=== PATIENT | male | born 1945 | race Caucasian/White ===

== ENCOUNTER 2016-05-29 14:16 | Inpatient (IN) | payer MEDICARE, OTHER ==
[2016-05-29] MEDS ORDERED: NS 0.9% 1000 ML* 1,000 ML IV ONE (14:49)
[2016-05-29 15:14] LABS: Hematocrit 22 % (42-52); Hemoglobin 6.9 g/dl (14.0-18.0); Mean Corpuscular HGB Conc 31 g/dl (31-36); Mean Corpuscular Hemoglobin 24 pg (27-31); Mean Corpuscular Volume 77 fL (80-94); Mean Platelet Volume 6 um3 (7.4-10.4); Red Blood Count 2.88 10^6/ul (4.0-5.4); Red Cell Distribution Width 19 % (10.5-15); White Blood Count 23.7 10^3/ul (3.5-10.8)
[2016-05-29 15:17] LABS: Add Diff/Slide Review? Slide Review Added; Comments Flag Yes
[2016-05-29 15:43] LABS: Albumin 2.5 g/dL (3.2-5.2); BUN/Creatinine Ratio 15.7 (8-20); C Reactive Protein 124.15 mg/L (< 5.00); Calcium 8.7 mg/dL (8.6-10.3); EGFR African American 142.6 (>60); EGFR Non-African American 110.9 (>60); Globulin 3.8 g/dL (2-4); Potassium 4.9 mmol/L (3.5-5.0); Total Bilirubin 0.2 mg/dL (0.2-1.0); Total Protein 6.3 g/dL (6.4-8.9)
[2016-05-29 15:55] LABS: Hypochromasia 2+; Polychromasia 1+
[2016-05-29] MEDS ORDERED: Gentamicin ADULT per pharmacy 1 NOTE MISC FOLLOW UP PRN (16:03)
[2016-05-29 16:16] LABS: Urine Bacteria Absent (Absent); Urine Bilirubin Negative (Negative); Urine Glucose 2+(150 mg/dL) (Negative); Urine Nitrite Negative (Negative)
--- NOTE | 2016-05-29 16:56 | ED ---
Keyshawn Hensley Billy, scribed for Eric Edge MD on 05/29/16 at 1500 . GI/ HPI - HPI Summary HPI Summary: Patient is a 70 year-old male coming to [facility] presenting with intermittent dysuria and hematuria for three weeks, worse today. He denies any abdominal pain. He states that 1 week ago, he had his Lala cathether placed at [facility]. - History of Current Complaint Chief Complaint: EDGeneral Time Seen by Provider: 05/29/16 14:49 Stated Complaint: POSS catheter hemorrhage Hx Obtained From: Patient Onset/Duration: Started Weeks Ago, Worse Since - today Timing: Intermittent Severity: Moderate Current Severity: Moderate Pain Intensity: 10 Associated Signs and Symptoms: Positive: Hematuria, Dysuria Aggravating Factor(s): Nothing Alleviating Factor(s): Nothing - Additional Pertinent History Primary Care Physician: [id number] - Allergy/Home Medications Allergies/Adverse Reactions: Allergies Allergy/AdvReac Type Severity Reaction Status Date / Time Penicillins [PCN] Allergy Severe Hives Verified 05/29/16 14:50 Erythromycin AdvReac Mild GI Upset Verified 05/29/16 14:50 Home Medications: Home Medications Gabapentin CAP(*) [Neurontin 300 CAP(*)] 300 mg PO TID 05/29/16 [History Confirmed 05/29/16] Metformin HCl [Glucophage] 500 mg PO TID 05/29/16 [History Confirmed 05/29/16] Morphine Sulfate [Ms Contin] 15 mg PO BID 05/29/16 [History Confirmed 05/29/16] Senna/Docusate (NF) [Sennokot-S] 1 tab PO BEDTIME 05/29/16 [History Confirmed ] PMH/Surg Hx/FS Hx/Imm Hx Endocrine/Hematology History: Reports: Hx Anticoagulant Therapy, Hx Blood Transfusions, Hx Diabetes - Type II, Hx Unexplained Bleeding - Admitted with rectal bleeding Denies: Hx Blood Disorders, Hx Bone Marrow Disease, Hx Systemic Lupus Erythematosus, Hx Sickle Cell Disease, Hx Thyroid Disease, Hx Anemia Cardiovascular History: Reports: Hx Auto Implanted Cardiovert Defib, Hx Cardiac Arrest, Hx Congestive Heart Failure, Hx Coronary Artery Disease, Hx Hypertension , Hx Pacemaker/ICD - with difibrillator, Other Cardiovascular Problems/ Disorders - Open Heart Surgery Denies: Hx Aneurysm, Hx Angina, Hx Angioplasty, Hx Cardiomegaly, Hx Congenital Heart Disease, Hx Deep Vein Thrombosis, Hx Embolism, Hx Hypercholesterolemia, Hx Hypotension, Hx Myocardial Infarction, Hx Peripheral Vascular Disease, Hx Rheumatic Fever, Hx Syncope, Hx Valvular Heart Disease Respiratory History: Denies: Hx Asthma, Hx Chronic Obstructive Pulmonary Disease (COPD), Hx Pneumonia, Hx Seasonal Allergies GI History: Denies: Hx Cirrhosis, Hx Crohn's Disease, Hx Diverticulosis, Hx Gall Bladder Disease, Hx Gastroesophageal Reflux Disease, Hx Gastrointestinal Bleed, Hx Hiatal Hernia, Hx Irritable Bowel, Hx Jaundice, Hx Obstructive Bowel, Hx Ileostomy, Hx Pyloric Stenosis, Hx Ulcer History: Reports: Hx Kidney Stones - pt states that he had 5 stones in bladder, Other Problems/Disorders - enlarged prostate Denies: Hx Acute Renal Failure, Hx Benign Prostatic Hyperplasia, Hx Chronic Renal Failure, Hx Dialysis, Hx Kidney Infection Musculoskeletal History: Reports: Hx Arthritis - BACK, Hx Back Problems - L4-L5 Laminectomy, Other Musculoskeletal History - Extensive Back Sx/Pain issues Denies: Hx Bursitis, Hx Congenital Bone Abnormalities, Hx Fibromyalgia, Hx Gout, Hx Orthopedic Injury, Hx Osteoporosis, Hx Scoliosis, Hx Tendonitis Sensory History: Reports: Hx Cataracts, Hx Contacts or Glasses, Hx Vision Problem, Hx Hearing Problem - slightly [place] Denies: Hx Eye Injury, Hx Eye Prosthesis, Hx Glaucoma, Hx Legally Blind, Hx Macular Degeneration, Hx Deafness, Hx Hearing Aid, Other Sensory Impairments Opthamlomology History: Reports: Hx Cataracts, Hx Contacts or Glasses, Hx Vision Problem Denies: Hx Eye Injury, Hx Eye Prosthesis, Hx Glaucoma, Hx Legally Blind, Hx Macular Degeneration, Other Sensory Impairments Neurological History: Reports: Other Neuro Impairments/Disorders - numbness and tingling in R hand and leg in morning improves throughout day Denies: Hx Dementia, Hx Developmental Delay, Hx Headaches, Hx Migraine, Hx Nerve Disease, Hx Seizures, Hx Spinal Cord Injury, Hx Transient Ischemic Attacks (TIA) Psychiatric History: Reports: Hx Anxiety Denies: Hx Depression - Cancer History Hx Chemotherapy: No Hx Radiation Therapy: No Hx Palliative Cancer Treatment: No - Surgical History Surgery Procedure, Year, and Place: C4-C7 [id number]. 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, Hx Known/Suspected VRE Denies: Hx Hepatitis, Hx Human Immunodeficiency Virus (HIV), Hx Shingles - Vaccinated, Hx Tuberculosis, Hx Known/Suspected VRSA, Traveled Outside the [place] in Last 30 Days - Family History Known Family History: Positive: Cardiac Disease - father, Diabetes - mother - Social History Alcohol Use: None Substance Use Type: Reports: None Smoking Status (MU): Former Smoker Type: Cigarettes Length of Time of Smoking/Using Tobacco: 20 years Have You Smoked in the Last Year: No Review of Systems Negative: Fever Negative: Abdominal Pain Positive: dysuria, hematuria All Other Systems Reviewed And Are Negative: Yes Physical Exam - Summary Physical Exam Summary: VITAL SIGNS: Reviewed. GENERAL: Patient is an obese male who is lying comfortable in the stretcher. Patient is not in any acute respiratory distress. HEAD AND FACE: No signs of trauma. No ecchymosis, hematomas or skull depressions. No sinus tenderness. EYES: PERRLA, EOMI x 2. EARS: Hearing grossly intact. MOUTH: Oropharynx within normal limits. NECK: Supple, trachea is midline, no adenopathy, no JVD LUNGS: Clear to auscultation bilaterally. No wheezing or crackles. CVS: Regular rate and rhythm, S1 and S2 present, no murmurs or gallops appreciated. ABDOMEN: Soft, obese, non-tender. Bowel sounds are normal. : Uncircumcised penis with both testicles descended. Positive induelling catheter with blood cloths. EXTREMITIES: FROM in all major joints. NEURO: Alert and oriented x 3. No acute neurological deficits. Speech is normal and follows commands. SKIN: Dry and warm. Positive decubitus ulcer which are D/C/I. Positive ulver in his RLE. Triage Information Reviewed: Yes Vital Signs On Initial Exam: Initial Vitals Temp Pulse Resp BP Pulse Ox 97 F 99 17 72/58 96 05/29/16 14:28 05/29/16 14:28 05/29/16 14:28 05/29/16 14:28 05/29/16 14:28 Vital Signs Reviewed: Yes Diagnostics - Vital Signs Vital Signs Temp Pulse Resp BP Pulse Ox 05/29/16 14:28 97 F 99 17 72/58 96 - Laboratory Lab Results: Lab Results 01/05/29/16 05/29/16 Range/Units 14:42 14:42 14:42 WBC 23.7 H (3.5-10.8) 10^3/ul RBC 2.88 L (4.0-5.4) 10^6/ul Hgb 6.9 L (14.0-18.0) g/dl Hct 22 L (42-52) % MCV 77 L (80-94) fL MCH 24 L (27-31) pg MCHC 31 (31-36) g/dl RDW 19 H (10.5-15) % Plt Count 637 H D (150-450) 10^3/ul MPV 6 L (7.4-10.4) um3 Neut % (Auto) 92.2 H (38-83) % Lymph % (Auto) 3.5 L (25-47) % [place] % (Auto) 3.7 (1-9) % Eos % (Auto) 0.2 (0-6) % Baso % (Auto) 0.4 (0-2) % Absolute Neuts (auto) 21.8 H (1.5-7.7) 10^3/ul Absolute Lymphs (auto) 0.8 L (1.0-4.8) 10^3/ul Absolute Monos (auto) 0.9 H (0-0.8) 10^3/ul Absolute Eos (auto) 0.1 (0-0.6) 10^3/ul Absolute Basos (auto) 0.1 (0-0.2) 10^3/ul Absolute Nucleated RBC 0.01 10^3/ul Nucleated RBC % 0 Normal RBC Morphology Not Reportable Polychromasia 1+ Hypochromasia 2+ INR (Anticoag Therapy) (0.89-1.11) APTT (26.0-36.3) seconds Sodium 117 L* (133-145) mmol/L Potassium 4.9 (3.5-5.0) mmol/L Chloride 86 L (101-111) mmol/L Carbon Dioxide 22 (22-32) mmol/L Anion Gap 9 (2-11) mmol/L BUN 11 (6-24) mg/dL Creatinine 0.70 (0.67-1.17) mg/dL Est GFR ( Amer) 142.6 (>60) Est GFR (Non-Af Amer) 110.9 (>60) BUN/Creatinine Ratio 15.7 (8-20) Glucose 290 H (70-100) mg/dL Lactic Acid 3.4 H* (0.5-2.0) mmol/L Calcium 8.7 (8.6-10.3) mg/dL Total Bilirubin 0.20 (0.2-1.0) mg/dL AST 20 (13-39) U/L ALT 14 (7-52) U/L Alkaline Phosphatase 104 (34-104) U/L C-Reactive Protein 124.15 H (< 5.00) mg/L B-Natriuretic Peptide ( - 100) pg/mL Total Protein 6.3 L (6.4-8.9) g/dL Albumin 2.5 L (3.2-5.2) g/dL Globulin 3.8 (2-4) g/dL Albumin/Globulin Ratio 0.7 L (1-3) Amylase 21 L (29-103) U/L Lipase 26 (11.0-82.0) U/L Urine Color Urine Appearance Urine pH (5-9) Ur Specific [place] (1.010-1.030) Urine Protein (Negative) Urine Ketones (Negative) Urine Blood (Negative) Urine Nitrate (Negative) Urine Bilirubin (Negative) Urine Urobilinogen (Negative) Ur Leukocyte Esterase (Negative) Urine WBC (Auto) (Absent) Urine RBC (Auto) (Absent) Urine Bacteria (Absent) Urine Glucose (Negative) Blood Type Antibody Screen Crossmatch 05/29/16 05/29/16 05/29/16 Range/Units 14:42 14:42 14:50 WBC (3.5-10.8) 10^3/ul RBC (4.0-5.4) 10^6/ul Hgb (14.0-18.0) g/dl Hct (42-52) % MCV (80-94) fL MCH (27-31) pg MCHC (31-36) g/dl RDW (10.5-15) % Plt Count (150-450) 10^3/ul MPV (7.4-10.4) um3 Neut % (Auto) (38-83) % Lymph % (Auto) (25-47) % [place] % (Auto) (1-9) % Eos % (Auto) (0-6) % Baso % (Auto) (0-2) % Absolute Neuts (auto) (1.5-7.7) 10^3/ul Absolute Lymphs (auto) (1.0-4.8) 10^3/ul Absolute Monos (auto) (0-0.8) 10^3/ul Absolute Eos (auto) (0-0.6) 10^3/ul Absolute Basos (auto) (0-0.2) 10^3/ul Absolute Nucleated RBC 10^3/ul Nucleated RBC % Normal RBC Morphology Polychromasia Hypochromasia INR (Anticoag Therapy) 1.17 H (0.89-1.11) APTT 30.3 (26.0-36.3) seconds Sodium (133-145) mmol/L Potassium (3.5-5.0) mmol/L Chloride (101-111) mmol/L Carbon Dioxide (22-32) mmol/L Anion Gap (2-11) mmol/L BUN (6-24) mg/dL Creatinine (0.67-1.17) mg/dL Est GFR ( Amer) (>60) Est GFR (Non-Af Amer) (>60) BUN/Creatinine Ratio (8-20) Glucose (70-100) mg/dL Lactic Acid (0.5-2.0) mmol/L Calcium (8.6-10.3) mg/dL Total Bilirubin (0.2-1.0) mg/dL AST (13-39) U/L ALT (7-52) U/L Alkaline Phosphatase (34-104) U/L C-Reactive Protein (< 5.00) mg/L B-Natriuretic Peptide 406 H ( - 100) pg/mL Total Protein (6.4-8.9) g/dL Albumin (3.2-5.2) g/dL Globulin (2-4) g/dL Albumin/Globulin Ratio (1-3) Amylase (29-103) U/L Lipase (11.0-82.0) U/L Urine Color Urine Appearance Urine pH (5-9) Ur Specific [place] (1.010-1.030) Urine Protein (Negative) Urine Ketones (Negative) Urine Blood (Negative) Urine Nitrate (Negative) Urine Bilirubin (Negative) Urine Urobilinogen (Negative) Ur Leukocyte Esterase (Negative) Urine WBC (Auto) (Absent) Urine RBC (Auto) (Absent) Urine Bacteria (Absent) Urine Glucose (Negative) Blood Type O Positive Antibody Screen Negative Crossmatch See Detail 05/29/16 Range/Units 15:50 WBC (3.5-10.8) 10^3/ul RBC (4.0-5.4) 10^6/ul Hgb (14.0-18.0) g/dl Hct (42-52) % MCV (80-94) fL MCH (27-31) pg MCHC (31-36) g/dl RDW (10.5-15) % Plt Count (150-450) 10^3/ul MPV (7.4-10.4) um3 Neut % (Auto) (38-83) % Lymph % (Auto) (25-47) % [place] % (Auto) (1-9) % Eos % (Auto) (0-6) % Baso % (Auto) (0-2) % Absolute Neuts (auto) (1.5-7.7) 10^3/ul Absolute Lymphs (auto) (1.0-4.8) 10^3/ul Absolute Monos (auto) (0-0.8) 10^3/ul Absolute Eos (auto) (0-0.6) 10^3/ul Absolute Basos (auto) (0-0.2) 10^3/ul Absolute Nucleated RBC 10^3/ul Nucleated RBC % Normal RBC Morphology Polychromasia Hypochromasia INR (Anticoag Therapy) (0.89-1.11) APTT (26.0-36.3) seconds Sodium (133-145) mmol/L Potassium (3.5-5.0) mmol/L Chloride (101-111) mmol/L Carbon Dioxide (22-32) mmol/L Anion Gap (2-11) mmol/L BUN (6-24) mg/dL Creatinine (0.67-1.17) mg/dL Est GFR ( Amer) (>60) Est GFR (Non-Af Amer) (>60) BUN/Creatinine Ratio (8-20) Glucose (70-100) mg/dL Lactic Acid (0.5-2.0) mmol/L Calcium (8.6-10.3) mg/dL Total Bilirubin (0.2-1.0) mg/dL AST (13-39) U/L ALT (7-52) U/L Alkaline Phosphatase (34-104) U/L C-Reactive Protein (< 5.00) mg/L B-Natriuretic Peptide ( - 100) pg/mL Total Protein (6.4-8.9) g/dL Albumin (3.2-5.2) g/dL Globulin (2-4) g/dL Albumin/Globulin Ratio (1-3) Amylase (29-103) U/L Lipase (11.0-82.0) U/L Urine Color Red A Urine Appearance Cloudy Urine pH 7.0 (5-9) Ur Specific [place] 1.018 (1.010-1.030) Urine Protein 3+(>=500 mg/dl) H (Negative) Urine Ketones Negative (Negative) Urine Blood 2+ H (Negative) Urine Nitrate Negative (Negative) Urine Bilirubin Negative (Negative) Urine Urobilinogen Negative (Negative) Ur Leukocyte Esterase Negative (Negative) Urine WBC (Auto) 2+(11-20/hpf) H (Absent) Urine RBC (Auto) 3+(>10/hpf) H (Absent) Urine Bacteria Absent (Absent) Urine Glucose 2+(150 mg/dl) H (Negative) Blood Type Antibody Screen Crossmatch Result Diagrams: 05/29/16 14:42 05/29/16 14:42 Lab Statement: Any lab studies that have been ordered have been reviewed, and results considered in the medical decision making process. GIGU Course/Dx - Course Assessment/Plan: Bloodwork shows WBC of 23.7, Hgb of 6.9, hematocrit of 22, and platelets of 637. This is consistent with his hematuria and possibly a UTI vs sepsis. Sodium of 117, glucose of 290, CRP of 124, BNP of 406. For the hyponatremia, he was started on IV fluids as well as for his hypertension. UA shows a red color, 3+ protein, 2+ blood, and 2+ WBCs, consistent with UTI and hematuria. The patient was started on rocephin. We changed the Lala catheter, which expressed multiple blood clots, now he has Lala catheter 22 [place], and now the hematuria is flowing. The patient is DNR/DNI, he refuses blood, or any other intervention. However, after speaking with the patient, he agreed to have blood transfusions and IV fluids. The blood pressure improved to 102/57, and he does not have any pain. At this time, I discussed my physical exam findings with Dr. Menezes, who accepted the patient for admission. - Diagnoses Differential Diagnoses - Male: Prostatitis, Pyelonephritis, Renal Calculi, Urinary Tract Infection Provider Diagnoses: Painless hematuria, uti vs urosepsis, Symptomatic anemia, Hyponatremia, CHF ( congestive heart failure) - Physician Notifications Discussed Care Of Patient With: Dr. Menezes (hospitalist) @ [id number]: will see the patient in the ED. Dr. Menezes (hospitalist) @ [id number]: accepts patient for admission. - Critical Care Time Critical Care Time: 30-74 min Discharge - Discharge Plan Condition: Stable Disposition: ADMITTED TO [facility] Referrals: Jannette Steinberg MD [Primary Care Provider] - The documentation as recorded by the Keyshawn chavez Billy accurately reflects the service I personally performed and the decisions made by me, Eric Edge MD.
[2016-05-29] MEDS ORDERED: Vancomycin(*) 1,250 MG in NS 0.9% 250 ML* 250 ML IVPB ONE (17:00)
[2016-05-29] MEDS ORDERED: NS 0.9% 500 ML BAG* 500 ML IV ONE (17:00)
[2016-05-29] MEDS ORDERED: Vancomycin per Pharmacy* NOTE FOLLOW UP PRN (17:31)
[2016-05-29] MEDS: Gabapentin CAP(*) 300 MG PO SCH (21:14)
[2016-05-29] MEDS: Morphine TAB Extended Release (*) 15 MG TAB.ER PO SCH (21:14)
[2016-05-30] MEDS ORDERED: Haloperidol INJ IV/IM* 5 MG/ML AMP IV SLOW PU PRN (00:30)
[2016-05-30] MEDS ORDERED: Morphine INJ* 4 MG/ML 1 ML SYRINGE ONE (00:36)
[2016-05-30] MEDS ORDERED: Haloperidol INJ IV/IM* 5 MG/ML AMP ONE (00:36)
[2016-05-30] MEDS: Morphine INJ* 4 MG/ML 1 ML SYRINGE IV PRN ×4 (00:39→18:27)
[2016-05-30] MEDS ORDERED: HYDROmorphone* 1 MG/ML 1 ML SYR IV SLOW PU ONE (01:05)
[2016-05-30 05:28] LABS: Hematocrit 24 % (42-52); Hemoglobin 7.8 g/dl (14.0-18.0); Mean Corpuscular HGB Conc 33 g/dl (31-36); Mean Corpuscular Hemoglobin 25 pg (27-31); Mean Corpuscular Volume 78 fL (80-94); Mean Platelet Volume 6 um3 (7.4-10.4); Red Blood Count 3.07 10^6/ul (4.0-5.4); Red Cell Distribution Width 18 % (10.5-15); White Blood Count 22.1 10^3/ul (3.5-10.8)
[2016-05-30 05:41] LABS: BUN/Creatinine Ratio 16.2 (8-20); Calcium 8.2 mg/dL (8.6-10.3); EGFR African American 133.7 (>60)
[2016-05-30] MEDS: Amiodarone TAB* 200 MG PO SCH (08:07)
[2016-05-30] MEDS: Morphine TAB Extended Release (*) 15 MG TAB.ER PO SCH ×2 (08:07→22:07)
[2016-05-30] MEDS: Gabapentin CAP(*) 300 MG PO SCH ×3 (08:07→22:08)
[2016-05-30] MEDS: Vancomycin(*) 1,250 MG in NS 0.9% 250 ML* 250 ML IVPB SCH ×2 (09:12→22:09)
[2016-05-30] MEDS ORDERED: HYDROmorphone* 1 MG/ML 1 ML SYR ONE (09:58)
[2016-05-30] MEDS ORDERED: HYDROmorphone* 1 MG/ML 1 ML SYR IV ONE (10:00)
[2016-05-30] MEDS ORDERED: LORazepam INJ* 2 MG/ML 1 ML VIAL IV PUSH PRN (16:38)
[2016-05-30] MEDS: Insulin REGULAR(*) 1 UNITS UNIT SUBCUT SCH ×2 (16:41→22:14)
[2016-05-30] MEDS: Acetaminophen TAB* 325 MG PO PRN (19:39)
--- NOTE | 2016-05-30 21:19 | PN ---
Subjective Date of Service: 05/30/16 Interval History: . doing better more alert some anxiety - agreed to add low dose benzo for intermittent use other times c/o L ankle (wound) pain -- intermittent opiate use -- he is chronically using them less profound hematuria -- hgb up > 7 --> transfuse another 2 units and goal at least 9 mg/dL - recheck H/H in AM. plan for back to [facility]. ongoing abx - wbc better vitals stable. . Family History: Unchanged from Admission Social History: Unchanged from Admission Past Medical History: Unchanged from Admission Objective Active Medications: . Acetaminophen (Tylenol Tab*) 650 mg PO Q4H PRN PRN Reason: FEVER/PAIN Last Admin: 05/30/16 19:39 Dose: 650 mg Amiodarone HCl (Cordarone Tab*) 200 mg PO DAILY [facility] Last Admin: 05/30/16 08:07 Dose: 200 mg Gabapentin (Neurontin Cap(*)) 300 mg PO TID [facility] Last Admin: 05/30/16 13:50 Dose: 300 mg Haloperidol Lactate (Haldol Inj Iv/Im*) 2 mg IV SLOW PU Q6H PRN PRN Reason: AGITATION Last Admin: 05/30/16 00:38 Dose: 2 mg Gentamicin Sulfate 200 mg/ (Sodium Chloride) 105 mls @ 210 mls/hr IVPB Q24H [facility] Last Admin: 05/30/16 18:35 Dose: 210 mls/hr Vancomycin HCl 1,250 mg/ (Sodium Chloride) 250 mls @ 166.667 mls/hr IVPB Q12H [facility] Last Admin: 05/30/16 09:12 Dose: 166.667 mls/hr Insulin Human Regular (Insulin Regular(*)) 0 units SUBCUT ACHS [facility] PRN Reason: Protocol Last Admin: 05/30/16 16:41 Dose: Not Given Lorazepam (Ativan Inj*) 0.5 mg IV PUSH Q4H PRN PRN Reason: ANXIETY Last Admin: 05/30/16 19:39 Dose: 0.5 mg Morphine Sulfate (Ms Contin(*)) 15 mg PO BID [facility] Last Admin: 05/30/16 08:07 Dose: 15 mg Morphine Sulfate (Morphine Inj (Syringe)*) 4 mg IV Q4H PRN PRN Reason: PAIN Last Admin: 01/15/17 18:27 Dose: 4 mg Pharmacy Consult (Gentamicin Adult Per Pharmacy) 1 note FOLLOW UP .GENT PER PHARMACY PRN PRN Reason: PER PROTOCOL Stop: 06/12/16 16:04 Pharmacy Consult (Vancomycin Per Pharmacy*) 1 note FOLLOW UP . PRN PRN Reason: PER PROTOCOL Pharmacy Profile Note (Gentamicin Peak Level*) 1 note FOLLOW UP 1900 ONE Stop: 05/31/16 19:01 Pharmacy Profile Note (Gentamicin Trough Level) 1 note FOLLOW UP 1730 ONE Stop: 05/31/16 17:31 Pharmacy Profile Note (Vancomycin Trough Check) 1 note FOLLOW UP 0930 ONE Stop: 05/31/16 09:31 . Vital Signs 05/29/16 05/29/16 05/29/16 21:21 21:30 22:00 Temperature Pulse Rate 84 84 90 Respiratory 16 19 17 Rate Blood Pressure 115/69 100/82 85/59 (mmHg) O2 Sat by Pulse 98 97 97 Oximetry 05/29/16 05/29/16 05/29/16 22:02 22:04 22:23 Temperature 97.3 F Pulse Rate 87 87 Respiratory 18 18 Rate Blood Pressure 65/41 91/58 (mmHg) O2 Sat by Pulse 99 99 Oximetry Oxygen Devices in Use Now: Nasal Cannula Appearance: elderly, chronically ill Ears/Nose/Mouth/Throat: Clear Oropharnyx Neck: Trachea Midline Respiratory: Symmetrical Chest Expansion and Respiratory Effort Cardiovascular: NL Sounds; No Murmurs; No JVD Abdominal: NL Sounds; No Tenderness; No Distention, - - obese / tomlinson cath Extremities: - - RLE amputation ; multiple wounds Neurological: Alert and Oriented x 3 Lines/Tubes/Other Access: Clean, Dry and Intact Peripheral IV Nutrition: Taking PO's Result Diagrams: 05/30/16 05:18 05/30/16 05:18 Additional Lab and Data: . Microbiology and Other Data: Microbiology 05/29/16 16:00 Aerobic Blood Culture - Preliminary Blood Venous No Growth Day 1 Anaerobic Blood Culture - Preliminary No Growth Day 1 05/29/16 16:00 Aerobic Blood Culture - Preliminary Blood Venous No Growth Day 1 Anaerobic Blood Culture - Preliminary No Growth Day 1 05/29/16 16:04 Nasal Screen MRSA (PCR)([id number]) - Final Nasal Mrsa Negative Assess/Plan/Problems-Billing . Assessment: 70 yo man with acute cystitis assoicated wit5h indwelling tomlinson catheter - POA - now with acute blood loss anemia and profound hyponatremia resulting from hypovolemia/dehydration. Altered mental status at admission improved with prbc and stabilization (and treatment of UTI/cystitis). Ongoing lower extremity pain and chronic wound management (possible osteomyelitis) also concerns. . - Patient Problems (1) Hematuria due to cystitis Current Visit: Yes Status: Acute Priority: High Code(s): N30.91 - CYSTITIS , UNSPECIFIED WITH HEMATURIA Comment: - 4 units prbc total - H/H in AM - tomlinson changed - treat cystitis; hematuria resolving. - gentamicin / ceftriaxone / vanco being tolerated well...tailor based on culture results. (2) Systolic and diastolic CHF, acute on chronic Current Visit: No Status: Acute Priority: Medium Code(s): I50.43 - ACUTE ON CHRONIC COMBINED SYSTOLIC AND DIASTOLIC HRT FAIL Comment: - low EF noted; but patient is far under normal fluid status -- I think he needs the 3rd/4th units. judiciously restart diuretic following that. - sodium concentration low good indication of hypovolemia in this patient. (3) Obesity, morbid, BMI 50 or higher Current Visit: No Status: Chronic Priority: Low Code(s): E66.01 - MORBID ( SEVERE) OBESITY DUE TO EXCESS CALORIES Comment: - noted (4) Presence of combination internal cardiac defibrillator (ICD) and pacemaker Current Visit: No Status: Chronic Priority: Low Code(s): Z95.810 - PRESENCE OF AUTOMATIC (IMPLANTABLE) CARDIAC DEFIBRILLATOR Comment: - noted (5) S/P CABG x 6 Current Visit: No Status: Chronic Priority: Low Code(s): Z95.1 - PRESENCE OF AORTOCORONARY BYPASS GRAFT Comment: - noted (6) Type 2 diabetes mellitus treated without insulin Current Visit: No Status: Chronic Priority: Medium Code(s): E11.9 - TYPE 2 DIABETES MELLITUS WITHOUT COMPLICATIONS Comment: - follow blood sugars - CC diet; continue DM management
--- NOTE | 2016-05-31 00:02 | HP ---
HISTORY AND PHYSICAL: DATE OF ADMISSION: 05/29/16 TIME OF MY EVALUATION: 6:00 p.m. PRIMARY CARE PROVIDER: Harris Steinberg MD - currently residing at [facility] and followed by the [facility] staff. OUTPATIENT UROLOGIST: Javi Escalante MD. CHIEF COMPLAINT: [facility] staff sent the patient for gross hematuria. HISTORY OF PRESENT ILLNESS: Please see the ED documentation on 05/29/16. In brief, Mr. Adams is a 70-year-old man who came to the [facility] ED, sent by longterm staff with intermittent dysuria and hematuria with an indwelling Lala catheter placed at [facility]. The patient's Lala was placed, by report, for urinary retention--he is under the care of urology. He was in his usual state of health 3 days ago and there started some dysuria and some discolored urine and this progressed to magui bleeding and he presents to the hospital with severe anemia. In particular, the patient's presenting hemoglobin is 6.9. He has a greatly elevated white blood cell count of 23.7. He has some other significant lab abnormalities including sodium of 117 and evidence severe ( clinical) dehydration, hypochloridemia with 86 and a lactic acid of 3.4. The patient is being hydrated but he is known to have congestive heart failure and is being referred to the hospitalist service for admission. He is currently not on anticoagulation but was previously so. The presumption at the point of admission was acute cystitis in the setting of an indwelling Lala with resultant hematuria and now hypovolemia secondary to his overall poor oral intake. PAST MEDICAL HISTORY: 1. Chronic systolic congestive heart failure with ejection fraction 25% to 30%. He has a history of a multivessel (6) CABG. 2. Acute posthemorrhagic anemia post cystoscopy. 3. Vitamin D deficiency. 4. History of enterocolitis secondary to Clostridium difficile. 5. Calculus of gallbladder without cholecystitis without obstruction. 6. History of renal calculus and bladder stones followed by Urology in the outpatient setting with multiple episodes of hematuria while on blood thinner and off, has both right renal and bladder stones. 7. Ventricular tachycardia with AICD in situ - patient has been cardioverted and has had ablations. 8. Type 2 diabetes mellitus without known complications. 9. 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 10. Obesity. 11. Peripheral edema and at times hypoproteinemia. 12. Essential primary hypertension. 13. Spinal stenosis in the cervical region with history of cervical decompression by Dr. Guajardo but still with residual symptoms and disability. 14. Chronic low back pain. 15. 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 16. Hyposmolality and hyponatremia in the setting of dehydration and hypovolemia. 17. Atrial fibrillation. OUTPATIENT MEDICATIONS: 1. Aspirin 81 mg by mouth daily. 2. Bumex 1 to 3 mg by mouth daily based on fluid level and fluid status. 3. Lisinopril 10 mg by mouth daily. 4. Metformin 500 mg by mouth 3 times daily. 5. Senna docusate 1 tab by mouth at bedtime. 6. Zinc oxide paste 1 application topically 3 times daily. 7. Oxycodone 5 to 10 mg by mouth every 4 hours as needed for pain. 8. Amiodarone 200 mg by mouth daily. 9. Gabapentin 300 mg by mouth 3 times daily. 10. Morphine sulfate 15 mg by mouth twice daily and short acting pain control with Roxicodone as above. ALLERGIES: PENICILLIN/ERYTHROMYCIN. FAMILY HISTORY: Reviewed and noncontributory based on the current situation. SOCIAL HISTORY: The patient lives at [facility] currently. He is . He is accompanied by his who is a surrogate decision maker. He does have a MOLST, which demonstrates he is a DNR/DNI. There was some confusion about this but his corroborated that this is the desired plan and I reconfirmed and recertified the MOLST. PHYSICAL EXAMINATION GENERAL APPEARANCE: Chronically ill-appearing gentleman in no apparent distress but certainly not well appearing, morbidly obese, noted right amputation. VITAL SIGNS: On admission, temperature 97 degrees Fahrenheit, pulse high 90s irregularly irregular consistent with atrial fibrillation, respirations 17 and unlabored, oxygen saturation 96% on room air. Blood pressure tenuous at 80s/50s , other times 1 teens/80s. HEENT: Oropharynx is clear, very unkempt oral hygiene. NECK: Supple. JVD to 7 cm with the patient positioned at 45 degrees. No bruits appreciated. LUNGS: His lungs are clear anteriorly. HEART: Irregularly irregular but rate controlled. No murmurs appreciated. Sternal scar from old CABG noted. ABDOMEN: Obese, nontender. An indwelling Lala is in place draining magui red urine with clots in the tube and bag. This was replaced by report by the ED staff. Lower extremities significant for right lower extremity amputation. He has got multiple pressure-related wounds including to his left lower extremity and his hips bilaterally. They are not foul smelling and generally dry. NEUROLOGIC: The patient could not cooperate with a full neuro exam but moves his extremities spontaneously. PSYCH: Limited medical recall and insight. LYMPH: No adenopathy appreciated. ADMISSION DATA: Sodium 117, potassium 4.9, chloride 86, bicarb 22, BUN 11, creatinine 0.7, glucose elevated at 290, lactic acid 3.4, calcium 8.7. LFTs are preserved. CRP greatly elevated at 124. BNP 406. Total protein and albumin are 6.3 and 2.5 respectively. Amylase and lipase are 21 and 26 respectively. Urinalysis with multiple abnormalities including 3+ proteinuria, 2 + hematuria, 2+ white blood cells and 3+ RBCs, all together consistent with acute cystitis. The patient's red blood cell count is greatly elevated at 23. On admission, hemoglobin 6.9, platelets 637. IMPRESSION: Mr. Adams is a 70-year-old gentleman with hematuria and ongoing blood loss and hypovolemia characterized by hyponatremia and hypotension. The patient is suffering from acute blood loss anemia secondary to cystitis and hematuria in the setting of a chronic indwelling Lala. The patient is being started on dual antibiotic treatment with gentamicin and ceftriaxone. Urine cultures will inform how to tailor this regimen. In the meantime, I am ordering the patient 2 units of packed red blood cells as well as a 500 cc normal saline bolus. I understand the patient has a history of low ejection fraction but I think he is greatly hypovolemic relative to his baseline volume state. I think his BNP is chronically elevated and in this setting, I am okay giving him this much volume back. I am going to place the patient in the ICU for initial observation. I think the hyponatremia will improve with his intravascular volume status. I think he may need more than 2 units of blood but we will start there. I think the antibiotics and the exchange of the Lala catheter will help his cystitis and I do not have any reason to believe there is bladder pathology beyond the infection to explain the bleeding. His white blood cell count is impressive. He is borderline hypotensive but I think this is mainly related to his hypovolemia. His outpatient medications are going to be continued. His amiodarone, in particular, will be continued because of his history of ventricular tachycardia. He does have an AICD in place and I presume that is working. The patient's atrial fibrillation is not problematic at this point. In between his units of packed red blood cells, his volume status will be assessed. We can always resume his diuretics, but for now, I think he is very hypovolemic. The patient is a DNR/DNI. His MOLST is completed/updated. His surrogate decision maker is his . She has identified herself here in the emergency room and wishes to be involved with all healthcare decisions that are being made. The patient is critically ill at this point. I think the blood is a life saving maneuver. At the conclusion of the hospitalization, the patient will be discharged back to [facility] with outpatient urology followup regarding his Lala catheter. In terms of the absence of urology coverage at the point of admission, I think it is still safe because I do not think there will be a need for urologic intervention. I think this is straight hematuria secondary to the inflammation and cystitis, and I do not think that the management will change even if the urologists were present for consultation. TIME SPENT: Total time taken to admit Mr. Adams on 05/29/16 was 75 minutes, greater than half the time was spent explaining the hospital plan of care to the patient who agreed with it but also duly explaining to his who also agreed with the plan and authorized me to proceed. [id number]/[facility] #: [id number] TAYLOR
[2016-05-31 05:54] LABS: Hematocrit 29 % (42-52); Hemoglobin 9.5 g/dl (14.0-18.0); Mean Corpuscular HGB Conc 33 g/dl (31-36); Mean Corpuscular Hemoglobin 27 pg (27-31); Mean Corpuscular Volume 80 fL (80-94); Mean Platelet Volume 6 um3 (7.4-10.4); Red Cell Distribution Width 19 % (10.5-15)
[2016-05-31 06:09] LABS: BUN/Creatinine Ratio 15.1 (8-20); Calcium 8.7 mg/dL (8.6-10.3); EGFR African American 135.8 (>60); EGFR Non-African American 105.6 (>60); Potassium 4.5 mmol/L (3.5-5.0)
[2016-05-31] MEDS: Insulin REGULAR(*) 1 UNITS UNIT SUBCUT SCH ×4 (08:41→21:27)
[2016-05-31] MEDS: Gabapentin CAP(*) 300 MG PO SCH ×3 (08:44→21:26)
[2016-05-31] MEDS: Morphine TAB Extended Release (*) 15 MG TAB.ER PO SCH ×2 (08:44→21:27)
[2016-05-31] MEDS: Amiodarone TAB* 200 MG PO SCH (08:45)
[2016-05-31] MEDS ORDERED: Vancomycin Trough Check NOTE FOLLOW UP ONE (09:30)
--- NOTE | 2016-05-31 09:51 | PN ---
Subjective Date of Service: 05/31/16 Interval History: No c/o. Family History: Unchanged from Admission Social History: Unchanged from Admission Past Medical History: Unchanged from Admission Objective Active Medications: Acetaminophen (Tylenol Tab*) 650 mg PO Q4H PRN PRN Reason: FEVER/PAIN Last Admin: 05/30/16 19:39 Dose: 650 mg Amiodarone HCl (Cordarone Tab*) 200 mg PO DAILY [facility] Last Admin: 05/31/16 08:45 Dose: 200 mg Gabapentin (Neurontin Cap(*)) 300 mg PO TID [facility] Last Admin: 05/31/16 08:44 Dose: 300 mg Haloperidol Lactate (Haldol Inj Iv/Im*) 2 mg IV SLOW PU Q6H PRN PRN Reason: AGITATION Last Admin: 05/30/16 00:38 Dose: 2 mg Cefepime HCl 2 gm/ Sodium (Chloride) 50 mls @ 100 mls/hr IVPB Q12H [facility] Insulin Human Regular (Insulin Regular(*)) 0 units SUBCUT ACHS [facility] PRN Reason: Protocol Last Admin: 05/31/16 08:41 Dose: Not Given Lorazepam (Ativan Inj*) 0.5 mg IV PUSH Q4H PRN PRN Reason: ANXIETY Last Admin: 05/30/16 19:39 Dose: 0.5 mg Morphine Sulfate (Ms Contin(*)) 15 mg PO BID [facility] Last Admin: 05/31/16 08:44 Dose: 15 mg Morphine Sulfate (Morphine Inj (Syringe)*) 4 mg IV Q4H PRN PRN Reason: PAIN Last Admin: 05/30/16 18:27 Dose: 4 mg Vital Signs 05/30/16 05/30/16 05/30/16 10:00 11:00 11:44 Temperature 99.5 F Pulse Rate 95 81 85 Respiratory 19 16 16 Rate Blood Pressure 131/50 112/61 112/46 (mmHg) O2 Sat by Pulse 97 95 95 Oximetry 05/30/16 05/30/16 05/30/16 12:02 13:10 13:43 Temperature 99.5 F 98.2 F 98.0 F Pulse Rate 82 85 88 Respiratory 16 16 16 Rate Blood Pressure 112/46 113/54 127/56 (mmHg) O2 Sat by Pulse 95 95 98 Oximetry 01/15/17 01/15/17 01/15/17 13:50 14:50 15:50 Temperature Pulse Rate Respiratory 16 16 16 Rate Blood Pressure (mmHg) O2 Sat by Pulse Oximetry 05/30/16 05/30/16 05/30/16 17:03 18:27 19:27 Temperature 98.2 F Pulse Rate 86 Respiratory 16 16 20 Rate Blood Pressure 120/53 (mmHg) O2 Sat by Pulse 97 Oximetry 05/30/16 05/30/16 05/30/16 19:39 20:00 20:15 Temperature 98.8 F Pulse Rate 90 Respiratory 20 15 16 Rate Blood Pressure 110/56 (mmHg) O2 Sat by Pulse 91 Oximetry 05/30/16 05/30/16 05/30/16 20:20 22:07 22:08 Temperature 98.8 F Pulse Rate 89 Respiratory 12 15 15 Rate Blood Pressure (mmHg) O2 Sat by Pulse 89 Oximetry 05/30/16 05/31/16 05/31/16 23:31 00:07 03:53 Temperature 98.3 F 98.8 F Pulse Rate 82 86 Respiratory 18 18 22 Rate Blood Pressure 121/41 140/56 (mmHg) O2 Sat by Pulse 96 92 Oximetry 05/31/16 05/31/16 07:42 08:44 Temperature 99.1 F Pulse Rate 83 Respiratory 16 16 Rate Blood Pressure 119/36 (mmHg) O2 Sat by Pulse 96 Oximetry Oxygen Devices in Use Now: None Appearance: Alert, lying on hi L side i bed. Neutral affect, Looks comfortable. Eyes: No Scleral Icterus Respiratory: Symmetrical Chest Expansion and Respiratory Effort, Clear to Auscultation, Clear to Percussion, Clear to Palpation, - Cardiovascular: NL Sounds; No Murmurs; No JVD, RRR, No Edema, - Extremities: No Edema, No Clubbing, Cyanosis, - Skin: No Nodules or Sclerosis, - - Decubitus ulcer bandaged. Neurological: Alert and Oriented x 3, NL Sensation Result Diagrams: 05/31/16 05:20 05/31/16 05:20 Additional Lab and Data: . Microbiology and Other Data: Microbiology 05/29/16 16:00 Aerobic Blood Culture - Preliminary Blood Venous No Growth Day 1 Anaerobic Blood Culture - Preliminary No Growth Day 1 05/29/16 16:00 Aerobic Blood Culture - Preliminary Blood Venous No Growth Day 1 Anaerobic Blood Culture - Preliminary No Growth Day 1 05/29/16 16:04 Nasal Screen MRSA (PCR)(MEENAKSHI) - Final Nasal Mrsa Negative Assess/Plan/Problems-Billing . Assessment: 70 yo man with acute cystitis assoicated wit5h indwelling tomlinson catheter - POA - now with acute blood loss anemia and profound hyponatremia resulting from hypovolemia/dehydration. Altered mental status at admission improved with prbc and stabilization (and treatment of UTI/cystitis). Ongoing lower extremity pain and chronic wound management (possible osteomyelitis) also concerns. . - Patient Problems (1) Hematuria due to cystitis Current Visit: Yes Status: Acute Priority: High Code(s): N30.91 - CYSTITIS , UNSPECIFIED WITH HEMATURIA SNOMED Code(s): 278907540787220 Comment: Urine C&S sent 05/31/16. Change to cefepime. CT abd pelvis w/o ordered. Dr. Escalante to consult, discused briefly on the phone with him. (2) Ischemic cardiomyopathy Current Visit: Yes Status: Acute Code(s): I25.5 - ISCHEMIC CARDIOMYOPATHY SNOMED Code(s): 467427521 Comment: With V-tach, ICD, CABG. Continue amiodarone, hold ASA for now. (3) Type 2 diabetes mellitus treated without insulin Current Visit: No Status: Chronic Priority: Medium Code(s): E11.9 - TYPE 2 DIABETES MELLITUS WITHOUT COMPLICATIONS SNOMED Code(s): 13371199 Comment: Hold metformin, continue Lispro by SS. (4) Decubital ulcer Current Visit: Yes Status: Acute Code(s): L89.90 - PRESSURE ULCER OF UNSPECIFIED SITE, UNSPECIFIED STAGE SNOMED Code(s): 998793568 Comment: Woound consult pending. (5) Essential hypertension Current Visit: No Status: Chronic Priority: Low Code(s): I10 - ESSENTIAL ( PRIMARY) HYPERTENSION SNOMED Code(s): 97411440 Comment: Lisinopril on hold.
[2016-05-31] MEDS: Acetaminophen TAB* 325 MG PO PRN (11:02)
[2016-05-31] MEDS: Cefepime(*) 2 GM in NS 0.9% 50 ML* 50 ML IVPB SCH ×2 (11:03→21:30)
--- NOTE | 2016-05-31 11:11 | RAD ---
INDICATION: Gross hematuria. COMPARISON: Comparison is made with a prior CT of the abdomen and pelvis from May 12, 2015. TECHNIQUE: A CT scan of the abdomen and pelvis was performed without intravenous or oral contrast. Contiguous axial sections were obtained from the lung bases through the symphysis pubis. Images were reconstructed in the coronal and sagittal planes. FINDINGS: Images through the lung bases demonstrate small bilateral pleural effusions and small pleural-based nodular densities present laterally in the right lower lobe measuring up to 1.2 cm in size. The liver is mildly enlarged. There are a couple coarse calcifications present within the right hepatic lobe which are unchanged. There are calcified gallstones present. The gallbladder is not distended. The pancreas appears to be within normal limits. The spleen is normal in size without significant focal abnormality. The adrenal glands and kidneys are normal in size. There is a 2.8 cm hypodense area present in the midportion of the right kidney which is unchanged from the prior study. This measures fluid density and likely represents a cyst. There is a calculus present in a mid pole calyx in the right kidney measuring 1.1 x 0.6 cm in size. No hydronephrosis is seen. There is a catheter within the urinary bladder. There is increased density present peripherally within the bladder possibly representing hemorrhage although a bladder mass cannot be excluded. There is also a small amount of air within the urinary bladder. The aorta is normal in caliber with moderate calcific plaque present. No significant enlarged retroperitoneal lymph nodes are seen. The stomach, small and large bowel appear nondistended. The appendix is within normal limits. There is no evidence for diverticulitis or colitis. There is a small periumbilical hernia containing fat. There is a right inguinal hernia containing fat. No free intraperitoneal air or fluid is seen. There are multiple small radiolucent lesions present within the pelvic bones which are most prominent in the region of the pubic symphysis and inferior pubic rami. There are also small radiolucent lesions in the proximal femurs. These would be most consistent with metastatic disease. IMPRESSION: 1. SMALL BILATERAL PLEURAL EFFUSIONS AND SMALL FOCAL PLEURAL-BASED NODULES IN THE RIGHT LOWER LOBE. RECOMMEND A CT OF THE CHEST FOR FURTHER EVALUATION. 2. RIGHT RENAL CALCULUS. 3. INCREASED DENSITY WITHIN THE URINARY BLADDER CONSISTENT WITH EITHER HEMORRHAGE OR A URINARY BLADDER MASS. CONSIDER CYSTOSCOPY OR A CT UROGRAM FOR FURTHER EVALUATION. 4. MULTIPLE RADIOLUCENT LESIONS PRESENT WITHIN THE PELVIC BONES AND PROXIMAL FEMURS MOST CONSISTENT WITH METASTATIC DISEASE. 5. CHOLELITHIASIS.
[2016-05-31] MEDS: Morphine INJ* 4 MG/ML 1 ML SYRINGE IV PRN ×2 (13:59→23:43)
[2016-05-31] MEDS ORDERED: Gentamicin Trough Level 1 NOTE MISC FOLLOW UP ONE (17:30)
[2016-05-31] MEDS ORDERED: Gentamicin PEAK LEVEL* 1 NOTE MISC FOLLOW UP ONE (19:00)
--- NOTE | 2016-05-31 23:47 | CONS ---
CONSULTATION NOTE: DATE OF CONSULTATION: 05/31/16 Patient is in room #405. I was asked by Dr. Bentley from the hospitalist service to see this 70-year-old white male because of gross hematuria and clot urinary retention. I had seen Mr. Adams 1 year ago because of recurrent episodes of gross hematuria. At that time, he had work-up including CT of the abdomen and pelvis, which showed bilateral renal calculi with the largest calculus in the right kidney causing no hydronephrosis. He was also noted to have multiple bladder calculi and a large prostate. He was taken to the operating room 1 year ago and underwent cystoscopy, which confirmed the presence of multiple bladder calculi. No suspicious bladder lesions were seen. The patient had cystolitholapaxy and all the stones were evacuated. Following the procedure, he came to the emergency room with clot urinary retention and required irrigation and evacuations of multiple clots. He has been doing fine without any recurrence of the gross hematuria until 2 days ago when he was referred from the assisted to the emergency room because of gross hematuria and clot urinary retention. On evaluation in the emergency room , he was noted to have an elevated white count and he was severely anemic. The patient also has multiple pressure ulcers. He was admitted for management and consultation is obtained. The patient is on no anticoagulation. He has multiple medical problems. He has an AICD. He had chronic congestive heart failure with his EF about 25% to 30%. He is diabetic, hypertensive. He had below- knee amputation of his right lower extremity because of peripheral vascular disease and osteomyelitis. A noncontrast CT of the abdomen and pelvis was obtained today and I reviewed the films. A 1.5 to 2 cm nonobstructing calculus was noted in the mid infundibulum of the right kidney. There was a mass in the right kidney measuring 3 cm in size and most likely represent a cyst and seems to be unchanged compared to the CT of year earlier. There were bony lesions in the pelvis probably representing metastatic disease. The bladder was moderately distended with masses consistent with either blood clots or tumor. I saw the patient in his hospital bed and he was lying comfortably. He has a Lala catheter draining grossly bloody urine. Rectal examination showed a moderately enlarged, but non-suspicious prostate. The Lala catheter was removed and a 22- [place] Lala catheter was placed. I spent about half an hour actively irrigating his bladder until all the clots were evacuated. At the end of the irrigation, the returns were clear. The plan is to observe his voiding and the hematuria. If the hematuria persists, the patient will need to be taken to the operating room for cystoscopy to rule out any bladder lesions and to control the source of his bleeding. [id number]/[facility] #: [id number] TAYLOR
[2016-06-01] MEDS: Acetaminophen TAB* 325 MG PO PRN ×4 (00:58→20:08)
[2016-06-01 06:41] LABS: Hematocrit 26 % (42-52); Hemoglobin 8.3 g/dl (14.0-18.0); Mean Corpuscular HGB Conc 32 g/dl (31-36); Mean Corpuscular Hemoglobin 26 pg (27-31); Mean Corpuscular Volume 82 fL (80-94); Mean Platelet Volume 6 um3 (7.4-10.4); Red Blood Count 3.17 10^6/ul (4.0-5.4); Red Cell Distribution Width 19 % (10.5-15)
[2016-06-01 07:03] LABS: BUN/Creatinine Ratio 15.9 (8-20); Calcium 8.6 mg/dL (8.6-10.3); EGFR Non-African American 125.2 (>60); Potassium 4.5 mmol/L (3.5-5.0)
[2016-06-01] MEDS: Insulin REGULAR(*) 1 UNITS UNIT SUBCUT SCH ×4 (08:14→21:26)
[2016-06-01] MEDS: Gabapentin CAP(*) 300 MG PO SCH ×3 (08:19→21:25)
[2016-06-01] MEDS: Morphine TAB Extended Release (*) 15 MG TAB.ER PO SCH ×2 (08:19→21:24)
[2016-06-01] MEDS: Amiodarone TAB* 200 MG PO SCH (08:19)
--- NOTE | 2016-06-01 08:45 | PN ---
Subjective Date of Service: 06/01/16 Interval History: Occ pain in legs relieved by APAP. Appetite OK. Urine now clear. Family History: Unchanged from Admission Social History: Unchanged from Admission Past Medical History: Unchanged from Admission Objective Active Medications: Acetaminophen (Tylenol Tab*) 650 mg PO Q4H PRN PRN Reason: FEVER/PAIN Last Admin: 06/01/16 00:58 Dose: 650 mg Amiodarone HCl (Cordarone Tab*) 200 mg PO DAILY [facility] Last Admin: 05/31/16 08:45 Dose: 200 mg Gabapentin (Neurontin Cap(*)) 300 mg PO TID [facility] Last Admin: 05/31/16 21:26 Dose: 300 mg Haloperidol Lactate (Haldol Inj Iv/Im*) 2 mg IV SLOW PU Q6H PRN PRN Reason: AGITATION Last Admin: 05/30/16 00:38 Dose: 2 mg Cefepime HCl 2 gm/ Sodium (Chloride) 50 mls @ 100 mls/hr IVPB Q12H [facility] Last Admin: 05/31/16 21:30 Dose: 100 mls/hr Insulin Human Regular (Insulin Regular(*)) 0 units SUBCUT ACHS [facility] PRN Reason: Protocol Last Admin: 05/31/16 21:27 Dose: 4 unit Lorazepam (Ativan Inj*) 0.5 mg IV PUSH Q4H PRN PRN Reason: ANXIETY Last Admin: 05/30/16 19:39 Dose: 0.5 mg Morphine Sulfate (Ms Contin(*)) 15 mg PO BID [facility] Last Admin: 05/31/16 21:27 Dose: 15 mg Morphine Sulfate (Morphine Inj (Syringe)*) 4 mg IV Q4H PRN PRN Reason: PAIN Last Admin: 05/31/16 23:43 Dose: 4 mg Vital Signs 05/31/16 05/31/16 05/31/16 08:44 10:44 13:59 Temperature Pulse Rate Respiratory 16 18 18 Rate Blood Pressure (mmHg) O2 Sat by Pulse Oximetry 05/31/16 05/31/16 05/31/16 14:59 15:14 15:59 Temperature 97.3 F Pulse Rate 80 Respiratory 16 16 16 Rate Blood Pressure 114/48 (mmHg) O2 Sat by Pulse 98 Oximetry 05/31/16 05/31/16 05/31/16 19:18 20:00 21:26 Temperature 98.4 F Pulse Rate 100 Respiratory 20 18 18 Rate Blood Pressure 125/50 (mmHg) O2 Sat by Pulse 98 Oximetry 05/31/16 05/31/16 05/31/16 21:27 23:26 23:34 Temperature 97.9 F Pulse Rate 87 Respiratory 18 18 16 Rate Blood Pressure 111/43 (mmHg) O2 Sat by Pulse 97 Oximetry 05/31/16 06/01/16 06/01/16 23:43 00:43 04:03 Temperature 98.2 F Pulse Rate 70 Respiratory 18 18 16 Rate Blood Pressure 63/41 (mmHg) O2 Sat by Pulse 93 Oximetry 06/01/16 04:13 Temperature Pulse Rate Respiratory Rate Blood Pressure 102/45 (mmHg) O2 Sat by Pulse Oximetry Oxygen Devices in Use Now: None Appearance: Alert, on R side in bed with heating pad between knees. In good spirits. Looks comfortable. Eyes: No Scleral Icterus Ears/Nose/Mouth/Throat: Clear Oropharnyx, Mucous Membranes Moist Neck: NL Appearance and Movements; NL JVP, No Thyroid Enlargement, Masses Respiratory: Symmetrical Chest Expansion and Respiratory Effort, Clear to Auscultation, Clear to Percussion Cardiovascular: NL Sounds; No Murmurs; No JVD, No Edema, - - irreg Extremities: No Edema, No Clubbing, Cyanosis, - Skin: No Nodules or Sclerosis, - - wound care nurse's notes included in my A&P. Neurological: Alert and Oriented x 3, NL Sensation Result Diagrams: 06/01/16 06:12 06/01/16 06:12 Additional Lab and Data: . Microbiology and Other Data: Microbiology 05/29/16 16:00 Aerobic Blood Culture - Preliminary Blood Venous No Growth Day 1 Anaerobic Blood Culture - Preliminary No Growth Day 1 05/29/16 16:00 Aerobic Blood Culture - Preliminary Blood Venous No Growth Day 1 Anaerobic Blood Culture - Preliminary No Growth Day 1 05/29/16 16:04 Nasal Screen MRSA (PCR)(MEENAKSHI) - Final Nasal Mrsa Negative Assess/Plan/Problems-Billing . Assessment: 70 yo man with acute cystitis assoicated wit5h indwelling tomlinson catheter - POA - now with acute blood loss anemia and profound hyponatremia resulting from hypovolemia/dehydration. Altered mental status at admission improved with prbc and stabilization (and treatment of UTI/cystitis). Ongoing lower extremity pain and chronic wound management (possible osteomyelitis) also concerns. . - Patient Problems (1) Hematuria due to cystitis Current Visit: Yes Status: Acute Priority: High Code(s): N30.91 - CYSTITIS , UNSPECIFIED WITH HEMATURIA SNOMED Code(s): 443421450630379 Comment: Urine C&S sent 05/31/16. Change to cefepime. CT abd pelvis w/o showed ikely clot in bladder, cannot r/o mass. Lucent areas in pelvic bones, small pleural nodules R base. Plan CT urogram and CT chest. (2) Ischemic cardiomyopathy Current Visit: Yes Status: Acute Code(s): I25.5 - ISCHEMIC CARDIOMYOPATHY SNOMED Code(s): 730528729 Comment: With V-tach, ICD, CABG. Continue amiodarone, hold ASA for now. (3) Type 2 diabetes mellitus treated without insulin Current Visit: No Status: Chronic Priority: Medium Code(s): E11.9 - TYPE 2 DIABETES MELLITUS WITHOUT COMPLICATIONS SNOMED Code(s): 81095644 Comment: Hold metformin, continue Lispro by SS. (4) Decubital ulcer Current Visit: Yes Status: Acute Code(s): L89.90 - PRESSURE ULCER OF UNSPECIFIED SITE, UNSPECIFIED STAGE SNOMED Code(s): 009291317 Comment: Woound consult: Pt admitted with multiple pressure areas; L heel measures 2.5x3x0.1, dry, black eschar. R hip 4.2x4.2x0.1, dry black eschar. R upper posterior thigh with 2 areas that xtend onto his lower buttock measuring 3.5x3.5x0.1 and 4x3.5x0.1, wound base yellow adherent slough with pink tissue on the outer edges. Buttock with open area 1.5x4x0.1 with surrounding erythema. Continue with Santyl daily to L heel and R hip. Antifungal ointment to buttock and barrier ointment in center. Place air mattress on bed of pt will allow. Turn and reposition as tolerated. Nursing aware. (5) Essential hypertension Current Visit: No Status: Chronic Priority: Low Code(s): I10 - ESSENTIAL ( PRIMARY) HYPERTENSION SNOMED Code(s): 65145531 Comment: Lisinopril on hold. (6) Osteomyelitis Current Visit: Yes Status: Acute Code(s): M86.9 - OSTEOMYELITIS, UNSPECIFIED SNOMED Code(s): 00809681 Comment: Multiple pelvic bones, with fluid collections and tracts relating to skin ulcers. Continue cefepime and vanco. Dr. Lim to consult.
[2016-06-01] MEDS: Cefepime(*) 2 GM in NS 0.9% 50 ML* 50 ML IVPB SCH (10:16)
[2016-06-01] MEDS ORDERED: Iodixanol* (CONTRAST) 320 MG/ML 100 ML SDV IV ONE (10:44)
--- NOTE | 2016-06-01 14:19 | RAD ---
INDICATION: Clinical concern for bladder tumor. Assess for pulmonary nodules. COMPARISON: May 31, [address] TECHNIQUE: Multidetector CT images were obtained from the lung apices to the upper abdomen. Evaluation of the viscera is limited without IV contrast. REPORT: Small to moderate bilateral dependent pleural effusions with interval increase compared with the exam of one day prior. Proportional basilar atelectasis. 3 subpleural densities in the lateral RIGHT lung base without gross change may represent atelectasis or true parenchymal nodules. Mildly thickened peripheral interlobular septa in the mid to lower lung zones. Negative for pneumothorax. Negative for lymphadenopathy. Median sternotomy wires, postsurgical change of coronary artery bypass, cardiomegaly, RIGHT atrial and RIGHT ventricular level pacemaker leads. Negative for pericardial effusion. Mildly ectatic descending thoracic aorta measuring up to 4.3 cm diameter at the level of the main pulmonary artery. Images through the upper abdomen are remarkable for cholelithiasis. Polyarticular degenerative arthropathy. No suspicious focal osseous lesions evident. IMPRESSION: 1. The constellation of findings is most consistent with pulmonary vascular congestion and interstitial edema with associated small to moderate bilateral dependent pleural effusions and proportional atelectasis. Reassessment of the lungs following resolution of the pleural effusions warranted to assess for resolution of the more nodular foci at the lateral peripheral RIGHT lung base to exclude true pulmonary parenchymal nodules. 2. Negative for thoracic lymphadenopathy.
--- NOTE | 2016-06-01 15:06 | RAD ---
INDICATION: Hematuria evaluate for bladder tumor. COMPARISON: Comparison is made with a prior CT of the abdomen and pelvis from one day earlier. TECHNIQUE: A CT scan of the abdomen and pelvis was performed without oral and without and with intravenous contrast enhancement. The contrast enhanced portion of the exam was performed during the nephrographic and pyelographic phases of enhancement. The exam was performed following intravenous injection of 132 ml of Visipaque 320 nonionic contrast. Contiguous axial sections were obtained from the lung bases through the symphysis pubis. Images were reconstructed in the coronal and sagittal planes and a volume rendered 3-D format of the kidneys, ureters and bladder. FINDINGS: Images through the lung bases demonstrate small to moderate size bilateral pleural effusions and dependent bilateral lower lobe subsegmental atelectasis. There are also pleural-based nodular densities present at the right lung base as previously noted. The liver and spleen are normal in size without significant focal abnormality. There are calcified gallstones present. The pancreas appears to be within normal limits. Evaluation of the kidneys is limited due to streak artifact from the patient's upper extremities. There are a couple right renal cysts measuring up to 3.0 cm in size. There is a calculus in the right renal pelvis measuring 1.1 x 0.6 cm in size which was previously in a lower pole calyx. No hydronephrosis is seen. There is a Lala catheter within the urinary bladder. There is diffuse thickening of the wall of the urinary bladder which is incompletely distended. No discrete mass is seen. The abdominal aorta is normal in caliber. There is moderate calcific plaque present. No significant enlarged retroperitoneal lymph nodes are seen. The stomach, small and large bowel appear nondistended. There is no evidence for colitis or diverticulitis. There is a small periapical hernia containing fat. No free intraperitoneal air or fluid is seen. There is a soft tissue ulcer adjacent to the right ischial tuberosity. There is a small amount of air present. There is a fluid collection present along the inferior aspect of the right ischial tuberosity and right inferior pubic ramus which extends inferior to the symphysis pubis with a small amount of air present. The fluid collections would be most consistent with abscesses. There are multiple lucent lesions present in the inferior pubic rami and symphysis pubis likely representing erosions and osteomyelitis. There are also are pathologic fractures of the right and left superior pubic rami. There are also multiple areas of decreased density within the iliac bones and proximal femurs which may represent areas of osteopenia although metastatic disease cannot be excluded. The results of this exam were discussed with the referring clinician. IMPRESSION: 1. RIGHT DECUBITUS ULCER WITH AIR AND FLUID INFERIOR TO THE RIGHT ISCHIAL TUBEROSITY INFERIOR PUBIC RAMUS AND PUBIC SYMPHYSIS MOST CONSISTENT WITH AN ABSCESS. THERE ARE EROSIVE CHANGES WITHIN THE INFERIOR PUBIC RAMI AND SUPERIOR PUBIC RAMUS MOST CONSISTENT WITH OSTEOMYELITIS. THERE ARE PATHOLOGIC FRACTURES OF BOTH SUPERIOR PUBIC RAMI. 2. THERE ARE ADDITIONAL HYPODENSE LESIONS WITHIN THE ILIAC BONES AND PROXIMAL FEMURS POSSIBLY REPRESENTING OSTEOPOROSIS VERSUS METASTATIC LESIONS. 3. THE URINARY BLADDER WALL IS THICKENED LIKELY DUE TO INCOMPLETE DISTENTION ALTHOUGH CYSTITIS OR A BLADDER MASS CANNOT BE EXCLUDED. 4. NONOBSTRUCTING CALCULUS IN THE RIGHT RENAL PELVIS. 5. CHOLELITHIASIS. 6. BILATERAL PLEURAL EFFUSIONS. 7. PLEURAL BASED NODULES IN THE RIGHT LOWER LOBE.
[2016-06-01] MEDS: Morphine INJ* 4 MG/ML 1 ML SYRINGE IV PRN (16:56)
[2016-06-01] MEDS: Analgesic BALM* 114 GM TOPICAL PRN (16:56)
--- NOTE | 2016-06-01 21:02 | CONS ---
CONSULTATION REPORT: DATE OF CONSULTATION: 06/01/16 REQUESTING PHYSICIAN: Dr. Bentley. CONSULTING SERVICE: Infectious Disease. REASON FOR CONSULTATION: Leukocytosis, right decubitus ulcer and question, pelvic osteomyelitis. IMPRESSION: 1. Admitted with hematuria, found to have a right-sided decubitus ulcer, workup of hematuria led to CT of abdomen and pelvis and CT urogram that showed bilateral pleural effusions, increased density in the bladder, and radiolucent lesions in the pelvic bones and proximal femurs, most consistent with metastatic disease. Followup urogram with CT showed right decubitus ulcer, air and fluid inferior to the right ischial tuberosity, inferior pubic ramus and pubic symphysis most consistent with abscess, erosive changes in the inferior pubic rami and superior pubic ramus most consistent with osteomyelitis. Pathologic fractures of both suprapubic rami. This could definitely be infection related to decubitus ulcer which does have a dry gangrene. Malignancy is still on the differential. If it is infectious, bowel omaira are the usual culprits. 2. Left heel chronic ulcer, pressured related. 3. Hematuria due to bladder hemorrhage. 4. History of C. difficile colitis. 5. ICD with a history of ventricular tachycardia. 6. Type 2 diabetes. 7. Status post right [id number]-[id number] for gangrene. RECOMMENDATIONS: Stop vancomycin. Stop cefepime. Start ceftriaxone and Flagyl. Surgical consultation for debridement of the decubitus ulcer and to see what it leads to if it tracks down to the pelvis. If not, a biopsy by Interventional Radiology may be in order. HISTORY OF PRESENT ILLNESS: This is a 70-year-old male with a history of right upafk-ibl-pkuv amputation, ICD placement, diabetes, admitted with hematuria. He came to the hospital on 05/29/16, had a white blood cell count of 23,000, started on vancomycin and cefepime. Blood cultures were sent, which were negative. Urine culture was sent, was negative. CT findings noted above. Dr. Escalante saw the patient for bladder irrigation because of bladder hemorrhage. He has phantom pain at the site of the right vtclb-uwr-lbze amputation, but no pain elsewhere. That pain is improved with pain medicine and is not new. He has a left calcaneal ulcer which has been there for few weeks. He is not sure if it is getting better or worse. He is having local wound treatment applied to it. PAST MEDICAL HISTORY: 1. ICD in the setting of ventricular tachycardia. 2. Type 2 diabetes. 3. History of right foot gangrene, status post mmzlf-vwq-cifv amputation. 4. Congestive heart failure, ejection fraction 25% to 30%. 5. Coronary artery disease, status post CABG. 6. Vitamin D deficiency. 7. C. difficile colitis. 8. Nephrolithiasis. 9. Obesity. 10. Primary hypertension. 11. Spinal stenosis. 12. Low back pain. 13. Atrial fibrillation. ALLERGIES: PENICILLIN, ERYTHROMYCIN, but tolerating cephalosporins. MEDICATIONS: 1. Tylenol. 2. Amiodarone. 3. Analgesic topical ointment. 4. Cefepime 2 g every 12 hours. 5. Haldol p.r.n. SOCIAL HISTORY: He has been living at [facility]. Otherwise, he had been from [place]. No travel. FAMILY HISTORY: No recurrent infections. REVIEW OF SYSTEMS: All negative except as noted above. PHYSICAL EXAM: Vital Signs: Temperature 36.6, heart rate 60, respiratory rate 16, blood pressure 114/42, O2 sat 98% on room air. In general, he is awake and oriented x3, in no acute distress. HEENT: Pupils are equal, round, reactive to light without conjunctival hemorrhage. Oropharynx without lesions. Neurologically, he follows all commands. Moves all extremities. Neck is supple without nuchal rigidity. Lymph Nodes: There is no cervical, supraclavicular, inguinal, axillary, or epitrochlear lymphadenopathy. Heart has regular rate and rhythm without murmurs, rubs, or gallops. Lungs are clear to auscultation bilaterally. Abdomen: Soft, nontender, nondistended without hepatosplenomegaly. Skin: There is no rash or splinter hemorrhages. Musculoskeletal: There is a right nubqa-ljo-kcch amputation. The amputation site is well healed. There is a left medial calcaneus ulcer about 2 cm without surrounding erythema. There is diffuse erythema on bilateral buttocks with some areas of skin breakdown down the left gluteus. On the right, there is a 5 cm area of dry gangrene without surrounding erythema or tenderness. LABORATORY DATA: White blood cell count 17, hemoglobin 8, platelets 422, creatinine 0.6. PSA 1. ALT 14, CRP was 124 on admission. Please see impressions and recommendations as outlined above. Thanks for asking me to see Mr. Adams in consultation. [id number]/[facility] #: [id number] TAYLOR
[2016-06-02] MEDS: Analgesic BALM* 114 GM TOPICAL PRN ×2 (04:25→21:10)
[2016-06-02] MEDS: Morphine INJ* 4 MG/ML 1 ML SYRINGE IV PRN (04:28)
[2016-06-02] MEDS: Insulin REGULAR(*) 1 UNITS UNIT SUBCUT SCH ×3 (09:14→17:15)
[2016-06-02] MEDS: Morphine TAB Extended Release (*) 15 MG TAB.ER PO SCH ×2 (09:59→21:06)
[2016-06-02] MEDS: Collagenase 250 MG/GM OINT* 30 GM TOPICAL SCH (10:00)
[2016-06-02] MEDS: Amiodarone TAB* 200 MG PO SCH (10:00)
[2016-06-02] MEDS: Gabapentin CAP(*) 300 MG PO SCH ×3 (10:00→21:06)
--- NOTE | 2016-06-02 19:00 | PN ---
Subjective Date of Service: 06/02/16 Interval History: Patient reports overall he is feeling "okay" c/o right buttock pain. No fevers or chills. tolerating PO. Denies CP or SOB. no further blood n urine Family History: Unchanged from Admission Social History: Unchanged from Admission Past Medical History: Unchanged from Admission Objective Active Medications: Acetaminophen (Tylenol Tab*) 650 mg PO Q4H PRN PRN Reason: FEVER/PAIN Last Admin: 06/01/16 20:08 Dose: 650 mg Amiodarone HCl (Cordarone Tab*) 200 mg PO DAILY [facility] Last Admin: 06/02/16 10:00 Dose: 200 mg Collagenase (Santyl 250 Mg/Gm Oint*) 1 applic TOPICAL DAILY [facility] Last Admin: 06/02/16 10:00 Dose: 1 applic Gabapentin (Neurontin Cap(*)) 300 mg PO TID [facility] Last Admin: 06/02/16 12:50 Dose: 300 mg Haloperidol Lactate (Haldol Inj Iv/Im*) 2 mg IV SLOW PU Q6H PRN PRN Reason: AGITATION Last Admin: 05/30/16 00:38 Dose: 2 mg Ceftriaxone Sodium 2 gm/ (Sodium Chloride) 100 mls @ 200 mls/hr IVPB Q24H [facility] Last Admin: 06/02/16 17:43 Dose: 200 mls/hr Insulin Human Regular (Insulin Regular(*)) 0 units SUBCUT ACHS [facility] PRN Reason: Protocol Last Admin: 06/02/16 17:15 Dose: Not Given Lorazepam (Ativan Inj*) 0.5 mg IV PUSH Q4H PRN PRN Reason: ANXIETY Last Admin: 05/30/16 19:39 Dose: 0.5 mg Morphine Sulfate (Ms Contin(*)) 15 mg PO BID [facility] Last Admin: 06/02/16 09:59 Dose: 15 mg Morphine Sulfate (Morphine Inj (Syringe)*) 4 mg IV Q4H PRN PRN Reason: PAIN Last Admin: 06/02/16 04:28 Dose: 4 mg Multi-Ingredient Liniment/Rub (Connor Rand*) 1 applic TOPICAL TID PRN PRN Reason: PAIN Last Admin: 06/02/16 04:25 Dose: 1 applic Vital Signs 06/01/16 06/01/16 06/01/16 20:00 21:24 21:25 Temperature Pulse Rate Respiratory 17 17 17 Rate Blood Pressure (mmHg) O2 Sat by Pulse Oximetry 06/01/16 06/01/16 06/02/16 23:24 23:25 04:27 Temperature 97.4 F 97.8 F Pulse Rate 60 79 Respiratory 16 16 16 Rate Blood Pressure 120/48 105/52 (mmHg) O2 Sat by Pulse 98 96 Oximetry 06/02/16 06/02/16 06/02/16 04:28 05:28 07:44 Temperature 98.5 F Pulse Rate 73 Respiratory 16 17 16 Rate Blood Pressure 100/41 (mmHg) O2 Sat by Pulse 95 Oximetry 06/02/16 06/02/16 06/02/16 08:00 09:59 10:00 Temperature Pulse Rate Respiratory 16 16 16 Rate Blood Pressure (mmHg) O2 Sat by Pulse Oximetry 06/02/16 06/02/16 06/02/16 11:59 12:50 14:50 Temperature Pulse Rate Respiratory 16 16 16 Rate Blood Pressure (mmHg) O2 Sat by Pulse Oximetry 06/02/16 15:26 Temperature 98.6 F Pulse Rate 80 Respiratory 20 Rate Blood Pressure 116/41 (mmHg) O2 Sat by Pulse 96 Oximetry Oxygen Devices in Use Now: None Appearance: obese male laying in bed A+Ox3 in NAD Eyes: No Scleral Icterus, PERRLA Ears/Nose/Mouth/Throat: NL Teeth, Lips, Gums, Mucous Membranes Moist Neck: NL Appearance and Movements; NL JVP Respiratory: Symmetrical Chest Expansion and Respiratory Effort, Clear to Auscultation Cardiovascular: NL Sounds; No Murmurs; No JVD, RRR, No Edema Abdominal: NL Sounds; No Tenderness; No Distention Lymphatic: No Cervical Adenopathy Extremities: No Edema, - - s/p R BKA Neurological: Alert and Oriented x 3, NL Sensation, NL Muscle Strength and Tone Lines/Tubes/Other Access: Clean, Dry and Intact Peripheral IV Nutrition: Taking PO's Result Diagrams: 06/01/16 06:12 06/01/16 06:12 Additional Lab and Data: . Microbiology and Other Data: Microbiology 05/29/16 16:00 Aerobic Blood Culture - Preliminary Blood Venous No Growth Day 1 Anaerobic Blood Culture - Preliminary No Growth Day 1 05/29/16 16:00 Aerobic Blood Culture - Preliminary Blood Venous No Growth Day 1 Anaerobic Blood Culture - Preliminary No Growth Day 1 05/29/16 16:04 Nasal Screen MRSA (PCR)(MEENAKSHI) - Final Nasal Mrsa Negative Assess/Plan/Problems-Billing . Assessment: 70 yo man with acute cystitis associated with indwelling tomlinson catheter - POA - now with acute blood loss anemia and profound hyponatremia resulting from hypovolemia/dehydration. Altered mental status at admission improved with prbc and stabilization (and treatment of UTI/cystitis). Ongoing lower extremity pain and chronic wound management (possible osteomyelitis and metastatic disease) also concerns. . - Patient Problems (1) Hematuria due to cystitis Comment: Resolved Urine C&S sent 05/31/16. CT abd pelvis w/o showed likely clot in bladder, cannot r/o mass. HH stable (2) Decubital ulcer Comment: Stage [address] urogram/abdomen/pelvis showed bilateral pleural effusions, increased density in the bladder, and radiolucent lesions in the pelvic bones and proximal femurs , concern for metastatic disease. Also showing right decubitus ulcer, air & fluid inferior to right ischial tuberosity, inferior ramus and pubic symphysis most consistent with abscess, erosive changes in the inferior pubic rami and superior pubic ramus consistent with osteo. Noted are pathologic fx of both suprapubic rami. Wound consult: Pt admitted with multiple pressure areas; L heel measures 2.5x3x0.1, dry, black eschar. R hip 4.2x4.2x0.1, dry black eschar. R upper posterior thigh with 2 areas that xtend onto his lower buttock measuring 3.5x3.5x0.1 and 4x3.5x0.1, wound base yellow adherent slough with pink tissue on the outer edges. Buttock with open area 1.5x4x0.1 with surrounding erythema. Continue with Santyl daily to L heel and R hip. Antifungal ointment to buttock and barrier ointment in center. Place air mattress on bed of pt will allow. Turn and reposition as tolerated. Appreciate ID consult: continue ceftriaxone and flagyl. Recommended surgical consult and IR consult for lesion biopsy. Appreciate surgery consult: plan to remove eschar in both left heal and buttock wounds. Plan: Will call IR to discuss lesion biopsy. Surgery and ID will follow. (3) Hyponatremia Comment: - suspect dehydration, resolved with fluid resusitation (4) Essential hypertension Comment: blood pressures controlled. Lisinopril on hold. (5) Type 2 diabetes mellitus treated without insulin Comment: Hold metformin, continue Lispro by SS. (6) Ischemic cardiomyopathy Comment: With V-tach, ICD, CABG. Continue amiodarone, hold ASA and bumex for now. (7) Osteomyelitis Comment: Multiple pelvic bones, with fluid collections and tracts relating to skin ulcers. Continue ceftriaxone and flagyl. Dr. Lim following (8) DVT prophylaxis Comment: contraindicated in the setting of hematuria Status and Disposition: inpatient
[2016-06-02] MEDS ORDERED: Dextrose 50% Syringe 50 ML* 25 GM/50 ML SYRINGE IV PUSH PRN (19:24)
[2016-06-02] MEDS: Insulin LISPRO* 1 UNITS UNIT SUBCUT SCH (21:08)
--- NOTE | 2016-06-02 21:12 | CONS ---
SURGICAL CONSULTATION REPORT: DATE OF CONSULT: 06/02/16 HISTORY OF PRESENT ILLNESS: I was contacted by the hospitalist service to evaluate Mr. Adams, a 70-year-old gentleman, who presented to our institution through the emergency room with a complaint of gross hematuria. He was admitted for anemia and was noted to have decubitus ulcers and the wound center nurses were contacted. Infectious Disease was also consulted for his leukocytosis and recommended either debridement versus biopsy of the bone with this concern of a pelvic osteomyelitis. The patient was diagnosed with osteomyelitis of the right heel in October 2015 and underwent a right below knee amputation. The patient's postoperative course led to a discharge to a prison where he has been ever since. The patient is nonambulatory. He is not sure when he noted the ulcers. PHYSICAL EXAMINATION: On focused examination, the patient has a right ischial ulcer that is 4 x 4 cm with black eschar overlying this. This is minimally tender. It is unstageable. Surrounding tissue is red and it extends into a more medial stage 2 pressure ulcer as well as stage 2 extending up to the sacral region. The skin breakdown are being treated with DuoDERM. The patient also has some notable left heel ulcer measuring 2.5 x 3 cm. This also is unstageable with black eschar. No palpable pulses in this foot. IMPRESSION: A 70-year-old gentleman DNR, who resides in prison who is completely alert and understands the situation, now with additional pressure ulcer similar to the one that led to amputation of his left below-knee last summer. The patient underwent CT scan of the abdomen and pelvis. These images as well as the report reviewed. It did show some air tracking along the right gluteal region. There are bony lesions that are suggestive of malignancy. PLAN: Recommendation is unroofing of these pressure ulcers namely the one in the ischium overlying where there are small areas of air pockets. This may be consistent with a wet gangrene. Currently, it looks dry and mostly intact, but given this concerning finding on the CT scan, I would prefer to unroof the ischial ulcer and see if this shows an active draining sinus. We can culture at the same time. I described this to the patient and the patient's , who agree with this plan. My intend was to do it later today but since this is late , we look towards tomorrow morning to do this. CC: [facility]; Wound Center; Dr. Jannette Steinberg* [id number]/[facility] #: [id number] [facility]
[2016-06-03 05:02] LABS: Hematocrit 26 % (42-52); Hemoglobin 8.6 g/dl (14.0-18.0); Mean Corpuscular HGB Conc 33 g/dl (31-36); Mean Corpuscular Hemoglobin 27 pg (27-31); Mean Corpuscular Volume 82 fL (80-94); Mean Platelet Volume 6 um3 (7.4-10.4); Red Blood Count 3.21 10^6/ul (4.0-5.4); Red Cell Distribution Width 20 % (10.5-15); White Blood Count 16.1 10^3/ul (3.5-10.8)
[2016-06-03 05:23] LABS: BUN/Creatinine Ratio 14.8 (8-20); Calcium 8.6 mg/dL (8.6-10.3); EGFR African American 167.1 (>60); EGFR Non-African American 129.9 (>60); Potassium 4.7 mmol/L (3.5-5.0)
[2016-06-03] MEDS: Morphine INJ* 4 MG/ML 1 ML SYRINGE IV PRN ×3 (06:28→17:05)
[2016-06-03] MEDS: Analgesic BALM* 114 GM TOPICAL PRN (06:32)
[2016-06-03] MEDS: Insulin LISPRO* 1 UNITS UNIT SUBCUT SCH ×4 (07:34→21:25)
[2016-06-03] MEDS: Gabapentin CAP(*) 300 MG PO SCH ×3 (10:03→21:22)
[2016-06-03] MEDS: Amiodarone TAB* 200 MG PO SCH (10:04)
[2016-06-03] MEDS: Collagenase 250 MG/GM OINT* 30 GM TOPICAL SCH (10:05)
[2016-06-03] MEDS: Morphine TAB Extended Release (*) 15 MG TAB.ER PO SCH ×2 (10:05→21:20)
--- NOTE | 2016-06-03 16:16 | PN ---
Subjective Date of Service: 06/03/16 Interval History: pt is very teary on exam and is worried about his wounds. We discussed bone biopsy of noted lesions on CT scan and pt agrees to plan. is at bedside and agrees. No fever or chills. Reports little appetite. No N/V. Family History: Unchanged from Admission Social History: Unchanged from Admission Past Medical History: Unchanged from Admission Objective Active Medications: Acetaminophen (Tylenol Tab*) 650 mg PO Q4H PRN PRN Reason: FEVER/PAIN Last Admin: 06/01/16 20:08 Dose: 650 mg Amiodarone HCl (Cordarone Tab*) 200 mg PO DAILY REPLACED BY [facility] Last Admin: 06/03/16 10:04 Dose: 200 mg Collagenase (Santyl 250 Mg/Gm Oint*) 1 applic TOPICAL DAILY REPLACED BY [facility] Last Admin: 06/03/16 10:05 Dose: 1 applic Dextrose (D50w Syringe 50 Ml*) 12.5 gm IV PUSH .FOR FS < 60 - SS PRN PRN Reason: FS < 60 Gabapentin (Neurontin Cap(*)) 300 mg PO TID REPLACED BY [facility] Last Admin: 06/03/16 13:47 Dose: 300 mg Haloperidol Lactate (Haldol Inj Iv/Im*) 2 mg IV SLOW PU Q6H PRN PRN Reason: AGITATION Last Admin: 05/30/16 00:38 Dose: 2 mg Ceftriaxone Sodium 2 gm/ (Sodium Chloride) 100 mls @ 200 mls/hr IVPB Q24H REPLACED BY [facility] Last Admin: 06/02/16 17:43 Dose: 200 mls/hr Insulin Human Lispro (Humalog*) 0 units SUBCUT ACHS REPLACED BY [facility] PRN Reason: Protocol Last Admin: 06/03/16 12:11 Dose: Not Given Lorazepam (Ativan Inj*) 0.5 mg IV PUSH Q4H PRN PRN Reason: ANXIETY Last Admin: 05/30/16 19:39 Dose: 0.5 mg Morphine Sulfate (Ms Contin(*)) 15 mg PO BID REPLACED BY [facility] Last Admin: 06/03/16 10:05 Dose: 15 mg Morphine Sulfate (Morphine Inj (Syringe)*) 4 mg IV Q4H PRN PRN Reason: PAIN Last Admin: 06/03/16 12:11 Dose: 4 mg Multi-Ingredient Liniment/Rub (Connor Rand*) 1 applic TOPICAL TID PRN PRN Reason: PAIN Last Admin: 06/03/16 06:32 Dose: 1 applic Vital Signs 06/02/16 06/02/16 06/02/16 20:00 21:06 23:06 Temperature Pulse Rate Respiratory 17 18 17 Rate Blood Pressure (mmHg) O2 Sat by Pulse Oximetry 06/03/16 06/03/16 06/03/16 05:19 06:28 07:09 Temperature 98.6 F 98.3 F Pulse Rate 84 82 Respiratory 18 17 16 Rate Blood Pressure 108/42 106/39 (mmHg) O2 Sat by Pulse 90 94 Oximetry 06/03/16 06/03/16 06/03/16 07:28 08:00 10:03 Temperature Pulse Rate Respiratory 16 18 16 Rate Blood Pressure (mmHg) O2 Sat by Pulse Oximetry 06/03/16 06/03/16 06/03/16 10:05 12:11 13:11 Temperature Pulse Rate Respiratory 16 18 16 Rate Blood Pressure (mmHg) O2 Sat by Pulse Oximetry 06/03/16 06/03/16 13:47 15:31 Temperature 99.8 F Pulse Rate 84 Respiratory 16 16 Rate Blood Pressure 106/33 (mmHg) O2 Sat by Pulse 96 Oximetry Oxygen Devices in Use Now: None Appearance: obese 70 yo chronically ill appearing male in NAD. A+O x3, teary, anxious Eyes: No Scleral Icterus, PERRLA Ears/Nose/Mouth/Throat: NL Teeth, Lips, Gums, Mucous Membranes Moist Neck: NL Appearance and Movements; NL JVP Respiratory: Symmetrical Chest Expansion and Respiratory Effort, Clear to Auscultation Cardiovascular: NL Sounds; No Murmurs; No JVD, RRR, - - l Abdominal: NL Sounds; No Tenderness; No Distention, - - obese Extremities: No Clubbing, Cyanosis, - - s/p right BKA. left foot 2+ pitting edema. Skin: - - please see noted for wound description Neurological: Alert and Oriented x 3, NL Sensation, NL Muscle Strength and Tone Result Diagrams: 06/03/16 04:52 06/03/16 04:52 Additional Lab and Data: . Microbiology and Other Data: Microbiology 05/29/16 16:00 Aerobic Blood Culture - Preliminary Blood Venous No Growth Day 1 Anaerobic Blood Culture - Preliminary No Growth Day 1 05/29/16 16:00 Aerobic Blood Culture - Preliminary Blood Venous No Growth Day 1 Anaerobic Blood Culture - Preliminary No Growth Day 1 05/29/16 16:04 Nasal Screen MRSA (PCR)(MEENAKSHI) - Final Nasal Mrsa Negative Assess/Plan/Problems-Billing . Assessment: 70 yo man with acute cystitis associated with indwelling tomlinson catheter - POA - now with acute blood loss anemia and profound hyponatremia resulting from hypovolemia/dehydration. Altered mental status at admission improved with prbc and stabilization (and treatment of UTI/cystitis). Ongoing lower extremity pain and chronic wound management (possible osteomyelitis and metastatic disease) also concerns. . - Patient Problems (1) Hematuria due to cystitis Comment: Resolved Urine C&S sent 05/31/16. CT abd pelvis w/o showed likely clot in bladder, cannot r/o mass. HH stable (2) Decubital ulcer Comment: Stage [address] urogram/abdomen/pelvis showed bilateral pleural effusions, increased density in the bladder, and radiolucent lesions in the pelvic bones and proximal femurs , concern for metastatic disease. Also showing right decubitus ulcer, air & fluid inferior to right ischial tuberosity, inferior ramus and pubic symphysis most consistent with abscess, erosive changes in the inferior pubic rami and superior pubic ramus consistent with osteo. Noted are pathologic fx of both suprapubic rami. Wound consult: Pt admitted with multiple pressure areas; L heel measures 2.5x3x0.1, dry, black eschar. R hip 4.2x4.2x0.1, dry black eschar. R upper posterior thigh with 2 areas that xtend onto his lower buttock measuring 3.5x3.5x0.1 and 4x3.5x0.1, wound base yellow adherent slough with pink tissue on the outer edges. Buttock with open area 1.5x4x0.1 with surrounding erythema. Continue with Santyl daily to L heel and R hip. Antifungal ointment to buttock and barrier ointment in center. Place air mattress on bed of pt will allow. Turn and reposition as tolerated. Appreciate ID consult: continue ceftriaxone and flagyl. Appreciate surgery consult: plan to remove eschar in both left heal and buttock wounds this evening. Plan: Plan for lesion biopsy tomorrow with IR. Surgery and ID will follow. (3) Bone lesion Comment: see above (4) Hyponatremia Comment: - suspect dehydration, resolving with fluid resusitation (5) Essential hypertension Comment: blood pressures controlled. Lisinopril on hold. (6) Type 2 diabetes mellitus treated without insulin Comment: Hold metformin, continue Lispro by SS. (7) Ischemic cardiomyopathy Comment: With V-tach, ICD, CABG. EF < 30% 04/2015 Continue amiodarone, hold ASA and bumex for now. (8) Osteomyelitis Comment: Multiple pelvic bones, with fluid collections and tracts relating to skin ulcers. Continue ceftriaxone and flagyl. Dr. Lim following (9) DVT prophylaxis Comment: contraindicated in the setting of hematuria Status and Disposition: inpatient
[2016-06-03] MEDS: LORazepam INJ* 2 MG/ML 1 ML VIAL IV PUSH PRN (17:06)
[2016-06-03 19:22] LABS: Albumin 2.3 g/dL (3.2-5.2); BUN/Creatinine Ratio 14.5 (8-20); Calcium 8.5 mg/dL (8.6-10.3); EGFR Non-African American 112.7 (>60); Globulin 3.6 g/dL (2-4); Potassium 5.1 mmol/L (3.5-5.0); Total Bilirubin 0.3 mg/dL (0.2-1.0); Total Protein 5.9 g/dL (6.4-8.9)
[2016-06-03] MEDS ORDERED: metroNIDAZOLE IV 500 MG/100ML* 500 MG/100 ML BAG IVPB SCH (20:00)
--- NOTE | 2016-06-03 22:37 | PRO ---
DATE OF PROCEDURE: 06/03/16 - ROOM #[id number] DATE OF : 41 SURGEON: Dr. Ken. INDUSTRIAL TECHNOLOGY EDUCATION TEACHER: None. ANESTHESIA: None. PRE-PROCEDURE DIAGNOSIS: Unstageable right ischial pressure ulcer, rule out abscess. POST-PROCEDURE DIAGNOSIS: Stage 4 right ischial pressure ulcer. PROCEDURE: Excisional debridement of right ischial ulcer. DESCRIPTION OF PROCEDURE: After obtaining informed consent and describing the procedure to Mr. Adams and his , I prepped the area. We utilized a 10 blade scalpel to unroof a 4x4 cm eschar overlying the right ischium. The excision encompassed the entire ulcer. This led to skin removal as well as significant amount of muscle all of which was necrotic. Bleeding was scant and we stopped above the fascial planes below the first muscle set. There were no pockets of pus, and the wound was dressed with the wet to dry gauze. The patient tolerated the procedure well. IMPRESSION: Stage 4 ischial ulcer with almost no blood flow. PLAN: Plan will be for Santyl dressings for now. We will continue to follow. CC: [facility]; Wound Center; Dr. Jannette Steinberg * [id number]/[facility] #: [id number] MTDD
[2016-06-03] MEDS: Acetaminophen TAB* 325 MG PO PRN (23:35)
[2016-06-04] MEDS: Morphine INJ* 4 MG/ML 1 ML SYRINGE IV PRN ×4 (05:51→22:30)
[2016-06-04 05:55] LABS: Hematocrit 27 % (42-52); Hemoglobin 8.8 g/dl (14.0-18.0); Mean Corpuscular HGB Conc 32 g/dl (31-36); Mean Corpuscular Hemoglobin 27 pg (27-31); Mean Corpuscular Volume 83 fL (80-94); Mean Platelet Volume 6 um3 (7.4-10.4); Red Blood Count 3.31 10^6/ul (4.0-5.4); Red Cell Distribution Width 19 % (10.5-15); White Blood Count 15.6 10^3/ul (3.5-10.8)
[2016-06-04] MEDS ORDERED: metroNIDAZOLE IV 500 MG/100ML* 500 MG/100 ML BAG IVPB SCH (06:00)
[2016-06-04 06:10] LABS: BUN/Creatinine Ratio 15.5 (8-20); Calcium 8.7 mg/dL (8.6-10.3); EGFR African American 177.1 (>60); EGFR Non-African American 137.7 (>60); Potassium 4.6 mmol/L (3.5-5.0)
[2016-06-04] MEDS: Insulin LISPRO* 1 UNITS UNIT SUBCUT SCH ×4 (07:28→20:47)
[2016-06-04] MEDS: Amiodarone TAB* 200 MG PO SCH (08:36)
[2016-06-04] MEDS: Collagenase 250 MG/GM OINT* 30 GM TOPICAL SCH (08:36)
[2016-06-04] MEDS: Gabapentin CAP(*) 300 MG PO SCH ×3 (08:36→20:31)
[2016-06-04] MEDS: Morphine TAB Extended Release (*) 15 MG TAB.ER PO SCH ×2 (08:37→20:31)
[2016-06-04 15:53] LABS: Albumin 1.9 g/dL (3.4-4.7); Gamma Globulin 1.3 g/dL (0.6-1.6); Total Protein(PEP) 5.4 g/dL (6.3 - 7.9)
--- NOTE | 2016-06-04 18:45 | PN ---
Subjective Date of Service: 06/04/16 Interval History: pt reports he feels much better today. He reports a little pain 2/10 in right hip ulcer. No fevers or chills. Reports good appetite. no N/V/D. Patient reports he does want the biospy Family History: Unchanged from Admission Social History: Unchanged from Admission Past Medical History: Unchanged from Admission Objective Active Medications: Acetaminophen (Tylenol Tab*) 650 mg PO Q4H PRN PRN Reason: FEVER/PAIN Last Admin: 06/03/16 23:35 Dose: 650 mg Amiodarone HCl (Cordarone Tab*) 200 mg PO DAILY [facility] Last Admin: 06/04/16 08:36 Dose: 200 mg Collagenase (Santyl 250 Mg/Gm Oint*) 1 applic TOPICAL DAILY [facility] Last Admin: 06/04/16 08:36 Dose: 1 applic Dextrose (D50w Syringe 50 Ml*) 12.5 gm IV PUSH .FOR FS < 60 - SS PRN PRN Reason: FS < 60 Gabapentin (Neurontin Cap(*)) 300 mg PO TID [facility] Last Admin: 06/04/16 12:23 Dose: Not Given Haloperidol Lactate (Haldol Inj Iv/Im*) 2 mg IV SLOW PU Q6H PRN PRN Reason: AGITATION Last Admin: 05/30/16 00:38 Dose: 2 mg Ceftriaxone Sodium 2 gm/ (Sodium Chloride) 100 mls @ 200 mls/hr IVPB 2100 [facility] Insulin Human Lispro (Humalog*) 0 units SUBCUT ACHS [facility] PRN Reason: Protocol Last Admin: 06/04/16 17:09 Dose: Not Given Lorazepam (Ativan Inj*) 0.5 mg IV PUSH Q4H PRN PRN Reason: ANXIETY Last Admin: 06/03/16 17:06 Dose: 0.5 mg Morphine Sulfate (Ms Contin(*)) 15 mg PO BID [facility] Last Admin: 06/04/16 08:37 Dose: 15 mg Morphine Sulfate (Morphine Inj (Syringe)*) 4 mg IV Q4H PRN PRN Reason: PAIN Last Admin: 06/04/16 17:05 Dose: 4 mg Multi-Ingredient Liniment/Rub (Connor Rand*) 1 applic TOPICAL TID PRN PRN Reason: PAIN Last Admin: 06/03/16 06:32 Dose: 1 applic Vital Signs 06/03/16 06/03/1617 20:00 21:20 21:22 Temperature Pulse Rate Respiratory 17 17 17 Rate Blood Pressure (mmHg) O2 Sat by Pulse Oximetry 06/03/16 06/03/16 06/03/16 23:20 23:22 23:33 Temperature 100.2 F Pulse Rate 79 Respiratory 16 16 16 Rate Blood Pressure 102/39 (mmHg) O2 Sat by Pulse 93 Oximetry 06/04/16 06/04/16 06/04/16 04:25 05:51 07:33 Temperature 97.4 F 97.9 F Pulse Rate 60 Respiratory 16 16 Rate Blood Pressure 114/43 (mmHg) O2 Sat by Pulse 96 Oximetry 06/04/16 06/04/16 06/04/16 08:00 08:36 08:37 Temperature Pulse Rate Respiratory 16 16 16 Rate Blood Pressure (mmHg) O2 Sat by Pulse Oximetry 06/04/16 06/04/16 06/04/16 10:32 12:59 13:59 Temperature Pulse Rate Respiratory 16 16 16 Rate Blood Pressure (mmHg) O2 Sat by Pulse Oximetry 06/04/16 06/04/16 06/04/16 15:59 16:05 17:05 Temperature 99.7 F Pulse Rate 86 Respiratory 16 16 Rate Blood Pressure 110/46 (mmHg) O2 Sat by Pulse 88 94 Oximetry 06/04/16 17:50 Temperature Pulse Rate Respiratory 16 Rate Blood Pressure (mmHg) O2 Sat by Pulse Oximetry Oxygen Devices in Use Now: None Appearance: 70 yo obese male laying in bed watching TV in NAD. A+O x3 Eyes: No Scleral Icterus, PERRLA Ears/Nose/Mouth/Throat: NL Teeth, Lips, Gums, Mucous Membranes Moist Neck: NL Appearance and Movements; NL JVP Respiratory: Symmetrical Chest Expansion and Respiratory Effort, Clear to Auscultation Cardiovascular: NL Sounds; No Murmurs; No JVD, RRR, No Edema Abdominal: NL Sounds; No Tenderness; No Distention Lymphatic: No Cervical Adenopathy Extremities: No Edema Skin: - - right hip unstagable decubitus wound with CD+I dressing, no foul odor or drainage noted. Left heal wound with CD+I dressing with no drainage or odor. Neurological: Alert and Oriented x 3, NL Sensation, NL Muscle Strength and Tone Lines/Tubes/Other Access: Clean, Dry and Intact Peripheral IV Nutrition: Taking PO's Result Diagrams: 06/04/16 05:46 06/04/16 05:46 Additional Lab and Data: . Microbiology and Other Data: Microbiology 05/29/16 16:00 Aerobic Blood Culture - Preliminary Blood Venous No Growth Day 1 Anaerobic Blood Culture - Preliminary No Growth Day 1 05/29/16 16:00 Aerobic Blood Culture - Preliminary Blood Venous No Growth Day 1 Anaerobic Blood Culture - Preliminary No Growth Day 1 05/29/16 16:04 Nasal Screen MRSA (PCR)(MEENAKSHI) - Final Nasal Mrsa Negative Assess/Plan/Problems-Billing . Assessment: 70 yo man with acute cystitis associated with indwelling tomlinson catheter - POA - now with acute blood loss anemia and profound hyponatremia resulting from hypovolemia/dehydration. Altered mental status at admission improved with prbc and stabilization (and treatment of UTI/cystitis). Ongoing lower extremity pain and chronic wound management (possible osteomyelitis and metastatic disease) also concerns. . - Patient Problems (1) Hematuria due to cystitis Comment: Resolved Urine C&S sent 05/31/16. CT abd pelvis w/o showed likely clot in bladder, cannot r/o mass. HH stable (2) Decubital ulcer Comment: Stage [address] urogram/abdomen/pelvis showed bilateral pleural effusions, increased density in the bladder, and radiolucent lesions in the pelvic bones and proximal femurs , concern for metastatic disease. Also showing right decubitus ulcer, air & fluid inferior to right ischial tuberosity, inferior ramus and pubic symphysis most consistent with abscess, erosive changes in the inferior pubic rami and superior pubic ramus consistent with osteo. Noted are pathologic fx of both suprapubic rami. Wound consult: Pt admitted with multiple pressure areas; L heel measures 2.5x3x0.1, dry, black eschar. R hip 4.2x4.2x0.1, dry black eschar. R upper posterior thigh with 2 areas that xtend onto his lower buttock measuring 3.5x3.5x0.1 and 4x3.5x0.1, wound base yellow adherent slough with pink tissue on the outer edges. Buttock with open area 1.5x4x0.1 with surrounding erythema. Continue with Santyl daily to L heel and R hip. Antifungal ointment to buttock and barrier ointment in center. Place air mattress on bed of pt will allow. Turn and reposition as tolerated. Appreciate ID consult: continue ceftriaxone (stop flagyl due to contraindication with amiodarone) Appreciate surgery consult: Removed eschar in left heal and buttock wounds . Did not feel that the patient needed to go the the OR Surgery and ID will follow. (3) Bone lesion Comment: Concern for maligancy or possible super-aggressive osteo. Plan for pelvic biopsy with IR, possibly over the weekend but most likely tuesday. (4) Hyponatremia Comment: - suspect dehydration, improved with fluid resusitation (5) Essential hypertension Comment: blood pressures controlled. continue Lisinopril (6) Osteomyelitis Comment: Multiple pelvic bones, with fluid collections and tracts relating to skin ulcers. Continue ceftriaxone. Dr. Lim following (7) Type 2 diabetes mellitus treated without insulin Comment: controlled. Hold metformin, continue Lispro by SS. (8) Ischemic cardiomyopathy Comment: With V-tach, ICD, CABG. EF < 30% 04/2015 Continue amiodarone, hold ASA and bumex for now. (9) DVT prophylaxis Comment: contraindicated in the setting of hematuria Status and Disposition: inpatient. presented with hematuria, found to have decubitus ulcer concern for oseto and bones lesions concerning for malignancy. Plan to DC pt back to subacute rehab when medically stable.
[2016-06-04] MEDS: Acetaminophen TAB* 325 MG PO PRN (20:30)
[2016-06-05 06:43] LABS: Hematocrit 29 % (42-52); Hemoglobin 9.2 g/dl (14.0-18.0); Mean Corpuscular HGB Conc 32 g/dl (31-36); Mean Corpuscular Hemoglobin 27 pg (27-31); Mean Corpuscular Volume 83 fL (80-94); Mean Platelet Volume 6 um3 (7.4-10.4); Red Blood Count 3.47 10^6/ul (4.0-5.4); Red Cell Distribution Width 19 % (10.5-15); White Blood Count 15.4 10^3/ul (3.5-10.8)
[2016-06-05 06:59] LABS: BUN/Creatinine Ratio 13.8 (8-20); EGFR African American 177.1 (>60); EGFR Non-African American 137.7 (>60); Potassium 4.4 mmol/L (3.5-5.0)
[2016-06-05] MEDS: Lisinopril TAB* 10 MG PO SCH (07:36)
[2016-06-05] MEDS: Gabapentin CAP(*) 300 MG PO SCH ×3 (07:36→21:57)
[2016-06-05] MEDS: Morphine TAB Extended Release (*) 15 MG TAB.ER PO SCH ×2 (07:36→21:56)
[2016-06-05] MEDS: Amiodarone TAB* 200 MG PO SCH (07:36)
[2016-06-05] MEDS: Morphine INJ* 4 MG/ML 1 ML SYRINGE IV PRN ×4 (07:37→21:47)
[2016-06-05] MEDS: Insulin LISPRO* 1 UNITS UNIT SUBCUT SCH ×4 (07:37→22:07)
[2016-06-05] MEDS: Collagenase 250 MG/GM OINT* 30 GM TOPICAL SCH (07:39)
[2016-06-05] MEDS: Analgesic BALM* 114 GM TOPICAL PRN ×2 (09:39→20:13)
--- NOTE | 2016-06-05 10:35 | PN ---
Subjective Date of Service: 06/05/16 Interval History: Patient seen and examined [place] he slept better overnight Denies any current pain Feels confused concerning what is going on "in his body" as well as with the plan of care No other complaints Family History: Unchanged from Admission Social History: Unchanged from Admission Past Medical History: Unchanged from Admission Objective Active Medications: Acetaminophen (Tylenol Tab*) 650 mg PO Q4H PRN PRN Reason: FEVER/PAIN Last Admin: 06/04/16 20:30 Dose: 650 mg Amiodarone HCl (Cordarone Tab*) 200 mg PO DAILY [facility] Last Admin: 06/05/16 07:36 Dose: 200 mg Collagenase (Santyl 250 Mg/Gm Oint*) 1 applic TOPICAL DAILY [facility] Last Admin: 06/05/16 07:39 Dose: 1 applic Dextrose (D50w Syringe 50 Ml*) 12.5 gm IV PUSH .FOR FS < 60 - SS PRN PRN Reason: FS < 60 Gabapentin (Neurontin Cap(*)) 300 mg PO TID [facility] Last Admin: 06/05/16 07:36 Dose: 300 mg Haloperidol Lactate (Haldol Inj Iv/Im*) 2 mg IV SLOW PU Q6H PRN PRN Reason: AGITATION Last Admin: 05/30/16 00:38 Dose: 2 mg Ceftriaxone Sodium 2 gm/ (Sodium Chloride) 100 mls @ 200 mls/hr IVPB 2100 [facility] Last Admin: 06/04/16 20:32 Dose: 200 mls/hr Insulin Human Lispro (Humalog*) 0 units SUBCUT ACHS [facility] PRN Reason: Protocol Last Admin: 06/05/16 07:37 Dose: Not Given Lisinopril (Prinivil Tab*) 10 mg PO DAILY [facility] Last Admin: 06/05/16 07:36 Dose: 10 mg Lorazepam (Ativan Inj*) 0.5 mg IV PUSH Q4H PRN PRN Reason: ANXIETY Last Admin: 06/03/16 17:06 Dose: 0.5 mg Morphine Sulfate (Ms Contin(*)) 15 mg PO BID [facility] Last Admin: 06/05/16 07:36 Dose: 15 mg Morphine Sulfate (Morphine Inj (Syringe)*) 4 mg IV Q4H PRN PRN Reason: PAIN Last Admin: 06/05/16 07:37 Dose: 4 mg Multi-Ingredient Liniment/Rub (Connor Rand*) 1 applic TOPICAL TID PRN PRN Reason: PAIN Last Admin: 06/05/16 09:39 Dose: 1 applic Vital Signs 06/04/16 06/04/16 06/04/16 10:32 12:59 13:59 Temperature Pulse Rate Respiratory 16 16 16 Rate Blood Pressure (mmHg) O2 Sat by Pulse Oximetry 06/04/16 06/04/16 06/04/16 15:59 16:05 17:05 Temperature 99.7 F Pulse Rate 86 Respiratory 16 16 Rate Blood Pressure 110/46 (mmHg) O2 Sat by Pulse 88 94 Oximetry 06/04/16 06/04/16 06/04/16 17:50 20:00 20:31 Temperature Pulse Rate Respiratory 16 18 18 Rate Blood Pressure (mmHg) O2 Sat by Pulse Oximetry 06/04/16 06/04/16 06/04/16 22:30 22:31 23:30 Temperature Pulse Rate Respiratory 18 16 16 Rate Blood Pressure (mmHg) O2 Sat by Pulse Oximetry 06/05/16 06/05/16 06/05/16 07:35 07:36 07:37 Temperature Pulse Rate 59 Respiratory 18 18 18 Rate Blood Pressure 112/41 (mmHg) O2 Sat by Pulse 97 Oximetry 06/05/16 06/05/16 08:37 08:49 Temperature Pulse Rate Respiratory 18 20 Rate Blood Pressure (mmHg) O2 Sat by Pulse Oximetry Oxygen Devices in Use Now: None Appearance: Lying flat on left side, interactive, NAD Eyes: No Scleral Icterus, PERRLA Ears/Nose/Mouth/Throat: Clear Oropharnyx, Mucous Membranes Moist Neck: NL Appearance and Movements; NL JVP, Trachea Midline Respiratory: Symmetrical Chest Expansion and Respiratory Effort, Clear to Auscultation Cardiovascular: RRR, - - 2/6 DIMA Abdominal: NL Sounds; No Tenderness; No Distention, No Hepatosplenomegaly Lymphatic: No Cervical Adenopathy Extremities: - - right BKA, left 2+ edema in foot extending up at least 8 in above abkle Skin: - - wound over right ischium and buttocks covered Neurological: Alert and Oriented x 3 Result Diagrams: 06/05/16 06:05 06/05/16 06:05 Additional Lab and Data: . Microbiology and Other Data: Microbiology 05/29/16 16:00 Aerobic Blood Culture - Preliminary Blood Venous No Growth Day 1 Anaerobic Blood Culture - Preliminary No Growth Day 1 05/29/16 16:00 Aerobic Blood Culture - Preliminary Blood Venous No Growth Day 1 Anaerobic Blood Culture - Preliminary No Growth Day 1 05/29/16 16:04 Nasal Screen MRSA (PCR)([id number]) - Final Nasal Mrsa Negative Assess/Plan/Problems-Billing . Assessment: 70 yo man h/o chronic wounds, CAD/CABG, severe sCHF (EF < 30% in 2014), [place] s/p AICD [place] [facility] [place] and hematuria found with hyponatremia, anemia and leukocytosis thought to represent acute cystitis and volume depletion in associated with indwelling tomlinson catheter present on admission (placed for urinary retention). - Patient Problems (1) Bone lesion Comment: Concern for maligancy vs aggressive osteomyelitis. Plan for pelvic biopsy with IR Tuesday. c/w ceftriaxone ID following (2) Hematuria due to cystitis Comment: Resolved Status post bladder irrigation with Dr. Escalante 06/10/16 CT abd pelvis with mass in bladder which may represent clot vs mass Repeat bleeding may warrent OR for cysto however H/H currently stable and urine clear in bag (3) Decubital ulcer Comment: Stage [address] urogram/abdomen/pelvis showed right decubitus ulcer with air & fluid inferior to right ischial tuberosity, inferior ramus and pubic symphysis most consistent with abscesses, erosive changes in the inferior pubic rami and superior pubic ramus consistent with osteo. Wound overlying Right ischial tuberosity unroofed by Dr. Ken 06/03 notable for necrotic muscle but no pockets of pus Wound consult: L heel measures 2.5x3x0.1, dry, black eschar. R hip 4.2x4.2x0.1, dry black eschar. R upper posterior thigh with 2 areas that extend onto his lower buttock measuring 3.5x3.5x0.1 and 4x3.5x0.1, wound base yellow adherent slough with pink tissue on the outer edges. Buttock with open area 1.5x4x0.1 with surrounding erythema. Plan: -Continue with Santyl daily to L heel and R hip. - Antifungal ointment to buttock and barrier ointment in center. -c/w air mattress on bed of pt will allow. Turn and reposition as tolerated. Appreciate ID consult: continue ceftriaxone (stop flagyl due to contraindication with amiodarone) Appreciate surgery consult: Removed eschar in left heal and buttock wounds . Did not feel that the patient needed to go the the OR Surgery and ID will follow. (4) Hyponatremia Comment: suspect dehydration which improved with fluid resusitation (5) Essential hypertension Comment: c/w Lisinopril (6) Ischemic cardiomyopathy Comment: h/o V-tach a/p ICD Last known EF < 30% 04/2015 Continue amiodarone holding ASA and bumex for now. (7) Osteomyelitis Comment: Involving multiple pelvic bones with fluid collections and tracts relating to skin ulcers. Continue ceftriaxone. Dr. Lim following (8) Type 2 diabetes mellitus treated without insulin Comment: restart metformin 500 BID 06/05/16 continue Lispro by SS. (9) DVT prophylaxis Comment: SCDs in the setting of hematuria Status and Disposition: inpatient. presented with hematuria, found to have decubitus ulcer concern for oseto and bones lesions concerning for malignancy. Plan to DC pt back to subacute rehab when medically stable.
[2016-06-05] MEDS: LORazepam INJ* 2 MG/ML 1 ML VIAL IV PUSH PRN (12:15)
[2016-06-05] MEDS: metFORMIN* 500 MG TAB PO SCH (17:29)
[2016-06-06] MEDS: Morphine INJ* 4 MG/ML 1 ML SYRINGE IV PRN ×5 (03:58→21:22)
[2016-06-06 05:57] LABS: Hematocrit 28 % (42-52); Mean Corpuscular HGB Conc 32 g/dl (31-36); Mean Corpuscular Hemoglobin 27 pg (27-31); Mean Corpuscular Volume 83 fL (80-94); Mean Platelet Volume 6 um3 (7.4-10.4); Red Cell Distribution Width 20 % (10.5-15); White Blood Count 15.1 10^3/ul (3.5-10.8)
[2016-06-06 05:58] LABS: Add Diff/Slide Review? Slide Review Added; Comments Flag Yes
[2016-06-06 06:12] LABS: BUN/Creatinine Ratio 14.8 (8-20); Calcium 8.7 mg/dL (8.6-10.3); EGFR African American 167.1 (>60); EGFR Non-African American 129.9 (>60); Magnesium 1.8 mg/dL (1.9-2.7); Potassium 4.8 mmol/L (3.5-5.0)
[2016-06-06] MEDS: Insulin LISPRO* 1 UNITS UNIT SUBCUT SCH ×4 (08:00→21:29)
[2016-06-06] MEDS: Amiodarone TAB* 200 MG PO SCH (08:05)
[2016-06-06] MEDS: Collagenase 250 MG/GM OINT* 30 GM TOPICAL SCH (08:05)
[2016-06-06] MEDS: Lisinopril TAB* 10 MG PO SCH (08:05)
[2016-06-06] MEDS: Gabapentin CAP(*) 300 MG PO SCH ×3 (08:05→21:26)
[2016-06-06] MEDS: metFORMIN* 500 MG TAB PO SCH ×2 (08:05→17:25)
[2016-06-06] MEDS: Morphine TAB Extended Release (*) 15 MG TAB.ER PO SCH ×2 (08:06→21:26)
[2016-06-06] MEDS: Analgesic BALM* 114 GM TOPICAL PRN ×3 (08:06→21:10)
[2016-06-06] MEDS: Nystatin TOP POWDER* 15 GM BTL TOPICAL SCH ×3 (09:53→21:29)
--- NOTE | 2016-06-06 14:06 | PN ---
Subjective Date of Service: 06/06/16 Interval History: Patient seen this afternoon. He reported occasional L hip/bottom pain but said it has been well controlled with medications. Otherwise feels well, no complaints, understands plan for bone biopsy. Family History: Unchanged from Admission Social History: Unchanged from Admission Past Medical History: Unchanged from Admission Objective Active Medications: Acetaminophen (Tylenol Tab*) 650 mg PO Q4H PRN Amiodarone HCl (Cordarone Tab*) 200 mg PO DAILY [facility] Collagenase (Santyl 250 Mg/Gm Oint*) 1 applic TOPICAL DAILY [facility] Dextrose (D50w Syringe 50 Ml*) 12.5 gm IV PUSH .FOR FS < 60 - SS PRN Gabapentin (Neurontin Cap(*)) 300 mg PO TID [facility] Haloperidol Lactate (Haldol Inj Iv/Im*) 2 mg IV SLOW PU Q6H PRN Ceftriaxone Sodium 2 gm/ (Sodium Chloride) 100 mls @ 200 mls/hr IVPB 2100 [facility] Insulin Human Lispro (Humalog*) 0 units SUBCUT ACHS [facility] Lisinopril (Prinivil Tab*) 10 mg PO DAILY [facility] Lorazepam (Ativan Inj*) 0.5 mg IV PUSH Q4H PRN Metformin HCl (Glucophage*) 500 mg PO 0800,1700 [facility] Morphine Sulfate (Ms Contin(*)) 15 mg PO BID [facility] Morphine Sulfate (Morphine Inj (Syringe)*) 4 mg IV Q4H PRN Multi-Ingredient Liniment/Rub (Connor Rand*) 1 applic TOPICAL TID PRN Nystatin (Nystatin Top Powder*) 1 applic TOPICAL TID [facility] Vital Signs 06/05/16 06/05/16 06/05/16 14:07 15:03 17:29 Temperature 98.3 F Pulse Rate 71 Respiratory 16 18 18 Rate Blood Pressure 112/40 (mmHg) O2 Sat by Pulse 95 Oximetry 06/05/16 06/05/16 06/05/16 20:00 21:47 21:56 Temperature Pulse Rate Respiratory 16 16 16 Rate Blood Pressure (mmHg) O2 Sat by Pulse Oximetry 06/05/16 06/05/16 06/05/16 21:57 22:47 23:12 Temperature 98.0 F Pulse Rate 76 Respiratory 16 16 16 Rate Blood Pressure 115/43 (mmHg) O2 Sat by Pulse 94 Oximetry 06/05/16 06/05/16 06/06/16 23:56 23:57 03:58 Temperature Pulse Rate Respiratory 16 16 16 Rate Blood Pressure (mmHg) O2 Sat by Pulse Oximetry 06/06/16 06/06/16 06/06/16 07:22 08:05 08:06 Temperature 97.3 F Pulse Rate 57 Respiratory 16 18 18 Rate Blood Pressure 113/62 (mmHg) O2 Sat by Pulse 97 Oximetry 06/06/16 06/06/16 06/06/16 08:33 10:06 13:03 Temperature Pulse Rate Respiratory 18 18 18 Rate Blood Pressure (mmHg) O2 Sat by Pulse Oximetry Oxygen Devices in Use Now: None Appearance: Elderly, M, laying on his side in bed in NAD Eyes: No Scleral Icterus Ears/Nose/Mouth/Throat: Mucous Membranes Moist Neck: NL Appearance and Movements; NL JVP Respiratory: Symmetrical Chest Expansion and Respiratory Effort, Clear to Auscultation Cardiovascular: NL Sounds; No Murmurs; No JVD, RRR Abdominal: NL Sounds; No Tenderness; No Distention Lymphatic: No Cervical Adenopathy Extremities: - - BKA Skin: - - L ischium buttocks with dressing in place, nystatin surroudning dressing, small shallow ulcer 1 cm x 2 cm on R buttocks visual, no draiange Neurological: Alert and Oriented x 3 Lines/Tubes/Other Access: Clean, Dry and Intact Tomlinson Result Diagrams: 06/06/16 05:44 06/06/16 05:44 Additional Lab and Data: . Microbiology and Other Data: Assess/Plan/Problems-Billing . Assessment: 70 yo man h/o chronic wounds, CAD/CABG, severe sCHF (EF < 30% in 2014), [place] s/p AICD [place] [facility] [place] and hematuria found with hyponatremia, anemia and leukocytosis thought to represent acute cystitis and volume depletion in associated with indwelling tomlinson catheter present on admission (placed for urinary retention). - Patient Problems (1) Bone lesion Current Visit: Yes Status: Acute Code(s): M89.9 - DISORDER OF BONE, UNSPECIFIED SNOMED Code(s): 70281542 Comment: In Pubic rami Concern for maligancy vs aggressive osteomyelitis. Plan for pelvic biopsy with IR Tuesday. c/w ceftriaxone ID following (2) Decubital ulcer Current Visit: Yes Comment: Stage [address] urogram/abdomen/pelvis showed right decubitus ulcer with air & fluid inferior to right ischial tuberosity, inferior ramus and pubic symphysis most consistent with abscesses, erosive changes in the inferior pubic rami and superior pubic ramus consistent with osteo. Wound overlying Right ischial tuberosity unroofed by Dr. Ken 06/03 notable for necrotic muscle but no pockets of pus Plan: -Continue with Santyl daily to L heel and R hip. - Antifungal ointment to buttock and barrier ointment in center. -c/w air mattress on bed of pt will allow. Turn and reposition as tolerated. Appreciate ID consult: continue ceftriaxone (stop flagyl due to contraindication with amiodarone) Appreciate surgery consult: Removed eschar in left heal and buttock wounds . Did not feel that the patient needed to go the the OR Surgery and ID will follow. (3) Hematuria due to cystitis Current Visit: Yes Comment: Resolved Status post bladder irrigation with Dr. Escalante 06/10/16 CT abd pelvis with mass in bladder which may represent clot vs mass Repeat bleeding may warrent OR for cysto however H/H currently stable and urine clear in bag (4) Hyponatremia Current Visit: Yes Comment: suspect dehydration which improved with fluid resusitation (5) Essential hypertension Current Visit: Yes Comment: c/w Lisinopril (6) Osteomyelitis Current Visit: Yes Comment: Involving multiple pelvic bones with fluid collections and tracts relating to skin ulcers. Continue ceftriaxone. Dr. Lim following (7) Ischemic cardiomyopathy Current Visit: Yes Comment: h/o V-tach a/p ICD Last known EF < 30% 04/2015 Continue amiodarone holding ASA and bumex for now. (8) Type 2 diabetes mellitus treated without insulin Current Visit: Yes Comment: Metformin 500 BID restarted on 06/05/16 continue Lispro by SS. (9) DVT prophylaxis Current Visit: Yes Comment: SCDs in the setting of hematuria Status and Disposition: inpatient. presented with hematuria, found to have decubitus ulcer concern for oseto and bones lesions concerning for malignancy. Plan to DC pt back to subacute rehab when medically stable.
[2016-06-07] MEDS: Morphine INJ* 4 MG/ML 1 ML SYRINGE IV PRN ×5 (05:52→23:15)
[2016-06-07] MEDS: Insulin LISPRO* 1 UNITS UNIT SUBCUT SCH ×4 (07:21→21:34)
[2016-06-07] MEDS: metFORMIN* 500 MG TAB PO SCH ×2 (07:55→16:58)
[2016-06-07] MEDS: Morphine TAB Extended Release (*) 15 MG TAB.ER PO SCH ×2 (07:55→21:43)
[2016-06-07] MEDS: Gabapentin CAP(*) 300 MG PO SCH ×3 (07:55→21:43)
[2016-06-07] MEDS: Analgesic BALM* 114 GM TOPICAL PRN ×2 (07:55→14:59)
[2016-06-07] MEDS: Amiodarone TAB* 200 MG PO SCH (07:55)
[2016-06-07] MEDS: Lisinopril TAB* 10 MG PO SCH (07:55)
[2016-06-07] MEDS: Collagenase 250 MG/GM OINT* 30 GM TOPICAL SCH (07:56)
[2016-06-07] MEDS: Nystatin TOP POWDER* 15 GM BTL TOPICAL SCH ×3 (07:56→23:08)
--- NOTE | 2016-06-07 11:35 | PN ---
Progress Note - Progress Note SOAP: Subjective: DOS: 06/07/16 CC: right hip pain HPI: 70 year old man with right prox thigh chronic ulcer admitted with pelvic pain and CT that showed collections adjacent to the wound. Had unroofing of the eschar. Cultures unrevealing. Tolerating abx well. Narcotics help his pain which is decreased to 4/10. No fever, rash, or diarrhea. No pain with weight bearing. Objective: [] Vital Signs Temp 36.7 C 06/07/16 08:08 Pulse 76 06/07/16 08:08 Resp 18 06/07/16 10:19 BP 101/41 06/07/16 08:08 Pulse Ox 94 06/07/16 08:08 Intake & Output 06/06/16 06/07/16 06/07/16 18:59 06:59 18:59 Intake Total 930 254 240 Output Total 600 1600 Balance 330 -1346 240 Intake: IV Fluids 25 ceftriaxone 25 IVPB 109 ceftriaxone 109 Oral 930 120 240 Output: Lala 600 1600 Other: # Bowel Movements 0 Gen:Awake, NAD Neuro: Ox3, answers all questions HEENT:PERRL, MMM Neck:supple Heart:RRR no murmur Lungs:CTA BL Abd:+BS NTND soft Skin: no rash MSK: Right lateral leg ulceration no surrounding erythema; Left ankle calcaneal ulcer, right BKA Assessment: 1. pelvic osteomyelitis, chronic, associated with chronic pressure ulcer of right leg 2. PCN allergy 3. elevated CRP 4. lytic lesions on CT ?infection vs metastatic cancer Plan: 1. continue ceftriaxone daily and wound care, recheck crp 2. Bone biposy for lytic lesions
--- NOTE | 2016-06-07 16:24 | PN ---
Subjective Date of Service: 06/07/16 Interval History: Patient seen this morning. Feels OK overall, pain controlled. Tearful about his situation. Family History: Unchanged from Admission Social History: Unchanged from Admission Past Medical History: Unchanged from Admission Objective Active Medications: Acetaminophen (Tylenol Tab*) 650 mg PO Q4H PRN PRN Reason: FEVER/PAIN Last Admin: 06/04/16 20:30 Dose: 650 mg Amiodarone HCl (Cordarone Tab*) 200 mg PO DAILY [facility] Last Admin: 06/07/16 07:55 Dose: 200 mg Collagenase (Santyl 250 Mg/Gm Oint*) 1 applic TOPICAL DAILY [facility] Last Admin: 06/07/16 07:56 Dose: 1 applic Dextrose (D50w Syringe 50 Ml*) 12.5 gm IV PUSH .FOR FS < 60 - SS PRN PRN Reason: FS < 60 Gabapentin (Neurontin Cap(*)) 300 mg PO TID [facility] Last Admin: 06/07/16 14:55 Dose: 300 mg Haloperidol Lactate (Haldol Inj Iv/Im*) 2 mg IV SLOW PU Q6H PRN PRN Reason: AGITATION Last Admin: 05/30/16 00:38 Dose: 2 mg Ceftriaxone Sodium 2 gm/ (Sodium Chloride) 100 mls @ 200 mls/hr IVPB 2100 [facility] Last Admin: 06/06/16 21:17 Dose: 200 mls/hr Insulin Human Lispro (Humalog*) 0 units SUBCUT ACHS [facility] PRN Reason: Protocol Last Admin: 06/07/16 12:03 Dose: Not Given Lisinopril (Prinivil Tab*) 10 mg PO DAILY [facility] Last Admin: 06/07/16 07:55 Dose: 10 mg Lorazepam (Ativan Inj*) 0.5 mg IV PUSH Q4H PRN PRN Reason: ANXIETY Last Admin: 06/05/16 12:15 Dose: 0.5 mg Metformin HCl (Glucophage*) 500 mg PO 0800,1700 [facility] Last Admin: 06/07/16 07:55 Dose: 500 mg Morphine Sulfate (Ms Contin(*)) 15 mg PO BID [facility] Last Admin: 06/07/16 07:55 Dose: 15 mg Morphine Sulfate (Morphine Inj (Syringe)*) 4 mg IV Q4H PRN PRN Reason: PAIN Last Admin: 06/07/16 14:56 Dose: 4 mg Multi-Ingredient Liniment/Rub (Connor Rand*) 1 applic TOPICAL TID PRN PRN Reason: PAIN Last Admin: 06/07/16 14:59 Dose: 1 applic Nystatin (Nystatin Top Powder*) 1 applic TOPICAL TID [facility] Last Admin: 06/07/16 15:00 Dose: 1 applic Vital Signs 06/07/16 06/07/16 06/07/16 05:52 07:55 08:08 Temperature 98.0 F Pulse Rate 76 Respiratory 16 18 15 Rate Blood Pressure 101/41 (mmHg) O2 Sat by Pulse 94 Oximetry 06/07/16 06/07/16 06/07/16 14:55 14:56 15:14 Temperature 97.7 F Pulse Rate 68 Respiratory 18 18 16 Rate Blood Pressure 103/36 (mmHg) O2 Sat by Pulse 98 Oximetry Oxygen Devices in Use Now: None Appearance: Elderly, M, laying in bed in NAD Eyes: No Scleral Icterus Ears/Nose/Mouth/Throat: Mucous Membranes Moist Neck: NL Appearance and Movements; NL JVP Respiratory: Symmetrical Chest Expansion and Respiratory Effort, Clear to Auscultation Cardiovascular: NL Sounds; No Murmurs; No JVD, RRR Abdominal: NL Sounds; No Tenderness; No Distention Lymphatic: No Cervical Adenopathy Extremities: - - LLE BKA Skin: - - R ischial dressing in place, c/d/i Neurological: Alert and Oriented x 3 Lines/Tubes/Other Access: Clean, Dry and Intact Tomlinson Result Diagrams: 06/06/16 05:44 06/06/16 05:44 Additional Lab and Data: . Microbiology and Other Data: Assess/Plan/Problems-Billing . Assessment: 70 yo man h/o chronic wounds, CAD/CABG, severe sCHF (EF < 30% in 2014), [place] s/p [place]ICD [place] [facility] [place] and [place]uria found with hyponatremia, anemia and leukocytosis thought to represent acute cystitis and volume depletion in associated with indwelling tomlinson catheter present on admission (placed for urinary retention). - Patient Problems (1) Bone lesion Current Visit: Yes Status: Acute Code(s): M89.9 - DISORDER OF BONE, UNSPECIFIED SNOMED Code(s): 93664061 Comment: In Pubic rami Concern for maligancy vs aggressive osteomyelitis. Plan for pelvic biopsy with IR Corinne. c/w ceftriaxone ID following (2) Decubital ulcer Current Visit: Yes Comment: Stage [address] urogram/abdomen/pelvis showed right decubitus ulcer with air & fluid inferior to right ischial tuberosity, inferior ramus and pubic symphysis most consistent with abscesses, erosive changes in the inferior pubic rami and superior pubic ramus consistent with osteo. Wound overlying Right ischial tuberosity unroofed by Dr. Ken 06/03 notable for necrotic muscle but no pockets of pus Plan: -Continue with Santyl daily to L heel and R hip. - Antifungal ointment to buttock and barrier ointment in center. -c/w air mattress on bed of pt will allow. Turn and reposition as tolerated. Appreciate ID consult: continue ceftriaxone (stop flagyl due to contraindication with amiodarone) Appreciate surgery consult: Removed eschar in left heal and buttock wounds . Did not feel that the patient needed to go the the OR Surgery and ID will follow. (3) Hematuria due to cystitis Current Visit: Yes Comment: Resolved Status post bladder irrigation with Dr. Escalante 06/10/16 CT abd pelvis with mass in bladder which may represent clot vs mass Repeat bleeding may warrent OR for cysto however H/H currently stable and urine clear in bag (4) Hyponatremia Current Visit: Yes Comment: suspect dehydration which improved with fluid resusitation (5) Essential hypertension Current Visit: Yes Comment: c/w Lisinopril (6) Osteomyelitis Current Visit: Yes Comment: Involving multiple pelvic bones with fluid collections and tracts relating to skin ulcers. Continue ceftriaxone. Dr. Lim following (7) Ischemic cardiomyopathy Current Visit: Yes Comment: h/o V-tach a/p ICD Last known EF < 30% 04/2015 Continue amiodarone holding ASA and bumex for now. (8) Type 2 diabetes mellitus treated without insulin Current Visit: Yes Comment: Metformin 500 BID restarted on 06/05/16 continue Lispro by SS. (9) DVT prophylaxis Current Visit: Yes Comment: SCDs in the setting of hematuria Status and Disposition: inpatient. presented with hematuria, found to have decubitus ulcer concern for oseto and bones lesions concerning for malignancy. Plan to DC pt back to subacute rehab when medically stable.
[2016-06-07] MEDS: LORazepam INJ* 2 MG/ML 1 ML VIAL IV PUSH PRN (23:15)
[2016-06-08] MEDS: Morphine INJ* 4 MG/ML 1 ML SYRINGE IV PRN ×5 (04:48→22:50)
[2016-06-08] MEDS: Analgesic BALM* 114 GM TOPICAL PRN ×5 (04:50→18:05)
[2016-06-08] MEDS: Insulin LISPRO* 1 UNITS UNIT SUBCUT SCH ×4 (07:55→21:19)
[2016-06-08] MEDS: Lisinopril TAB* 10 MG PO SCH (08:27)
[2016-06-08] MEDS: metFORMIN* 500 MG TAB PO SCH ×2 (08:28→18:05)
[2016-06-08] MEDS: Gabapentin CAP(*) 300 MG PO SCH ×3 (08:28→21:03)
[2016-06-08] MEDS: Morphine TAB Extended Release (*) 15 MG TAB.ER PO SCH ×2 (08:28→21:04)
[2016-06-08] MEDS: Amiodarone TAB* 200 MG PO SCH (08:28)
[2016-06-08] MEDS: Nystatin TOP POWDER* 15 GM BTL TOPICAL SCH ×3 (08:30→21:50)
[2016-06-08] MEDS ORDERED: fentaNYL* 50 MCG/ML 5 ML VIAL (250 MCG VIAL) ONE (10:57)
[2016-06-08] MEDS: Collagenase 250 MG/GM OINT* 30 GM TOPICAL SCH ×2 (11:26→14:06)
--- NOTE | 2016-06-08 13:05 | RAD ---
CPT II Codes: 6100F INDICATION: Widespread bony lucencies and signs of osteomyelitis involving the pubic symphysis. COMPARISON: CT urogram June 01, 2016 The indication, benefits and risks of the procedure were explained to the patient. The patient provided informed consent for the procedure. The patient was brought to the CT suite and positioned in the supine position. A time out was preformed with the technologist and nursing staff. The patient was prepped and draped in the usual sterile fashion. The patient was given intravenous intravenous fentanyl and local anesthesia with 1% lidocaine. Using CT guidance the right pubic bone was accessed with an 11-gauge T-Christiano bone marrow biopsy trocar. Once access to the medullary cavity was confirmed with CT imaging, the inner stylette was removed and according to manufacture device instructions, the bone marrow trocar was advanced approximately 2 cm in the medullary cavity of the bone. Fine-needle aspiration was acquired and provided to the attending mammography technologist. Finally, a medullary bony core biopsy was acquired and provided to the attending mammography technologist. The patient tolerated the procedure well without incident. Postprocedural CT does not reveal any signs of immediate complication. The patient was transported to the holding area and then his inpatient room in stable condition. IMPRESSION: Uncomplicated CT guided fine needle aspiration and core biopsy of the right pubic bone medullary cavity as described.
--- NOTE | 2016-06-08 17:10 | PN ---
Subjective Date of Service: 06/08/16 Interval History: Patient seen and examined at bedside. Pt states that he is feeling well today, continues to have pain in his pelvis. Denies fever, chills, shortness of breath , chest discomfort, N/V/D. Family History: Unchanged from Admission Social History: Unchanged from Admission Past Medical History: Unchanged from Admission Objective Active Medications: Acetaminophen (Tylenol Tab*) 650 mg PO Q4H PRN Reason: FEVER/PAIN Amiodarone HCl (Cordarone Tab*) 200 mg PO DAILY [facility] Collagenase (Santyl 250 Mg/Gm Oint*) 1 applic TOPICAL DAILY [facility] Dextrose (D50w Syringe 50 Ml*) 12.5 gm IV PUSH .FOR FS < 60 - SS PRN Reason: FS < 60 Gabapentin (Neurontin Cap(*)) 300 mg PO TID [facility] Haloperidol Lactate (Haldol Inj Iv/Im*) 2 mg IV SLOW PU Q6H PRN Reason: AGITATION Ceftriaxone Sodium 2 gm/ (Sodium Chloride) 100 mls @ 200 mls/hr IVPB 2100 [facility] Insulin Human Lispro (Humalog*) 0 units SUBCUT ACHS [facility] Lisinopril (Prinivil Tab*) 10 mg PO DAILY [facility] Lorazepam (Ativan Inj*) 0.5 mg IV PUSH Q4H PRN Reason: ANXIETY Metformin HCl (Glucophage*) 500 mg PO 0800,1700 [facility] Morphine Sulfate (Ms Contin(*)) 15 mg PO BID [facility] Morphine Sulfate (Morphine Inj (Syringe)*) 4 mg IV Q4H PRN Reason: PAIN Multi-Ingredient Liniment/Rub (Connor Rand*) 1 applic TOPICAL TID PRN Reason: PAIN Nystatin (Nystatin Top Powder*) 1 applic TOPICAL TID [facility] Vital Signs 06/08/16 06/08/16 06/08/16 04:53 05:50 07:23 Temperature 98.7 F 98.7 F Pulse Rate 77 81 Respiratory 18 18 Rate Blood Pressure 116/49 102/41 (mmHg) O2 Sat by Pulse 99 91 Oximetry 06/08/16 06/08/16 15:36 15:57 Temperature 98.4 F Pulse Rate 79 Respiratory 16 12 Rate Blood Pressure 101/42 (mmHg) O2 Sat by Pulse 99 Oximetry Oxygen Devices in Use Now: None Appearance: NAD, laying in bed. Eyes: No Scleral Icterus, PERRLA Ears/Nose/Mouth/Throat: NL Teeth, Lips, Gums, Mucous Membranes Moist Neck: NL Appearance and Movements; NL JVP, Trachea Midline Respiratory: Symmetrical Chest Expansion and Respiratory Effort, Clear to Auscultation Cardiovascular: NL Sounds; No Murmurs; No JVD, RRR Abdominal: NL Sounds; No Tenderness; No Distention Extremities: No Edema, - - Hx: Right LE BKA Skin: - - Right ischial dress clean, dry and intact. Neurological: Alert and Oriented x 3 Lines/Tubes/Other Access: Clean, Dry and Intact Tomlinson - patent, draining clear yellow urine, Clean, Dry and Intact Peripheral IV - site benign Nutrition: Taking PO's Result Diagrams: 06/06/16 05:44 06/06/16 05:44 Microbiology and Other Data: Assess/Plan/Problems-Billing . Assessment: Mr. Adams is a 70 yo man with a PMH significant for chronic wounds, CAD/CABG, severe sCHF (EF < 30% in 2014), [place] s/p AICD who [place] [facility] [place] and hematuria found with hyponatremia, anemia and leukocytosis thought to represent acute cystitis and volume depletion in associated with indwelling tomlinson catheter present on admission (placed for urinary retention). - Patient Problems (1) Bone lesion Code(s): M89.9 - DISORDER OF BONE, UNSPECIFIED SNOMED Code(s): 44286931 Comment: - In Pubic rami, S/P pelvic bone biopsy today. - Concern for maligancy vs aggressive osteomyelitis. - ID following - Continue ceftriaxone (2) Decubital ulcer Code(s): L89.90 - PRESSURE ULCER OF UNSPECIFIED SITE, UNSPECIFIED STAGE SNOMED Code(s): 005807581 Comment: - Stage 2 and unstagable wounds - CT urogram/abdomen/pelvis showed right decubitus ulcer with air & fluid inferior to right ischial tuberosity, inferior ramus and pubic symphysis most consistent with abscesses, erosive changes in the inferior pubic rami and superior pubic ramus consistent with osteo. - Wound overlying Right ischial tuberosity unroofed by Dr. Ken 06/03 notable for necrotic muscle but no pockets of pus Plan: - Continue with Santyl daily to L heel and R hip. - Antifungal ointment to buttock and barrier ointment in center. - Continue air mattress on bed of pt will allow. Turn and reposition as tolerated. - Appreciate ID consult: continue ceftriaxone (stop flagyl due to contraindication with amiodarone) - Appreciate surgery consult: Removed eschar in left heal and buttock wounds . Did not feel that the patient needed to go the the OR - Surgery and ID will follow. (3) Hematuria due to cystitis Code(s): N30.91 - CYSTITIS, UNSPECIFIED WITH HEMATURIA SNOMED Code(s): 552821543772101 Comment: - Resolved. Repeat bleeding may warrent OR for cysto however H/H currently stable and urine clear in bag - Status post bladder irrigation with Dr. Escalante 06/10/16 - CT abd pelvis with mass in bladder which may represent clot vs mass (4) Hyponatremia Code(s): E87.1 - HYPO-OSMOLALITY AND HYPONATREMIA SNOMED Code(s): 32607555 Comment: - suspect dehydration, improved with fluid resusitation (5) Osteomyelitis Code(s): M86.9 - OSTEOMYELITIS, UNSPECIFIED SNOMED Code(s): 62463482 Comment: - Involving multiple pelvic bones with fluid collections and tracts relating to skin ulcers. - Continue ceftriaxone. - Dr. Lim following (6) Essential hypertension Code(s): I10 - ESSENTIAL (PRIMARY) HYPERTENSION SNOMED Code(s): 55952857 Comment: - SBP 90-110's - Continue Lisinopril (7) Ischemic cardiomyopathy Code(s): I25.5 - ISCHEMIC CARDIOMYOPATHY SNOMED Code(s): 942182830 Comment: - h/o V-tach s/p ICD - Last known EF < 30% 04/2015 - Continue amiodarone - Continue to hold ASA and bumex for now. (8) Type 2 diabetes mellitus treated without insulin Code(s): E11.9 - TYPE 2 DIABETES MELLITUS WITHOUT COMPLICATIONS SNOMED Code(s) : 32088229 Comment: - Glucose 90-180's - Continue Metformin 500 BID and Lispro SS (9) DVT prophylaxis Code(s): KJY5879 - SNOMED Code(s): 335118883 Comment: - SCDs in the setting of hematuria (10) DNR (do not resuscitate) Status and Disposition: Inpatient. Plan to DC pt back to subacute rehab when medically stable.
[2016-06-08] MEDS: Acetaminophen TAB* 325 MG PO PRN (21:03)
[2016-06-09] MEDS: Morphine INJ* 4 MG/ML 1 ML SYRINGE IV PRN ×4 (03:57→21:15)
[2016-06-09 05:58] LABS: Hematocrit 29 % (42-52); Hemoglobin 9.4 g/dl (14.0-18.0); Mean Corpuscular HGB Conc 32 g/dl (31-36); Mean Corpuscular Hemoglobin 27 pg (27-31); Mean Corpuscular Volume 83 fL (80-94); Mean Platelet Volume 6 um3 (7.4-10.4); Red Blood Count 3.53 10^6/ul (4.0-5.4); Red Cell Distribution Width 19 % (10.5-15); White Blood Count 13.8 10^3/ul (3.5-10.8)
[2016-06-09 06:09] LABS: BUN/Creatinine Ratio 15.6 (8-20); C Reactive Protein 72.99 mg/L (< 5.00); Calcium 8.7 mg/dL (8.6-10.3); EGFR African American 158.1 (>60); EGFR Non-African American 122.9 (>60); Potassium 4.6 mmol/L (3.5-5.0)
[2016-06-09] MEDS: Analgesic BALM* 114 GM TOPICAL PRN ×2 (08:00→23:35)
[2016-06-09] MEDS: Insulin LISPRO* 1 UNITS UNIT SUBCUT SCH ×4 (08:04→21:32)
[2016-06-09] MEDS: metFORMIN* 500 MG TAB PO SCH ×2 (08:31→18:20)
[2016-06-09] MEDS: Gabapentin CAP(*) 300 MG PO SCH ×3 (08:32→21:14)
[2016-06-09] MEDS: Morphine TAB Extended Release (*) 15 MG TAB.ER PO SCH ×2 (08:32→21:14)
[2016-06-09] MEDS: Lisinopril TAB* 10 MG PO SCH (08:33)
[2016-06-09] MEDS: Amiodarone TAB* 200 MG PO SCH (08:33)
--- NOTE | 2016-06-09 10:07 | PN ---
Progress Note - Progress Note SOAP: Subjective: DOS: 06/09/16 CC: right hip pain HPI: 70 year old man with right prox thigh chronic ulcer admitted with pelvic pain and CT that showed collections adjacent to the wound. Had unroofing of the eschar. Tolerating abx well. Narcotics help his pain which is decreased to 2/10. Had bone biopsy which he tolerated well. No fever, rash, or diarrhea. No pain with weight bearing. Objective: [] Vital Signs Temp 37.6 C 06/09/16 07:34 Pulse 77 06/09/16 07:34 Resp 16 06/09/16 08:32 BP 131/45 06/09/16 07:34 Pulse Ox 94 06/09/16 07:34 Intake & Output 06/08/16 06/09/16 06/09/16 18:59 06:59 18:59 Intake Total 1390 0 360 Output Total 500 1800 Balance 890 -1800 360 Intake: Oral 1390 0 360 Output: Urine 500 Lala 1800 Other: # Bowel Movements 0 Gen:Awake, NAD Neuro: Ox3, answers all questions HEENT:PERRL, MMM Neck:supple Heart:RRR no murmur Lungs:CTA BL Abd:+BS NTND soft Skin: no rash MSK: Right lateral posterior leg ulceration no surrounding erythema or drainage ; Left ankle calcaneal ulcer, right BKA Laboratory Results - last 24 hr 05/30/16 06/08/16 06/08/16 07:55 17:30 21:04 WBC RBC Hgb Hct MCV MCH MCHC RDW Plt Count MPV Neut % (Auto) Lymph % (Auto) [place]well % (Auto) Eos % (Auto) Baso % (Auto) Absolute Neuts (auto) Absolute Lymphs (auto) Absolute Monos (auto) Absolute Eos (auto) Absolute Basos (auto) Absolute Nucleated RBC Nucleated RBC % Sodium Potassium Chloride Carbon Dioxide Anion Gap BUN Creatinine Est GFR ( Amer) Est GFR (Non-Af Amer) BUN/Creatinine Ratio Glucose POC Glucose (mg/dL) 110 H 142 H Calcium C-Reactive Protein Transfusion React Rpt 06/09/16 06/09/16 06/09/16 05:39 05:39 07:50 WBC 13.8 H RBC 3.53 L Hgb 9.4 L Hct 29 L MCV 83 MCH 27 MCHC 32 RDW 19 H Plt Count 588 H MPV 6 L Neut % (Auto) 77.3 Lymph % (Auto) 12.2 L Caswell % (Auto) 6.8 Eos % (Auto) 2.7 Baso % (Auto) 1.0 Absolute Neuts (auto) 10.7 H Absolute Lymphs (auto) 1.7 Absolute Monos (auto) 0.9 H Absolute Eos (auto) 0.4 Absolute Basos (auto) 0.1 Absolute Nucleated RBC 0 Nucleated RBC % 0 Sodium 130 L Potassium 4.6 Chloride 95 L Carbon Dioxide 30 Anion Gap 5 BUN 10 Creatinine 0.64 L Est GFR ( Amer) 158.1 Est GFR (Non-Af Amer) 122.9 BUN/Creatinine Ratio 15.6 Glucose 82 POC Glucose (mg/dL) 110 H Calcium 8.7 C-Reactive Protein 72.99 H Transfusion React Rpt Microbiology 06/08/16 11:30 Tissue - Not Otherwise Specified Wound Gram Stain - Final 06/08/16 11:30 Tissue - Not Otherwise Specified Acid Fast Bacilli Smear - Final 06/03/16 17:20 Buttock Gram Stain - Final 06/03/16 17:20 Buttock Wound Culture - Final Normal Deb 05/29/16 16:00 Blood Venous Aerobic Blood Culture - Final No Growth Day 5 05/29/16 16:00 Blood Venous Anaerobic Blood Culture - Final No Growth Day 5 05/29/16 16:00 Blood Venous Blood Culture - Final 05/29/16 16:00 Blood Venous Aerobic Blood Culture - Final No Growth Day 5 05/29/16 16:00 Blood Venous Anaerobic Blood Culture - Final No Growth Day 5 05/29/16 16:00 Blood Venous Blood Culture - Final 05/31/16 15:24 Urine Urine Culture - Final No Growth (<1,000 CFU/mL) 05/29/16 16:04 Nasal Nasal Screen MRSA (PCR)([id number]) - Final Mrsa Negative Assessment: 1. pelvic osteomyelitis, chronic, associated with chronic pressure ulcer of right leg 2. PCN allergy 3. elevated CRP 4. lytic lesions on CT ?infection vs metastatic cancer; gram stain showed 4+ poly supports infection Plan: 1. ceftriaxone 2 gm IV Q24hrs, day and wound care 2. Bone biposy for lytic lesions, cultures and cytology pending Discussed with VANNESA Kunz
[2016-06-09] MEDS: Nystatin TOP POWDER* 15 GM BTL TOPICAL SCH ×3 (12:02→21:44)
[2016-06-09] MEDS: Collagenase 250 MG/GM OINT* 30 GM TOPICAL SCH (12:03)
--- NOTE | 2016-06-09 16:21 | PN ---
Subjective Date of Service: 06/09/16 Interval History: Patient seen and examined at bedside. Pt states that he is doing well, but continues to have pain in his "bottom". He reports being unable to get up to a chair d/t the pain when he sits up. Denies fever, chills, shortness of breath, chest discomfort, N/V/D. Family History: Unchanged from Admission Social History: Unchanged from Admission Past Medical History: Unchanged from Admission Objective Active Medications: Acetaminophen (Tylenol Tab*) 650 mg PO Q4H PRN Reason: FEVER/PAIN Amiodarone HCl (Cordarone Tab*) 200 mg PO DAILY [facility] Collagenase (Santyl 250 Mg/Gm Oint*) 1 applic TOPICAL DAILY [facility] Dextrose (D50w Syringe 50 Ml*) 12.5 gm IV PUSH .FOR FS < 60 - SS PRN Reason: FS < 60 Gabapentin (Neurontin Cap(*)) 300 mg PO TID [facility] Haloperidol Lactate (Haldol Inj Iv/Im*) 2 mg IV SLOW PU Q6H PRN Reason: AGITATION Ceftriaxone Sodium 2 gm/ (Sodium Chloride) 100 mls @ 200 mls/hr IVPB 2100 [facility] Insulin Human Lispro (Humalog*) 0 units SUBCUT ACHS [facility] Lisinopril (Prinivil Tab*) 10 mg PO DAILY [facility] Lorazepam (Ativan Inj*) 0.5 mg IV PUSH Q4H PRN Reason: ANXIETY Metformin HCl (Glucophage*) 500 mg PO 0800,1700 [facility] Morphine Sulfate (Ms Contin(*)) 15 mg PO BID [facility] Morphine Sulfate (Morphine Inj (Syringe)*) 4 mg IV Q4H PRN Reason: PAIN Multi-Ingredient Liniment/Rub (Connor Rand*) 1 applic TOPICAL TID PRN Reason: PAIN Nystatin (Nystatin Top Powder*) 1 applic TOPICAL TID [facility] Vital Signs 06/08/16 06/08/16 06/08/16 18:05 20:13 20:20 Temperature 99.1 F Pulse Rate 76 Respiratory 18 16 Rate Blood Pressure 90/38 116/50 (mmHg) O2 Sat by Pulse 94 Oximetry 06/08/16 06/08/16 06/09/16 23:27 23:50 03:57 Temperature 98.3 F Pulse Rate 65 Respiratory 19 16 20 Rate Blood Pressure 84/36 119/57 (mmHg) O2 Sat by Pulse 97 Oximetry 06/09/16 06/09/16 06/09/16 04:57 07:34 08:15 Temperature 99.6 F Pulse Rate 77 Respiratory 18 16 Rate Blood Pressure 131/45 (mmHg) O2 Sat by Pulse 94 Oximetry Oxygen Devices in Use Now: None Appearance: NAD, laying in bed. Eyes: No Scleral Icterus, PERRLA Ears/Nose/Mouth/Throat: NL Teeth, Lips, Gums, Mucous Membranes Moist Neck: NL Appearance and Movements; NL JVP, Trachea Midline Respiratory: Symmetrical Chest Expansion and Respiratory Effort, Clear to Auscultation Cardiovascular: NL Sounds; No Murmurs; No JVD, - - Heart rate irregular Abdominal: NL Sounds; No Tenderness; No Distention - Bowel sounds present Extremities: - - +1 bilateral LE edema Skin: - - Dressing to right ischial wound clean, dry and intact. Neurological: Alert and Oriented x 3 Lines/Tubes/Other Access: Clean, Dry and Intact Tomlinson - patent, draining clear yellow urine, Clean, Dry and Intact Peripheral IV - site benign Nutrition: Taking PO's Result Diagrams: 06/09/16 05:39 06/09/16 05:39 Additional Lab and Data: . Microbiology and Other Data: Assess/Plan/Problems-Billing . Assessment: Mr. Adams is a 70 yo man with a PMH significant for chronic wounds, CAD/CABG, severe sCHF (EF < 30% in 2014), [place] s/p AICD who presented to [facility] [place] with AMS and hematuria found with hyponatremia, anemia and leukocytosis thought to represent acute cystitis and volume depletion in associated with indwelling tomlinson catheter present on admission (placed for urinary retention). - Patient Problems (1) Bone lesion Code(s): M89.9 - DISORDER OF BONE, UNSPECIFIED SNOMED Code(s): 02223277 Comment: - In Pubic rami. 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 - Wound overlying Right ischial tuberosity unroofed by Dr. Ken 06/03 notable for necrotic muscle but no pockets of pus Plan: - Continue with Santyl daily to L heel and R hip. - Antifungal ointment to buttock and barrier ointment in center. - Continue air mattress on bed of pt will allow. Turn and reposition as tolerated. - Appreciate ID consult: continue ceftriaxone (stop flagyl due to contraindication with amiodarone) - Appreciate surgery consult: Removed eschar in left heal and buttock wounds . Did not feel that the patient needed to go the the OR - Surgery and ID will follow. (3) Hematuria due to cystitis Code(s): N30.91 - CYSTITIS, UNSPECIFIED WITH HEMATURIA SNOMED Code(s): 973288398895476 Comment: - Resolved. Repeat bleeding may warrent OR for cysto however H/H currently stable and urine clear in bag - Status post bladder irrigation with Dr. Escalante 06/10/16 - CT abd pelvis with mass in bladder which may represent clot vs mass (4) Hyponatremia Code(s): E87.1 - HYPO-OSMOLALITY AND HYPONATREMIA SNOMED Code(s): 92384629 Comment: - suspect dehydration, improved with fluid resusitation (5) Osteomyelitis Code(s): M86.9 - OSTEOMYELITIS, UNSPECIFIED SNOMED Code(s): 93140206 Comment: - Involving multiple pelvic bones with fluid collections and tracts relating to skin ulcers. - Continue ceftriaxone. Will need senior living IV ABX. - Dr. Lim following (6) Essential hypertension Code(s): I10 - ESSENTIAL (PRIMARY) HYPERTENSION SNOMED Code(s): 59949776 Comment: - SBP 90-130's - Continue Lisinopril (7) Ischemic cardiomyopathy Code(s): I25.5 - ISCHEMIC CARDIOMYOPATHY SNOMED Code(s): 086259725 Comment: - h/o V-tach s/p ICD - Last known EF < 30% 04/2015 - Continue amiodarone - Continue to hold ASA and bumex for now. (8) Type 2 diabetes mellitus treated without insulin Code(s): E11.9 - TYPE 2 DIABETES MELLITUS WITHOUT COMPLICATIONS SNOMED Code(s) : 68475319 Comment: - Glucose 110-130's - Continue Metformin 500 BID and Lispro SS (9) DVT prophylaxis Code(s): AHP4229 - SNOMED Code(s): 739255199 Comment: - SCDs in the setting of hematuria (10) DNR (do not resuscitate) Status and Disposition: Inpatient. Plan to DC pt back to subacute rehab when medically stable. Possible discharge to [facility] in the morning.
[2016-06-10] MEDS: Morphine INJ* 4 MG/ML 1 ML SYRINGE IV PRN ×5 (05:05→22:24)
[2016-06-10] MEDS: Insulin LISPRO* 1 UNITS UNIT SUBCUT SCH ×4 (09:12→21:08)
[2016-06-10] MEDS: Amiodarone TAB* 200 MG PO SCH (09:19)
[2016-06-10] MEDS: Morphine TAB Extended Release (*) 15 MG TAB.ER PO SCH ×2 (09:19→20:59)
[2016-06-10] MEDS: metFORMIN* 500 MG TAB PO SCH ×2 (09:19→17:35)
[2016-06-10] MEDS: Lisinopril TAB* 10 MG PO SCH (09:20)
[2016-06-10] MEDS: Gabapentin CAP(*) 300 MG PO SCH ×3 (09:20→20:58)
[2016-06-10] MEDS: Nystatin TOP POWDER* 15 GM BTL TOPICAL SCH ×3 (09:24→22:30)
[2016-06-10] MEDS: Collagenase 250 MG/GM OINT* 30 GM TOPICAL SCH (10:17)
--- NOTE | 2016-06-10 10:48 | PN ---
Progress Note - Progress Note SOAP: Subjective: DOS: 06/10/16 CC: right hip pain HPI: 70 year old man with right prox thigh chronic ulcer admitted with pelvic pain and CT that showed collections adjacent to the wound. Had unroofing of the eschar. Tolerating abx well. Narcotics help his pain which is decreased to 2/10. Had bone biopsy which he tolerated well. No fever, rash, or diarrhea. Hasn't been out of bed today. Pain about the same. Objective: [] Vital Signs Temp 36.7 C 06/10/16 07:44 Pulse 73 06/10/16 07:44 Resp 16 06/10/16 10:21 BP 110/44 06/10/16 07:44 Pulse Ox 99 06/10/16 07:44 Intake & Output 06/09/16 06/10/16 06/10/16 18:59 06:59 18:59 Intake Total 1480 560 360 Output Total 700 3350 1000 Balance 780 -2790 -640 Weight 214 lb Intake: IV Fluids 120 NS (0.9%) 20 ceftriaxone 100 Oral 1480 440 360 Output: Lala 700 3350 1000 Other: # Bowel Movements 0 Gen:Awake, NAD Neuro: Ox3, answers all questions HEENT:PERRL, MMM Neck:supple Heart:RRR no murmur Lungs:CTA BL Abd:+BS NTND soft Skin: no rash MSK: Right lateral posterior leg ulceration no surrounding erythema or drainage ; Left ankle calcaneal ulcer, right BKA Assessment: 1. pelvic osteomyelitis, chronic, associated with chronic pressure ulcer of right leg 2. pathologic fracture of pubic rami 3. lytic lesions on CT 4+ polys and growing Pseudomonas; multifocal chronic osteomyelitis 4. PCN allergy 5. elevated CRP Plan: 1. change cefepime to 2 gm IV Q12hrs, will need 6 weeks IV abx then likely FQ PO 2. PICC placement (ordered)
[2016-06-10] MEDS: Cefepime(*) 2 GM in NS 0.9% 50 ML* 50 ML IVPB SCH ×2 (12:53→23:21)
--- NOTE | 2016-06-10 20:12 | PN ---
Subjective Date of Service: 06/10/16 Interval History: Patient seen and examined at bedside. Pt states that he continues to have buttock pain, but no other complaints. Denies fever, chills, shortness of breath , chest discomfort, N/V/D. Family History: Unchanged from Admission Social History: Unchanged from Admission Past Medical History: Unchanged from Admission Objective Active Medications: Acetaminophen (Tylenol Tab*) 650 mg PO Q4H PRN Reason: FEVER/PAIN Amiodarone HCl (Cordarone Tab*) 200 mg PO DAILY [facility] Collagenase (Santyl 250 Mg/Gm Oint*) 1 applic TOPICAL DAILY [facility] Dextrose (D50w Syringe 50 Ml*) 12.5 gm IV PUSH .FOR FS < 60 - SS PRN Reason: FS < 60 Gabapentin (Neurontin Cap(*)) 300 mg PO TID [facility] Haloperidol Lactate (Haldol Inj Iv/Im*) 2 mg IV SLOW PU Q6H PRN Reason: AGITATION Cefepime HCl 2 gm/ Sodium (Chloride) 50 mls @ 100 mls/hr IVPB Q12H [facility] Insulin Human Lispro (Humalog*) 0 units SUBCUT ACHS [facility] Lisinopril (Prinivil Tab*) 10 mg PO DAILY [facility] Metformin HCl (Glucophage*) 500 mg PO 0800,1700 [facility] Morphine Sulfate (Ms Contin(*)) 15 mg PO BID [facility] Morphine Sulfate (Morphine Inj (Syringe)*) 4 mg IV Q4H PRN Reason: PAIN Multi-Ingredient Liniment/Rub (Connor Rand*) 1 applic TOPICAL TID PRN Reason: PAIN Nystatin (Nystatin Top Powder*) 1 applic TOPICAL TID [facility] Vital Signs 06/10/16 06/10/16 06/10/16 06:05 07:44 08:00 Temperature 98.0 F Pulse Rate 73 Respiratory 18 16 Rate Blood Pressure 110/44 (mmHg) O2 Sat by Pulse 99 Oximetry Oxygen Devices in Use Now: None Appearance: NAD, laying in bed. Eyes: No Scleral Icterus, PERRLA Ears/Nose/Mouth/Throat: NL Teeth, Lips, Gums, Mucous Membranes Moist Neck: NL Appearance and Movements; NL JVP, Trachea Midline Respiratory: Symmetrical Chest Expansion and Respiratory Effort, Clear to Auscultation - , diminished Cardiovascular: NL Sounds; No Murmurs; No JVD, RRR Abdominal: NL Sounds; No Tenderness; No Distention Extremities: - - Trace generalized edema Skin: - - Dressing to right ischial wound clean, dry and intact Neurological: Alert and Oriented x 3 Lines/Tubes/Other Access: Clean, Dry and Intact Peripheral IV - site benign Nutrition: Taking PO's Result Diagrams: 06/09/16 05:39 06/09/16 05:39 Additional Lab and Data: . Microbiology and Other Data: Microbiology 06/08/16 11:30 Tissue - Not Otherwise Specified Wound Gram Stain - Final 06/08/16 11:30 Tissue - Not Otherwise Specified Acid Fast Bacilli Smear - Final 06/08/16 11:30 Tissue - Not Otherwise Specified Tissue Culture - Preliminary Pseudomonas Aeruginosa Assess/Plan/Problems-Billing . Assessment: Mr. Adams is a 70 yo man with a PMH significant for chronic wounds, CAD/CABG, severe sCHF (EF < 30% in 2014), [place] s/p AICD who [place] [facility] [place] and hematuria found with hyponatremia, anemia and leukocytosis thought to represent acute cystitis and volume depletion in associated with indwelling tomlinson catheter present on admission (placed for urinary retention). - Patient Problems (1) Bone lesion Code(s): M89.9 - DISORDER OF BONE, UNSPECIFIED SNOMED Code(s): 22352440 Comment: - In Pubic rami. S/P pelvic bone biopsy 06/08 - Pseudomonas Aeruginosa from FNA yesterday - ID following - Change to Cefepime 2gm BID, Pt will need chcf IV ABX - Plan to place PICC in the AM (2) Decubital ulcer Code(s): L89.90 - PRESSURE ULCER OF UNSPECIFIED SITE, UNSPECIFIED STAGE SNOMED Code(s): 106458070 Comment: - Stage 2 and unstagable wounds - CT urogram/abdomen/pelvis showed right decubitus ulcer with air & fluid inferior to right ischial tuberosity, inferior ramus and pubic symphysis most consistent with abscesses, erosive changes in the inferior pubic rami and superior pubic ramus consistent with osteo. - Wound overlying Right ischial tuberosity unroofed by Dr. Ken 06/03 notable for necrotic muscle but no pockets of pus Plan: - Continue with Santyl daily to L heel and R hip. - Antifungal ointment to buttock and barrier ointment in center. - Continue air mattress on bed of pt will allow. Turn and reposition as tolerated. - Appreciate ID consult: continue ceftriaxone (stop flagyl due to contraindication with amiodarone) - Appreciate surgery consult: Removed eschar in left heal and buttock wounds . Did not feel that the patient needed to go the the OR - Surgery and ID will follow. (3) Hematuria due to cystitis Code(s): N30.91 - CYSTITIS, UNSPECIFIED WITH HEMATURIA SNOMED Code(s): 138067002983651 Comment: - Resolved. Repeat bleeding may warrent OR for cysto however H/H currently stable and urine clear in bag - Status post bladder irrigation with Dr. Escalante 06/10/16 - CT abd pelvis with mass in bladder which may represent clot vs mass (4) Hyponatremia Code(s): E87.1 - HYPO-OSMOLALITY AND HYPONATREMIA SNOMED Code(s): 93121456 Comment: - suspect dehydration, improved with fluid resusitation (5) Osteomyelitis Code(s): M86.9 - OSTEOMYELITIS, UNSPECIFIED SNOMED Code(s): 94352571 Comment: - Involving multiple pelvic bones with fluid collections and tracts relating to skin ulcers. - Changed to Cefepime. Will need parts counterman IV ABX. - Dr. Lim following (6) Essential hypertension Code(s): I10 - ESSENTIAL (PRIMARY) HYPERTENSION SNOMED Code(s): 27931984 Comment: - SBP 90-130's - Continue Lisinopril (7) Ischemic cardiomyopathy Code(s): I25.5 - ISCHEMIC CARDIOMYOPATHY SNOMED Code(s): 644384135 Comment: - h/o V-tach s/p ICD - Last known EF < 30% 04/2015 - Continue amiodarone - Continue to hold ASA and bumex for now. (8) Type 2 diabetes mellitus treated without insulin Code(s): E11.9 - TYPE 2 DIABETES MELLITUS WITHOUT COMPLICATIONS SNOMED Code(s) : 76409523 Comment: - Glucose 120-150's - Continue Metformin 500 BID and Lispro SS (9) DVT prophylaxis Code(s): BBO9979 - SNOMED Code(s): 488424962 Comment: - SCDs in the setting of hematuria (10) DNR (do not resuscitate) Status and Disposition: Inpatient. Plan to DC pt back to subacute rehab when medically stable. Possible discharge to [facility] in the morning after PICC placement.
[2016-06-10] MEDS: Analgesic BALM* 114 GM TOPICAL PRN (22:33)
[2016-06-11] MEDS: Insulin LISPRO* 1 UNITS UNIT SUBCUT SCH ×2 (07:49→12:44)
[2016-06-11 08:25] VITALS: BP 131/49
[2016-06-11] MEDS: Gabapentin CAP(*) 300 MG PO SCH ×2 (09:13→12:44)
[2016-06-11] MEDS: Morphine TAB Extended Release (*) 15 MG TAB.ER PO SCH (09:13)
[2016-06-11] MEDS: metFORMIN* 500 MG TAB PO SCH (09:13)
[2016-06-11] MEDS: Lisinopril TAB* 10 MG PO SCH (09:14)
[2016-06-11] MEDS: Amiodarone TAB* 200 MG PO SCH (09:14)
[2016-06-11] MEDS: Collagenase 250 MG/GM OINT* 30 GM TOPICAL SCH (09:15)
[2016-06-11] MEDS: Nystatin TOP POWDER* 15 GM BTL TOPICAL SCH ×2 (09:15→14:25)
[2016-06-11] MEDS: Cefepime(*) 2 GM in NS 0.9% 50 ML* 50 ML IVPB SCH (11:31)
[2016-06-11] MEDS: Morphine INJ* 4 MG/ML 1 ML SYRINGE IV PRN (11:31)
--- NOTE | 2016-06-11 17:02 | PN ---
Subjective Date of Service: 06/11/16 Interval History: Patient seen and examined at bedside. Pt states that he feels well today, continues to complain of buttock discomfort. Denies fever, chills, shortness of breath, chest discomfort, N/V/D. Family History: Unchanged from Admission Social History: Unchanged from Admission Past Medical History: Unchanged from Admission Objective Vital Signs 06/10/16 06/11/16 06/11/16 23:18 00:17 00:18 Temperature 98.4 F Pulse Rate 70 Respiratory 16 12 12 Rate Blood Pressure 107/37 (mmHg) O2 Sat by Pulse 96 Oximetry 06/11/16 06/11/16 06/11/16 07:43 08:00 09:13 Temperature 98.0 F Pulse Rate 84 Respiratory 17 17 18 Rate Blood Pressure 131/49 (mmHg) O2 Sat by Pulse 95 Oximetry Oxygen Devices in Use Now: None Appearance: NAD, laying in bed. Eyes: No Scleral Icterus, PERRLA Ears/Nose/Mouth/Throat: NL Teeth, Lips, Gums, Mucous Membranes Moist Neck: NL Appearance and Movements; NL JVP, Trachea Midline Respiratory: Symmetrical Chest Expansion and Respiratory Effort, Clear to Auscultation Cardiovascular: NL Sounds; No Murmurs; No JVD, RRR Abdominal: NL Sounds; No Tenderness; No Distention - Bowel sounds present Extremities: - - Trace to 1+ edema Skin: - - Dressing to right hip clean dry and intact Neurological: Alert and Oriented x 3 Lines/Tubes/Other Access: Clean, Dry and Intact PICC Line - site benign Nutrition: Taking PO's Result Diagrams: 06/09/16 05:39 06/09/16 05:39 Additional Lab and Data: . Microbiology and Other Data: Microbiology 06/08/16 11:30 Tissue - Not Otherwise Specified Wound Gram Stain - Final 06/08/16 11:30 Tissue - Not Otherwise Specified Acid Fast Bacilli Smear - Final 06/08/16 11:30 Tissue - Not Otherwise Specified Tissue Culture - Preliminary Pseudomonas Aeruginosa Assess/Plan/Problems-Billing . Assessment: Mr. Adams is a 70 yo man with a PMH significant for chronic wounds, CAD/CABG, severe sCHF (EF < 30% in 2014), [place] s/p AICD who presented to [facility] with AMS and hematuria found with hyponatremia, anemia and leukocytosis thought to represent acute cystitis and volume depletion in associated with indwelling tomlinson catheter present on admission (placed for urinary retention). - Patient Problems (1) Bone lesion Code(s): M89.9 - DISORDER OF BONE, UNSPECIFIED SNOMED Code(s): 91407415 Comment: - In Pubic rami. 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 - Wound overlying Right ischial tuberosity unroofed by Dr. Ken 06/03 notable for necrotic muscle but no pockets of pus Plan: - Continue with Santyl daily to L heel and R hip. - Antifungal ointment to buttock and barrier ointment in center. - Continue air mattress on bed of pt will allow. Turn and reposition as tolerated. - Appreciate ID consult: continue ceftriaxone (stop flagyl due to contraindication with amiodarone) - Appreciate surgery consult: Removed eschar in left heal and buttock wounds . Did not feel that the patient needed to go the the OR - Surgery and ID will follow. (3) Hematuria due to cystitis Code(s): N30.91 - CYSTITIS, UNSPECIFIED WITH HEMATURIA SNOMED Code(s): 786292338568655 Comment: - Resolved. Repeat bleeding may warrent OR for cysto however H/H currently stable and urine clear in bag - Status post bladder irrigation with Dr. Escalante 06/10/16 - CT abd pelvis with mass in bladder which may represent clot vs mass (4) Hyponatremia Code(s): E87.1 - HYPO-OSMOLALITY AND HYPONATREMIA SNOMED Code(s): 52399456 Comment: - suspect dehydration, improved with fluid resusitation (5) Osteomyelitis Code(s): M86.9 - OSTEOMYELITIS, UNSPECIFIED SNOMED Code(s): 12224158 Comment: - Involving multiple pelvic bones with fluid collections and tracts relating to skin ulcers. - Changed to Cefepime. Will need terminal computer operator IV ABX. - Dr. Lim following (6) Essential hypertension Code(s): I10 - ESSENTIAL (PRIMARY) HYPERTENSION SNOMED Code(s): 21746268 Comment: - SBP 90-130's - Continue Lisinopril (7) Ischemic cardiomyopathy Code(s): I25.5 - ISCHEMIC CARDIOMYOPATHY SNOMED Code(s): 762227308 Comment: - h/o V-tach s/p ICD - Last known EF < 30% 04/2015 - Continue amiodarone - Continue to hold ASA and bumex for now. (8) Type 2 diabetes mellitus treated without insulin Code(s): E11.9 - TYPE 2 DIABETES MELLITUS WITHOUT COMPLICATIONS SNOMED Code(s) : 90868762 Comment: - Glucose 80-170's - Continue Metformin 500 BID and Lispro SS (9) DVT prophylaxis Code(s): WZR5158 - SNOMED Code(s): 550870327 Comment: - SCDs in the setting of hematuria (10) DNR (do not resuscitate) Status and Disposition: Inpatient. Stable for discharge to Swing bed status today.
--- NOTE | 2016-06-11 22:56 | DS ---
HISTORY AND PHYSICAL/DISCHARGE SUMMARY: Discharge Summary . History and Physical Account #[id number]. DATE OF ADMISSION: 05/30/16 as an inpatient. DATE OF DISCHARGE FROM INPATIENT STATUS: 06/11/16 DATE OF ADMISSION TO SWING BED STATUS: 06/11/16 AGE: 70. ATTENDING PHYSICIAN: Negra Johnson MD * (dictated by Anahy Kunz NP). PRIMARY CARE PROVIDER: Jannette Steinberg MD. PRIMARY DIAGNOSES: 1. Hematuria. 2. Osteomyelitis of the pelvis. 3. Hyponatremia. 4. Decubitus ulcer. SECONDARY DIAGNOSES: 1. Essential hypertension. 2. Ischemic cardiomyopathy. 3. Diabetes mellitus. 4. Atrial fibrillation. 5. History of ventricular tachycardia with ICD placement. CONSULTATIONS WHILE IN THE HOSPITAL: 1. Gabe Lim MD, with Infectious Disease. 2. Javi Escalante MD, with Urology. 3. Henri Ken MD, with General Surgery. PROCEDURES WHILE IN THE HOSPITAL: 1. Status post excisional debridement of right ischial ulcer on 06/03/[address] Henri Ken. 2. Status post pelvic bone biopsy on 06/08/[address] Carroll Petit. STUDIES WHILE IN THE HOSPITAL: 1. Abdomen and pelvis CT scan on 05/31/16. Radiologist's impression: Small bilateral pleural effusions and small focal pleural-based nodules in the right lower lobe. Recommend a CT of the chest for further evaluation. Right renal calculus. Increased density within the urinary bladder consistent with either hemorrhage or a urinary bladder mass. Consider cystoscopy or CT urogram for further evaluation. Multiple radiolucent lesions present within the pelvic bones and proximal femurs most consistent with metastatic disease. Cholelithiasis. 2. Urogram CT on 06/01/16. Radiologist's impression: Right decubitus ulcer with air and fluid inferior to the right ischial tuberosity, inferior pubic ramus, and pubic symphysis most consistent with an abscess. There are erosive changes within the inferior pubic rami and superior pubic ramus most consistent with osteomyelitis. There are pathological fractures of both superior pubic rami. There are additional hypodense lesions within the iliac bones and proximal femurs, possibly representing osteoporosis for his metastatic lesions. The urinary bladder wall was thickened likely due to incomplete distention, although a cystitis or a bladder mass cannot be excluded. Nonobstructing calculus in the right renal pelvis. Cholelithiasis. Bilateral pleural effusions. Pleural-based nodule in the right lower lobe. 3. Chest CT on 06/01/16: Radiologist's impression: The constellation of findings is most consistent with pulmonary vascular congestion and interstitial edema with associated small to moderate bilateral dependent pleural effusions and proportional atelectasis. Reassessment of the lungs following resolution of the pleural effusions warranted to assess for resolution of the more nodular foci at the lateral peripheral right lung base to exclude true pulmonary parenchymal nodules. Negative for thoracic lymphadenopathy. 4. Bone biopsy CT on 06/08/16: Radiologist's impression: Uncomplicated CT- guided fine needle aspiration and core biopsy of the right pubic bone medullary cavity. HOME MEDICATIONS: Include: 1. Zinc oxide 16% paste 1 application topical t.i.d. 2. Oxycodone 5 to 10 mg oral every 4 hours as needed for pain. 3. Bumex 1 mg oral daily. 4. Senokot 1 tablet oral daily at bedtime. 5. Morphine sulfate 15 mg oral twice daily. 6. Metformin 500 mg oral 3 times daily. 7. Lisinopril 10 mg oral daily. 8. Gabapentin 300 mg oral 3 times daily. 9. Bumex 2 mg oral daily. 10. Aspirin 81 mg oral daily. 11. Amiodarone 200 mg oral daily. CURRENT HOSPITAL MEDICATIONS: Include: 1. Acetaminophen 650 mg oral every 4 hours as needed for fever or pain. 2. Amiodarone 200 mg oral daily. 3. Bengay 1 application topical t.i.d. as needed for pain. 4. Santyl ointment 1 application daily to the left heel and right hip. 5. Dextrose D50W 12.5 g IV as needed for fingersticks less than 60. 6. Gabapentin 300 mg oral 3 times daily. 7. Heparin flush 1 to 3 mL flush twice daily. 8. Lispro insulin sliding scale subcutaneous. 9. Lisinopril 10 mg oral daily. 10. Cefepime 2 g IV every 12 hours. 11. Morphine extended release 15 mg oral twice daily. 12. Nystatin powder 1 application topical 3 times daily. 13. Metformin 500 mg oral twice daily at 8 a.m. and 1700. HISTORY OF PRESENT ILLNESS/HOSPITAL COURSE: Mr. Adams is a 70-year-old male with past medical history significant for chronic systolic congestive heart failure, history of renal calculi with multiple episodes of hematuria while anticoagulated, history of ventricular tachycardia with ICD placement, diabetes mellitus, atherosclerosis, obesity, peripheral edema, essential hypertension, spinal stenosis, chronic low back pain, and history of acute osteomyelitis in the right ankle, status post right BKA, and atrial fibrillation who presented to the emergency room with complaints of dysuria and hematuria with an indwelling catheter in place at [facility]. The patient reported being in his usual state of health until 3 days prior to his original admission on 05/29/16, at which time the patient had discolored urine that progressed to magui bloody urine. The patient presented to the emergency room with severe anemia. While in the emergency room, the patient's hemoglobin was 6.9. He had an elevated white blood cell count of 23.7, sodium of 117 with evidence of severe clinical dehydration, hypochloremia with a chloride of 86 and a lactic acid of 3.4. The patient was cautiously hydrated due to his history of congestive heart failure and the hospitalists were asked to evaluate the patient for admission. While in the hospital, the patient was seen in consultation by Urology on , who removed the patient's Lala catheter and replaced the catheter with a 22 -Mosotho Lala catheter. Dr. Escalante then spent approximately half an hour actively irrigating the patient's bladder until all the clots were evacuated. At the end of the irrigation, the return of fluid was clear. The plan was for the patient's urine to be observed and if the patient persistently continued to have hematuria that the patient will be taken to the operating room for cystoscopy to rule out any bladder lesions and control the source of bleeding. The patient was then also seen in consultation by Dr. Gabe Lim for concerns of pelvic lesions versus pelvic osteomyelitis in the setting of leukocytosis and a right ischial decubitus ulcer. It was recommended that the patient's vancomycin and cefepime be stopped and the patient be started on ceftriaxone and Flagyl. At that time, a surgical consult was requested for debridement of the decubitus ulcer so that they could determine if that tracts into the pelvis. If the patient did not have tracts into the pelvis, the plan was then for a bone biopsy. The patient also was noted to have a left calcaneal ulcer that had been present for a few weeks and this continued to have local wound treatments with Santyl. The patient continued to have leukocytosis, but his white count was trending down. The patient's sodium also began improving. During the patient's stay, he received a total of 4 units of red blood cells for his anemia. The patient was seen in consultation by Dr. Henri Ken with Surgery who performed a debridement of the patient's right ischial decubitus ulcer. At that time, wound cultures were taken. The patient had blood cultures that had no growth. The patient also had a urinalysis with no growth. The patient's bladder culture showed normal omaira. The patient then proceeded to have a pelvic bone biopsy with Interventional Radiology. This grew Pseudomonas aeruginosa and the patient was switched from ceftriaxone to cefepime. It was felt that the patient would need long-term antibiotics and orders for PICC line were placed. The patient has continued to receive daily wound care to his right ischial ulcer and left heel ulcers. It was felt that the patient was ready for discharge, but [facility] Mr. Adams is stable for discharge to swing bed status today. Vital signs are as follows: Temperature 98.0, heart rate 84, respiratory rate 17, O2 sat 95% on room air, blood pressure 131/49. DISCHARGE PLAN: Mr. Adams will be discharged to swing bed status on 06/11/16. ASSESSMENT AND PLAN: 1. Pelvic osteomyelitis. The patient is status post pelvic bone biopsy that was found to be growing Pseudomonas aeruginosa. The patient will require cefepime IV b.i.d. for 6 weeks and then will likely need to be converted to oral antibiotics. 2. Right ischial decubitus ulcer. The patient will continue to receive wound care with Santyl dressings daily to his right hip. As far as the patient's other decubitus ulcer on his left heel, he will also continue to receive Santyl daily. The patient will receive antifungal powder and barrier cream to his buttocks. The patient will be continued on an air mattress with frequent turning and repositioning. 3. Hematuria: At this time, the patient's hematuria has resolved. If the patient has repeat bleeding, he may warrant surgery for a cystoscopy. At this time, the patient's H and H is stable. 4. Hyponatremia: This was improving with IV fluid resuscitation. 5. Hypertension: The patient will be continued on his home lisinopril. 6. Ischemic cardiomyopathy: The patient has a history of ventricular tachycardia and has an ICD. The patient will be continued on his amiodarone. At this time, we will continue to hold the patient's aspirin and Bumex. 7. Diabetes mellitus: The patient's glucoses are fairly controlled. He will be continued on his home metformin and lispro sliding scale. 8. DVT prophylaxis: The patient is at high risk and will have SCD's. Chemical DVT prophylaxis is contraindicated in the setting of the previous hematuria. 9. Code status: Do not resuscitate. TIME SPENT: The time for this admission and discharge was approximately 60 minutes reviewing the patient's medical record, talking with the patient, and performing the physical examination. The case has been reviewed with the attending, Dr. Johnson, who agrees with the plan of care. Reviewed by ORA DINH 06/16/16 1501 CC: Jannette Steinberg MD* [id number]/[facility] #: [id number] TAYLOR
== END 2016-06-11 15:57 | disposition swing bed (61) | DRG 673 ==
LOC: ED 14:16 → ICU 15:56 → MED 05-30 11:46
PROVIDERS: ADMIT Internal Medicine; ATTEND Internal Medicine
PROC: 30233N1 Transfusion of Nonautologous Red Blood Cells into Peripheral Vein, Percutaneous Approach (ICD-10-PCS; 2016-05-30)
PROC: 0T9B70Z Drainage of Bladder with Drainage Device, Via Natural or Artificial Opening (ICD-10-PCS; principal; 2016-05-31)
PROC: 3E1K78Z Irrigation of Genitourinary Tract using Irrigating Substance, Via Natural or Artificial Opening (ICD-10-PCS; 2016-05-31)
PROC: 0TPBX0Z Removal of Drainage Device from Bladder, External Approach (ICD-10-PCS; 2016-05-31)
PROC: 0KBN0ZZ Excision of Right Hip Muscle, Open Approach (ICD-10-PCS; 2016-06-03)
PROC: 0Q923ZX Drainage of Right Pelvic Bone, Percutaneous Approach, Diagnostic (ICD-10-PCS; 2016-06-08)
PROC: 02HV33Z Insertion of Infusion Device into Superior Vena Cava, Percutaneous Approach (ICD-10-PCS; 2016-06-11)
DX: T83.511A Infection and inflammatory reaction due to indwelling urethral catheter, initial encounter (principal); I50.43 Acute on chronic combined systolic (congestive) and diastolic (congestive) heart failure; E11.69 Type 2 diabetes mellitus with other specified complication; E11.622 Type 2 diabetes mellitus with other skin ulcer; I95.9 Hypotension, unspecified; I11.0 Hypertensive heart disease with heart failure; E87.1 Hypo-osmolality and hyponatremia; D62 Acute posthemorrhagic anemia; M86.68 Other chronic osteomyelitis, other site; M84.454A Pathological fracture, pelvis, initial encounter for fracture; E55.9 Vitamin D deficiency, unspecified; I25.10 Atherosclerotic heart disease of native coronary artery without angina pectoris; M48.02 Spinal stenosis, cervical region; G89.29 Other chronic pain; M54.5 Low back pain; I48.91 Unspecified atrial fibrillation; Z66 Do not resuscitate; E66.01 Morbid (severe) obesity due to excess calories; E86.1 Hypovolemia; N30.91 Cystitis, unspecified with hematuria; M13.88 Other specified arthritis, other site; F41.9 Anxiety disorder, unspecified; H26.9 Unspecified cataract; M25.572 Pain in left ankle and joints of left foot; I25.5 Ischemic cardiomyopathy; L89.529 Pressure ulcer of left ankle, unspecified stage; M89.9 Disorder of bone, unspecified; Y92.9 Unspecified place or not applicable; E86.9 Volume depletion, unspecified; L89.629 Pressure ulcer of left heel, unspecified stage; Y84.6 Urinary catheterization as the cause of abnormal reaction of the patient, or of later complication, without mention of misadventure at the time of the procedure; T80.89XA Other complications following infusion, transfusion and therapeutic injection, initial encounter; Z95.1 Presence of aortocoronary bypass graft; Z87.442 Personal history of urinary calculi; Z68.30 Body mass index [BMI] 30.0-30.9, adult; Z95.810 Presence of automatic (implantable) cardiac defibrillator; Z88.0 Allergy status to penicillin; Z88.1 Allergy status to other antibiotic agents; Z86.14 Personal history of Methicillin resistant Staphylococcus aureus infection; Z82.49 Family history of ischemic heart disease and other diseases of the circulatory system; Z83.3 Family history of diabetes mellitus; Z87.891 Personal history of nicotine dependence; Z89.512 Acquired absence of left leg below knee; Y84.8 Other medical procedures as the cause of abnormal reaction of the patient, or of later complication, without mention of misadventure at the time of the procedure; Y92.239 Unspecified place in hospital as the place of occurrence of the external cause
CPT/HCPCS: 20225; 36415; 71250; 74176; 74178; 76377; 77012; 80048; 80053; 80202; 81003; 81015; 82150; 83605; 83690; 83735; 83880; 84153; 84155; 84165; 85025; 85610; 85730; 86078; 86140; 86850; 86900; 86901; 86922; 87040; 87070; 87077; 87086; 87102; 87116; 87186; 87205; 87206; 87641; 88172; 88173; 88305; 88323; 88341; 88342; 88365; 99283; A9270-GY; C1751; G0103; J0692; J0696; J1170; J1580; J1630; J2060; J2270; J3010; J3370; P9040; Q9967

== ENCOUNTER 2016-06-11 16:09 | Inpatient (IN) | payer MEDICARE, OTHER ==
[2016-06-11] MEDS ORDERED: Dextrose 50% Syringe 50 ML* 25 GM/50 ML SYRINGE IV PUSH PRN (16:49)
[2016-06-11] MEDS: Analgesic BALM* 114 GM TOPICAL PRN ×2 (18:22→18:39)
[2016-06-11] MEDS: metFORMIN* 500 MG TAB PO SCH (18:39)
[2016-06-11] MEDS: Insulin LISPRO* 1 UNITS UNIT SUBCUT SCH ×2 (18:39→20:20)
[2016-06-11] MEDS: Acetaminophen TAB* 325 MG PO PRN (19:12)
[2016-06-11] MEDS: Gabapentin CAP(*) 300 MG PO SCH (20:18)
[2016-06-11] MEDS: Morphine TAB Extended Release (*) 15 MG TAB.ER PO SCH (20:19)
[2016-06-11] MEDS: Nystatin TOP POWDER* 15 GM BTL TOPICAL SCH (20:22)
[2016-06-11] MEDS ORDERED: Analgesic BALM* 114 GM TOPICAL SCH (21:00)
[2016-06-11] MEDS: Cefepime(*) 2 GM in NS 0.9% 50 ML* 50 ML IVPB SCH (23:38)
[2016-06-12] MEDS: Acetaminophen TAB* 325 MG PO PRN (03:50)
[2016-06-12] MEDS: Insulin LISPRO* 1 UNITS UNIT SUBCUT SCH ×4 (07:27→21:19)
[2016-06-12] MEDS ORDERED: Collagenase 250 MG/GM OINT* 30 GM TOPICAL SCH (09:00)
[2016-06-12] MEDS: Gabapentin CAP(*) 300 MG PO SCH ×3 (09:02→20:49)
[2016-06-12] MEDS: Lisinopril TAB* 10 MG PO SCH (09:02)
[2016-06-12] MEDS: Amiodarone TAB* 200 MG PO SCH (09:03)
[2016-06-12] MEDS: metFORMIN* 500 MG TAB PO SCH ×2 (09:03→16:45)
[2016-06-12] MEDS: Morphine TAB Extended Release (*) 15 MG TAB.ER PO SCH ×2 (09:03→20:48)
[2016-06-12] MEDS: Collagenase 250 MG/GM OINT* 30 GM TOPICAL SCH (09:04)
[2016-06-12] MEDS: Nystatin TOP POWDER* 15 GM BTL TOPICAL SCH ×3 (09:23→21:56)
[2016-06-12] MEDS: oxyCODONE TAB* 5 MG TAB PO PRN ×3 (10:52→20:48)
[2016-06-12] MEDS: Cefepime(*) 2 GM in NS 0.9% 50 ML* 50 ML IVPB SCH ×2 (10:53→22:59)
[2016-06-12] MEDS: Analgesic BALM* 114 GM TOPICAL PRN ×2 (14:07→22:11)
[2016-06-13] MEDS: oxyCODONE TAB* 5 MG TAB PO PRN ×2 (06:32→13:35)
[2016-06-13] MEDS: Analgesic BALM* 114 GM TOPICAL PRN ×2 (06:39→09:19)
[2016-06-13] MEDS: Insulin LISPRO* 1 UNITS UNIT SUBCUT SCH ×4 (07:36→21:00)
[2016-06-13] MEDS: Gabapentin CAP(*) 300 MG PO SCH ×3 (09:17→21:57)
[2016-06-13] MEDS: Acetaminophen TAB* 325 MG PO PRN (09:18)
[2016-06-13] MEDS: Morphine TAB Extended Release (*) 15 MG TAB.ER PO SCH ×2 (09:18→21:58)
[2016-06-13] MEDS: Amiodarone TAB* 200 MG PO SCH (09:18)
[2016-06-13] MEDS: Lisinopril TAB* 10 MG PO SCH (09:18)
[2016-06-13] MEDS: metFORMIN* 500 MG TAB PO SCH ×2 (09:19→16:50)
[2016-06-13] MEDS: Nystatin TOP POWDER* 15 GM BTL TOPICAL SCH ×3 (11:38→21:21)
[2016-06-13] MEDS: Cefepime(*) 2 GM in NS 0.9% 50 ML* 50 ML IVPB SCH (11:38)
[2016-06-13] MEDS: Collagenase 250 MG/GM OINT* 30 GM TOPICAL SCH (11:39)
[2016-06-14] MEDS: oxyCODONE TAB* 5 MG TAB PO PRN ×4 (00:22→19:56)
[2016-06-14] MEDS: Cefepime(*) 2 GM in NS 0.9% 50 ML* 50 ML IVPB SCH ×3 (00:23→23:23)
[2016-06-14] MEDS: Insulin LISPRO* 1 UNITS UNIT SUBCUT SCH ×4 (08:40→23:12)
[2016-06-14] MEDS: Morphine TAB Extended Release (*) 15 MG TAB.ER PO SCH ×2 (08:47→19:56)
[2016-06-14] MEDS: metFORMIN* 500 MG TAB PO SCH ×2 (08:47→18:06)
[2016-06-14] MEDS: Gabapentin CAP(*) 300 MG PO SCH ×3 (08:47→19:55)
[2016-06-14] MEDS: Lisinopril TAB* 10 MG PO SCH (08:48)
[2016-06-14] MEDS: Amiodarone TAB* 200 MG PO SCH (08:48)
[2016-06-14] MEDS: Analgesic BALM* 114 GM TOPICAL PRN ×2 (08:49→23:32)
[2016-06-14] MEDS: Nystatin TOP POWDER* 15 GM BTL TOPICAL SCH ×3 (11:54→23:23)
[2016-06-14] MEDS: Collagenase 250 MG/GM OINT* 30 GM TOPICAL SCH (11:54)
[2016-06-15] MEDS: Insulin LISPRO* 1 UNITS UNIT SUBCUT SCH ×4 (07:22→21:15)
[2016-06-15] MEDS: Gabapentin CAP(*) 300 MG PO SCH ×3 (07:53→21:12)
[2016-06-15] MEDS: Morphine TAB Extended Release (*) 15 MG TAB.ER PO SCH ×2 (07:53→21:12)
[2016-06-15] MEDS: Amiodarone TAB* 200 MG PO SCH (07:54)
[2016-06-15] MEDS: metFORMIN* 500 MG TAB PO SCH ×2 (07:54→17:38)
[2016-06-15] MEDS: Lisinopril TAB* 10 MG PO SCH (07:54)
[2016-06-15] MEDS: Nystatin TOP POWDER* 15 GM BTL TOPICAL SCH ×3 (08:00→22:42)
[2016-06-15] MEDS: Cefepime(*) 2 GM in NS 0.9% 50 ML* 50 ML IVPB SCH ×2 (12:11→22:42)
[2016-06-15] MEDS: oxyCODONE TAB* 5 MG TAB PO PRN (12:42)
[2016-06-15] MEDS: Acetaminophen TAB* 325 MG PO PRN (12:42)
[2016-06-15] MEDS: Collagenase 250 MG/GM OINT* 30 GM TOPICAL SCH (15:01)
[2016-06-16] MEDS: oxyCODONE TAB* 5 MG TAB PO PRN ×3 (01:00→13:43)
[2016-06-16 05:32] LABS: Hematocrit 30 % (42-52); Hemoglobin 9.6 g/dl (14.0-18.0); Mean Corpuscular HGB Conc 33 g/dl (31-36); Mean Corpuscular Hemoglobin 27 pg (27-31); Mean Corpuscular Volume 83 fL (80-94); Mean Platelet Volume 6 um3 (7.4-10.4); Red Blood Count 3.56 10^6/ul (4.0-5.4); Red Cell Distribution Width 20 % (10.5-15); White Blood Count 16.9 10^3/ul (3.5-10.8)
[2016-06-16 05:47] LABS: Albumin 2.8 g/dL (3.2-5.2); BUN/Creatinine Ratio 24.1 (8-20); C Reactive Protein 41.84 mg/L (< 5.00); Calcium 8.9 mg/dL (8.6-10.3); EGFR African American 177.1 (>60); EGFR Non-African American 137.7 (>60); Globulin 4.2 g/dL (2-4); Potassium 4.8 mmol/L (3.5-5.0); Total Bilirubin 0.3 mg/dL (0.2-1.0)
[2016-06-16] MEDS: Insulin LISPRO* 1 UNITS UNIT SUBCUT SCH ×2 (07:37→13:04)
[2016-06-16] MEDS: Morphine TAB Extended Release (*) 15 MG TAB.ER PO SCH (08:02)
[2016-06-16] MEDS: Acetaminophen TAB* 325 MG PO PRN (08:02)
[2016-06-16] MEDS: Gabapentin CAP(*) 300 MG PO SCH ×2 (08:02→13:42)
[2016-06-16] MEDS: Nystatin TOP POWDER* 15 GM BTL TOPICAL SCH (08:03)
[2016-06-16] MEDS: metFORMIN* 500 MG TAB PO SCH (08:03)
[2016-06-16] MEDS: Amiodarone TAB* 200 MG PO SCH (08:03)
[2016-06-16] MEDS: Lisinopril TAB* 10 MG PO SCH (08:03)
[2016-06-16] MEDS: Analgesic BALM* 114 GM TOPICAL PRN (08:04)
[2016-06-16 08:05] VITALS: BP 93/41
[2016-06-16] MEDS ORDERED: Lisinopril TAB* 10 MG PO SCH ×2 (08:15→09:00)
[2016-06-16] MEDS: Cefepime(*) 2 GM in NS 0.9% 50 ML* 50 ML IVPB SCH (11:25)
[2016-06-16] MEDS: Collagenase 250 MG/GM OINT* 30 GM TOPICAL SCH (12:28)
--- NOTE | 2016-06-16 13:01 | DS ---
DISCHARGE SUMMARY DATE OF ADMISSION: 05/29/2016 DATE OF DISCHARGE: To Swing Status 06/11/2016 DATE OF DISCHARGE: 06/16/2016 DISCHARGE DIAGNOSES: 1. Hematuria. 2. 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 3. Hyponatremia. 4. Leukocytosis. 5. Anemia, secondary to blood loss associated with his significant hematuria. 6. Thrombocytosis. SECONDARY DIAGNOSES: 1. Chronic systolic CHF with ejection fraction 25% to 30%. 2. Coronary artery disease status post multivessel CABG. 3. Acute posthemorrhagic anemia post cystoscopy. 4. Vitamin D deficiency. 5. History of enterocolitis secondary to C. diff. 6. Cholelithiasis. 7. Nephrolithiasis. 8. History of ventricular tachycardia status post AICD. 9. Type 2 diabetes. 10. Obesity with BMI of 30. 11. Peripheral vascular disease status post right BKA. 12. Hypertension. 13. Spinal stenosis. 14. Chronic low back pain. 15. History of osteomyelitis of the right foot status post amputation. 16. Chronic hyponatremia. 17. Atrial fibrillation. MEDICATION LIST: At the time of transfer: 1. Acetaminophen 650 mg p.o. every 4 hours as needed for pain or fever. 2. Amiodarone 200 mg p.o. daily. 3. Aspirin 81 mg p.o. daily. 4. Cefepime 2 grams IV every 12 hours for 6 more weeks. 5. Daily dressing changes with Santyl topical. 6. Gabapentin 300 mg p.o. t.i.d. 7. Heparin flush 1 mL b.i.d. to PICC line. 8. Lispro sliding scale as follows: Fingersticks 131-150, 2 units; 151-200, 3 units; 201-250, 6 units; 251-300, 9 units; 301-350, 12 units; 351-400, 15 units ; greater than 400 call MD. 9. Lisinopril 5 mg p.o. daily. 10. Metformin 500 mg p.o. t.i.d. 11. MS Contin 15 mg p.o. b.i.d. 12. Nystatin powder to effected areas t.i.d. 13. Oxycodone 5 mg p.o. every 4 hours p.r.n. as needed for pain MDD 30 mg. 14. Senna/docusate 1 tablet p.o. at bedtime. Please note that this list is different from admission medications, especially his Bumex that had to be discontinued, but I suspect will need to resumed while in the snf. HOSPITAL COURSE: Mr. Adams is a 70-year-old male with a past medical history as stated above, who was initially admitted on 05/29/16 due to significant hematuria to the point that he had a hemoglobin of 6.9 on admission. He was seen in consultation by Dr. Escalante and he actually had to spend 1/2 an hour actively irrigating his bladder until all the clots were evacuated. The plan was to continue to observe his voiding and hematuria, but if it persisted the patient would need cystoscopy. At this point his hematuria is resolved but if it recurs as outpatient I believe the next step would be to followup with Dr. Escalante to pursue cystoscopy. As the patient had significant anemia his aspirin had been held, but his H\T\H has now been stable. He had no further episodes of hematuria and considering his significant heart disease aspirin is being resumed, but his H\T\H will need to be monitored as an outpatient. The patient had a CT of the abdomen that showed pelvic lesion suspicious for osteomyelitis and this was thought to be secondary to his right ischial decubitus ulcer. Dr. Ken took the patient to the OR on 06/03/16 for debridement of his stage 4 ischial ulcer. The recommendation was to continue Santyl dressings. The patient had bone biopsy performed and pathology was positive for acute on chronic osteomyelitis, but there was no report of malignancy. The patient was seen by Infectious Disease (Dr. Lim) and his recommendation was for Cefepime 2 grams IV every 12 hours for 6 more weeks and then hopefully switch him to oral fluoroquinolone. The patient's bone culture grew Pseudomonas aeruginosa. For more details about the patient's whole acute stay I refer you to his discharge summary dictated by Anahy Choudhury NP on 06/08/16. While on swing status the patient's vital signs remained stable. He was afebrile. His leukocytosis continued to fluctuate between 15 to 16 thousand, but his H\T\H has remained stable and thrombocytosis has improved. His sodium has fluctuated between 129 and 130. Renal function remains normal and his CRP is trending down nicely from 124 on admission to 41 on the day of discharge. The patient was accepted back to [facility] where he will continue his treatment. He will need followup as outpatient with Dr. Dang, Dr. Lim and Dr. Ken to continue his treatments. Dr. Lim recommends weekly CBC, CMP and CRP while the patient is on antibiotics and those were requested. PHYSICAL EXAMINATION: Vital Signs: Temperature 98.8. Heart rate is 73. Respiratory rate is 16. Oxygen saturation 96% on room air. Blood pressure is 110 /44. General: The patient is a pleasant elderly male lying in bed in no acute distress. HEENT: Pupils are equal. Moist mucous membranes. CVS: Normal S1, S2. Regular rate and rhythm. Chest: Breath sounds heard bilaterally, no added sounds. Abdomen: Soft. Nontender. Nondistended. Bowel sounds are present. Extremities: The patient is status post right BKA. He has trace left lower extremity edema. There is a clean dressing tacked to his left calcaneus ulcer. There is also a clean dressing tacked to the right hip. Neuro: He is alert, awake and oriented x3 with mobile all 4 extremities. There is PICC line to his right upper extremity. DIET: Heart healthy, consistent carb diet. ACTIVITY: As tolerated. DISPOSITION: To [facility]. STATUS: On the hospital swing status. Please keep in mind this is a summarized version of this patient's prolonged hospital stay. If you need more information , please feel free to call me at or please obtain the full medical records. Approximately 50 minutes were spent to complete this discharge. CC: * Primary Care Provider, Dr. Cynthia Dang at [facility]; Urologist, Dr. Escalante; Infectious Disease Specialist, Dr. Lim; General Surgeon, Dr. Ken [id number]/[facility] #: [id number] [facility]Omega
== END 2016-06-16 14:40 | DRG 540 ==
LOC: MED 16:10
PROVIDERS: ADMIT Internal Medicine; ATTEND Internal Medicine
DX: M86.8X8 Other osteomyelitis, other site (principal); E87.1 Hypo-osmolality and hyponatremia; I47.2 Ventricular tachycardia; E11.51 Type 2 diabetes mellitus with diabetic peripheral angiopathy without gangrene; I11.0 Hypertensive heart disease with heart failure; I50.22 Chronic systolic (congestive) heart failure; I25.810 Atherosclerosis of coronary artery bypass graft(s) without angina pectoris; Z75.1 Person awaiting admission to adequate facility elsewhere; B96.5 Pseudomonas (aeruginosa) (mallei) (pseudomallei) as the cause of diseases classified elsewhere; L89.899 Pressure ulcer of other site, unspecified stage; R31.9 Hematuria, unspecified; D50.0 Iron deficiency anemia secondary to blood loss (chronic); D47.3 Essential (hemorrhagic) thrombocythemia; E55.9 Vitamin D deficiency, unspecified; K80.20 Calculus of gallbladder without cholecystitis without obstruction; N20.0 Calculus of kidney; I48.91 Unspecified atrial fibrillation; L98.499 Non-pressure chronic ulcer of skin of other sites with unspecified severity; E66.9 Obesity, unspecified; M48.00 Spinal stenosis, site unspecified; I25.5 Ischemic cardiomyopathy; E11.622 Type 2 diabetes mellitus with other skin ulcer; Z95.810 Presence of automatic (implantable) cardiac defibrillator; Z95.1 Presence of aortocoronary bypass graft; Z68.30 Body mass index [BMI] 30.0-30.9, adult; Z79.84 Long term (current) use of oral hypoglycemic drugs; Z79.82 Long term (current) use of aspirin; Z79.891 Long term (current) use of opiate analgesic; Z79.899 Other long term (current) drug therapy; Z66 Do not resuscitate
CPT/HCPCS: 36415; 80053; 85027; 86140; A9270-GY; J0692

== ENCOUNTER 2016-08-17 19:58 | Emergency (ER) | payer MEDICARE, OTHER ==
[2016-08-17] MEDS ORDERED: NS 0.9% 1000 ML* 1,000 ML IV ONE (20:39)
[2016-08-17] MEDS ORDERED: Ondansetron INJ* 2 MG/ML VIAL IV ONE ×2 (20:39→22:40)
--- NOTE | 2016-08-17 21:10 | ED ---
Jax Hensley Salem, scribed for Danilo Muir MD on 08/17/16 at 2045 . GI/ HPI - HPI Summary HPI Summary: Patient is a 71 y/o male who presents to the ED with vomiting since yesterday, but worse today. He reports he has vomited 4-5 times today. He denies diarrhea, but states his sx is worsening. Hi reports that pt does not typically vomit. - History of Current Complaint Chief Complaint: EDNauseaVomitDiarrh Time Seen by Provider: 08/17/16 20:36 Stated Complaint: NAUSEA/VOMIT Hx Obtained From: Patient, Family/Recreation Therapy Aide Onset/Duration: Started Days Ago, Still Present Timing: Intermittent Severity: Moderate Current Severity: Moderate Associated Signs and Symptoms: Positive: Vomiting. Negative: Diarrhea Aggravating Factor(s): Nothing Alleviating Factor(s): Nothing - Additional Pertinent History Primary Care Physician: [id number] - Allergy/Home Medications Allergies/Adverse Reactions: Allergies Allergy/AdvReac Type Severity Reaction Status Date / Time Penicillins [PCN] Allergy Severe Hives Verified 05/29/16 14:50 Erythromycin AdvReac Mild GI Upset Verified 05/29/16 14:50 PMH/Surg Hx/FS Hx/Imm Hx Endocrine/Hematology History: Reports: Hx Anticoagulant Therapy, Hx Blood Transfusions, Hx Diabetes, Hx Unexplained Bleeding - Admitted with rectal bleeding Denies: Hx Blood Disorders, Hx Bone Marrow Disease, Hx Systemic Lupus Erythematosus, Hx Sickle Cell Disease, Hx Thyroid Disease, Hx Anemia, Other Endocrine/Hematological Disorders Cardiovascular History: Reports: Hx Auto Implanted Cardiovert Defib, Hx Cardiac Arrest, Hx Congestive Heart Failure, Hx Coronary Artery Disease, Hx Hypercholesterolemia, Hx Hypertension, Hx Pacemaker/ICD, Hx Peripheral Vascular Disease, Other Cardiovascular Problems/Disorders - open heart surgery Denies: Hx Aneurysm, Hx Angina, Hx Angioplasty, Hx Cardiomegaly, Hx Congenital Heart Disease, Hx Deep Vein Thrombosis, Hx Embolism, Hx Hypotension, Hx Myocardial Infarction, Hx Rheumatic Fever, Hx Syncope, Hx Valvular Heart Disease Respiratory History: Denies: Hx Asthma, Hx Chronic Obstructive Pulmonary Disease (COPD), Hx Pneumonia, Hx Seasonal Allergies GI History: Denies: Hx Cirrhosis, Hx Crohn's Disease, Hx Diverticulosis, Hx Gall Bladder Disease, Hx Gastroesophageal Reflux Disease, Hx Gastrointestinal Bleed, Hx Hiatal Hernia, Hx Irritable Bowel, Hx Jaundice, Hx Obstructive Bowel, Hx Ileostomy, Hx Pyloric Stenosis, Hx Ulcer, Other GI Disorders History: Reports: Hx Kidney Stones - pt states that he had 5 stones in bladder, Other Problems/Disorders - urinary retention Denies: Hx Acute Renal Failure, Hx Benign Prostatic Hyperplasia, Hx Chronic Renal Failure, Hx Dialysis, Hx Kidney Infection Musculoskeletal History: Reports: Hx Arthritis - BACK, Hx Back Problems - L4-L5 Laminectomy, Other Musculoskeletal History - Extensive Back Sx/Pain issues Denies: Hx Bursitis, Hx Congenital Bone Abnormalities, Hx Fibromyalgia, Hx Gout, Hx Orthopedic Injury, Hx Osteoporosis, Hx Scoliosis, Hx Tendonitis Sensory History: Reports: Hx Cataracts, Hx Contacts or Glasses, Hx Vision Problem, Hx Hearing Problem - slightly TAZLINA Denies: Hx Eye Injury, Hx Eye Prosthesis, Hx Glaucoma, Hx Legally Blind, Hx Macular Degeneration, Hx Deafness, Hx Hearing Aid, Other Sensory Impairments Opthamlomology History: Reports: Hx Cataracts, Hx Contacts or Glasses, Hx Vision Problem Denies: Hx Eye Injury, Hx Eye Prosthesis, Hx Glaucoma, Hx Legally Blind, Hx Macular Degeneration, Other Sensory Impairments Neurological History: Denies: Hx Dementia, Hx Developmental Delay, Hx Headaches, Hx Migraine, Hx Nerve Disease, Hx Seizures, Hx Spinal Cord Injury, Hx Transient Ischemic Attacks (TIA), Other Neuro Impairments/Disorders Psychiatric History: Reports: Hx Anxiety Denies: Hx Depression - Cancer History Hx Chemotherapy: No Hx Radiation Therapy: No Hx Palliative Cancer Treatment: No - Surgical History Surgery Procedure, Year, and Place: C4-C7 [id number]. 2008- [facility] DIS[facility]- LOWER L4/5 Hx Anesthesia Reactions: No - Immunization History Date of Tetanus Vaccine: 2014 Date of Influenza Vaccine: 2014 Infectious Disease History: Reports: Hx Known/Suspected VRE Denies: Hx Clostridium Difficile, Hx Hepatitis, Hx Human Immunodeficiency Virus (HIV), Hx of Known/Suspected MRSA, Hx Shingles - Vaccinated, Hx Tuberculosis, Hx Known/Suspected VRSA, History Other Infectious Disease, Traveled Outside the [place] in Last 30 Days - Family History Known Family History: Positive: Cardiac Disease - father, Diabetes - mother - Social History Alcohol Use: None Hx Substance Use: No Substance Use Type: Reports: None Hx Tobacco Use: Yes Smoking Status (MU): Former Smoker Type: Cigarettes Length of Time of Smoking/Using Tobacco: 20 years Have You Smoked in the Last Year: No Review of Systems Negative: Fever Positive: Vomiting. Negative: Diarrhea All Other Systems Reviewed And Are Negative: Yes Physical Exam Triage Information Reviewed: Yes Vital Signs On Initial Exam: Initial Vitals Pulse Resp Pulse Ox 76 16 96 08/17/16 20:00 08/17/16 20:00 08/17/16 20:00 Vital Signs Reviewed: Yes Appearance: Positive: Ill-Appearing, Pain Distress - mild discomfort Skin: Positive: Warm Head/Face: Positive: Normal Head/Face Inspection Eyes: Positive: ANUEL ENT: Positive: Hearing grossly normal Neck: Positive: Supple Respiratory/Lung Sounds: Positive: Clear to Auscultation, Breath Sounds Present Cardiovascular: Positive: RRR Abdomen Description: Positive: No Organomegaly, Soft, Other: - mild diffuse tenderness Bowel Sounds: Positive: Present Musculoskeletal: Positive: Strength/ROM Intact Neurological: Positive: Sensory/Motor Intact, Alert, Oriented to Person Place, Time Psychiatric: Positive: Affect/Mood Appropriate Diagnostics - Vital Signs Vital Signs Pulse Resp BP Pulse Ox 08/17/16 20:30 80 135/52 95 08/17/16 20:29 81 93 08/17/16 20:26 132/58 08/17/16 20:00 76 16 96 - Laboratory Result Diagrams: 08/17/16 21:10 08/17/16 21:10 Lab Statement: Any lab studies that have been ordered have been reviewed, and results considered in the medical decision making process. Re-Evaluation - Re-Evaluation First Eval Change: Improved - tolerating po GIGU Course/Dx - Course Course Of Treatment: 71 y/o presents for vomiting. He denies diarrhea. Pt received IV fluids and Ondansetron. Pt is stable and will be DC'd to follow up with PCP. - Diagnoses Provider Diagnoses: Vomiting Discharge - Discharge Plan Condition: Stable Disposition: HOME Patient Education Materials: Acute Nausea and Vomiting (ED) Referrals: Jannette Steinberg MD [Primary Care Provider] - Additional Instructions: Follow up with PCP. Recommend a bland diet until symptoms improve. The documentation as recorded by the Jax chavez Salem accurately reflects the service I personally performed and the decisions made by me, Danilo Muir MD.
[2016-08-17 21:16] LABS: Hematocrit 37 % (42-52); Hemoglobin 12.1 g/dl (14.0-18.0); Mean Corpuscular HGB Conc 33 g/dl (31-36); Mean Corpuscular Hemoglobin 27 pg (27-31); Mean Corpuscular Volume 83 fL (80-94); Mean Platelet Volume 7 um3 (7.4-10.4); Red Blood Count 4.48 10^6/ul (4.0-5.4); Red Cell Distribution Width 17 % (10.5-15); White Blood Count 8.1 10^3/ul (3.5-10.8)
[2016-08-17 21:32] LABS: ALT 10 U/L (7-52); AST 14 U/L (13-39); Albumin 3.4 g/dL (3.2-5.2); Alkaline Phosphatase 55 U/L (34-104); Anion Gap 5 mmol/L (2-11); BUN/Creatinine Ratio 26.3 (8-20); Blood Urea Nitrogen 15 mg/dL (6-24); C Reactive Protein 48.18 mg/L (< 5.00); CO2 Carbon Dioxide 32 mmol/L (22-32); Calcium 9.4 mg/dL (8.6-10.3); Chloride 95 mmol/L (101-111); EGFR African American 180.2 (>60); EGFR Non-African American 140.1 (>60); Globulin 4.2 g/dL (2-4); Glucose 126 mg/dL (70-100); Lipase < 10 U/L (11.0-82.0); Magnesium 1.7 mg/dL (1.9-2.7); Sodium 132 mmol/L (133-145); Total Protein 7.6 g/dL (6.4-8.9)
[2016-08-17] MEDS ORDERED: Ondansetron ODT TAB* 4 MG ONE (23:04)
[2016-08-17] MEDS: Ondansetron ODT TAB* 4 MG PO ONE ×3 (23:07→23:08)
[2016-08-17 23:20] VITALS: BP 139/64
== END 2016-08-17 23:20 | disposition home or self-care (01) ==
LOC: ED 19:58
DX: R11.10 Vomiting, unspecified (principal); Z87.891 Personal history of nicotine dependence
CPT/HCPCS: 36415; 80053; 83605; 83690; 83735; 85025; 85610; 86140; 96374; 96375; 99282; J2405

== ENCOUNTER 2016-08-18 04:39 | Emergency (ER) | payer MEDICARE, OTHER ==
--- NOTE | 2016-08-18 05:57 | ED ---
Jax Hensley Salem, scribed for Danilo Muir MD on 08/18/16 at 0540 . GI/ HPI - HPI Summary HPI Summary: Patient is a 71 y/o male who presents to the ED per EMS with vomiting since 2 days ago. Pt was in the ED yesterday for same CC. He states that sx have persisted, but have not changed. He states that he vomited after receiving medication and insisted on coming in. He report nausea and denies diarrhea. He reports no other sx. - History of Current Complaint Chief Complaint: EDNauseaVomitDiarrh Time Seen by Provider: 08/18/16 05:36 Stated Complaint: NAUSEA/VOMITING Hx Obtained From: Patient Onset/Duration: Started Days Ago, Still Present Timing: Intermittent Severity: Moderate Current Severity: Moderate Pain Intensity: 0 Associated Signs and Symptoms: Positive: Nausea, Vomiting. Negative: Diarrhea Aggravating Factor(s): Nothing Alleviating Factor(s): Nothing - Additional Pertinent History Primary Care Physician: [id number] - Allergy/Home Medications Allergies/Adverse Reactions: Allergies Allergy/AdvReac Type Severity Reaction Status Date / Time Penicillins [PCN] Allergy Severe Hives Verified 05/29/16 14:50 Erythromycin AdvReac Mild GI Upset Verified 05/29/16 14:50 PMH/Surg Hx/FS Hx/Imm Hx Endocrine/Hematology History: Reports: Hx Anticoagulant Therapy, Hx Blood Transfusions, Hx Diabetes, Hx Unexplained Bleeding - Admitted with rectal bleeding Denies: Hx Blood Disorders, Hx Bone Marrow Disease, Hx Systemic Lupus Erythematosus, Hx Sickle Cell Disease, Hx Thyroid Disease, Hx Anemia, Other Endocrine/Hematological Disorders Cardiovascular History: Reports: Hx Auto Implanted Cardiovert Defib, Hx Cardiac Arrest, Hx Congestive Heart Failure, Hx Coronary Artery Disease, Hx Hypercholesterolemia, Hx Hypertension, Hx Pacemaker/ICD, Hx Peripheral Vascular Disease, Other Cardiovascular Problems/Disorders - open heart surgery Denies: Hx Aneurysm, Hx Angina, Hx Angioplasty, Hx Cardiomegaly, Hx Congenital Heart Disease, Hx Deep Vein Thrombosis, Hx Embolism, Hx Hypotension, Hx Myocardial Infarction, Hx Rheumatic Fever, Hx Syncope, Hx Valvular Heart Disease Respiratory History: Denies: Hx Asthma, Hx Chronic Obstructive Pulmonary Disease (COPD), Hx Pneumonia, Hx Seasonal Allergies GI History: Denies: Hx Cirrhosis, Hx Crohn's Disease, Hx Diverticulosis, Hx Gall Bladder Disease, Hx Gastroesophageal Reflux Disease, Hx Gastrointestinal Bleed, Hx Hiatal Hernia, Hx Irritable Bowel, Hx Jaundice, Hx Obstructive Bowel, Hx Ileostomy, Hx Pyloric Stenosis, Hx Ulcer, Other GI Disorders History: Reports: Hx Kidney Stones - pt states that he had 5 stones in bladder, Other Problems/Disorders - urinary retention Denies: Hx Acute Renal Failure, Hx Benign Prostatic Hyperplasia, Hx Chronic Renal Failure, Hx Dialysis, Hx Kidney Infection Musculoskeletal History: Reports: Hx Arthritis - BACK, Hx Back Problems - L4-L5 Laminectomy, Other Musculoskeletal History - Extensive Back Sx/Pain issues Denies: Hx Bursitis, Hx Congenital Bone Abnormalities, Hx Fibromyalgia, Hx Gout, Hx Orthopedic Injury, Hx Osteoporosis, Hx Scoliosis, Hx Tendonitis Sensory History: Reports: Hx Cataracts, Hx Contacts or Glasses, Hx Vision Problem, Hx Hearing Problem - slightly KOBUK Denies: Hx Eye Injury, Hx Eye Prosthesis, Hx Glaucoma, Hx Legally Blind, Hx Macular Degeneration, Hx Deafness, Hx Hearing Aid, Other Sensory Impairments Opthamlomology History: Reports: Hx Cataracts, Hx Contacts or Glasses, Hx Vision Problem Denies: Hx Eye Injury, Hx Eye Prosthesis, Hx Glaucoma, Hx Legally Blind, Hx Macular Degeneration, Other Sensory Impairments Neurological History: Denies: Hx Dementia, Hx Developmental Delay, Hx Headaches, Hx Migraine, Hx Nerve Disease, Hx Seizures, Hx Spinal Cord Injury, Hx Transient Ischemic Attacks (TIA), Other Neuro Impairments/Disorders Psychiatric History: Reports: Hx Anxiety Denies: Hx Depression - Cancer History Hx Chemotherapy: No Hx Radiation Therapy: No Hx Palliative Cancer Treatment: No - Surgical History Surgery Procedure, Year, and Place: C4-C7 [id number]. 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 Denies: Hx Clostridium Difficile, Hx Hepatitis, Hx Human Immunodeficiency Virus (HIV), Hx of Known/Suspected MRSA, Hx Shingles - Vaccinated, Hx Tuberculosis, Hx Known/Suspected VRSA, History Other Infectious Disease, Traveled Outside the [place] in Last 30 Days - Family History Known Family History: Positive: Cardiac Disease - father, Diabetes - mother - Social History Alcohol Use: None Hx Substance Use: No Substance Use Type: Reports: None Hx Tobacco Use: Yes Smoking Status (MU): Former Smoker Type: Cigarettes Length of Time of Smoking/Using Tobacco: 20 years Have You Smoked in the Last Year: No Review of Systems Negative: Fever Positive: Vomiting, Nausea. Negative: Diarrhea All Other Systems Reviewed And Are Negative: Yes Physical Exam Triage Information Reviewed: Yes Vital Signs On Initial Exam: Initial Vitals Temp Pulse Resp BP Pulse Ox 97.4 F 80 16 126/56 94 08/18/16 04:40 08/18/16 04:40 08/18/16 04:40 08/18/16 04:40 08/18/16 04:40 Vital Signs Reviewed: Yes Appearance: Positive: Well-Appearing, No Pain Distress Skin: Positive: Warm Head/Face: Positive: Normal Head/Face Inspection ENT: Positive: Hearing grossly normal Neck: Positive: Supple Respiratory/Lung Sounds: Positive: Breath Sounds Present Cardiovascular: Positive: RRR Abdomen Description: Positive: Nontender, Soft Bowel Sounds: Positive: Present Musculoskeletal: Positive: Strength/ROM Intact Neurological: Positive: Sensory/Motor Intact Psychiatric: Positive: Affect/Mood Appropriate - [place] Coma Scale Coma Scale Total: 15 Diagnostics - Vital Signs Vital Signs Temp Pulse Resp BP Pulse Ox 08/18/16 04:40 97.4 F 80 16 126/56 94 - Laboratory Lab Statement: Any lab studies that have been ordered have been reviewed, and results considered in the medical decision making process. Re-Evaluation - Re-Evaluation First Eval Change: Improved - tolerating po GIGU Course/Dx - Course Course Of Treatment: 71 y/o male presents with vomiting since 2 days. He reports nausea and denies diarrhea. Sx unchanged from yesterday. Pt will be DC' d. - Diagnoses Provider Diagnoses: ACUTE NAUSEA,VOMITING Discharge - Discharge Plan Condition: Stable Disposition: HOME Patient Education Materials: Acute Nausea and Vomiting (ED) Referrals: Jannette Steinberg MD [Primary Care Provider] - Additional Instructions: Follow up with PCP. The documentation as recorded by the Jax chavez Salem accurately reflects the service I personally performed and the decisions made by me, Danilo uMir MD.
[2016-08-18 05:58] VITALS: BP 115/71
== END 2016-08-18 05:58 | disposition home or self-care (01) ==
LOC: ED 04:39
DX: R11.2 Nausea with vomiting, unspecified (principal); F17.210 Nicotine dependence, cigarettes, uncomplicated
CPT/HCPCS: 99282

== ENCOUNTER 2017-04-12 00:53 | Inpatient (IN) | payer MEDICARE, OTHER ==
[2017-04-12] MEDS ORDERED: NS 0.9% 1000 ML* 1,000 ML IV ONE (01:21)
[2017-04-12] MEDS ORDERED: Ondansetron INJ* 2 MG/ML VIAL IV ONE (01:21)
[2017-04-12 02:09] LABS: Hematocrit 42 % (42-52); Mean Corpuscular HGB Conc 34 g/dl (31-36); Mean Corpuscular Hemoglobin 27 pg (27-31); Mean Corpuscular Volume 81 fL (80-94); Mean Platelet Volume 7 um3 (7.4-10.4); Red Blood Count 5.19 10^6/ul (4.0-5.4); Red Cell Distribution Width 18 % (10.5-15)
[2017-04-12 02:21] LABS: Albumin 4.4 g/dL (3.2-5.2); BUN/Creatinine Ratio 32.6 (8-20); Calcium 10.3 mg/dL (8.6-10.3); EGFR African American 112.1 (>60); EGFR Non-African American 87.2 (>60); Globulin 4.2 g/dL (2-4); Potassium 4.1 mmol/L (3.5-5.0); Total Bilirubin 0.6 mg/dL (0.2-1.0); Total Protein 8.6 g/dL (6.4-8.9)
[2017-04-12 02:28] LABS: Troponin I 0.04 ng/mL (<0.04)
[2017-04-12 02:38] LABS: Urine Bacteria 2+ (Absent); Urine Bilirubin Negative (Negative); Urine Glucose Negative (Negative); Urine Nitrite Negative (Negative)
[2017-04-12] MEDS ORDERED: Levofloxacin 750 MG IVPREMIX(* 750 MG/150 ML BAG IVPB ONE (03:33)
[2017-04-12] MEDS: Iodixanol 320 (CONTRAST) 200 ML SDV IV ONE ×2 (03:41→03:49)
--- NOTE | 2017-04-12 06:38 | ED ---
John Hensley Gabriel, scribed for Levon Gallegos on 04/12/17 at 0230 . GI/ HPI - HPI Summary HPI Summary: This patient is a 71 year old M BIBA to [facility] after being sent from [facility] for vomiting and ABD bloating. Patient reports hematemesis. Patient denies cp. - History of Current Complaint Chief Complaint: EDNauseaVomitDiarrh Time Seen by Provider: 04/12/17 01:08 Stated Complaint: VOMITING Hx Obtained From: Patient Onset/Duration: Still Present Timing: Constant Current Severity: None Pain Intensity: 0 Associated Signs and Symptoms: Positive: Negative - CP, Hematemesis - Additional Pertinent History Primary Care Physician: BONY - Allergy/Home Medications Allergies/Adverse Reactions: Allergies Allergy/AdvReac Type Severity Reaction Status Date / Time Penicillins [PCN] Allergy Severe Hives Verified 05/29/16 14:50 Erythromycin AdvReac Mild GI Upset Verified 05/29/16 14:50 PMH/Surg Hx/FS Hx/Imm Hx Previously Healthy: No Endocrine/Hematology History: Reports: Hx Anticoagulant Therapy, Hx Blood Transfusions, Hx Diabetes, Hx Unexplained Bleeding - Admitted with rectal bleeding Denies: Hx Blood Disorders, Hx Bone Marrow Disease, Hx Systemic Lupus Erythematosus, Hx Sickle Cell Disease, Hx Thyroid Disease, Hx Anemia, Other Endocrine/Hematological Disorders Cardiovascular History: Reports: Hx Auto Implanted Cardiovert Defib, Hx Cardiac Arrest, Hx Congestive Heart Failure, Hx Coronary Artery Disease, Hx Hypercholesterolemia, Hx Hypertension, Hx Pacemaker/ICD, Hx Peripheral Vascular Disease, Other Cardiovascular Problems/Disorders - open heart surgery Denies: Hx Aneurysm, Hx Angina, Hx Angioplasty, Hx Cardiomegaly, Hx Congenital Heart Disease, Hx Deep Vein Thrombosis, Hx Embolism, Hx Hypotension, Hx Myocardial Infarction, Hx Rheumatic Fever, Hx Syncope, Hx Valvular Heart Disease Respiratory History: Denies: Hx Asthma, Hx Chronic Obstructive Pulmonary Disease (COPD), Hx Pneumonia, Hx Seasonal Allergies GI History: Denies: Hx Cirrhosis, Hx Crohn's Disease, Hx Diverticulosis, Hx Gall Bladder Disease, Hx Gastroesophageal Reflux Disease, Hx Gastrointestinal Bleed, Hx Hiatal Hernia, Hx Irritable Bowel, Hx Jaundice, Hx Obstructive Bowel, Hx Ileostomy, Hx Pyloric Stenosis, Hx Ulcer, Other GI Disorders History: Reports: Hx Kidney Stones - pt states that he had 5 stones in bladder, Other Problems/Disorders - urinary retention Denies: Hx Acute Renal Failure, Hx Benign Prostatic Hyperplasia, Hx Chronic Renal Failure, Hx Dialysis, Hx Kidney Infection Musculoskeletal History: Reports: Hx Arthritis - BACK, Hx Back Problems - L4-L5 Laminectomy, Other Musculoskeletal History - Extensive Back Sx/Pain issues Denies: Hx Bursitis, Hx Congenital Bone Abnormalities, Hx Fibromyalgia, Hx Gout, Hx Orthopedic Injury, Hx Osteoporosis, Hx Scoliosis, Hx Tendonitis Sensory History: Reports: Hx Cataracts, Hx Contacts or Glasses, Hx Vision Problem, Hx Hearing Problem - slightly NENANA Denies: Hx Eye Injury, Hx Eye Prosthesis, Hx Glaucoma, Hx Legally Blind, Hx Macular Degeneration, Hx Deafness, Hx Hearing Aid, Other Sensory Impairments Opthamlomology History: Reports: Hx Cataracts, Hx Contacts or Glasses, Hx Vision Problem Denies: Hx Eye Injury, Hx Eye Prosthesis, Hx Glaucoma, Hx Legally Blind, Hx Macular Degeneration, Other Sensory Impairments Neurological History: Denies: Hx Dementia, Hx Developmental Delay, Hx Headaches, Hx Migraine, Hx Nerve Disease, Hx Seizures, Hx Spinal Cord Injury, Hx Transient Ischemic Attacks (TIA), Other Neuro Impairments/Disorders Psychiatric History: Reports: Hx Anxiety Denies: Hx Depression - Cancer History Hx Chemotherapy: No Hx Radiation Therapy: No Hx Palliative Cancer Treatment: No - Surgical History Surgery Procedure, Year, and Place: C4-C7 [id number]. 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 Denies: Hx Clostridium Difficile, Hx Hepatitis, Hx Human Immunodeficiency Virus (HIV), Hx of Known/Suspected MRSA, Hx Shingles - Vaccinated, Hx Tuberculosis, Hx Known/Suspected VRSA, History Other Infectious Disease, Traveled Outside the [place] in Last 30 Days - Family History Known Family History: Positive: Cardiac Disease - father, Diabetes - mother - Social History Alcohol Use: None Hx Substance Use: No Substance Use Type: Reports: None Hx Tobacco Use: Yes Smoking Status (MU): Former Smoker Type: Cigarettes Length of Time of Smoking/Using Tobacco: 20 years Have You Smoked in the Last Year: No Review of Systems Negative: Chest Pain Positive: Vomiting - hematemesis Positive: other - ABD bloating All Other Systems Reviewed And Are Negative: Yes Physical Exam - Summary Physical Exam Summary: Appearance: , no pain distress Skin: warm, dry, reflects adequate perfusion Head/face: normal Eyes: EOMI, ANUEL ENT: normal Neck: supple, non-tender Respiratory: CTA, breath sounds present Cardiovascular: RRR, pulses symmetrical Abdomen: distended abdomen Pelvic: Patient if fully catheterized Bowel: present Musculoskeletal: normal, strength/ROM intact Extremities: Right BKA Neuro: normal, sensory motor intact, A&Ox3 Triage Information Reviewed: Yes Vital Signs On Initial Exam: Initial Vitals Temp Pulse Resp BP Pulse Ox 98 F 82 18 144/75 93 04/12/17 01:05 04/12/17 01:05 04/12/17 01:05 04/12/17 01:05 04/12/17 01:05 Vital Signs Reviewed: Yes - [place] Coma Scale Coma Scale Total: 15 Diagnostics - Vital Signs Vital Signs Temp Pulse Resp BP Pulse Ox 04/12/17 01:05 98 F 82 18 144/75 93 - Laboratory Lab Results: Lab Results 04/12/17 04/12/17 Range/Units 01:56 01:56 WBC 19.0 H (3.5-10.8) 10^3/ul RBC 5.19 (4.0-5.4) 10^6/ul Hgb 14.0 (14.0-18.0) g/dl Hct 42 (42-52) % MCV 81 (80-94) fL MCH 27 (27-31) pg MCHC 34 (31-36) g/dl RDW 18 H (10.5-15) % Plt Count 505 H (150-450) 10^3/ul MPV 7 L (7.4-10.4) um3 Neut % (Auto) 91.4 H (38-83) % Lymph % (Auto) 4.1 L (25-47) % [place] % (Auto) 4.1 (1-9) % Eos % (Auto) 0 (0-6) % Baso % (Auto) 0.4 (0-2) % Absolute Neuts (auto) 17.3 H (1.5-7.7) 10^3/ul Absolute Lymphs (auto) 0.8 L (1.0-4.8) 10^3/ul Absolute Monos (auto) 0.8 (0-0.8) 10^3/ul Absolute Eos (auto) 0 (0-0.6) 10^3/ul Absolute Basos (auto) 0.1 (0-0.2) 10^3/ul Absolute Nucleated RBC 0.01 10^3/ul Nucleated RBC % 0.1 Sodium 128 L (133-145) mmol/L Potassium 4.1 (3.5-5.0) mmol/L Chloride 87 L (101-111) mmol/L Carbon Dioxide 30 (22-32) mmol/L Anion Gap 11 (2-11) mmol/L BUN 28 H (6-24) mg/dL Creatinine 0.86 (0.67-1.17) mg/dL Est GFR ( Amer) 112.1 (>60) Est GFR (Non-Af Amer) 87.2 (>60) BUN/Creatinine Ratio 32.6 H (8-20) Glucose 267 H (70-100) mg/dL Calcium 10.3 (8.6-10.3) mg/dL Total Bilirubin 0.60 (0.2-1.0) mg/dL AST 15 (13-39) U/L ALT 13 (7-52) U/L Alkaline Phosphatase 63 (34-104) U/L Troponin I Pending Total Protein 8.6 (6.4-8.9) g/dL Albumin 4.4 (3.2-5.2) g/dL Globulin 4.2 H (2-4) g/dL Albumin/Globulin Ratio 1.0 (1-3) Lipase 19 (11.0-82.0) U/L Result Diagrams: 04/12/17 01:56 04/12/17 01:56 Lab Statement: Any lab studies that have been ordered have been reviewed, and results considered in the medical decision making process. - Radiology CXR Radiology Interpretation Completed By: Radiologist - mild pleural effusion - CT CT ABD/Pelvis CT Interpretation Completed By: Radiologist - per radiologist, SBO present ED physician has reviewed this radiology report and agrees. - EKG 4:36 Cardiac Rate: NL EKG Rhythm: Sinus Rhythm - 85 BPM EKG Interpretation: RBBB GIGU Course/Dx - Course Assessment/Plan: This patient is a 71 year old M BIBA to [facility] after being sent from [facility] for vomiting and ABD bloating. An EKG reveals RBBB.CT ABD/ Pelvis reveals, per radiologist, SBO present. CXR reveals mild pleural effusion. Blood work was drawn with troponin being .04 and lactic acid being 2.2. In the ED course the patient was given IV Fluids, Iodixanol, Ondansetron, and Levofloxacin. We discussed patient care with Dr. Tovar and they have agreed to admit the patient for a SBO. Patient will be admitted with follow up from Dr. Tovar. The patient is agreeable with this plan. surgery called for consult. d/w dr chen recommended admission to [facility]. - Diagnoses Differential Diagnoses - Male: Diverticulitis, Appendicitis, Bowel Obstruction, Cholelithiasis, Gastroenteritis (Viral), Ischemic Bowel, Renal Calculi, Vomiting Provider Diagnoses: SBO (small bowel obstruction), Troponin level elevated, Hyponatremia, Dehydration - Physician Notifications Discussed Care Of Patient With: Kati Tovar Time Discussed With Above Provider: 04:48 - Critical Care Time Critical Care Time: 30-74 min Discharge - Discharge Plan Condition: Stable Disposition: ADMITTED TO [facility] Referrals: Jannette Steinberg MD [Primary Care Provider] - The documentation as recorded by the John chavez Gabriel accurately reflects the service I personally performed and the decisions made by Rosy rizvi Emmanuel.
--- NOTE | 2017-04-12 07:52 | RAD ---
INDICATION: Abdominal pain, cough. COMPARISON: Comparison is made with a prior chest x-ray study from November 09, 2015. TECHNIQUE: A portable view of the chest was obtained. FINDINGS: The patient is status post sternotomy. There is a dual-chamber cardiac pacemaker defibrillator present. The heart is moderately enlarged and unchanged. The lungs are underinflated. There is a small focal infiltrate at the left lung base. No pleural effusion is seen. IMPRESSION: 1. POSTSURGICAL CHANGES AND CARDIOMEGALY, UNCHANGED. 2. LOW LUNG VOLUMES, SMALL LEFT BASILAR INFILTRATE.
[2017-04-12] MEDS ORDERED: Bisacodyl SUPP* 10 MG SUPP PR PRN (08:15)
[2017-04-12] MEDS ORDERED: Dextrose 50% Syringe 50 ML* 25 GM/50 ML SYRINGE IV PUSH PRN (08:39)
[2017-04-12] MEDS ORDERED: hydrALAZINE IV* 20 MG/ML VIAL IV SLOW PU PRN (08:40)
[2017-04-12] MEDS ORDERED: NS 0.9% 1000 ML* 1,000 ML IV SCH (08:45)
--- NOTE | 2017-04-12 09:11 | RAD ---
Indication: Abdominal pain and distention. Contrast: Administered 128.0 ml of VISIPAQUE 320 mg/ml. CT of the abdomen and pelvis was performed after IV contrast administration. Dilute oral contrast was given. The lung bases demonstrate bilateral pleural effusion with left basilar atelectasis. The heart demonstrates no pericardial effusion. The liver is normal in size. No focal lesions or intrahepatic duct dilatation is noted. Calcified granuloma is noted in the right lobe of the liver. The pancreas demonstrates no mass or pancreatic duct dilatation. The gallbladder demonstrates calcified gallstones with no evidence of pericholecystic fluid. No adrenal lesions are noted. The kidneys demonstrate symmetric nephrograms. Cortical cysts are noted in the right kidney measuring up to 3.6 cm. Atherosclerotic aorta is noted. No retroperitoneal lymphadenopathy is noted. No aneurysmal dilatation is noted. The stomach is markedly distended. There is fluid in the distal esophagus. Dilated loops of small bowel are noted. There appears to be decompressed bowel loops in the distal small bowel. Findings are consistent with small bowel obstruction. The exact zone of transition is difficult to evaluate; however, it appears to be in the left lower quadrant. CT of the pelvis demonstrates decompressed small bowel loops as well as dilated loops of small bowel that is air-filled. There is some stool in the colon. The prostate is grossly unremarkable. Lala catheter is in place. The bony structures demonstrate lytic lesions in the iliac crests bilaterally as well as in the proximal femurs. There is suggestion of small lytic lesions throughout the sacrum and iliac bones. I cannot totally exclude metastatic disease. IMPRESSION: 1. Findings consistent with small bowel obstruction. A zone of transition is likely in the pelvis. Lytic lesions are noted in the pelvis and both proximal femurs as well as the sacrum. Metastatic disease is not totally excluded. 2. Bilateral pleural effusion, greater on the left than on the right.
--- NOTE | 2017-04-12 10:37 | PN ---
Progress Note - Progress Note Date of Service: 04/12/17 Note: Brief Surgery Note: (full consult dictated) S: 71 yo male w/ SBO (2-3 d h/o vomiting and abd distension; he denies pain); no prior abd surg; PMH reviewed (extensive) O: patient examined (abd distended, tympanitic, soft, min LUQ tenderness; no peritoneal signs; no definite hernias) CT: SBO (transition point unclear); moderate stool in splenic flxr Labs reviewed (WBC 19) A:SBO, but no indications for immediate surgical intervention P: agree w/ conservative tx for this high risk patient (NG decompression; bowel rest; IV hydration); serial exams, AXR, repeat labs; discussed w/ Dr. Garcia who will also see pt
--- NOTE | 2017-04-12 10:48 | HP ---
HISTORY AND PHYSICAL: DATE OF ADMISSION: 04/12/17 ADMITTING PROVIDER: Steven Delgado MD. CHIEF COMPLAINT: Abdominal bloating, nausea, vomiting, possible coffee-ground emesis. PAST MEDICAL HISTORY: CHF, vitamin D deficiency, enterocolitis secondary to C. diff, gallbladder calculus without cholecystitis, renal calculus and bladder stones, chronic Lala, ventricular tachycardia, status post AICD and status post ablations, type 2 diabetes mellitus, CABG, obesity, essential hypertension , spinal stenosis cervical region, status post cervical decompression (Dr. Guajardo), chronic low back pain, history of acute osteomyelitis, right ankle, status post foot amputation, AFib. HISTORY OF PRESENT ILLNESS: Raffaele Adams is a 71-year-old male with PMH as above, sent in from snf with report of vomiting since noon prior to the day of admission, with possible small amount of coffee-ground emesis reported. Patient reports primary complaint is abdominal bloating, but no pain. He says he vomited a couple of times and once in the emergency room. He has problems with chronic constipation. Denies other symptoms. He has a chronic Lala and had this replaced 3 to 4 days ago. Denies shortness of breath , fevers, chills, chest pain, chest pressure, headache, rash. Patient reports last bowel movement was yesterday and has had problems with chronic constipation. He gets Dulcolax suppositories p.r.n., but he cannot relate the last time he got one. Patient is alert and oriented x3, but otherwise a somewhat poor historian, not able to relate much of his past medical history other than a CABG, and does not know his medications. Patient, in the emergency room, was given IV Zofran, Levaquin, 1 L normal saline, and had a CT abdomen and pelvis with contrast, which was concerning for markedly dilated stomach with fluid in the lower esophagus and mildly dilated small bowel in all 4 quadrants, with decompressed distal small bowel, compatible with small bowel obstruction. NG tube was placed. Surgery was consulted, who recommended Medicine admission with Surgery consultation and followup. He was placed n.p.o. , admitted for a small bowel obstruction. MEDICATIONS: Include: 1. Aspirin 81 mg daily. 2. Lisinopril 5 mg daily. 3. Acetaminophen 500 mg 2 tabs by mouth every 8 hours p.r.n. 4. Amiodarone 200 mg daily. 5. Metformin 1000 mg twice a day. 6. Zofran 4 mg tablet p.r.n. every 8 hours. 7. Dulcolax rectal suppository 10 mg per rectum p.r.n. for constipation. ALLERGIES: PENICILLIN and ERYTHROMYCIN, both reportedly with hives. FAMILY HISTORY: Father with heart disease, mother with peptic ulcer, both . SOCIAL HISTORY: Patient is a former smoker and drinker, quit 35 years ago, currently living in [facility], . His is his medical decision maker , Yelitza Adams. He has a MOLST form, which states he is a CPR and intubation if needed. No limits on medical interventions. Long-term feeding tubes if needed. Trial of IV fluids and use of antibiotics if needed. PHYSICAL EXAMINATION GENERAL: Patient is in no acute distress, lying in [facility]. Distended stomach noted, with right below-knee amputation. VITAL SIGNS: Blood pressure 146/78, satting 97% on room air, pulse 85, respiratory rate 18, temperature 98. HEENT: Normocephalic, atraumatic. NG tube in. NECK: Supple. LUNGS: Somewhat limited exam, but clear to auscultation bilaterally. HEART: Regular rate and rhythm. No murmurs, rubs or gallops. CABG scar noted. ABDOMEN: Markedly distended, but soft, nontender to palpation. No appreciable fluid waves detected. Patient with an indwelling Lala, with yellow urine. EXTREMITIES: Status post right below-knee amputation, warm, well-perfused, no significant peripheral edema. NEUROLOGIC: Moving all extremities spontaneously. Cranial nerves II through XII grossly intact. LABORATORY DATA: White count 19.0, hemoglobin 14.0, hematocrit 42, platelets 505, INR 0.94. Sodium 128, potassium 4.1, chloride 87, carbon dioxide 30, BUN 28, creatinine 0.86, lactic acid 2.2, glucose 267. Troponin 0.04. AST 15, ALT 13, alk phos 63. Lipase 19. UA: 2+ leukocyte esterase, 3+ wbc's, 3+ rbc's, 2 + bacteria, 3+ protein. IMAGING: Chest x-ray with low lung volumes, small left basilar infiltrates. CT abdomen and pelvis with markedly dilated stomach and moderately dilated small bowel in all 4 quadrants, with decompressed distal small bowel compatible with small bowel obstruction. Somewhat appearance of bones in pelvis and proximal femur, which could represent areas of focal fatty marrow, but consider followup bone scan to assess for metastasis. No colitis, free fluid or free air. Normal appendix. Anticipated appearing feces in colon, probably constipation, unremarkable pancreas, cholelithiasis, small right inguinal region hernia containing fat, moderate left and small right pleural effusions. ASSESSMENT AND PLAN: Mr. Adams is a 71-year-old male presenting with abdominal bloating, nausea and vomiting and imaging concerning for small bowel obstruction. NG tube has already been placed. Surgery has been consulted by the Emergency Room. We will follow up recommendations. We will continue him on IV fluids for now and n.p.o. status. Hold his other nonessential p.o. medications for now. For his type 2 diabetes, hold his metformin, start fingersticks q.a.c. and q.h.s., with sliding scale insulin p.r.n. For his hypertension, hold his lisinopril 5 mg for now, start p.r.n. IV medications as needed. For his nausea and vomiting, start IV Zofran q.6 hours p.r.n. For his hyponatremia, continue IV fluids. Get BMP q.12 hours. For lactic acidosis, IV fluids, recheck now. For his mild troponin elevation, patient is not complaining of any chest pain, likely small amount of demand ischemia in the setting of nausea, vomiting, and SBO. Patient's initial EKG with right bundle branch block, which is not new. Code status. The patient is a full code. He has MOLST signed. Medical surrogate is his , Yelitza Adams. He is admitted to inpatient status for SBO. [id number]/[facility] #: [id number] MTDD
[2017-04-12] MEDS: Insulin LISPRO* 1 UNITS UNIT SUBCUT SCH ×3 (12:52→22:04)
--- NOTE | 2017-04-12 19:32 | CONS ---
CC: [facility] * SURGICAL CONSULT NOTE: DATE OF CONSULT: 04/12/17 ATTENDING SURGEON: Dr. Harris Garcia. CHIEF COMPLAINT: Abdominal distention and vomiting. HISTORY OF PRESENT ILLNESS: This is a 71-year-old male with multiple medical problems as noted below who for the past couple of days has been experiencing episodes of vomiting as well as abdominal distention. The abdominal distention was brought to his attention by the nurse at his residence, but he had not noted it himself. He denies any abdominal pain. He states that his last bowel movement was the night before last. He is not certain if he has been passing any gas over the past 24 hours. He has not had any similar previous symptoms. The current episode seemed to be precipitated by cough with significant phlegm production. An NG tube was inserted in the ED with immediate return of 1400 cc with an additional 700 cc output since arrival to the floor. The NG aspirate was apparently tested positive for heme at the senior living, though does not appear to be grossly bloody or coffee- ground at the present time. The patient has not had any prior abdominal surgeries. He has had a colonoscopy within the past 5 years, which was normal by his report. 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 PAST SURGICAL HISTORY: Previous surgeries include CABG, AICD, pacemaker placement, ablation, right BKA, cervical decompression for spinal stenosis. CURRENT MEDICATIONS: 1. Lisinopril 5 mg once daily. 2. Aspirin 81 mg once daily. 3. Tylenol 500 mg 2 tablets every 8 hours p.r.n. pain. 4. Amiodarone 200 mg once daily. 5. Metformin 1000 mg b.i.d. 6. Dulcolax suppository 10 mg p.r.n. for constipation. 7. Extended release morphine sulfate 15 mg q.a.m. 8. Gabapentin 300 mg t.i.d. 9. Omeprazole 20 mg daily. DRUG ALLERGIES: PENICILLIN (hives), ERYTHROMYCIN (GI upset). FAMILY HISTORY: Noncontributory in terms of surgical or anesthesia problems. SOCIAL HISTORY: The patient is . He is a resident at [facility]. 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 He is a former smoker and drinker who quit 35 years ago. REVIEW OF SYSTEMS: General: No recent constitutional symptoms other than as noted in the HPI and past medical history. He did undergo a bone scan last week in regard to a right buttock or ischial ulcer that study was negative for osteomyelitis. Cardiovascular: He is followed regularly by Dr. Whelan. He has not had any recent interval problems other than as noted above. Specifically, he denies chest pain or shortness of breath. Respiratory: No problems reported. He specifically denies shortness of breath at the present time. GI: As above per HPI. No additions. : Chronic indwelling Lala catheter. He does have a small right renal cyst. He has been followed in the past by Dr. Escalante. Endocrine: Type 2 diabetes. He is unsure what his usual fingersticks run, though knows that they are done only on and Fridays at the nursing facility. PHYSICAL EXAMINATION: Height 5 feet 11 inches, weight 224 pounds. Temperature 98, blood pressure 146/78, pulse 85, respirations 17, room air saturation 92% to 94%. General: Well-nourished, obese white male, in no acute distress. An NG tube is in place, draining light brown aspirate. He appears comfortable. Skin: No suspicious rashes or lesions. On exam with the nursing staff, there are 2 right buttock/ischial ulcers. The more inferior one is very superficial with limited open wound and limited drainage. The more proximal, I did not actually measure, it had dressing in place, but appeared to be not infected and to have an alginate dressing in place, which was not removed. HEENT: He is somewhat hard of hearing. Pupils are equal, round, and reactive. EOMs intact. No conjunctival pallor or scleral icterus. Oropharynx: Teeth in [id number] repair. No intraoral lesions. Mucous membranes are slightly dry. Neck: No masses or lymphadenopathy. Heart: Regular. No murmur appreciated. Lungs: Clear to auscultation, though he does have some scattered coarse rhonchi particularly at the bases. No wheezes. Abdomen: Distended, tympanitic, bowel sounds hypoactive, soft with mild tenderness in the left upper quadrant. The remainder of the abdomen is soft and nontender and without masses or organomegaly, though exam is limited. Despite the CT finding of what appears to be a fat-containing right inguinal hernia, this is difficult to appreciate on exam. There is no tenderness there and no palpable mass or apparent hernia on the left. Genitalia: Otherwise not examined. Extremities: He is status post right BKA. The left lower extremity is notable for moderate skin scaling, but no open lesions. There is an old healed left heel decubitus with some intact eschar, but no open wound. The dorsalis pedis pulse on that foot is palpable. I am unable to palpate the posterior tibial. Neurological: Grossly intact, though specific exam not performed. The patient is only a fair historian in terms of many of his details such as medications and past medical history. DIAGNOSTIC STUDIES/LAB DATA: White blood cell count 19,000 with left shift, hemoglobin 14, hematocrit 42. Chemistries notable for sodium of 128, chloride of 87, BUN of 28, creatinine 0.86, glucose is 267. Lactic acid mildly elevated at 2.2. Troponin mildly elevated at 0.04. Liver function tests and lipase are normal. CT scan of the abdomen and pelvis with limited oral contrast shows a markedly distended stomach as well as proximal small bowel. There are decompressed distal small bowel loops, but transition point is difficult to determine with certainty. There is a moderate amount of stool in the colon. There are bilateral pleural effusions, but left significantly larger than the right with some associated atelectasis. There are lytic-appearing lesions in the pelvis and femoral heads, though a recent bone scan from 04/05/17 was negative. IMPRESSION: Small bowel obstruction. PLAN: Agree with conservative treatment as the patient is relatively high risk for surgery. These measures would include bowel rest, NG tube decompression, IV hydration, and serial exams of both physical exam and imaging. We will repeat lab work in the morning as well. The case was discussed with Dr. Garcia , who will also see the patient for confirmation of findings and recommendations. AYANA VILLALTA [id number]/[facility] #: [id number] [facility]ITALOmega
[2017-04-13 06:31] LABS: Hematocrit 38 % (42-52); Hemoglobin 12.7 g/dl (14.0-18.0); Mean Corpuscular HGB Conc 33 g/dl (31-36); Mean Corpuscular Hemoglobin 27 pg (27-31); Mean Corpuscular Volume 81 fL (80-94); Mean Platelet Volume 7 um3 (7.4-10.4); Red Blood Count 4.74 10^6/ul (4.0-5.4); Red Cell Distribution Width 18 % (10.5-15); White Blood Count 15.1 10^3/ul (3.5-10.8)
[2017-04-13 06:48] LABS: BUN/Creatinine Ratio 43.5 (8-20); Calcium 9.9 mg/dL (8.6-10.3); EGFR African American 113.6 (>60); EGFR Non-African American 88.4 (>60); Potassium 3.8 mmol/L (3.5-5.0)
--- NOTE | 2017-04-13 08:41 | RAD ---
INDICATION: Small bowel obstruction, follow-up. COMPARISON: Comparison is made with a prior CT of the abdomen and pelvis from April 12, 2017. TECHNIQUE: Supine and decubitus views of the abdomen were obtained. FINDINGS: There is a nasogastric tube present. The catheter tip projects over the stomach. Air is noted within the small bowel colon which appears nondistended. No free intraperitoneal air is seen. IMPRESSION: RESOLVING SMALL BOWEL OBSTRUCTION.
[2017-04-13] MEDS: Insulin LISPRO* 1 UNITS UNIT SUBCUT SCH ×4 (09:45→21:27)
--- NOTE | 2017-04-13 13:17 | PN ---
Progress Note - Progress Note Date of Service: 04/13/17 Note: Surgery Progress: S: Feels better, less distended. No abd pain. Passing flatus; no BM. Prod cough ; no SOB. O: Vital Signs - 8 hr 04/13/17 04/13/17 08:00 11:46 Temperature 98.1 F Pulse Rate 83 Respiratory 18 20 Rate Blood Pressure 136/45 (mmHg) O2 Sat by Pulse 93 Oximetry Intake and Output Last 24 Hours 04/11/17 04/12/17 04/13/17 04/14/17 06:59 06:59 06:59 06:59 Intake Total 150 920 Output Total 1950 1000 Balance 150 -1030 -1000 Weight 224 lb 224 lb 219 lb Intake: IV Fluids 150 920 NS 920 Oral 0 Output: NG Tube Drainage Amount 1000 1000 Urine 0 Lala 950 Other: # Bowel Movements 0 PE: Gen: NAD Heart: reg Lungs: clear; few bibasilar crackles Abd: hypoactive BS; less distended; soft; nontender to palp AXR: Location: [address] [place] [address] MEDICAL/TELEMETRY Exam Date: 04/13/17 0700 ADM Status: ADM IN Order Information: ABDOMEN (COMPLETE) 2 [facility] Accession Number: [id number] CPT: 87471 INDICATION: Small bowel obstruction, follow-up. COMPARISON: Comparison is made with a prior CT of the abdomen and pelvis from April 12, 2017. TECHNIQUE: Supine and decubitus views of the abdomen were obtained. FINDINGS: There is a nasogastric tube present. The catheter tip projects over the stomach. Air is noted within the small bowel colon which appears nondistended. No free intraperitoneal air is seen. IMPRESSION: RESOLVING SMALL BOWEL OBSTRUCTION. A: resolving SBO P: cont NG and bowel rest, IVF for present; will follow
--- NOTE | 2017-04-13 15:48 | PN ---
Progress Note - Progress Note Date of Service: 04/13/17 Note: I have seen and evaluated the patient. I have reviewed the radiology images. I agree with the Consultation dictated by AYANA Ly. The patient and I discussed the fact that the SBO has no clear etiology and that while adhesions are usually the cause, he has no h/o prior surgery and may be harboring a tumor that may not be evident without surgical exploration. The patient stated his understanding and agrees to the current plan for non-operative management.
--- NOTE | 2017-04-13 18:54 | PN ---
Subjective Date of Service: 04/13/17 Interval History: Started to pas gas. Abdominal distention much less. significant NG tube output. nontender on exam. admitted to ICU Objective Active Medications: Bisacodyl (Dulcolax Supp*) 10 mg NE DAILY PRN PRN Reason: CONSTIPATION Dextrose (D50w Syringe 50 Ml*) 12.5 gm IV PUSH .FOR FS < 60 - SS PRN PRN Reason: FS < 60 Hydralazine HCl (Apresoline Iv*) 10 mg IV SLOW PU Q6H PRN PRN Reason: SYSTOLIC BP GREATER THAN: Insulin Human Lispro (Humalog*) 0 units SUBCUT ACHS WESLY PRN Reason: Protocol Last Admin: 04/13/17 16:33 Dose: Not Given Vital Signs 04/12/17 04/12/17 04/12/17 20:00 20:19 23:38 Temperature 97.4 F 97.8 F Pulse Rate 94 83 Respiratory 20 16 16 Rate Blood Pressure 128/66 138/53 (mmHg) O2 Sat by Pulse 98 92 Oximetry 04/13/17 04/13/17 04/13/17 03:04 03:15 08:00 Temperature 97.6 F 98.2 F Pulse Rate 82 80 Respiratory 16 16 18 Rate Blood Pressure 137/58 160/88 (mmHg) O2 Sat by Pulse 93 97 Oximetry 04/13/17 11:46 Temperature 98.1 F Pulse Rate 83 Respiratory 20 Rate Blood Pressure 136/45 (mmHg) O2 Sat by Pulse 93 Oximetry Oxygen Devices in Use Now: None Appearance: NAD, lying in bed. Ears/Nose/Mouth/Throat: NL Teeth, Lips, Gums, Mucous Membranes Moist, - Neck: NL Appearance and Movements; NL JVP, Trachea Midline Respiratory: Symmetrical Chest Expansion and Respiratory Effort, Clear to Auscultation Cardiovascular: NL Sounds; No Murmurs; No JVD, RRR Abdominal: - - much less distended. no bowel sounds appreciated. soft, nontender. Extremities: No Edema, No Clubbing, Cyanosis, - - s/p BKA Skin: No Rash or Ulcers, No Nodules or Sclerosis Neurological: Alert and Oriented x 3 Lines/Tubes/Other Access: Clean, Dry and Intact Naso-enteral Tube Result Diagrams: 04/13/17 06:14 04/13/17 06:14 Additional Lab and Data: Laboratory Tests 04/12/17 04/12/17 04/12/17 01:56 01:56 01:56 WBC 19.0 H RBC 5.19 Hgb 14.0 Hct 42 MCV 81 MCH 27 MCHC 34 RDW 18 H Plt Count 505 H MPV 7 L Neut % (Auto) 91.4 H Lymph % (Auto) 4.1 L [place] % (Auto) 4.1 Eos % (Auto) 0 Baso % (Auto) 0.4 Absolute Neuts (auto) 17.3 H Absolute Lymphs (auto) 0.8 L Absolute Monos (auto) 0.8 Absolute Eos (auto) 0 Absolute Basos (auto) 0.1 Absolute Nucleated RBC 0.01 Nucleated RBC % 0.1 INR (Anticoag Therapy) 0.94 APTT 29.3 Sodium 128 L Potassium 4.1 Chloride 87 L Carbon Dioxide 30 Anion Gap 11 BUN 28 H Creatinine 0.86 Est GFR ( Amer) 112.1 Est GFR (Non-Af Amer) 87.2 BUN/Creatinine Ratio 32.6 H Glucose 267 H POC Glucose (mg/dL) Lactic Acid Calcium 10.3 Total Bilirubin 0.60 AST 15 ALT 13 Alkaline Phosphatase 63 Troponin I 0.04 H* Total Protein 8.6 Albumin 4.4 Globulin 4.2 H Albumin/Globulin Ratio 1.0 Lipase 19 Urine Color Urine Appearance Urine pH Ur Specific [place] Urine Protein Urine Ketones Urine Blood Urine Nitrate Urine Bilirubin Urine Urobilinogen Ur Leukocyte Esterase Urine WBC (Auto) Urine RBC (Auto) Urine Bacteria Urine Glucose 04/12/17 04/12/17 04/12/17 01:56 02:10 11:47 WBC RBC Hgb Hct MCV MCH MCHC RDW Plt Count MPV Neut % (Auto) Lymph % (Auto) [place] % (Auto) Eos % (Auto) Baso % (Auto) Absolute Neuts (auto) Absolute Lymphs (auto) Absolute Monos (auto) Absolute Eos (auto) Absolute Basos (auto) Absolute Nucleated RBC Nucleated RBC % INR (Anticoag Therapy) APTT Sodium Potassium Chloride Carbon Dioxide Anion Gap BUN Creatinine Est GFR ( Amer) Est GFR (Non-Af Amer) BUN/Creatinine Ratio Glucose POC Glucose (mg/dL) 225 H Lactic Acid 2.2 H* Calcium Total Bilirubin AST ALT Alkaline Phosphatase Troponin I Total Protein Albumin Globulin Albumin/Globulin Ratio Lipase Urine Color [place] Urine Appearance Turbid Urine pH 6.0 Ur Specific [place] 1.019 Urine Protein 3+(>=500 mg/dl) H Urine Ketones Negative Urine Blood 1+ H Urine Nitrate Negative Urine Bilirubin Negative Urine Urobilinogen Negative Ur Leukocyte Esterase 2+ H Urine WBC (Auto) 3+(>20/hpf) H Urine RBC (Auto) 3+(>10/hpf) H Urine Bacteria 2+ H Urine Glucose Negative 04/12/17 04/12/17 04/13/17 16:23 20:39 06:14 WBC 15.1 H RBC 4.74 Hgb 12.7 L Hct 38 L MCV 81 MCH 27 MCHC 33 RDW 18 H Plt Count 438 MPV 7 L Neut % (Auto) 81.9 Lymph % (Auto) 9.2 L [place] % (Auto) 8.5 Eos % (Auto) 0 Baso % (Auto) 0.4 Absolute Neuts (auto) 12.4 H Absolute Lymphs (auto) 1.4 Absolute Monos (auto) 1.3 H Absolute Eos (auto) 0 Absolute Basos (auto) 0.1 Absolute Nucleated RBC 0.01 Nucleated RBC % 0 INR (Anticoag Therapy) APTT Sodium Potassium Chloride Carbon Dioxide Anion Gap BUN Creatinine Est GFR ( Amer) Est GFR (Non-Af Amer) BUN/Creatinine Ratio Glucose POC Glucose (mg/dL) 159 H 153 H Lactic Acid Calcium Total Bilirubin AST ALT Alkaline Phosphatase Troponin I Total Protein Albumin Globulin Albumin/Globulin Ratio Lipase Urine Color Urine Appearance Urine pH Ur Specific [place] Urine Protein Urine Ketones Urine Blood Urine Nitrate Urine Bilirubin Urine Urobilinogen Ur Leukocyte Esterase Urine WBC (Auto) Urine RBC (Auto) Urine Bacteria Urine Glucose 04/13/17 04/13/17 04/13/17 06:14 06:14 08:33 WBC RBC Hgb Hct MCV MCH MCHC RDW Plt Count MPV Neut % (Auto) Lymph % (Auto) [place] % (Auto) Eos % (Auto) Baso % (Auto) Absolute Neuts (auto) Absolute Lymphs (auto) Absolute Monos (auto) Absolute Eos (auto) Absolute Basos (auto) Absolute Nucleated RBC Nucleated RBC % INR (Anticoag Therapy) APTT Sodium 132 L Potassium 3.8 Chloride 94 L Carbon Dioxide 30 Anion Gap 8 BUN 37 H Creatinine 0.85 Est GFR ( Amer) 113.6 Est GFR (Non-Af Amer) 88.4 BUN/Creatinine Ratio 43.5 H Glucose 125 H POC Glucose (mg/dL) 151 H Lactic Acid 1.1 Calcium 9.9 Total Bilirubin AST ALT Alkaline Phosphatase Troponin I Total Protein Albumin Globulin Albumin/Globulin Ratio Lipase Urine Color Urine Appearance Urine pH Ur Specific [place] Urine Protein Urine Ketones Urine Blood Urine Nitrate Urine Bilirubin Urine Urobilinogen Ur Leukocyte Esterase Urine WBC (Auto) Urine RBC (Auto) Urine Bacteria Urine Glucose 04/13/17 04/13/17 04/13/17 11:50 16:13 20:53 WBC RBC Hgb Hct MCV MCH MCHC RDW Plt Count MPV Neut % (Auto) Lymph % (Auto) [place] % (Auto) Eos % (Auto) Baso % (Auto) Absolute Neuts (auto) Absolute Lymphs (auto) Absolute Monos (auto) Absolute Eos (auto) Absolute Basos (auto) Absolute Nucleated RBC Nucleated RBC % INR (Anticoag Therapy) APTT Sodium Potassium Chloride Carbon Dioxide Anion Gap BUN Creatinine Est GFR ( Amer) Est GFR (Non-Af Amer) BUN/Creatinine Ratio Glucose POC Glucose (mg/dL) 140 H 124 H 130 H Lactic Acid Calcium Total Bilirubin AST ALT Alkaline Phosphatase Troponin I Total Protein Albumin Globulin Albumin/Globulin Ratio Lipase Urine Color Urine Appearance Urine pH Ur Specific [place] Urine Protein Urine Ketones Urine Blood Urine Nitrate Urine Bilirubin Urine Urobilinogen Ur Leukocyte Esterase Urine WBC (Auto) Urine RBC (Auto) Urine Bacteria Urine Glucose Microbiology and Other Data: Microbiology 04/12/17 02:10 Urine Urine Culture - Preliminary Klebsiella Pneumoniae Escherichia Coli Assess/Plan/Problems-Billing Assessment: 71 yo male PMH CHF, CAD s/p CABG,HTN, DM, chronic tomlinson, s/p BKA p/w SBO. Improving with NGT, passing flatus. - Patient Problems (1) SBO (small bowel obstruction) Current Visit: Yes Status: Acute Code(s): K56.609 - UNSP INTESTNL OBST, UNSP TO PARTIAL VERSUS COMPLETE OBST SNOMED Code(s): 323015328 Comment: improved. Abd xray reportedly better. pasing flatus. no BM yet. appreciate surgery recs continue NG tube for now. npo for now. restart mIVF (2) Coronary artery disease Current Visit: No Status: Chronic Priority: Low Code(s): I25.10 - ATHSCL HEART DISEASE OF [place] CORONARY ARTERY W/O ANG PCTRS SNOMED Code(s): 42970301 Comment: aspirin 81mg (3) Essential hypertension Current Visit: No Status: Chronic Priority: Low Code(s): I10 - ESSENTIAL ( PRIMARY) HYPERTENSION SNOMED Code(s): 10463863 Comment: - restart Lisinopril in AM (4) Type 2 diabetes mellitus treated without insulin Current Visit: No Status: Chronic Priority: Medium Code(s): E11.9 - TYPE 2 DIABETES MELLITUS WITHOUT COMPLICATIONS SNOMED Code(s): 63247175 Comment: - hold Metformin - Lispro SSI, poct qachs (5) Ischemic cardiomyopathy Current Visit: No Status: Chronic Code(s): I25.5 - ISCHEMIC CARDIOMYOPATHY SNOMED Code(s): 457318238 Comment: - h/o V-tach s/p ICD - Last known EF < 30% 04/2015 but was a notable limited study - restart amiodarone - monitor respiratory status, time limit IVF (6) Presence of combination internal cardiac defibrillator (ICD) and pacemaker Current Visit: No Status: Chronic Priority: Low Code(s): Z95.810 - PRESENCE OF AUTOMATIC (IMPLANTABLE) CARDIAC DEFIBRILLATOR SNOMED Code(s): 027612432 (7) Bone anomaly Current Visit: Yes Status: Acute Code(s): M95.9 - ACQUIRED DEFORMITY OF MUSCULOSKELETAL SYSTEM, UNSPECIFIED SNOMED Code(s): 920969659 Comment: mottled appearance, bone marrow? outpatient bone scan. lytic lesions in pelvis and femurs. consider beta2 microglobulin. (8) Klebsiella cystitis Current Visit: Yes Status: Acute Code(s): N30.90 - CYSTITIS, UNSPECIFIED WITHOUT HEMATURIA; B96.89 - OTH BACTERIAL AGENTS THE CAUSE OF DISEASES CLASSD ELSWHR SNOMED Code(s): 52245819 Comment: s/p levaquin in ED. pt with chronic tomlinson (exchanged 4 days prior to admission). denies dysuria. f/u sensitivites. Ecoli as well. Status and Disposition: medicine inpatient. Attending: Steven Delgado
[2017-04-13] MEDS ORDERED: NS 0.9% 1000 ML* 1,000 ML IV SCH (23:00)
[2017-04-14] MEDS: Insulin LISPRO* 1 UNITS UNIT SUBCUT SCH ×4 (08:59→22:23)
[2017-04-14] MEDS: Aspirin EC Low Dose* 81 MG TAB.EC PO SCH (09:07)
[2017-04-14] MEDS: Gabapentin CAP(*) 300 MG PO SCH ×3 (09:07→22:22)
[2017-04-14] MEDS: Amiodarone TAB* 200 MG PO SCH (09:07)
[2017-04-14] MEDS: Lisinopril TAB* 5 MG PO SCH (09:07)
[2017-04-14] MEDS: Omeprazole CAP* 20 MG PO SCH (09:07)
[2017-04-14] MEDS: Morphine TAB Extended Release (*) 15 MG TAB.ER PO SCH (09:13)
[2017-04-14 09:30] LABS: Hematocrit 40 % (42-52); Mean Corpuscular HGB Conc 33 g/dl (31-36); Mean Corpuscular Hemoglobin 27 pg (27-31); Mean Corpuscular Volume 82 fL (80-94); Mean Platelet Volume 7 um3 (7.4-10.4); Red Blood Count 4.84 10^6/ul (4.0-5.4); Red Cell Distribution Width 19 % (10.5-15); White Blood Count 12.2 10^3/ul (3.5-10.8)
[2017-04-14 09:42] LABS: BUN/Creatinine Ratio 43.7 (8-20); Calcium 9.6 mg/dL (8.6-10.3); EGFR African American 139.9 (>60); EGFR Non-African American 108.8 (>60); Potassium 3.5 mmol/L (3.5-5.0)
[2017-04-14] MEDS ORDERED: NS 0.9% 1000 ML* 1,000 ML IV SCH (12:45)
--- NOTE | 2017-04-14 12:52 | PN ---
Progress Note - Progress Note Date of Service: 04/14/17 Note: Surgery Progress: S: Doing well. No abd pain. Still some cough; no SOB. Passing flatus. Denies BM. O: Vital Signs - 8 hr 04/14/17 04/14/17 04/14/17 08:00 08:16 09:07 Temperature 97.7 F Pulse Rate 77 Respiratory 20 14 20 Rate Blood Pressure 160/78 (mmHg) O2 Sat by Pulse 96 Oximetry 04/14/17 11:56 Temperature Pulse Rate Respiratory 20 Rate Blood Pressure (mmHg) O2 Sat by Pulse Oximetry Intake and Output Last 24 Hours 04/12/17 04/13/17 04/14/17 04/15/17 06:59 06:59 06:59 06:59 Intake Total 150 920 100 Output Total 1950 2425 Balance 150 -1030 -2325 Weight 224 lb 224 lb 219 lb Intake: IV Fluids 150 920 NS 920 Oral 0 100 Output: NG Tube Drainage Amount 1000 1000 Urine 0 850 Lala 950 575 Other: # Bowel Movements 0 1 Estimated Stool Amount Small Looks like NG output only ~ 600 ml/24 hr. Heart: reg Lungs: clear bilat Abd: +BS; no sig distension/tympany; soft, nontender to palp A: SBO, resolving P: d/c NG (done); clear liquids; adv slowly as eusebia; dulcolax supp prn; poss return to SNF 04/15?
--- NOTE | 2017-04-14 15:35 | PN ---
Subjective Date of Service: 04/14/17 Interval History: No BMs, still passing some flatus. NGT later removed after surgery saw. UCx finalized. Denies any abdominal pain Objective Active Medications: Amiodarone HCl (Cordarone Tab*) 200 mg PO DAILY [facility] Last Admin: 04/14/17 09:07 Dose: 200 mg Aspirin (Aspirin Ec Low Dose*) 81 mg PO DAILY [facility] Last Admin: 04/14/17 09:07 Dose: 81 mg Bisacodyl (Dulcolax Supp*) 10 mg [place] DAILY PRN PRN Reason: CONSTIPATION Dextrose (D50w Syringe 50 Ml*) 12.5 gm IV PUSH .FOR FS < 60 - SS PRN PRN Reason: FS < 60 Gabapentin (Neurontin Cap(*)) 300 mg PO TID [facility] Last Admin: 04/14/17 13:01 Dose: 300 mg Hydralazine HCl (Apresoline Iv*) 10 mg IV SLOW PU Q6H PRN PRN Reason: SYSTOLIC BP GREATER THAN: Sodium Chloride (Ns 0.9% 1000 Ml*) 1,000 mls @ 50 mls/hr IV PER RATE [facility] Stop: 04/15/17 08:44 Insulin Human Lispro (Humalog*) 0 units SUBCUT ACHS [facility] PRN Reason: Protocol Last Admin: 04/14/17 12:26 Dose: 2 unit Lisinopril (Prinivil Tab*) 5 mg PO DAILY [facility] Last Admin: 04/14/17 09:07 Dose: 5 mg Morphine Sulfate (Ms Contin(*)) 15 mg PO DAILY [facility] Last Admin: 04/14/17 09:13 Dose: Not Given Omeprazole (Prilosec Cap*) 20 mg PO DAILY@0730 [facility] Last Admin: 04/14/17 09:07 Dose: 20 mg Vital Signs 04/13/17 04/14/17 04/14/17 20:00 00:14 08:00 Temperature 98.0 F Pulse Rate 81 Respiratory 20 20 20 Rate Blood Pressure 135/56 (mmHg) O2 Sat by Pulse 96 Oximetry 04/14/17 04/14/17 04/14/17 08:16 09:07 11:56 Temperature 97.7 F Pulse Rate 77 Respiratory 14 20 20 Rate Blood Pressure 160/78 (mmHg) O2 Sat by Pulse 96 Oximetry 04/14/17 04/14/17 04/14/17 13:01 15:29 15:31 Temperature 97.7 F Pulse Rate 78 Respiratory 20 17 20 Rate Blood Pressure 145/54 (mmHg) O2 Sat by Pulse 95 Oximetry Oxygen Devices in Use Now: None Appearance: NAD Ears/Nose/Mouth/Throat: NL Teeth, Lips, Gums, Mucous Membranes Moist Neck: NL Appearance and Movements; NL JVP Respiratory: Symmetrical Chest Expansion and Respiratory Effort, Clear to Auscultation Cardiovascular: NL Sounds; No Murmurs; No JVD, RRR Abdominal: - - soft, nontender, minimally distended (much better than previous) Extremities: No Edema, - - s/p BKA Skin: No Rash or Ulcers Neurological: Alert and Oriented x 3 Lines/Tubes/Other Access: Clean, Dry and Intact [place], Clean, Dry and Intact Naso-enteral Tube Result Diagrams: 04/14/17 08:40 04/14/17 08:40 Additional Lab and Data: Laboratory Results - last 24 hr 04/13/17 04/14/17 04/14/17 20:53 07:50 08:40 WBC 12.2 H RBC 4.84 Hgb 13.0 L Hct 40 L MCV 82 MCH 27 MCHC 33 RDW 19 H Plt Count 435 MPV 7 L Neut % (Auto) 81.0 Lymph % (Auto) 10.9 L [place] % (Auto) 7.7 Eos % (Auto) 0.1 Baso % (Auto) 0.3 Absolute Neuts (auto) 9.9 H Absolute Lymphs (auto) 1.3 Absolute Monos (auto) 0.9 H Absolute Eos (auto) 0 Absolute Basos (auto) 0 Absolute Nucleated RBC 0.02 Nucleated RBC % 0.1 Sodium Potassium Chloride Carbon Dioxide Anion Gap BUN Creatinine Est GFR ( Amer) Est GFR (Non-Af Amer) BUN/Creatinine Ratio Glucose POC Glucose (mg/dL) 130 H 94 Calcium 04/14/17 04/14/17 04/14/17 08:40 11:53 16:33 WBC RBC Hgb Hct MCV MCH MCHC RDW Plt Count MPV Neut % (Auto) Lymph % (Auto) [place] % (Auto) Eos % (Auto) Baso % (Auto) Absolute Neuts (auto) Absolute Lymphs (auto) Absolute Monos (auto) Absolute Eos (auto) Absolute Basos (auto) Absolute Nucleated RBC Nucleated RBC % Sodium 135 Potassium 3.5 Chloride 96 L Carbon Dioxide 27 Anion Gap 12 H BUN 31 H Creatinine 0.71 Est GFR ( Amer) 139.9 Est GFR (Non-Af Amer) 108.8 BUN/Creatinine Ratio 43.7 H Glucose 111 H POC Glucose (mg/dL) 143 H 128 H Calcium 9.6 Microbiology and Other Data: Microbiology 04/12/17 02:10 Urine Urine Culture - Final Klebsiella Pneumoniae Escherichia Coli Normal Deb Assess/Plan/Problems-Billing Assessment: 71 yo male PMH CHF, CAD s/p CABG,HTN, DM, chronic tomlinson, s/p BKA p/w SBO. Improving with NGT (now out), passing flatus. - Patient Problems (1) SBO (small bowel obstruction) Current Visit: Yes Status: Acute Code(s): K56.609 - UNSP INTESTNL OBST, UNSP TO PARTIAL VERSUS COMPLETE OBST SNOMED Code(s): 916593083 Comment: pasing flatus. no BM yet. appreciate surgery recs NG tube removed. clear liquids, ADAT mIVF (2) Coronary artery disease Current Visit: No Status: Chronic Priority: Low Code(s): I25.10 - ATHSCL HEART DISEASE OF [place] CORONARY ARTERY W/O ANG PCTRS SNOMED Code(s): 61291932 Comment: aspirin 81mg (3) Essential hypertension Current Visit: No Status: Chronic Priority: Low Code(s): I10 - ESSENTIAL ( PRIMARY) HYPERTENSION SNOMED Code(s): 44612297 Comment: - continue Lisinopril in AM (4) Type 2 diabetes mellitus treated without insulin Current Visit: No Status: Chronic Priority: Medium Code(s): E11.9 - TYPE 2 DIABETES MELLITUS WITHOUT COMPLICATIONS SNOMED Code(s): 16086242 Comment: - hold Metformin - Lispro SSI, poct qachs (5) Ischemic cardiomyopathy Current Visit: No Status: Chronic Code(s): I25.5 - ISCHEMIC CARDIOMYOPATHY SNOMED Code(s): 885108205 Comment: - h/o V-tach s/p ICD - Last known EF < 30% 04/2015 but was a notable limited study - continue amiodarone - monitor respiratory status, time limit IVF (6) Presence of combination internal cardiac defibrillator (ICD) and pacemaker Current Visit: No Status: Chronic Priority: Low Code(s): Z95.810 - PRESENCE OF AUTOMATIC (IMPLANTABLE) CARDIAC DEFIBRILLATOR SNOMED Code(s): 884516869 (7) Bone anomaly Current Visit: Yes Status: Acute Code(s): M95.9 - ACQUIRED DEFORMITY OF MUSCULOSKELETAL SYSTEM, UNSPECIFIED SNOMED Code(s): 282975400 Comment: mottled appearance, bone marrow? outpatient bone scan. lytic lesions in pelvis and femurs. consider beta2 microglobulin. (8) Klebsiella cystitis Current Visit: Yes Status: Acute Code(s): N30.90 - CYSTITIS, UNSPECIFIED WITHOUT HEMATURIA; B96.89 - OTH BACTERIAL AGENTS THE CAUSE OF DISEASES CLASSD [facility] SNOMED Code(s): 88762813 Comment: s/p levaquin in ED. pt with chronic tomlinson (exchanged 4 days prior to admission). denies dysuria. sensitivites now back. Ecoli as well. PCN allergy but has tolerated cefepime in past. Will start cftx (FQs resistant, prolonged QT). Status and Disposition: medicine inpatient. Attending: Steven Delgado
[2017-04-14] MEDS: cefTRIAXone VIAL(*) 1,000 MG in D5W 50 ML BAG* 50 ML IVPB SCH ×2 (19:34→20:33)
[2017-04-14] MEDS: cefTRIAXone VIAL(*) 1,000 MG in NS 0.9% 50 ML* 50 ML IVPB SCH ×2 (20:30→20:33)
[2017-04-14] MEDS: Acetic Acid 0.25%* 250 ML BTL TOPICAL SCH (20:53)
[2017-04-15 07:11] LABS: Hematocrit 35 % (42-52); Hemoglobin 11.6 g/dl (14.0-18.0); Mean Corpuscular HGB Conc 33 g/dl (31-36); Mean Corpuscular Hemoglobin 27 pg (27-31); Mean Corpuscular Volume 81 fL (80-94); Mean Platelet Volume 7 um3 (7.4-10.4); Red Blood Count 4.37 10^6/ul (4.0-5.4); Red Cell Distribution Width 18 % (10.5-15); White Blood Count 11.1 10^3/ul (3.5-10.8)
[2017-04-15 07:27] LABS: BUN/Creatinine Ratio 43.5 (8-20); Calcium 9.5 mg/dL (8.6-10.3); EGFR African American 163.5 (>60); EGFR Non-African American 127.2 (>60); Potassium 3.4 mmol/L (3.5-5.0)
[2017-04-15 08:14] VITALS: BP 141/48
[2017-04-15] MEDS: Aspirin EC Low Dose* 81 MG TAB.EC PO SCH (09:13)
[2017-04-15] MEDS: Insulin LISPRO* 1 UNITS UNIT SUBCUT SCH ×2 (09:13→12:50)
[2017-04-15] MEDS: Omeprazole CAP* 20 MG PO SCH (09:13)
[2017-04-15] MEDS: Morphine TAB Extended Release (*) 15 MG TAB.ER PO SCH (09:13)
[2017-04-15] MEDS: Lisinopril TAB* 5 MG PO SCH (09:13)
[2017-04-15] MEDS: Amiodarone TAB* 200 MG PO SCH (09:13)
[2017-04-15] MEDS: Gabapentin CAP(*) 300 MG PO SCH ×2 (09:14→12:50)
[2017-04-15] MEDS ORDERED: Polyethylene Glycol 3350* 17 GM PACKET PO SCH (09:14)
[2017-04-15] MEDS: Acetic Acid 0.25%* 250 ML BTL TOPICAL SCH (09:14)
[2017-04-15] MEDS ORDERED: Docusate LIQ* 100 MG/10 ML UDC PO SCH (10:00)
[2017-04-15] MEDS ORDERED: Enoxaparin(*) 40 MG/0.4 ML SYR SUBCUT SCH (10:00)
[2017-04-15] MEDS ORDERED: Senna TAB PO SCH (10:00)
--- NOTE | 2017-04-15 15:08 | DS ---
DATE OF ADMISSION: 04/12/2017. DATE OF DISCHARGE: 04/15/2017. ADMITTING PROVIDER: Dr. Steven Delgado. ATTENDING PHYSICIAN: Dr. Steven Delgado. CHIEF COMPLAINT: Abdominal bloating, nausea, vomiting, questionable coffee ground emesis. PRINCIPAL DIAGNOSES: Small bowel obstruction; urinary tract infection. PAST MEDICAL HISTORY: CHF, vitamin D deficiency, enterocolitis secondary to C. diff, gallbladder calculus without cholecystitis, renal calculus and bladder stones, chronic suprapubic catheter Lala, ventricular tachycardia, status post AICD and status post ablations, type 2 diabetes mellitus, CABG, obesity, essential hypertension, spinal stenosis cervical region, status post cervical decompression (Dr. Guajardo), chronic low back pain, history of acute osteomyelitis of the right ankle, status post below the knee amputation, A-fib. HISTORY OF PRESENT ILLNESS AND HOSPITAL COURSE: Raffaele Adams is a 71-year-old male with a past medical history as above sent in from assisted with report of vomiting since noon the day prior to admission with possible small amount of coffee- ground emesis. He had abdominal bloating, but no pain. He had vomited a couple of times in the emergency room. He has problems with chronic constipation. He has a chronic Lala, replaced three to four days prior that is just irrigated with acetic acid twice a day. He denies shortness of breath, fevers, chest pain, headache, rash. Last bowel movement was the day prior to admission. He is a somewhat poor historian. He was given IV Zofran, Levaquin, and 1 liter normal saline in the emergency room. He had a CT abdomen and pelvis with contrast which was concerning for a markedly dilated stomach with fluid in the lower esophagus and mildly dilated small bowel in all four quadrants with decompressed distal small bowel compatible with small bowel obstruction. NG tube was placed. Surgery was consulted. The patient was admitted to the Medicine Services. The patient was NPO. He had significant amount of decompression, drainage of the NG tube and by hospital day number two , was rapidly improved in terms of distention. He did not have any nausea or vomiting. Abdominal x-ray on that day showed some improvement. On hospital day number three, NG tube was removed. He was advanced to clear liquids, then soft and then regular diet which he tolerated without any nausea, vomiting or abdominal pain. He did have a leukocytosis on admission. Afebrile. White count initially 19.0, down to 11.1. He received one dose of Cipro in the emergency room for a suspicious urinalysis with 3+ white count, 2+ leukocyte esterase, 2+ bacteria. Urine culture eventually grew klebsiella pneumoniae and E. coli. He received one dose of Ceftriaxone on April 14. He is being discharged on oral Cefdinir. His QTC was prolonged and he takes Amio, so his Cipro was not continued on admission. DISCHARGE MEDICATIONS: 1. Cefdinir 300 mg p.o. b.i.d. for 9 more days. 2. Amiodarone 200 mg daily. 3. Acetic Acid 0.1% solution 30 to 50 cc irrigation b.i.d. to chronic suprapubic catheter. 4. Aspirin 81 mg daily. 5. Bisacodyl suppository 10 mg p.o. daily. 6. Gabapentin 300 mg t.i.d. 7. Mucinex 600 mg b.i.d. for 10 days (new). 8. Lisinopril 5 mg p.o. daily. 9. Morphine Sulfate 15 mg p.o. daily. 10. Omeprazole 20 mg p.o. daily. 11. MiraLax 17 gm b.i.d. 12. Senna tab one p.o. daily. 13. Acetaminophen 1000 mg p.o. q.8 hours prn. 14. Metformin 1000 mg p.o. daily. 15. Zofran 4 mg p.o. q.8 hours prn. DISCHARGE DIET: Carbohydrate consistent, heart-healthy, unchanged. ACTIVITY LEVEL: No restrictions. FOLLOW-UP: Please follow-up with physicians at [facility] and also Dr. Garcia of General Surgery if symptoms of small bowel obstruction return. Dr. Garcia talked about possible X-lap procedure, but the patient was not interested at the time. Of note, the patient did have some lytic lesions seen on the original CT scan. He did not have any protein gap, but a beta-2 microglobulin was obtained and is still pending on discharge, should be followed up. Time spent on this discharge was 31 minutes. [id number]/[facility] #: [id number] [facility]Omega
[2017-04-15] MEDS ORDERED: guaiFENesin ER TAB 600 MG PO SCH (21:00)
== END 2017-04-15 16:30 | DRG 389 ==
LOC: ED 00:53 → MEDTELE 07:52
PROVIDERS: ADMIT Internal Medicine; ATTEND Internal Medicine
PROC: 0D9670Z Drainage of Stomach with Drainage Device, Via Natural or Artificial Opening (ICD-10-PCS; principal; 2017-04-15)
DX: K56.609 Unspecified intestinal obstruction, unspecified as to partial versus complete obstruction (principal); J90 Pleural effusion, not elsewhere classified; Z95.811 Presence of heart assist device; K92.0 Hematemesis; E87.1 Hypo-osmolality and hyponatremia; E11.51 Type 2 diabetes mellitus with diabetic peripheral angiopathy without gangrene; I11.0 Hypertensive heart disease with heart failure; G83.9 Paralytic syndrome, unspecified; E55.9 Vitamin D deficiency, unspecified; I25.10 Atherosclerotic heart disease of native coronary artery without angina pectoris; E78.00 Pure hypercholesterolemia, unspecified; Z87.442 Personal history of urinary calculi; F41.9 Anxiety disorder, unspecified; H26.9 Unspecified cataract; H91.90 Unspecified hearing loss, unspecified ear; Z86.14 Personal history of Methicillin resistant Staphylococcus aureus infection; Z82.49 Family history of ischemic heart disease and other diseases of the circulatory system; Z83.3 Family history of diabetes mellitus; Z87.891 Personal history of nicotine dependence; E66.9 Obesity, unspecified; Z95.1 Presence of aortocoronary bypass graft; G89.29 Other chronic pain; M54.5 Low back pain; I48.91 Unspecified atrial fibrillation; Z88.0 Allergy status to penicillin; Z88.1 Allergy status to other antibiotic agents; I45.10 Unspecified right bundle-branch block; R74.8 Abnormal levels of other serum enzymes; I25.5 Ischemic cardiomyopathy; M95.9 Acquired deformity of musculoskeletal system, unspecified; N30.90 Cystitis, unspecified without hematuria; B96.1 Klebsiella pneumoniae [K. pneumoniae] as the cause of diseases classified elsewhere; B96.20 Unspecified Escherichia coli [E. coli] as the cause of diseases classified elsewhere; Z89.511 Acquired absence of right leg below knee; K59.09 Other constipation; Z79.84 Long term (current) use of oral hypoglycemic drugs; Z68.31 Body mass index [BMI] 31.0-31.9, adult
CPT/HCPCS: 36415; 71010; 74020; 74177; 80048; 80053; 81003; 81015; 82232; 83605; 83690; 84484; 85025; 85610; 85730; 87077; 87086; 87186; 93005; A9270-GY; J0696; J1650; J2405; Q9967

== ENCOUNTER 2017-06-28 22:27 | Inpatient (IN) | payer MEDICARE, OTHER ==
[2017-06-28 23:25] LABS: Hematocrit 35 % (42-52); Hemoglobin 11.6 g/dl (14.0-18.0); Mean Corpuscular HGB Conc 33 g/dl (31-36); Mean Corpuscular Hemoglobin 27 pg (27-31); Mean Corpuscular Volume 83 fL (80-94); Mean Platelet Volume 7 um3 (7.4-10.4); Platelet Count 426 10^3/ul (150-450); Red Blood Count 4.25 10^6/ul (4.0-5.4); Red Cell Distribution Width 18 % (10.5-15); White Blood Count 28.5 10^3/ul (3.5-10.8)
[2017-06-28 23:34] LABS: Urine Appearance Cloudy; Urine Blood Negative (Negative); Urine Color Yellow; Urine Ketones 1+ (Negative); Urine Protein 2+(100 mg/dL) (Negative); Urine Specific Gravity 1.017 (1.010-1.030); Urine Urobilinogen Negative (Negative)
[2017-06-28 23:38] LABS: EGFR Non-African American 70.8 (>60)
[2017-06-29 00:02] LABS: ABS Basophils 0.1 10^3/ul (0-0.2); ABS Eosinophils 0 10^3/ul (0-0.6); ABS Monocytes 1.1 10^3/ul (0-0.8); ABS Neutrophils 26.3 10^3/ul (1.5-7.7); ABS Nucleated RBC 0 10^3/ul; Eosinophil % 0 % (0-6); Lymphocyte % 3.5 % (25-47); Nucleated Red Blood Cells % 0
[2017-06-29] MEDS ORDERED: NS 0.9% 1000 ML* 1,000 ML IV ONE (00:24)
[2017-06-29] MEDS ORDERED: Iodixanol* (CONTRAST) 320 MG/ML 100 ML SDV IV ONE (01:52)
[2017-06-29] MEDS ORDERED: Levofloxacin 500 MG IVPREMIX(* 500 MG/100 ML BAG IVPB ONE (03:44)
--- NOTE | 2017-06-29 04:16 | ED ---
Elliot Hensley Thomas, scribed for Genoveva Ness MD on 06/29/17 at 0034 . GI/ HPI - HPI Summary HPI Summary: The patient is brought in by ambulance form [facility] with an episode of vomiting earlier today. The patient reports he had an XR obtained at [facility] that showed a bowel obstruction. The paient last had a BM two days ago, and he reports that a BM every two days is normal for him. He denies abdominal pain and nausea. He is asymptomatic in the ED. - History of Current Complaint Chief Complaint: EDGeneral Time Seen by Provider: 06/28/17 22:37 Stated Complaint: ABD PAIN Hx Obtained From: Patient Onset/Duration: Started Days Ago - earlier today, Still Present Timing: Constant, Lasting Seconds Current Severity: None Pain Intensity: 0 Associated Signs and Symptoms: Positive: Other: - Vomiting (earlier today); NEGATIVE: nausea, abd pain Aggravating Factor(s): Nothing Alleviating Factor(s): Spontaneous Resolution - Additional Pertinent History Primary Care Physician: [id number] - Allergy/Home Medications Allergies/Adverse Reactions: Allergies Allergy/AdvReac Type Severity Reaction Status Date / Time erythromycin base Allergy GI Upset Verified 06/28/17 23:35 Penicillins Allergy Hives Verified 06/28/17 23:34 Home Medications: Home Medications Acetaminophen TAB* [Tylenol TAB*] 1,000 mg PO Q8HR 06/28/17 [History Confirmed 06/28/17] Polyethylene Glycol 3350* [Miralax*] 17 gm PO BID 06/28/17 [History Confirmed ] oxyCODONE TAB* [Roxycodone TAB 5 mg*] 5 mg PO Q4H PRN 06/28/17 [History Confirmed 06/28/17] PMH/Surg Hx/FS Hx/Imm Hx Endocrine/Hematology History: Reports: Hx Anticoagulant Therapy, Hx Blood Transfusions, Hx Diabetes, Hx Unexplained Bleeding - Admitted with rectal bleeding Denies: Hx Blood Disorders, Hx Bone Marrow Disease, Hx Systemic Lupus Erythematosus, Hx Sickle Cell Disease, Hx Thyroid Disease, Hx Anemia, Other Endocrine/Hematological Disorders Cardiovascular History: Reports: Hx Auto Implanted Cardiovert Defib, Hx Cardiac Arrest, Hx Congestive Heart Failure, Hx Coronary Artery Disease, Hx Hypercholesterolemia, Hx Hypertension, Hx Pacemaker/ICD, Hx Peripheral Vascular Disease, Other Cardiovascular Problems/Disorders - open heart surgery Denies: Hx Aneurysm, Hx Angina, Hx Angioplasty, Hx Cardiomegaly, Hx Congenital Heart Disease, Hx Deep Vein Thrombosis, Hx Embolism, Hx Hypotension, Hx Myocardial Infarction, Hx Rheumatic Fever, Hx Syncope, Hx Valvular Heart Disease Respiratory History: Denies: Hx Asthma, Hx Chronic Obstructive Pulmonary Disease (COPD), Hx Pneumonia, Hx Seasonal Allergies GI History: Denies: Hx Cirrhosis, Hx Crohn's Disease, Hx Diverticulosis, Hx Gall Bladder Disease, Hx Gastroesophageal Reflux Disease, Hx Gastrointestinal Bleed, Hx Hiatal Hernia, Hx Irritable Bowel, Hx Jaundice, Hx Obstructive Bowel, Hx Ileostomy, Hx Pyloric Stenosis, Hx Ulcer, Other GI Disorders History: Reports: Hx Kidney Stones - pt states that he had 5 stones in bladder, Other Problems/Disorders - urinary retention Denies: Hx Acute Renal Failure, Hx Benign Prostatic Hyperplasia, Hx Chronic Renal Failure, Hx Dialysis, Hx Kidney Infection Musculoskeletal History: Reports: Hx Arthritis - BACK, Hx Back Problems - L4-L5 Laminectomy, Other Musculoskeletal History - Extensive Back Sx/Pain issues Denies: Hx Bursitis, Hx Congenital Bone Abnormalities, Hx Fibromyalgia, Hx Gout, Hx Orthopedic Injury, Hx Osteoporosis, Hx Scoliosis, Hx Tendonitis Sensory History: Reports: Hx Cataracts, Hx Contacts or Glasses, Hx Vision Problem, Hx Hearing Problem - slightly [place] Denies: Hx Eye Injury, Hx Eye Prosthesis, Hx Glaucoma, Hx Legally Blind, Hx Macular Degeneration, Hx Deafness, Hx Hearing Aid, Other Sensory Impairments Opthamlomology History: Reports: Hx Cataracts, Hx Contacts or Glasses, Hx Vision Problem Denies: Hx Eye Injury, Hx Eye Prosthesis, Hx Glaucoma, Hx Legally Blind, Hx Macular Degeneration, Other Sensory Impairments Neurological History: Denies: Hx Dementia, Hx Developmental Delay, Hx Headaches, Hx Migraine, Hx Nerve Disease, Hx Seizures, Hx Spinal Cord Injury, Hx Transient Ischemic Attacks (TIA), Other Neuro Impairments/Disorders Psychiatric History: Reports: Hx Anxiety Denies: Hx Depression - Cancer History Hx Chemotherapy: No Hx Radiation Therapy: No Hx Palliative Cancer Treatment: No - Surgical History Surgery Procedure, Year, and Place: C4-C7 [id number]. 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 Denies: Hx Clostridium Difficile, Hx Hepatitis, Hx Human Immunodeficiency Virus (HIV), Hx of Known/Suspected MRSA, Hx Shingles - Vaccinated, Hx Tuberculosis, Hx Known/Suspected VRSA, History Other Infectious Disease, Traveled Outside the [place] in Last 30 Days - Family History Known Family History: Positive: Cardiac Disease - father, Diabetes - mother - Social History Alcohol Use: None Hx Substance Use: No Substance Use Type: Reports: None Hx Tobacco Use: Yes Smoking Status (MU): Former Smoker Type: Cigarettes Length of Time of Smoking/Using Tobacco: 20 years Have You Smoked in the Last Year: No Review of Systems Negative: Fever Positive: Vomiting. Negative: Abdominal Pain, Nausea All Other Systems Reviewed And Are Negative: Yes Physical Exam - Summary Physical Exam Summary: VITAL SIGNS: Reviewed. GENERAL: Patient is a well-developed and nourished MALE who is lying comfortable in the stretcher. Patient is not in any acute respiratory distress. HEAD AND FACE: No signs of trauma. No ecchymosis, hematomas or skull depressions. No sinus tenderness. EYES: PERRLA, EOMI x 2, No injected conjunctiva, no nystagmus. EARS: Hearing grossly intact. Ear canals and tympanic membranes are within normal limits. MOUTH: Oropharynx within normal limits. NECK: Supple, trachea is midline, no adenopathy, no JVD, no carotid bruit, no c- spine tenderness, neck with full ROM. CHEST: Symmetric, no tenderness at palpation LUNGS: Clear to auscultation bilaterally. No wheezing or crackles. CVS: Regular rate and rhythm, S1 and S2 present, no murmurs or gallops appreciated. ABDOMEN: Soft, non-tender. The abdomen is distended. No rebound no guarding, and no masses palpated. Bowel sounds are hypoactive. . 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 FROM in all major joints, no edema, no cyanosis or clubbing. NEURO: Alert and oriented x 3. No acute neurological deficits. Speech is normal and follows commands. SKIN: Dry and warm Triage Information Reviewed: Yes Vital Signs On Initial Exam: Initial Vitals BP 100/61 06/28/17 22:33 Vital Signs Reviewed: Yes Diagnostics - Vital Signs Vital Signs Temp Pulse Resp BP Pulse Ox 06/28/17 23:30 83 104/47 88 06/28/17 23:00 85 127/53 92 06/28/17 22:37 97.5 F 85 16 101/52 96 06/28/17 22:35 84 97 06/28/17 22:33 100/61 - Laboratory Lab Results: Lab Results 06/28/17 06/28/17 06/28/17 Range/Units 23:00 23:15 23:15 WBC 28.5 H (3.5-10.8) 10^3/ul RBC 4.25 (4.0-5.4) 10^6/ul Hgb 11.6 L (14.0-18.0) g/dl Hct 35 L (42-52) % MCV 83 (80-94) fL MCH 27 (27-31) pg MCHC 33 (31-36) g/dl RDW 18 H (10.5-15) % Plt Count 426 (150-450) 10^3/ul MPV 7 L (7.4-10.4) um3 Neut % (Auto) 92.5 H (38-83) % Lymph % (Auto) 3.5 L (25-47) % [place] % (Auto) 3.7 (1-9) % Eos % (Auto) 0 (0-6) % Baso % (Auto) 0.3 (0-2) % Absolute Neuts (auto) 26.3 H (1.5-7.7) 10^3/ul Absolute Lymphs (auto) 1.0 (1.0-4.8) 10^3/ul Absolute Monos (auto) 1.1 H (0-0.8) 10^3/ul Absolute Eos (auto) 0 (0-0.6) 10^3/ul Absolute Basos (auto) 0.1 (0-0.2) 10^3/ul Absolute Nucleated RBC 0 10^3/ul Nucleated RBC % 0 Sodium 130 L (133-145) mmol/L Potassium 3.5 (3.5-5.0) mmol/L Chloride 96 L (101-111) mmol/L Carbon Dioxide 24 (22-32) mmol/L Anion Gap 10 (2-11) mmol/L BUN 40 H (6-24) mg/dL Creatinine 1.03 (0.67-1.17) mg/dL Est GFR ( Amer) 91.0 (>60) Est GFR (Non-Af Amer) 70.8 (>60) BUN/Creatinine Ratio 38.8 H (8-20) Glucose 219 H (70-100) mg/dL Calcium 9.9 (8.6-10.3) mg/dL Total Bilirubin 0.60 (0.2-1.0) mg/dL AST 12 L (13-39) U/L ALT 8 (7-52) U/L Alkaline Phosphatase 51 (34-104) U/L C-Reactive Protein 3.45 (< 5.00) mg/L Total Protein 7.2 (6.4-8.9) g/dL Albumin 3.8 (3.2-5.2) g/dL Globulin 3.4 (2-4) g/dL Albumin/Globulin Ratio 1.1 (1-3) Amylase 44 (29-103) U/L Lipase 37 (11.0-82.0) U/L Urine Color Yellow Urine Appearance Cloudy Urine pH 6.0 (5-9) Ur Specific Roberts 1.017 (1.010-1.030) Urine Protein 2+(100 mg/dl) H (Negative) Urine Ketones 1+ H (Negative) Urine Blood Negative (Negative) Urine Nitrate Negative (Negative) Urine Bilirubin Negative (Negative) Urine Urobilinogen Negative (Negative) Ur Leukocyte Esterase 1+ H (Negative) Urine WBC (Auto) 3+(>20/hpf) H (Absent) Urine RBC (Auto) 1+(3-5/hpf) H (Absent) Urine Bacteria 2+ H (Absent) Urine Glucose Negative (Negative) Urine Ascorbic Acid * H (Negative) Result Diagrams: 06/28/17 23:15 06/28/17 23:15 Lab Statement: Any lab studies that have been ordered have been reviewed, and results considered in the medical decision making process. - Radiology CXR Xray Interpretation: No Acute Changes - Pleural effusion on the left Radiology Interpretation Completed By: ED Physician XR Abdomen Xray Interpretation: Positive (See Comments) - Air flow liver Radiology Interpretation Completed By: ED Physician - CT CT Abd/Pel CT Interpretation: Positive (See Comments) - Moderately distended stomach, decreased compared to 04/12/17. Persisting marked dilation of third portion of duodenum and moderately dilated left upper quadrant proximal jejunum without visible obstructing msas. Previously seen more distal small bowel dilation has resolved. Constellation of findings could represent a recurrent partial/early SBO, this time located more pxomimally. Advise followup. Fluid in colon at least to level of sigmoid colon. Appendix diameter now up to 8 mm (previously 6 mm on 04/12/17), suspect normal variation more likely than acute appendicitis. NO periappendiceal inflammation. Correlate clinically and consider followup. No colitis, free fluid or free air. Dr. Ness has reviewed this report. CT Interpretation Completed By: Radiologist GILBERTO Course/Dx - Course Assessment/Plan: The patient is brought in by ambulance form [facility] with an episode of vomiting earlier today. The patient reports he had an XR obtained at [facility] that showed a bowel obstruction. He is asymptomatic in the ED. In the ED course the patient was given IV fluids and Levaquin. Bloodwork and urinalysis was obtained. CXR shows pleural effusion on the left. XR Abdomen shows air flow liver. CT Abd/Pel shows Moderately distended stomach, decreased compared to 04/12/17. Persisting marked dilation of third portion of duodenum and moderately dilated left upper quadrant proximal jejunum without visible obstructing msas. Previously seen more distal small bowel dilation has resolved. Constellation of findings could represent a recurrent partial/early SBO, this time located more pxomimally. Advise followup. Fluid in colon at least to level of sigmoid colon. Appendix diameter now up to 8 mm (previously 6 mm on 04/12/17), suspect normal variation more likely than acute appendicitis. NO periappendiceal inflammation. Correlate clinically and consider followup. No colitis, free fluid or free air. The patient is diagnosed with partial SBO and UTI. He is admitted to Dr. Tovar. - Diagnoses Provider Diagnoses: Partial small bowel obstruction, UTI (urinary tract infection) - Physician Notifications Discussed Care Of Patient With: Kati Tovar Time Discussed With Above Provider: 03:58 Instructed by Provider To: Admit As Inpatient Discharge - Discharge Plan Condition: Stable Disposition: ADMITTED TO [facility] Referrals: Jannette Steinberg MD [Primary Care Provider] - The documentation as recorded by the Elliot chavez Thomas accurately reflects the service I personally performed and the decisions made by , Genoveva Ness MD.
[2017-06-29] MEDS ORDERED: Senna TAB PO PRN (04:23)
[2017-06-29] MEDS ORDERED: Al Hydrox/Mg Hydrox/Simet LIQ* 30 ML UDC PO PRN (04:23)
[2017-06-29] MEDS ORDERED: Docusate CAP* 100 MG PO PRN (04:23)
[2017-06-29] MEDS ORDERED: Acetaminophen TAB* 325 MG PO PRN (04:23)
[2017-06-29] MEDS ORDERED: oxyCODONE TAB* 5 MG TAB PO PRN (04:28)
[2017-06-29] MEDS ORDERED: Bisacodyl SUPP* 10 MG SUPP PR PRN (04:28)
[2017-06-29] MEDS ORDERED: Dextrose 50% Syringe 50 ML* 25 GM/50 ML SYRINGE IV PUSH PRN (04:35)
[2017-06-29] MEDS: Heparin VIAL(*) 5000 UNITS/ML VIAL (FIVE THOUSAND) SUBCUT SCH ×3 (07:13→22:38)
--- NOTE | 2017-06-29 07:53 | RAD ---
INDICATION: Abdominal pain COMPARISON: Radiograph dated April 13, 2017 TECHNIQUE: Supine and upright views of the abdomen were obtained. FINDINGS: Similar to the prior radiograph there are innumerable air-filled loops of bowel, likely both small and large. There is no definite free air. The large bowel is measured up to 7.6 cm in diameter. IMPRESSION: Dilated air-filled loops of small and large bowel are similar in appearance to the April 13, 2017 radiograph. Please correlate to clinical signs and symptoms of obstruction.
--- NOTE | 2017-06-29 08:00 | RAD ---
INDICATION: Shortness of breath. COMPARISON: Comparison is made with a prior study from April 12, 2017. TECHNIQUE: A portable view of the chest was obtained. FINDINGS: The heart is moderately enlarged. There is a dual-chamber transvenous pacemaker defibrillator present. The patient is status post sternotomy. The lungs are underinflated. The right costophrenic phrenic angle is cut off on the film. There is blunting of the left costophrenic angle suggestive of a small pleural effusion or pleural thickening. The lungs are otherwise grossly clear. IMPRESSION: 1. CARDIOMEGALY UNCHANGED. 2. BLUNTING OF THE LEFT COSTOPHRENIC ANGLE SUGGESTIVE OF A TRACE PLEURAL EFFUSION OR PLEURAL THICKENING.
--- NOTE | 2017-06-29 08:01 | RAD ---
CLINICAL HISTORY: Small bowel obstruction COMPARISON: April 12, 2017 TECHNIQUE: Multiple contiguous axial CT scans were obtained of the abdomen and pelvis after the administration of intravenous contrast. Coronal and sagittal multiplanar reformations are submitted for review. Oral contrast was administered. Delayed images were obtained through the abdomen and pelvis. FINDINGS: LUNG BASES: There is a large left pleural effusion. There is compressive atelectasis of the left lung base. LIVER: There is a calcified granuloma of the liver. BILE DUCTS: There is no intrahepatic or extrahepatic biliary dilatation. GALLBLADDER: Multiple gallstones are noted. There is no pericholecystic inflammatory change. PANCREAS: The pancreas is normal, without mass or ductal dilatation. SPLEEN: Normal in size and appearance. UPPER GI TRACT: There is distention of the duodenum and of the proximal jejunum without clear transition point. Oral contrast is noted distal to the jejunum. SMALL BOWEL AND MESENTERY: The small bowel is normal in contour, course, and caliber. There is no obstruction or dilatation. COLON: The colon is normal in contour, course, caliber. There is no pericolonic inflammatory change. There is a tubular, vermiform, hollow viscus that is blind ending, and originates from the cecum, consistent with the appendix. The appendix measures up to 0.8 cm in caliber. There is no periappendiceal inflammatory change. This is best seen on axial images 60 through 62. ADRENALS: Normal bilaterally. KIDNEYS: A simple cyst is noted of the right kidney. There is no hydronephrosis or nephrolithiasis. BLADDER: The bladder is collapsed around a Lala catheter. PELVIC ORGANS: The prostate is diffusely enlarged. The seminal vesicles are symmetric. AORTA: There is calcific atherosclerotic disease of the abdominal aorta and its branches, without aneurysmal dilatation IVC: Unremarkable LYMPH NODES: There is no lymphadenopathy by size criteria. ABDOMINAL WALL: There is a fat-containing right inguinal hernia. BONES AND SOFT TISSUES: There is advanced diffuse osteopenia. There is a moth-eaten appearance to the bones. There is a scoliotic curvature of the spine. Degenerative changes are noted. OTHER: None IMPRESSION: 1. DISTENTION OF THE DUODENUM AND PROXIMAL JEJUNUM WITHOUT CLEAR TRANSITION POINT. DIFFERENTIAL INCLUDES EARLY OR PARTIAL OBSTRUCTION. RECOMMEND ATTENTION ON FOLLOW-UP EXAMINATION. 2. CHOLELITHIASIS. 3. THE APPENDIX IS SLIGHTLY DILATED WITHOUT PERIAPPENDICEAL INFLAMMATORY CHANGE. THIS IS LIKELY INCIDENTAL IN THE ABSENCE OF CLINICAL FINDINGS CONSISTENT WITH ACUTE APPENDICITIS. 4. OSTEOPENIA WITH MODERATELY APPEARANCE TO THE VISUALIZED SKELETON. THIS MAY REPRESENT ADVANCED OSTEOPENIA, THOUGH HILUM IS ALSO WITHIN THE DIFFERENTIAL. 5. LEFT PLEURAL EFFUSION WITH LEFT LOWER LOBE COMPRESSIVE ATELECTASIS. 6. ATHEROSCLEROSIS
[2017-06-29] MEDS: Insulin LISPRO* 1 UNITS UNIT SUBCUT SCH ×3 (09:02→17:01)
[2017-06-29] MEDS: Omeprazole CAP* 20 MG PO SCH (09:02)
[2017-06-29] MEDS: Gabapentin CAP(*) 300 MG PO SCH ×3 (09:03→20:48)
[2017-06-29] MEDS: Aspirin EC Low Dose* 81 MG TAB.EC PO SCH (09:04)
[2017-06-29] MEDS: Senna TAB PO SCH ×2 (09:04→20:49)
[2017-06-29] MEDS: Lisinopril TAB* 5 MG PO SCH (09:04)
[2017-06-29] MEDS: Polyethylene Glycol 3350* 17 GM PACKET PO SCH ×2 (09:04→20:48)
[2017-06-29] MEDS: Morphine TAB Extended Release (*) 15 MG TAB.ER PO SCH (09:04)
[2017-06-29] MEDS: Amiodarone TAB* 200 MG PO SCH (09:04)
[2017-06-29] MEDS: Cefepime 1 GM in Dextrose(*) 1 GM/50 ML BAG IV SCH (14:40)
--- NOTE | 2017-06-29 16:06 | HP ---
CC: [facility] HISTORY AND PHYSICAL: DATE OF ADMISSION: 06/29/17 TIME OF EVALUATION: 0400. PRIMARY CARE PHYSICIAN: [facility]. CHIEF COMPLAINT: Nausea and vomiting. HISTORY OF PRESENT ILLNESS: This is a 71-year-old male with a past medical history of CHF, recent bowel obstruction in March, who presents to the emergency room with nausea, vomiting. Yesterday, he had an x-ray done at [facility]. There was concern for adynamic ileus. They brought him to the emergency room for further evaluation. On my encounter, I woke the patient up and he denies any pain. He says his last bowel movement was 2 days ago. He does not have any abdominal pain. He states he vomited yesterday, but he has no nausea currently. No recent URI symptoms. No chest pain or shortness of breath. No urinary symptoms. He does have an indwelling Lala catheter. No shortness of breath. No headache. No weakness. He states he does not want to keep coming back here and he wants the surgeons to deal with his problem. After I left the room, he called me back and he says now he was having some suprapubic discomfort. He states the pain comes and goes. Otherwise, review of systems is negative. In the emergency room, the patient had labs and imaging. He was given a liter of fluid and referred to the hospitalist service for further evaluation. PAST MEDICAL HISTORY: 1. CHF. 2. Vitamin D deficiency. 3. Enterocolitis secondary to C. diff. 4. History of gallbladder calculus without cholecystitis. 5. History of renal calculus and bladder stones. 6. Chronic indwelling Lala. 7. History of V-tach, status post AICD. 8. Status post ablation. 9. Diabetes. 10. Coronary artery disease, status post bypass. 11. Morbid obesity. 12. Hypertension. 13. History of spinal stenosis cervical region, status post cervical decompression. 14. Chronic low back pain. 15. History of acute osteomyelitis of the right ankle, status post right BKA. 16. History of atrial fibrillation. 17. Admission in March 2017 for small bowel obstruction. MEDICATIONS: 1. Amiodarone 200 mg p.o. daily. 2. Tylenol 1000 mg p.o. q.8 hours as needed. 3. Dulcolax suppository 10 mg per rectum daily as needed. 4. MiraLAX 17 g p.o. b.i.d. 5. Omeprazole 40 mg daily. 6. Morphine sulfate ER 15 mg p.o. daily. 7. Lisinopril 5 mg p.o. daily. 8. Glucophage 1000 mg p.o. b.i.d. 9. Gabapentin 300 mg p.o. t.i.d. 10. Aspirin 81 mg p.o. daily. 11. Oxycodone 5 mg q.4 hours as needed. 12. Senna 1 tab daily. 13. Zofran 4 mg every 8 hours as needed. ALLERGIES: ERYTHROMYCIN, GI upset and PENICILLIN, hives. FAMILY HISTORY: Father with heart disease and mother with peptic ulcer disease. SOCIAL HISTORY: The patient states he is in rehab at [facility]. His healthcare proxy is his . He quit smoking cigars 30 years ago. No alcohol use or illicit drug use. Code status is a full code. REVIEW OF SYSTEMS: A 14-point review of systems as mentioned in the HPI, otherwise negative. PHYSICAL EXAMINATION GENERAL: In no acute distress, resting comfortably. VITAL SIGNS: Temp 97.5, pulse rate 83, respiratory rate 16, oxygen saturation 98% on room air, blood pressure 149/68. HEENT: Head: Normocephalic. Pupils equal and reactive, anicteric. Oropharynx : Mucous membranes moist. NECK: Supple. No lymphadenopathy. RESPIRATORY: Diminished breath sounds. No wheezes, rhonchi, or rales. CARDIAC: Regular rate and rhythm, soft systolic murmur. ABDOMEN: Normal bowel sounds, soft, nontender. He is morbidly obese. No rebound or guarding. EXTREMITIES: The patient with heel sarah on his left lower foot and he has a right BKA. NEUROLOGIC: Alert, oriented x3. No focal neurologic deficits. LABORATORY DATA: White count 28.5, hemoglobin 11.6, hematocrit 35, platelets 426. INR 0.94. Sodium is 130, potassium 3.5, chloride 96, bicarb 24, BUN 40, creatinine 1.03, glucose 219. Urine shows 2+ protein, ketones, +1 leuks, +3 white, +1 red, bacteria present. RADIOGRAPHIC DATA: Abdomen and pelvis CT, moderately distended stomach decreased compared to 04/04/17, persisting marked dilatation of third portion of duodenum and mildly dilated left upper quadrant proximal jejunum without visible obstructing mass, previously seen more distal small bowel dilatation has resolved. Constellation of findings could represent a recurrent partial early small obstruction at this time, more proximally located. Fluid in the colon at least to the level of the sigmoid colon. Small to moderate left pleural effusion. ASSESSMENT AND PLAN: This is a 71-year-old male with a past medical history of small bowel obstruction, who presented from [facility] after having an episode of nausea and vomiting, concern for bowel obstruction. 1. Nausea and vomiting. Assessment: The patient's radiographic findings are questioning an early bowel obstruction with not a significant change in his prior imaging from back in March. On his physical exam, he seems asymptomatic, normal bowel sounds, and soft abdomen. I suspect that his symptoms of nausea, vomiting may be likely from a urinary tract infection in the setting of an elevated white count and has indwelling Lala, is at high risk for this. Plan: We will admit him for observation and place him on clear liquid diet. We will switch him to cefepime. He will resume his home medications. He would like to see a surgeon regarding further surgery. I will defer this to the day time team and see if this is appropriate, as he is asymptomatic currently. 2. Chronic medical problems. As mentioned, resume his home medications. We will hold his oral antihyperglycemics and place him on lispro sliding scale. 3. DVT prophylaxis. The patient scores high risk. We will place him on heparin subcu t.i.d. 4. Code status. Full code. PATIENT TIME: Greater than 50 minutes was spent doing the history and physical , more than half the time spent in direct patient contact. [id number]/[facility] #: [id number] TAYLOR
--- NOTE | 2017-06-29 20:07 | PN ---
Hospitalist Progress Note Date of Service: 06/29/17 Interval Progress Note: Patient admitted this AM for abdominal pain and partial SBO, also likely UTI; had klebsiella in the recent past. Belly is benign, he is passing flatus, no n/v /d. Advanced diet to full liquids this evening. May likely be ok for DC in AM.
[2017-06-30] MEDS: Cefepime 1 GM in Dextrose(*) 1 GM/50 ML BAG IV SCH ×2 (01:35→14:46)
[2017-06-30] MEDS: Heparin VIAL(*) 5000 UNITS/ML VIAL (FIVE THOUSAND) SUBCUT SCH ×3 (05:49→22:15)
[2017-06-30 06:19] LABS: ABS Basophils 0 10^3/ul (0-0.2); ABS Eosinophils 0 10^3/ul (0-0.6); ABS Lymphocytes 1.5 10^3/ul (1.0-4.8); ABS Monocytes 0.7 10^3/ul (0-0.8); ABS Neutrophils 8.8 10^3/ul (1.5-7.7); ABS Nucleated RBC 0 10^3/ul; Eosinophil % 0.2 % (0-6); Hematocrit 34 % (42-52); Hemoglobin 11.3 g/dl (14.0-18.0); Lymphocyte % 13.8 % (25-47); Mean Corpuscular HGB Conc 33 g/dl (31-36); Mean Corpuscular Hemoglobin 27 pg (27-31); Mean Corpuscular Volume 83 fL (80-94); Mean Platelet Volume 7 um3 (7.4-10.4); Nucleated Red Blood Cells % 0; Platelet Count 347 10^3/ul (150-450); Red Blood Count 4.13 10^6/ul (4.0-5.4); Red Cell Distribution Width 19 % (10.5-15); White Blood Count 11.1 10^3/ul (3.5-10.8)
[2017-06-30 06:31] LABS: EGFR Non-African American 127.2 (>60)
[2017-06-30] MEDS: Gabapentin CAP(*) 300 MG PO SCH ×3 (07:40→22:15)
[2017-06-30] MEDS: Amiodarone TAB* 200 MG PO SCH (07:40)
[2017-06-30] MEDS: Aspirin EC Low Dose* 81 MG TAB.EC PO SCH (07:42)
[2017-06-30] MEDS: Lisinopril TAB* 5 MG PO SCH (07:42)
[2017-06-30] MEDS: Morphine TAB Extended Release (*) 15 MG TAB.ER PO SCH (07:42)
[2017-06-30] MEDS: Omeprazole CAP* 20 MG PO SCH (07:43)
[2017-06-30] MEDS: Senna TAB PO SCH ×2 (08:04→22:15)
[2017-06-30] MEDS: Polyethylene Glycol 3350* 17 GM PACKET PO SCH ×2 (08:05→22:17)
--- NOTE | 2017-06-30 09:10 | PN ---
Subjective Date of Service: 06/30/17 Interval History: Mr. Adams denies complaint this morning. He tolerated breakfast well and denies nausea, vomiting or diarrhea. His last BM was yesterday. He further denies chest pain or SOB. Objective Active Medications: Acetaminophen (Tylenol Tab*) 650 mg PO Q4H PRN Al Hydrox/Mg Hydrox/Simethicone (Maalox Plus*) 30 ml PO Q6H PRN Amiodarone HCl (Cordarone Tab*) 200 mg PO DAILY [facility] Aspirin (Aspirin Ec Low Dose*) 81 mg PO DAILY [facility] Bisacodyl (Dulcolax Supp*) 10 mg [place] DAILY PRN Dextrose (D50w Syringe 50 Ml*) 12.5 gm IV PUSH .FOR FS < 60 - SS PRN Docusate Sodium (Colace Cap*) 100 mg PO BID PRN Gabapentin (Neurontin Cap(*)) 300 mg PO TID [facility] Heparin Sodium (Porcine) (Heparin Vial(*)) 5,000 units SUBCUT Q8HR WESLY Cefepime HCl (Maxipime 1 Gm In Dextrose Duplex (*)) 1 gm in 50 mls @ 100 mls/ hr IV Q12H [facility] Insulin Human Lispro (Humalog*) 0 units SUBCUT AC WESLY Lisinopril (Prinivil Tab*) 5 mg PO DAILY [facility] Morphine Sulfate (Ms Contin(*)) 15 mg PO DAILY [facility] Omeprazole (Prilosec Cap*) 40 mg PO DAILY [facility] Ondansetron HCl (Zofran Inj*) 4 mg IV Q4H PRN Oxycodone HCl (Roxycodone Tab*) 5 mg PO Q4H PRN Polyethylene Glycol/Electrolytes (Miralax*) 17 gm PO BID [facility] Senna (Senokot Tab*) 1 tab PO BID [facility] Vital Signs: Temp Pulse Resp BP Pulse Ox 97.5 F 64 18 116/44 100 06/30/17 00:29 06/30/17 00:29 06/30/17 07:42 06/30/17 00:29 06/30/17 00:29 Oxygen Devices in Use Now: None Appearance: Male lying in bed in NAD Eyes: No Scleral Icterus Ears/Nose/Mouth/Throat: Mucous Membranes Moist Neck: Trachea Midline Respiratory: Symmetrical Chest Expansion and Respiratory Effort, Clear to Auscultation Cardiovascular: NL Sounds; No Murmurs; No JVD, No Edema Abdominal: NL Sounds; No Tenderness; No Distention Lymphatic: No Cervical Adenopathy Extremities: No Edema, - - R BKA Skin: No Rash or Ulcers Neurological: Alert and Oriented x 3, NL Muscle Strength and Tone Nutrition: Taking PO's Result Diagrams: 06/30/17 05:56 06/30/17 05:56 Additional Lab and Data: . Microbiology and Other Data: . Assess/Plan/Problems-Billing Assessment: Ms. Adams is a 71 yo M with a PMH of CHF and bowel obstruction who was admitted on 06/29/17 with nausea and vomiting with likely UTI. - Patient Problems (1) UTI (urinary tract infection) Comment: - Continue cefepime, awaiting culture results. (2) Nausea & vomiting Comment: - Resolved. - Question bowel obstruction but no symptoms since arrival. (3) Coronary artery disease Comment: - Asymptomatic. - Continue aspirin. (4) V tach Comment: - Continue amiodarone. (5) Essential hypertension Comment: - SBP 70-100s overnight. Improved this AM after IV fluids. - Hold lisinopril. (6) Type 2 diabetes mellitus treated without insulin Comment: - Blood glucose well controlled. - Hold metformin, continue lispro SSI coverage with meals. (7) Hypercholesteremia Comment: - Not on statin outpatient. (8) DVT prophylaxis Comment: - Heparin SQ. (9) DNR (do not resuscitate) Comment: Status and Disposition: Transition from OBV to inpatient with need for additional night in hospital. Anticipate discharge to [facility] when medically stable.
[2017-06-30] MEDS: Insulin LISPRO* 1 UNITS UNIT SUBCUT SCH ×3 (09:42→17:51)
[2017-07-01] MEDS: Cefepime 1 GM in Dextrose(*) 1 GM/50 ML BAG IV SCH ×2 (01:51→14:35)
[2017-07-01] MEDS: Heparin VIAL(*) 5000 UNITS/ML VIAL (FIVE THOUSAND) SUBCUT SCH ×3 (05:39→21:46)
[2017-07-01 06:33] LABS: ABS Basophils 0.1 10^3/ul (0-0.2); ABS Eosinophils 0.1 10^3/ul (0-0.6); ABS Lymphocytes 1.4 10^3/ul (1.0-4.8); ABS Monocytes 0.8 10^3/ul (0-0.8); ABS Neutrophils 8.8 10^3/ul (1.5-7.7); ABS Nucleated RBC 0 10^3/ul; Eosinophil % 0.8 % (0-6); Hematocrit 32 % (42-52); Hemoglobin 10.9 g/dl (14.0-18.0); Lymphocyte % 12.2 % (25-47); Mean Corpuscular HGB Conc 34 g/dl (31-36); Mean Corpuscular Hemoglobin 28 pg (27-31); Mean Corpuscular Volume 82 fL (80-94); Mean Platelet Volume 7 um3 (7.4-10.4); Nucleated Red Blood Cells % 0; Platelet Count 339 10^3/ul (150-450); Red Blood Count 3.92 10^6/ul (4.0-5.4); Red Cell Distribution Width 18 % (10.5-15); White Blood Count 11.2 10^3/ul (3.5-10.8)
[2017-07-01 06:46] LABS: EGFR Non-African American 137.3 (>60)
--- NOTE | 2017-07-01 08:36 | PN ---
Subjective Date of Service: 07/01/17 Interval History: Mr. Adams is feeling well and is frustrated because he is wants to be discharged. He denies chest pain, SOB, nausea, or abdominal pain. He is tolerating oral intake well. He has no dysuria. Objective Active Medications: Acetaminophen (Tylenol Tab*) 650 mg PO Q4H PRN Al Hydrox/Mg Hydrox/Simethicone (Maalox Plus*) 30 ml PO Q6H PRN Amiodarone HCl (Cordarone Tab*) 200 mg PO DAILY [facility] Aspirin (Aspirin Ec Low Dose*) 81 mg PO DAILY [facility] Bisacodyl (Dulcolax Supp*) 10 mg [place] DAILY PRN Dextrose (D50w Syringe 50 Ml*) 12.5 gm IV PUSH .FOR FS < 60 - SS PRN Docusate Sodium (Colace Cap*) 100 mg PO BID PRN Gabapentin (Neurontin Cap(*)) 300 mg PO TID [facility] Heparin Sodium (Porcine) (Heparin Vial(*)) 5,000 units SUBCUT Q8HR [facility]LY Cefepime HCl (Maxipime 1 Gm In Dextrose Duplex (*)) 1 gm in 50 mls @ 100 mls/ hr IV Q12H WESLY Insulin Human Lispro (Humalog*) 0 units SUBCUT AC [facility]LY Morphine Sulfate (Ms Contin(*)) 15 mg PO DAILY [facility]LY Omeprazole (Prilosec Cap*) 40 mg PO DAILY [facility] Ondansetron HCl (Zofran Inj*) 4 mg IV Q4H PRN Oxycodone HCl (Roxycodone Tab*) 5 mg PO Q4H PRN Polyethylene Glycol/Electrolytes (Miralax*) 17 gm PO BID [facility] Senna (Senokot Tab*) 1 tab PO BID [facility] Vital Signs: Temp Pulse Resp BP Pulse Ox 98.6 F 79 17 158/118 92 06/30/17 19:57 07/01/17 03:36 07/01/17 03:36 07/01/17 03:36 07/01/17 03:36 Oxygen Devices in Use Now: None Appearance: Male lying in bed in NAD Eyes: No Scleral Icterus Ears/Nose/Mouth/Throat: Mucous Membranes Moist Neck: Trachea Midline Respiratory: Symmetrical Chest Expansion and Respiratory Effort, Clear to Auscultation Cardiovascular: NL Sounds; No Murmurs; No JVD, No Edema Abdominal: NL Sounds; No Tenderness; No Distention Lymphatic: No Cervical Adenopathy Extremities: No Edema, - - R BKA Skin: No Rash or Ulcers Neurological: Alert and Oriented x 3, NL Muscle Strength and Tone Nutrition: Taking PO's Result Diagrams: 07/01/17 06:12 07/01/17 06:12 Additional Lab and Data: . Microbiology and Other Data: . Assess/Plan/Problems-Billing Assessment: Ms. Adams is a 71 yo M with a PMH of CHF and bowel obstruction who was admitted on 06/29/17 with nausea and vomiting with likely UTI. - Patient Problems (1) UTI (urinary tract infection) Comment: - Continue cefepime, ecoli noted thus far, awaiting sensitivities. (2) Nausea & vomiting Comment: - Resolved. - Question bowel obstruction but no symptoms since arrival. (3) Coronary artery disease Comment: - Asymptomatic. - Continue aspirin. (4) V tach Comment: - Continue amiodarone. (5) Essential hypertension Comment: - SBP 70-100s overnight. Improved this AM after IV fluids. - Hold lisinopril. (6) Type 2 diabetes mellitus treated without insulin Comment: - Blood glucose well controlled. - Hold metformin, continue lispro SSI coverage with meals. (7) Hypercholesteremia Comment: - Not on statin outpatient. (8) DVT prophylaxis Comment: - Heparin SQ. (9) DNR (do not resuscitate) Comment: Status and Disposition: Transition from OBV to inpatient with need for additional night in hospital. Anticipate discharge to [facility] when medically stable.
[2017-07-01] MEDS: Gabapentin CAP(*) 300 MG PO SCH ×3 (09:19→21:45)
[2017-07-01] MEDS: Insulin LISPRO* 1 UNITS UNIT SUBCUT SCH ×3 (09:19→17:22)
[2017-07-01] MEDS: Amiodarone TAB* 200 MG PO SCH (09:19)
[2017-07-01] MEDS: Morphine TAB Extended Release (*) 15 MG TAB.ER PO SCH (09:20)
[2017-07-01] MEDS: Polyethylene Glycol 3350* 17 GM PACKET PO SCH ×2 (09:20→21:45)
[2017-07-01] MEDS: Omeprazole CAP* 20 MG PO SCH (09:20)
[2017-07-01] MEDS: Senna TAB PO SCH ×2 (09:20→21:46)
[2017-07-01] MEDS: Aspirin EC Low Dose* 81 MG TAB.EC PO SCH (09:20)
[2017-07-01] MEDS: Ondansetron INJ* 2 MG/ML VIAL IV PRN ×2 (16:46→21:55)
[2017-07-02] MEDS: Cefepime 1 GM in Dextrose(*) 1 GM/50 ML BAG IV SCH ×3 (02:12→13:30)
[2017-07-02] MEDS: Heparin VIAL(*) 5000 UNITS/ML VIAL (FIVE THOUSAND) SUBCUT SCH ×3 (05:49→21:06)
[2017-07-02] MEDS ORDERED: PROCHLORPERAZINE INJ 5 MG/ML 2 ML VIAL IV PRN (08:49)
--- NOTE | 2017-07-02 09:28 | PN ---
Subjective Date of Service: 07/02/17 Interval History: Mr. Adams reports that he was nauseaus overnight but that he feels better now. He thinks he has had a bowel movement this morning but is waiting for nursing staff to come clean him up. He denies chest pain, SOB, nausea, or abdominal pain. Objective Active Medications: Acetaminophen (Tylenol Tab*) 650 mg PO Q4H PRN Al Hydrox/Mg Hydrox/Simethicone (Maalox Plus*) 30 ml PO Q6H PRN Amiodarone HCl (Cordarone Tab*) 200 mg PO DAILY [facility] Aspirin (Aspirin Ec Low Dose*) 81 mg PO DAILY [facility]LY Bisacodyl (Dulcolax Supp*) 10 mg [place] DAILY PRN Dextrose (D50w Syringe 50 Ml*) 12.5 gm IV PUSH .FOR FS < 60 - SS PRN Docusate Sodium (Colace Cap*) 100 mg PO BID PRN Gabapentin (Neurontin Cap(*)) 300 mg PO TID [facility] Heparin Sodium (Porcine) (Heparin Vial(*)) 5,000 units SUBCUT Q8HR [facility]LY Cefepime HCl (Maxipime 1 Gm In Dextrose Duplex (*)) 1 gm in 50 mls @ 100 mls/ hr IV Q12H [facility] Insulin Human Lispro (Humalog*) 0 units SUBCUT AC [facility] Morphine Sulfate (Ms Contin(*)) 15 mg PO DAILY [facility]LY Omeprazole (Prilosec Cap*) 40 mg PO DAILY [facility] Oxycodone HCl (Roxycodone Tab*) 5 mg PO Q4H PRN Polyethylene Glycol/Electrolytes (Miralax*) 17 gm PO BID [facility] Prochlorperazine Edisylate (Compazine Inj*) 5 mg IV Q6H PRN Senna (Senokot Tab*) 1 tab PO BID [facility] Vital Signs: Temp Pulse Resp BP Pulse Ox 97.7 F 85 15 151/67 97 07/02/17 07:47 07/02/17 07:47 07/02/17 07:47 07/02/17 07:47 07/02/17 07:47 Oxygen Devices in Use Now: None Appearance: Male lying in bed in NAD Eyes: No Scleral Icterus Ears/Nose/Mouth/Throat: Mucous Membranes Moist Neck: Trachea Midline Respiratory: Symmetrical Chest Expansion and Respiratory Effort, Clear to Auscultation Cardiovascular: NL Sounds; No Murmurs; No JVD, No Edema Abdominal: NL Sounds; No Tenderness; No Distention Lymphatic: No Cervical Adenopathy Extremities: No Edema, - - R BKA Skin: No Rash or Ulcers Neurological: Alert and Oriented x 3 Nutrition: Taking PO's Result Diagrams: 07/01/17 06:12 07/01/17 06:12 Additional Lab and Data: . Microbiology and Other Data: . Assess/Plan/Problems-Billing Assessment: Ms. Adams is a 71 yo M with a PMH of CHF and bowel obstruction who was admitted on 06/29/17 with nausea and vomiting with likely UTI. - Patient Problems (1) UTI (urinary tract infection) Comment: - Suspect UTI based on leukocytosis, nausea and abdominal pain on presentation. - Continue cefepime. - Micro lab states that specimen is mixed omaira with ecoli and likely pseudomonas, difficult to determine sensitivities. Plan to resend UA. - Will need to determine sensitivities prior to discharge as patient has had UTI with bacteria with sensitivies only to IV abx. (2) Nausea & vomiting Comment: - Continue compazine prn. - Question partial bowel obstruction on CT abd on arrival but no clear symptoms , having BMs. (3) Coronary artery disease Comment: - Asymptomatic. - Continue aspirin. (4) V tach Comment: - Continue amiodarone. (5) Essential hypertension Comment: - SBP 150s. - Resume lisinopril. (6) Type 2 diabetes mellitus treated without insulin Comment: - Blood glucose well controlled. - Hold metformin, continue lispro SSI coverage with meals. (7) Hypercholesteremia Comment: - Not on statin outpatient. (8) DVT prophylaxis Comment: - Heparin SQ. (9) DNR (do not resuscitate) Comment: Status and Disposition: Transition from OBV to inpatient with need for additional night in hospital. Anticipate discharge to [facility] when medically stable.
[2017-07-02] MEDS: Aspirin EC Low Dose* 81 MG TAB.EC PO SCH (10:01)
[2017-07-02] MEDS: Omeprazole CAP* 20 MG PO SCH (10:01)
[2017-07-02] MEDS: Amiodarone TAB* 200 MG PO SCH (10:01)
[2017-07-02] MEDS: Morphine TAB Extended Release (*) 15 MG TAB.ER PO SCH (10:01)
[2017-07-02] MEDS: Insulin LISPRO* 1 UNITS UNIT SUBCUT SCH ×4 (10:01→17:13)
[2017-07-02] MEDS: Gabapentin CAP(*) 300 MG PO SCH ×3 (10:01→20:21)
[2017-07-02] MEDS: Polyethylene Glycol 3350* 17 GM PACKET PO SCH ×3 (10:35→20:21)
[2017-07-02] MEDS: Senna TAB PO SCH ×3 (10:35→20:21)
[2017-07-02 10:51] LABS: Urine Appearance Cloudy; Urine Blood 1+ (Negative); Urine Color Yellow; Urine Ketones 1+ (Negative); Urine Protein 1+(30 mg/dL) (Negative); Urine Specific Gravity 1.024 (1.010-1.030); Urine Urobilinogen Negative (Negative)
[2017-07-03] MEDS: Cefepime 1 GM in Dextrose(*) 1 GM/50 ML BAG IV SCH (02:13)
[2017-07-03] MEDS: Heparin VIAL(*) 5000 UNITS/ML VIAL (FIVE THOUSAND) SUBCUT SCH ×3 (05:30→21:56)
[2017-07-03 05:46] LABS: ABS Basophils 0.1 10^3/ul (0-0.2); ABS Eosinophils 0.3 10^3/ul (0-0.6); ABS Lymphocytes 1.8 10^3/ul (1.0-4.8); ABS Monocytes 0.8 10^3/ul (0-0.8); ABS Neutrophils 6.8 10^3/ul (1.5-7.7); ABS Nucleated RBC 0 10^3/ul; Eosinophil % 2.8 % (0-6); Hematocrit 31 % (42-52); Hemoglobin 10.4 g/dl (14.0-18.0); Lymphocyte % 18.4 % (25-47); Mean Corpuscular HGB Conc 34 g/dl (31-36); Mean Corpuscular Hemoglobin 28 pg (27-31); Mean Corpuscular Volume 83 fL (80-94); Mean Platelet Volume 7 um3 (7.4-10.4); Nucleated Red Blood Cells % 0; Platelet Count 329 10^3/ul (150-450); Red Blood Count 3.66 10^6/ul (4.0-5.4); Red Cell Distribution Width 19 % (10.5-15); White Blood Count 9.7 10^3/ul (3.5-10.8)
[2017-07-03 05:59] LABS: EGFR Non-African American 159.3 (>60)
[2017-07-03] MEDS: Polyethylene Glycol 3350* 17 GM PACKET PO SCH ×2 (07:50→21:56)
[2017-07-03] MEDS: Morphine TAB Extended Release (*) 15 MG TAB.ER PO SCH (07:51)
[2017-07-03] MEDS: Gabapentin CAP(*) 300 MG PO SCH ×3 (07:51→21:54)
[2017-07-03] MEDS: Lisinopril TAB* 5 MG PO SCH (07:51)
[2017-07-03] MEDS: Amiodarone TAB* 200 MG PO SCH (07:51)
[2017-07-03] MEDS: Senna TAB PO SCH ×2 (07:51→21:56)
[2017-07-03] MEDS: Aspirin EC Low Dose* 81 MG TAB.EC PO SCH (07:51)
[2017-07-03] MEDS: Omeprazole CAP* 20 MG PO SCH (07:52)
--- NOTE | 2017-07-03 08:22 | PN ---
Subjective Date of Service: 07/03/17 Interval History: Mr. Adams denies complaint today. He has had no further nausea and no diarrhea. He is tolerating oral intake well. Objective Active Medications: Acetaminophen (Tylenol Tab*) 650 mg PO Q4H PRN Al Hydrox/Mg Hydrox/Simethicone (Maalox Plus*) 30 ml PO Q6H PRN Amiodarone HCl (Cordarone Tab*) 200 mg PO DAILY [facility] Aspirin (Aspirin Ec Low Dose*) 81 mg PO DAILY W[facility] Bisacodyl (Dulcolax Supp*) 10 mg [place] DAILY PRN Dextrose (D50w Syringe 50 Ml*) 12.5 gm IV PUSH .FOR FS < 60 - SS PRN Docusate Sodium (Colace Cap*) 100 mg PO BID PRN Gabapentin (Neurontin Cap(*)) 300 mg PO TID [facility] Heparin Sodium (Porcine) (Heparin Vial(*)) 5,000 units SUBCUT Q8HR WESLY Cefepime HCl (Maxipime 1 Gm In Dextrose Duplex (*)) 1 gm in 50 mls @ 100 mls/ hr IV Q12H [facility] Insulin Human Lispro (Humalog*) 0 units SUBCUT AC [facility]LY Lisinopril (Prinivil Tab*) 5 mg PO DAILY [facility]LY Morphine Sulfate (Ms Contin(*)) 15 mg PO DAILY W[facility]LY Omeprazole (Prilosec Cap*) 40 mg PO DAILY [facility]LY Oxycodone HCl (Roxycodone Tab*) 5 mg PO Q4H PRN Polyethylene Glycol/Electrolytes (Miralax*) 17 gm PO BID [facility] Prochlorperazine Edisylate (Compazine Inj*) 5 mg IV Q6H PRN Senna (Senokot Tab*) 1 tab PO BID [facility] Vital Signs - 8 hr 07/03/17 07/03/17 07/03/17 00:16 03:09 07:35 Temperature 98.0 F 97.5 F 97.8 F Pulse Rate 62 62 73 Respiratory 16 20 16 Rate Blood Pressure 107/47 114/46 132/71 (mmHg) O2 Sat by Pulse 97 98 99 Oximetry 07/03/17 07:51 Temperature Pulse Rate Respiratory 18 Rate Blood Pressure (mmHg) O2 Sat by Pulse Oximetry Oxygen Devices in Use Now: None Appearance: Male lying in bed in NAD Eyes: No Scleral Icterus Ears/Nose/Mouth/Throat: Mucous Membranes Moist Neck: Trachea Midline Respiratory: Symmetrical Chest Expansion and Respiratory Effort, Clear to Auscultation Cardiovascular: NL Sounds; No Murmurs; No JVD, No Edema Abdominal: NL Sounds; No Tenderness; No Distention Lymphatic: No Cervical Adenopathy Extremities: No Edema, - - R BKA Skin: No Rash or Ulcers Neurological: Alert and Oriented x 3, NL Muscle Strength and Tone Nutrition: Taking PO's Result Diagrams: 07/03/17 05:22 07/03/17 05:22 Additional Lab and Data: . Microbiology and Other Data: . Assess/Plan/Problems-Billing Assessment: Ms. Adams is a 71 yo M with a PMH of CHF and bowel obstruction who was admitted on 06/29/17 with nausea and vomiting with likely UTI. - Patient Problems (1) UTI (urinary tract infection) Comment: - Suspect UTI based on leukocytosis, nausea and abdominal pain on presentation. - Culture now with ESBL ecoli, sensitive to bactrim. - Plan for 14 additional days of bactrim, follow up ID outpatient. (2) Nausea & vomiting Comment: - Resolved. - Question partial bowel obstruction on CT abd on arrival but no clear symptoms , having BMs. (3) Coronary artery disease Comment: - Asymptomatic. - Continue aspirin. (4) V tach Comment: - Continue amiodarone. (5) Essential hypertension Comment: - SBP 150s. - Resume lisinopril. (6) Type 2 diabetes mellitus treated without insulin Comment: - Blood glucose well controlled. - Hold metformin, continue lispro SSI coverage with meals. (7) Hypercholesteremia Comment: - Not on statin outpatient. (8) DVT prophylaxis Comment: - Heparin SQ. (9) DNR (do not resuscitate) Comment: Status and Disposition: Transition from OBV to inpatient with need for additional night in hospital. Anticipate discharge to [facility] when medically stable.
[2017-07-03] MEDS: Insulin LISPRO* 1 UNITS UNIT SUBCUT SCH ×3 (09:03→17:19)
[2017-07-03] MEDS: Sulfamethox/Trimethoprim DS 800/160* TAB PO SCH ×2 (09:04→21:56)
[2017-07-04] MEDS: Heparin VIAL(*) 5000 UNITS/ML VIAL (FIVE THOUSAND) SUBCUT SCH (06:11)
--- NOTE | 2017-07-04 07:28 | PN ---
Subjective Date of Service: 07/04/17 Interval History: Mr. Adams reports having a large bowel movement yesterday afternoon and having a good night. He is eager for discharge to home. Objective Active Medications: Acetaminophen (Tylenol Tab*) 650 mg PO Q4H PRN Al Hydrox/Mg Hydrox/Simethicone (Maalox Plus*) 30 ml PO Q6H PRN Amiodarone HCl (Cordarone Tab*) 200 mg PO DAILY WESLY Aspirin (Aspirin Ec Low Dose*) 81 mg PO DAILY W[facility]LY Bisacodyl (Dulcolax Supp*) 10 mg [place] DAILY PRN Dextrose (D50w Syringe 50 Ml*) 12.5 gm IV PUSH .FOR FS < 60 - SS PRN Docusate Sodium (Colace Cap*) 100 mg PO BID PRN Gabapentin (Neurontin Cap(*)) 300 mg PO TID [facility] Heparin Sodium (Porcine) (Heparin Vial(*)) 5,000 units SUBCUT Q8HR WESLY Insulin Human Lispro (Humalog*) 0 units SUBCUT AC W[facility]LY Lisinopril (Prinivil Tab*) 5 mg PO DAILY [facility] Morphine Sulfate (Ms Contin(*)) 15 mg PO DAILY W[facility]LY Omeprazole (Prilosec Cap*) 40 mg PO DAILY W[facility]LY Oxycodone HCl (Roxycodone Tab*) 5 mg PO Q4H PRN Polyethylene Glycol/Electrolytes (Miralax*) 17 gm PO BID [facility] Prochlorperazine Edisylate (Compazine Inj*) 5 mg IV Q6H PRN Senna (Senokot Tab*) 1 tab PO BID [facility] Trimethoprim/Sulfamethoxazole (Bactrim Ds 800/160 Tab*) 1 tab PO BID [facility] Vital Signs: Temp Pulse Resp BP Pulse Ox 97.6 F 73 18 115/77 100 07/04/17 03:45 07/04/17 03:45 07/04/17 03:45 07/04/17 03:45 07/04/17 03:45 Oxygen Devices in Use Now: None Appearance: Male lying in bed in NAD Eyes: No Scleral Icterus Ears/Nose/Mouth/Throat: Mucous Membranes Moist Neck: Trachea Midline Respiratory: Symmetrical Chest Expansion and Respiratory Effort, Clear to Auscultation Cardiovascular: NL Sounds; No Murmurs; No JVD, No Edema Abdominal: NL Sounds; No Tenderness; No Distention Lymphatic: No Cervical Adenopathy Extremities: No Edema, - - R BKA Skin: No Rash or Ulcers Neurological: Alert and Oriented x 3, NL Muscle Strength and Tone Nutrition: Taking PO's Result Diagrams: 07/03/17 05:22 07/03/17 05:22 Additional Lab and Data: . Microbiology and Other Data: . Assess/Plan/Problems-Billing Assessment: Ms. Adams is a 71 yo M with a PMH of CHF and bowel obstruction who was admitted on 06/29/17 with nausea and vomiting with likely UTI. - Patient Problems (1) UTI (urinary tract infection) Comment: - Suspect UTI based on leukocytosis, nausea and abdominal pain on presentation. - Culture now with ESBL ecoli, sensitive to bactrim. - Plan for 14 additional days of bactrim, follow up ID outpatient. (2) Nausea & vomiting Comment: - Resolved. - Question partial bowel obstruction on CT abd on arrival but no clear symptoms , having BMs. (3) Coronary artery disease Comment: - Asymptomatic. - Continue aspirin. (4) V tach Comment: - Continue amiodarone. (5) Essential hypertension Comment: - SBP 150s. - Resume lisinopril. (6) Type 2 diabetes mellitus treated without insulin Comment: - Blood glucose well controlled. - Hold metformin, continue lispro SSI coverage with meals. (7) Hypercholesteremia Comment: - Not on statin outpatient. (8) DVT prophylaxis Comment: - Heparin SQ. (9) DNR (do not resuscitate) Comment: Status and Disposition: Discharge to [facility].
[2017-07-04] MEDS: Insulin LISPRO* 1 UNITS UNIT SUBCUT SCH (07:58)
--- NOTE | 2017-07-04 09:01 | DS ---
CC: [place] MEDICINE DISCHARGE SUMMARY: DATE OF ADMISSION: 06/29/17 DATE OF DISCHARGE: 07/04/17 PRIMARY CARE PHYSICIAN: ATTENDING PHYSICIAN: Dr. Melani Canseco * (dictation provided by Nita Harmon NP) . PRIMARY DIAGNOSES: 1. Urinary tract infection with chronic indwelling Lala. 2. Question of partial small bowel obstruction now resolved. SECONDARY DIAGNOSES: 1. History of congestive heart failure. 2. Vitamin D deficiency. 3. Enteric colitis secondary to C. diff history. 4. History of gallbladder calculus without cholecystitis. 5. History of renal calculus and bladder stones. 6. History of ventricular tachycardia status post ICD. 7. Status post ablation. 8. Diabetes. 9. Coronary artery disease status post bypass. 10. Morbid obesity. 11. Hypertension. 12. History of spinal stenosis in the cervical region status post cervical decompression. 13. Chronic low back pain. 14. 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 15. History of atrial fibrillation. MEDICATIONS: At the time of discharge are: 1. Amiodarone 200 mg p.o. daily. 2. Tylenol 1000 mg p.o. every 8 hours. 3. Bisacodyl 10 mg p.o. daily p.r.n. 4. Polyethylene glycol 17 g p.o. b.i.d. 5. Omeprazole 40 mg p.o. daily. 6. Morphine sulfate ER 15 mg p.o. daily 7. Lisinopril 5 mg p.o. daily. 8. Metformin 1000 mg p.o. b.i.d. 9. Gabapentin 300 mg p.o. t.i.d. 10. Aspirin 81 mg p.o. daily. 11. Oxycodone 5 mg p.o. every 4 hours p.r.n. 12. Senna 1 tab p.o. b.i.d.. 13. Ondansetron 4 mg p.o. every 8 hours p.r.n. 14. Bactrim DS 1 tab p.o. b.i.d. x14 days. 15. Lispro insulin as needed. 16. Docusate 100 mg p.o. b.i.d. p.r.n. HOSPITAL COURSE: Mr. Adams is a 71-year-old male with a past medical history of diabetes, on chronic narcotics for back and neck pain, and history of bowel obstruction in 2017 who presented to the hospital on 06/29/17 with concern for nausea and vomiting. Please see dictated H&P from Dr. Kati Tovar for complete details. In brief, the patient had an x-ray prior to admission which showed concern for an adynamic ileus and he was brought to the emergency room for further evaluation. In the emergency room he reported vomiting the day before, but no current nausea. Initially he had no pain, but later during his time in the ED he did complain of suprapubic discomfort. His labs were remarkable for a white blood cell count of 28.5, his CRP was only 26.84. Urine showed 1+ leuk esterase and 2+ bacteria. He does have a chronic indwelling Lala. He went on to have an abdomen and pelvis CT which showed "distention of the duodenum and proximal jejunum without clear transition point. Differential includes early or partial obstruction. Recommend attention on followup examination. Cholelithiasis. The appendix is slightly dilated without periappendiceal inflammatory change. This is likely incidental in the absence of clinical findings consistent with acute appendicitis." Mr. Adams was admitted to the hospital with concern for a possible early small bowel obstruction, however he had no further symptoms of nausea or abdominal pain, and has had bowel movements throughout this hospitalization. His urinalysis was positive and the microbiology lab reported that there was a polymicrobial infection noted on culture. It took several days because of the particular species involved for full speciation and sensitivities to be provided. These were ultimately resulted on 07/03/17 and showed that the patient had ESBL with E. coli with multiple resistances; however, it is sensitive to Bactrim. Patient was on cefepime during the hospital and now transitioned over to Bactrim to complete a14 day course. I note that the patient has had multiple urinary tract infections due to chronic indwelling Lala with complex resistant bacteria, and it is suggested he could benefit from followup with Infectious Diseases for management of his infection risk and treatment of UTI versus colonization in the future. Mr. Adams is medically stable for discharge to [facility]. DISPOSITION: To [facility]. DIET: Diabetic. ACTIVITY: As tolerated. FOLLOWUP: 1. Please followup with the providers at [facility] per routine. 2. Please followup with Dr. Lim of Infectious Diseases as warranted for continued management of infection risk of chronic indwelling Lala. Approximately 60 minutes were spent on the discharge of this patient; more than half the time was spent with the patient at the bedside reviewing the events and history leading up to this hospitalization, performing the physical examination, and reviewing my plan of care. NITA HARMON NP [id number]/[facility] #: [id number] T[place]
[2017-07-04] MEDS: Polyethylene Glycol 3350* 17 GM PACKET PO SCH (09:47)
[2017-07-04 09:52] VITALS: BP 113/53
[2017-07-04] MEDS: Omeprazole CAP* 20 MG PO SCH (10:04)
[2017-07-04] MEDS: Sulfamethox/Trimethoprim DS 800/160* TAB PO SCH (10:05)
[2017-07-04] MEDS: Senna TAB PO SCH (10:06)
[2017-07-04] MEDS: Amiodarone TAB* 200 MG PO SCH (10:06)
[2017-07-04] MEDS: Gabapentin CAP(*) 300 MG PO SCH (10:07)
[2017-07-04] MEDS: Morphine TAB Extended Release (*) 15 MG TAB.ER PO SCH (10:10)
[2017-07-04] MEDS: Lisinopril TAB* 5 MG PO SCH (10:11)
[2017-07-04] MEDS: Aspirin EC Low Dose* 81 MG TAB.EC PO SCH (10:11)
== END 2017-07-04 10:45 | DRG 699 ==
LOC: ED 22:27 → MED 06-29 04:23 → OBSVTOIN 06-30 10:20
PROVIDERS: ADMIT Pediatrics; ATTEND Internal Medicine
DX: T83.511A Infection and inflammatory reaction due to indwelling urethral catheter, initial encounter (principal); K56.600 Partial intestinal obstruction, unspecified as to cause; E11.51 Type 2 diabetes mellitus with diabetic peripheral angiopathy without gangrene; I48.91 Unspecified atrial fibrillation; E66.01 Morbid (severe) obesity due to excess calories; I50.9 Heart failure, unspecified; I11.0 Hypertensive heart disease with heart failure; K35.80 Unspecified acute appendicitis; N39.0 Urinary tract infection, site not specified; E78.00 Pure hypercholesterolemia, unspecified; I25.10 Atherosclerotic heart disease of native coronary artery without angina pectoris; H91.90 Unspecified hearing loss, unspecified ear; M47.9 Spondylosis, unspecified; G89.29 Other chronic pain; M54.5 Low back pain; Z66 Do not resuscitate; F41.9 Anxiety disorder, unspecified; R33.9 Retention of urine, unspecified; Y73.1 Therapeutic (nonsurgical) and rehabilitative gastroenterology and urology devices associated with adverse incidents; E55.9 Vitamin D deficiency, unspecified; M54.2 Cervicalgia; K80.20 Calculus of gallbladder without cholecystitis without obstruction; B96.20 Unspecified Escherichia coli [E. coli] as the cause of diseases classified elsewhere; H26.9 Unspecified cataract; Z83.3 Family history of diabetes mellitus; Z87.891 Personal history of nicotine dependence; Z68.33 Body mass index [BMI] 33.0-33.9, adult; Z89.521 Acquired absence of right knee; Z95.1 Presence of aortocoronary bypass graft; Z83.79 Family history of other diseases of the digestive system; Z88.1 Allergy status to other antibiotic agents; Z86.74 Personal history of sudden cardiac arrest; Z88.0 Allergy status to penicillin; Z95.810 Presence of automatic (implantable) cardiac defibrillator; Z87.442 Personal history of urinary calculi; Z98.1 Arthrodesis status; Z86.19 Personal history of other infectious and parasitic diseases; Z82.49 Family history of ischemic heart disease and other diseases of the circulatory system; Y92.009 Unspecified place in unspecified non-institutional (private) residence as the place of occurrence of the external cause; Z79.84 Long term (current) use of oral hypoglycemic drugs
CPT/HCPCS: 36415; 71045; 74019; 74177; 80048; 80053; 81003; 81015; 82150; 83690; 84443; 85025; 86140; 87040; 87077; 87086; 87186; 87641; 96365; 99284; A9270-GY; G0378; J0692; J0780; J1644; J1956; J2405; Q9967

== ENCOUNTER 2017-09-05 08:26 | Inpatient (IN) | payer MEDICARE, OTHER ==
[2017-09-05 08:57] LABS: ABS Basophils 0.1 10^3/ul (0-0.2); ABS Eosinophils 0.1 10^3/ul (0-0.6); ABS Lymphocytes 0.8 10^3/ul (1.0-4.8); ABS Monocytes 0.4 10^3/ul (0-0.8); ABS Neutrophils 8.3 10^3/ul (1.5-7.7); ABS Nucleated RBC 0 10^3/ul; Eosinophil % 0.8 % (0-6); Hematocrit 36 % (42-52); Lymphocyte % 7.8 % (25-47); Mean Corpuscular HGB Conc 34 g/dl (31-36); Mean Corpuscular Hemoglobin 27 pg (27-31); Mean Corpuscular Volume 81 fL (80-94); Mean Platelet Volume 6.9 um3 (7.4-10.4); Nucleated Red Blood Cells % 0.1; Platelet Count 342 10^3/ul (150-450); Red Blood Count 4.42 10^6/ul (4.0-5.4); Red Cell Distribution Width 18 % (10.5-15); White Blood Count 9.7 10^3/ul (3.5-10.8)
[2017-09-05 09:06] LABS: INR 0.9 (0.77-1.02)
[2017-09-05 09:14] LABS: EGFR Non-African American 158.9 (>60)
[2017-09-05] MEDS ORDERED: Magnesium Sulfate 2 GM IV* 2 GM/50 ML BAG IVPB ONE (10:42)
--- NOTE | 2017-09-05 10:43 | RAD ---
INDICATION: Chest pain. COMPARISON: Comparison is made with prior chest x-ray study from June 29, 2017. TECHNIQUE: AP and lateral views of the chest were obtained. FINDINGS: The patient is status post sternotomy. There is a dual-chamber transvenous cardiac pacemaker defibrillator. The heart appears enlarged and incompletely evaluated due to an overlying infiltrate in the left lung. There is increased density throughout the left lung most likely representing left lung collapse or alternatively a left pleural effusion. There is prominence of the interstitial markings in the right lung possibly indicating superimposed congestive heart failure. IMPRESSION: 1. NEAR COMPLETE OPACIFICATION OF THE LEFT LUNG SUGGESTIVE OF LEFT LUNG COLLAPSE OR LESS LIKELY A LARGE LEFT PLEURAL EFFUSION. 2. POSSIBLE SUPERIMPOSED PULMONARY EDEMA.
[2017-09-05] MEDS ORDERED: NS 0.9% 1000 ML* 1,000 ML IV SCH (10:45)
[2017-09-05] MEDS ORDERED: Iodixanol* (CONTRAST) 320 MG/ML 100 ML SDV IV ONE (10:52)
--- NOTE | 2017-09-05 11:40 | RAD ---
INDICATION: Chest pain COMPARISON: CT of the chest June 01, 2016 TECHNIQUE: Axial source images were acquired following the administration of 91 mL of Visipaque [address] angiographic technique. Coronal and sagittal reconstructed images were constructed and reviewed. Unless otherwise specified comparisons below reference the June 01, 2016 CT of the chest. FINDINGS: There there are no filling defects in the pulmonary arteries to indicate acute pulmonary embolic disease. There are bilateral pleural effusions, larger on the left and moderate on the right, increased in size since the June 01, 2016 CT examination. There is complete consolidation of the left lung with exception of a small amount of aeration at the lingula. There is compressive consolidation of the dependent portions of the right lower and right upper lobes. Again seen is a 2-lead cardiac pacemaker. There is no significant pericardial effusion. Contrast refluxing to the hepatic veins indicates right heart insufficiency. There is no mediastinal, hilar, or axillary lymphadenopathy. Multilevel degenerative changes of the thoracic spine includes loss of intervertebral disc height and anterior marginal osteophyte formation. Limited views of the upper abdomen show no abnormalities. IMPRESSION: 1. No CT of evidence of pulmonary embolism. 2. Large bilateral pleural effusions, larger on the left than the right and increased since the June 01, 2016 CT of the chest. There is near complete consolidation of the left lung. 3. Additional chronic, degenerative and iatrogenic findings described in the body the report.
--- NOTE | 2017-09-05 12:17 | ED ---
Elliot Hensley Thomas, scribed for Yohannes Colbert MD on 09/05/17 at 0839 . HPI Chest Pain - HPI Summary HPI Summary: The patient is a 72 year old male brought in by ambulance from the care home complaining of chest pain that was present when he woke up this morning. He rates the pain 5/10. At the care home, he was noted to be diaphoretic this morning. He was reported to have been having chest pain for much of the last two days, for which he has been given NTG. He was given ASA 324 by EMS. The patient also complains of shortness of breath and some diaphoresis. The patient denies abdominal pain. - History of Current Complaint Hx Obtained From: Patient, EMS Onset/Duration: Started Hours Ago, Still Present Current Severity: Moderate Pain Intensity: 6 Pain Scale Used: 0-10 Numeric Aggravating Factor(s): Nothing Alleviating Factor(s): Nothing Associated Signs and Symptoms: Positive: Chest Pain, Shortness of Breath, Other : - Diaphoresis; NEGATIVE: abd pain - Additional Pertinent History Primary Care Physician: [id number] - Allergy/Home Medications Allergies/Adverse Reactions: Allergies Allergy/AdvReac Type Severity Reaction Status Date / Time erythromycin base Allergy GI Upset Verified 06/28/17 23:35 Penicillins Allergy Hives Verified 06/28/17 23:34 Home Medications: Home Medications Senna TAB* [Senokot TAB*] 2 tab PO DAILY 09/05/17 [History Confirmed 09/05/17] PMH/Surg Hx/FS Hx/Imm Hx Endocrine/Hematology History: Reports: Hx Anticoagulant Therapy, Hx Blood Transfusions, Hx Diabetes, Hx Unexplained Bleeding - Admitted with rectal bleeding Denies: Hx Blood Disorders, Hx Bone Marrow Disease, Hx Systemic Lupus Erythematosus, Hx Sickle Cell Disease, Hx Thyroid Disease, Hx Anemia, Other Endocrine/Hematological Disorders Cardiovascular History: Reports: Hx Auto Implanted Cardiovert Defib, Hx Cardiac Arrest, Hx Congestive Heart Failure, Hx Coronary Artery Disease, Hx Hypercholesterolemia, Hx Hypertension, Hx Pacemaker/ICD, Hx Peripheral Vascular Disease, Other Cardiovascular Problems/Disorders - open heart surgery Denies: Hx Aneurysm, Hx Angina, Hx Angioplasty, Hx Cardiomegaly, Hx Congenital Heart Disease, Hx Deep Vein Thrombosis, Hx Embolism, Hx Hypotension, Hx Myocardial Infarction, Hx Rheumatic Fever, Hx Syncope, Hx Valvular Heart Disease Respiratory History: Denies: Hx Asthma, Hx Chronic Obstructive Pulmonary Disease (COPD), Hx Pneumonia, Hx Seasonal Allergies GI History: Denies: Hx Cirrhosis, Hx Crohn's Disease, Hx Diverticulosis, Hx Gall Bladder Disease, Hx Gastroesophageal Reflux Disease, Hx Gastrointestinal Bleed, Hx Hiatal Hernia, Hx Irritable Bowel, Hx Jaundice, Hx Obstructive Bowel, Hx Ileostomy, Hx Pyloric Stenosis, Hx Ulcer, Other GI Disorders History: Reports: Hx Kidney Stones - pt states that he had 5 stones in bladder, Other Problems/Disorders - urinary retention Denies: Hx Acute Renal Failure, Hx Benign Prostatic Hyperplasia, Hx Chronic Renal Failure, Hx Dialysis, Hx Kidney Infection, Hx Renal Disease Musculoskeletal History: Reports: Hx Arthritis - BACK, Hx Back Problems - L4-L5 Laminectomy, Other Musculoskeletal History - Extensive Back Sx/Pain issues Denies: Hx Bursitis, Hx Congenital Bone Abnormalities, Hx Fibromyalgia, Hx Gout, Hx Orthopedic Injury, Hx Osteoporosis, Hx Scoliosis, Hx Tendonitis Sensory History: Reports: Hx Cataracts, Hx Vision Problem, Hx Hearing Problem - slightly [place] Denies: Hx Contacts or Glasses, Hx Eye Injury, Hx Eye Prosthesis, Hx Glaucoma , Hx Legally Blind, Hx Macular Degeneration, Hx Deafness, Hx Hearing Aid, Other Sensory Impairments Opthamlomology History: Reports: Hx Cataracts, Hx Vision Problem Denies: Hx Contacts or Glasses, Hx Eye Injury, Hx Eye Prosthesis, Hx Glaucoma , Hx Legally Blind, Hx Macular Degeneration, Other Sensory Impairments Neurological History: Denies: Hx Dementia, Hx Developmental Delay, Hx Headaches, Hx Migraine, Hx Nerve Disease, Hx Seizures, Hx Spinal Cord Injury, Hx Transient Ischemic Attacks (TIA), Other Neuro Impairments/Disorders Psychiatric History: Reports: Hx Anxiety Denies: Hx Depression - Cancer History Hx Chemotherapy: No Hx Radiation Therapy: No Hx Palliative Cancer Treatment: No - Surgical History Surgery Procedure, Year, and Place: C4-C7 [id number]. 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 Denies: Hx Clostridium Difficile, Hx Hepatitis, Hx Human Immunodeficiency Virus (HIV), Hx of Known/Suspected MRSA, Hx Shingles - Vaccinated, Hx Tuberculosis, Hx Known/Suspected VRSA, History Other Infectious Disease, Traveled Outside the [place] in Last 30 Days - Family History Known Family History: Positive: Cardiac Disease - father, Diabetes - mother - Social History Alcohol Use: None Hx Substance Use: No Substance Use Type: Reports: None Hx Tobacco Use: Yes Smoking Status (MU): Former Smoker Type: Cigarettes Length of Time of Smoking/Using Tobacco: 20 years Have You Smoked in the Last Year: No Review of Systems Positive: Skin Diaphoresis Positive: Chest Pain Positive: Shortness Of Breath Negative: Abdominal Pain All Other Systems Reviewed And Are Negative: Yes Physical Exam - Summary Physical Exam Summary: General: well-appearing, no pain distress Skin: warm, color reflects adequate perfusion, dry Head: normal Eyes: EOMI, ANUEL ENT: normal Neck: supple, nontender Respiratory: CTA, breath sounds present Cardiovascular: RRR Abdomen: soft, nontender Bowel: present Musculoskeletal: strength/ROM intact Neurological: sensory/motor intact, A&O x3 Psychological: affect/mood appropriate Triage Information Reviewed: Yes Vital Signs On Initial Exam: Initial Vitals Pulse Resp Pulse Ox 77 13 94 09/05/17 08:32 09/05/17 08:32 09/05/17 08:32 Vital Signs Reviewed: Yes Diagnostics - Vital Signs Vital Signs Temp Pulse Resp BP Pulse Ox 09/05/17 08:33 96.3 F 66 21 160/97 94 09/05/17 08:32 77 13 94 - Laboratory Lab Results: Lab Results 09/05/17 09/05/17 09/05/17 Range/Units 08:41 08:41 08:41 WBC (3.5-10.8) 10^3/ul RBC (4.0-5.4) 10^6/ul Hgb (14.0-18.0) g/dl Hct (42-52) % MCV (80-94) fL MCH (27-31) pg MCHC (31-36) g/dl RDW (10.5-15) % Plt Count (150-450) 10^3/ul MPV (7.4-10.4) um3 Neut % (Auto) (38-83) % Lymph % (Auto) (25-47) % [place] % (Auto) (0-7) % Eos % (Auto) (0-6) % Baso % (Auto) (0-2) % Absolute Neuts (auto) (1.5-7.7) 10^3/ul Absolute Lymphs (auto) (1.0-4.8) 10^3/ul Absolute Monos (auto) (0-0.8) 10^3/ul Absolute Eos (auto) (0-0.6) 10^3/ul Absolute Basos (auto) (0-0.2) 10^3/ul Absolute Nucleated RBC 10^3/ul Nucleated RBC % INR (Anticoag Therapy) 0.90 (0.77-1.02) APTT 35.4 (26.0-36.3) seconds D-Dimer, Quantitative 216 (Less Than 230) ng/mL Sodium 121 L (139-145) mmol/L Potassium 5.0 (3.5-5.0) mmol/L Chloride 85 L (101-111) mmol/L Carbon Dioxide 30 (22-32) mmol/L Anion Gap 6 (2-11) mmol/L BUN 9 (6-24) mg/dL Creatinine 0.51 L (0.67-1.17) mg/dL Est GFR ( Amer) 204.3 (>60) Est GFR (Non-Af Amer) 158.9 (>60) BUN/Creatinine Ratio 17.6 (8-20) Glucose 152 H (70-100) mg/dL Lactic Acid (0.5-2.0) mmol/L Calcium 9.6 (8.6-10.3) mg/dL Magnesium 1.7 L (1.9-2.7) mg/dL Total Bilirubin 0.40 (0.2-1.0) mg/dL AST 11 L (13-39) U/L ALT 10 (7-52) U/L Alkaline Phosphatase 83 (34-104) U/L Total Creatine Kinase 28 (10-223) U/L CK-MB (CK-2) 6.2 (0.6-6.3) ng/mL Troponin I 0.01 (<0.04) ng/mL C-Reactive Protein 36.27 H (< 5.00) mg/L B-Natriuretic Peptide 401 H ( - 100) pg/mL Total Protein 7.2 (6.4-8.9) g/dL Albumin 3.9 (3.2-5.2) g/dL Globulin 3.3 (2-4) g/dL Albumin/Globulin Ratio 1.2 (1-3) Lipase 20 (11.0-82.0) U/L Procalcitonin (<0.6) ng/mL TSH 2.09 (0.34-5.60) mcIU/mL 09/05/17 09/05/17 09/05/17 Range/Units 08:41 08:41 08:41 WBC 9.7 (3.5-10.8) 10^3/ul RBC 4.42 (4.0-5.4) 10^6/ul Hgb 12.0 L (14.0-18.0) g/dl Hct 36 L (42-52) % MCV 81 (80-94) fL MCH 27 (27-31) pg MCHC 34 (31-36) g/dl RDW 18 H (10.5-15) % Plt Count 342 (150-450) 10^3/ul MPV 6.9 L (7.4-10.4) um3 Neut % (Auto) 86.1 H (38-83) % Lymph % (Auto) 7.8 L (25-47) % [place] % (Auto) 4.6 (0-7) % Eos % (Auto) 0.8 (0-6) % Baso % (Auto) 0.7 (0-2) % Absolute Neuts (auto) 8.3 H (1.5-7.7) 10^3/ul Absolute Lymphs (auto) 0.8 L (1.0-4.8) 10^3/ul Absolute Monos (auto) 0.4 (0-0.8) 10^3/ul Absolute Eos (auto) 0.1 (0-0.6) 10^3/ul Absolute Basos (auto) 0.1 (0-0.2) 10^3/ul Absolute Nucleated RBC 0 10^3/ul Nucleated RBC % 0.1 INR (Anticoag Therapy) (0.77-1.02) APTT (26.0-36.3) seconds D-Dimer, Quantitative (Less Than 230) ng/mL Sodium (139-145) mmol/L Potassium (3.5-5.0) mmol/L Chloride (101-111) mmol/L Carbon Dioxide (22-32) mmol/L Anion Gap (2-11) mmol/L BUN (6-24) mg/dL Creatinine (0.67-1.17) mg/dL Est GFR ( Amer) (>60) Est GFR (Non-Af Amer) (>60) BUN/Creatinine Ratio (8-20) Glucose (70-100) mg/dL Lactic Acid 1.0 (0.5-2.0) mmol/L Calcium (8.6-10.3) mg/dL Magnesium (1.9-2.7) mg/dL Total Bilirubin (0.2-1.0) mg/dL AST (13-39) U/L ALT (7-52) U/L Alkaline Phosphatase (34-104) U/L Total Creatine Kinase (10-223) U/L CK-MB (CK-2) (0.6-6.3) ng/mL Troponin I (<0.04) ng/mL C-Reactive Protein (< 5.00) mg/L B-Natriuretic Peptide ( - 100) pg/mL Total Protein (6.4-8.9) g/dL Albumin (3.2-5.2) g/dL Globulin (2-4) g/dL Albumin/Globulin Ratio (1-3) Lipase (11.0-82.0) U/L Procalcitonin < 0.1 (<0.6) ng/mL TSH (0.34-5.60) mcIU/mL Result Diagrams: 09/05/17 08:41 09/05/17 08:41 Lab Statement: Any lab studies that have been ordered have been reviewed, and results considered in the medical decision making process. - Radiology CXR Xray Interpretation: No Acute Changes - Impression: "1. NEAR COMPLETE OPACIFICATION OF THE LEFT LUNG SUGGESTIVE OF LEFT LUNG COLLAPSE OR LESS LIKELY A LARGE LEFT PLEURAL EFFUSION. 2. POSSIBLE SUPERIMPOSED PULMONARY EDEMA." Dr. Colbert has reviewed this report. Radiology Interpretation Completed By: Radiologist - EKG 08:34 Cardiac Rate: NL EKG Rhythm: Sinus Rhythm - at 64 BPM EKG Interpretation: Nonspecific IVCD Chest Pain Course/Dx - Course Course Of Treatment: ADMIT HOSPITALIST. CRITICAL CARE TIME LESS THAN 30 MINUTES Assessment/Plan: Medications reviewed. Allergies noted. BP noted and patient urged to follow up with primary care. - Diagnoses Provider Diagnoses: HTN (hypertension), Chest pain, Pleural effusion Discharge - Sign-Out/Discharge Documenting (check all that apply): Discharge/Admit/Transfer - Patient will be admitted - Discharge Plan Condition: Stable Disposition: ADMITTED TO [facility] Referrals: Jannette Steinberg MD [Primary Care Provider] - - Billing Disposition and Condition Condition: STABLE Disposition: [facility] [place] Consult: I consulted with Dr. Steinberg, internal medicine, at 10:41. She would like the hospitalists to admit the patient. I consulted with Dr. Johnson, hospitalist, at 10:46 and she will admit the patient. The documentation as recorded by the Elliot chavez Thomas accurately reflects the service I personally performed and the decisions made by me, Yohannes Colbert MD.
[2017-09-05] MEDS ORDERED: Furosemide IV* 10 MG/ML VIAL (40 MG) IV ONE (12:19)
[2017-09-05] MEDS ORDERED: Dextrose 50% Syringe 50 ML* 25 GM/50 ML SYRINGE IV PUSH PRN (12:46)
[2017-09-05 13:07] LABS: Urine Appearance Cloudy; Urine Blood 1+ (Negative); Urine Color Yellow; Urine Ketones Trace (Negative); Urine Protein 2+(100 mg/dL) (Negative); Urine Specific Gravity > 1.060 (1.010-1.030); Urine Urobilinogen Positive (Negative)
[2017-09-05] MEDS ORDERED: Heparin VIAL(*) 5000 UNITS/ML VIAL (FIVE THOUSAND) SUBCUT SCH (14:00)
[2017-09-05] MEDS: Gabapentin CAP(*) 300 MG PO SCH ×2 (14:41→19:28)
--- NOTE | 2017-09-05 15:13 | HP ---
HISTORY AND PHYSICAL: DATE OF ADMISSION: 09/05/17 PROVIDER: Corey Alba NP ATTENDING PHYSICIAN: Dr. Negra Johnson* (report dictated by Corey Alba NP) PRIMARY CARE PROVIDER: [facility]. CHIEF COMPLAINT: Shortness of breath and chest discomfort. HISTORY OF PRESENT ILLNESS: Mr. Adams is a 72-year-old male who has a complex past medical history of CHF, bowel obstruction, history of C. diff, suprapubic indwelling Lala catheter with history of hematuria, history of V-tach status post AICD, coronary artery disease status post bypass, type 2 diabetes, morbid obesity, hypertension, history of acute osteomyelitis of the right ankle status post right BKA, history of atrial fibrillation not on anticoagulation due to hematuria, and noncompliance who currently is a long-term resident at [facility]. The patient was sent to the emergency department today for complaint of shortness of breath and chest discomfort. Per the [facility] notes this started approximately 6 days ago. Today he felt worse, therefore he was sent to the emergency department for further evaluation. In the emergency department, he is found to have a normal troponin of 0.01 and he was noted to have a chest x-ray showing almost complete opacification of the left lung, therefore, he underwent a CTA which was "negative for pulmonary embolism. Large bilateral pleural effusion, larger on the left than on the right, and reported an increase since 06/01/16. Reporting there is a near complete consolidation of the left lung." The patient was noted to have a BNP of 400. Currently on examination, he reports some generalized chest discomfort, denies any radiation, no diaphoresis. He reports mostly he feels an increase of shortness of breath and reports an increase in lower extremity swelling and his hands bilaterally. The patient denies any recent illness such as upper respiratory illness. No recent cough, fever, chills, nausea, vomiting, or abdominal pain. He continues to have intermittent hematuria at his baseline. The patient has been noncompliant with following up with urology as an outpatient. His is at the bedside and states he has not seen Urology in over a year. I know this patient from [facility] and was involved in trying to get him to the urologist which he consistently refused as well his automotive design drafter Dr. Whelan. However, per his , the patient has not seen Dr. Whelan "many many years." I do remember the patient used to be on anticoagulation; however, this was stopped when his hematuria worsened over the summer time. Per the and patient, his suprapubic catheter was changed a couple of days ago at [facility]. Currently, he has no signs of hematuria, however, there is some noted blood around the insertion site. I suspect this is secondary to being pulled in transport, otherwise the site has no infection noted. PAST MEDICAL HISTORY: 1. History of systolic and diastolic congestive heart failure. 2. Type 2 diabetes with history of acute osteomyelitis of the right ankle, status post right BKA. 3. Atrial fibrillation, not on anticoagulation. Status post ablation. 4. Vitamin D deficiency. 5. Suprapubic indwelling Lala catheter. 6. History of V-tach status post AICD. 7. Coronary artery disease status post bypass. 8. Morbid obesity. 9. Hypertension. 10. History of spinal stenosis in the cervical region status post cervical decompression. 11. Chronic low back pain on chronic narcotics. 12. History of C. diff. 13. History of noncompliance. 14. History of small bowel obstruction. 15. Last hospitalization 07/04/17 with urinary tract infection and there is a question of a partial small bowel obstruction that has resolved. 16. History of ischemic cardiomyopathy. 17. History of decubitus ulcer. CURRENT MEDICATIONS: 1. Oxycodone 5 mg p.o. q.4 hours p.r.n. 2. Dulcolax suppository 10 mg p.o. daily p.r.n. 3. Acetaminophen 1000 mg p.o. q.8 hours. 4. Senna 2 tabs p.o. daily. 5. Aspirin 81 mg p.o. daily. 6. Metformin 1000 mg p.o. b.i.d. 7. Lisinopril 5 mg p.o. daily. 8. Neurontin 300 mg p.o. t.i.d. 9. MiraLAX 17 g p.o. b.i.d. 10. Omeprazole 40 mg p.o. daily. 11. Morphine sulfate ER 15 mg p.o. daily. 12. Amiodarone 200 mg p.o. daily. ALLERGIES: ERYTHROMYCIN, PENICILLIN. FAMILY HISTORY: Father had a history of heart disease and his mother had a history of peptic ulcer disease. SOCIAL HISTORY: The patient currently resides at [facility] as a long-term resident. His healthcare proxy is his . He has a history of smoking cigars 30 years ago. No alcohol use. Full code status. REVIEW OF SYSTEMS: A 14-point review of systems was performed. All the pertinent positives and negatives are mentioned in the history of present illness. Otherwise are negative. PHYSICAL EXAMINATION GENERAL APPEARANCE: Chronically ill-appearing obese male, lying on the emergency department stretcher, alert and oriented x3, hard of hearing, appears mildly dyspneic. VITAL SIGNS: Temperature 96.3, heart rate 65, respirations 16, O2 sat 94% on room air, and blood pressure 160/97. HEENT: Head is normocephalic and atraumatic. Pupils are equal, round, and reactive to light. Oropharynx is clear. Moist mucous membranes. NECK: JVD difficult to assess due to obesity. LUNGS: Diminished bilaterally and mildly dyspneic. Oxygenating well on room air. CARDIAC: S1 and S2. Regular, rate, and rhythm noted. 2+ left lower extremity and foot edema. He is status post right BKA (1+ edema noted in his hands bilaterally). ABDOMEN: Obese, soft, and nontender. Normal bowel sounds throughout. EXTREMITIES: Status post right BKA. Possibly trace edema in his right lower extremity. No wounds noted in his right lower extremity. Left lower extremity , slightly contracted 1 to 2+ lower extremity and pedal edema. He is noted to have eczema/dry skin on his foot. 1+ DP pulse bilateral hands, again has 1+ hand edema. NEURO: Alert and oriented x3. No focal deficits noted. : Inspected insertion site of suprapubic catheter which appears to have a small amount of bloody drainage. No foul odor or erythema or exudate noted. Light yellow clear urine draining into the Lala bag. Suprapubic site does not appear to be infected. LABORATORY DATA AND DIAGNOSTIC STUDIES: Sodium 121, potassium 5.0, chloride 85 , carbon dioxide 30, anion gap 6, BUN 9, creatinine 0.51, glucose 152, lactic acid 1.0, calcium 9.6, magnesium 1.7. Total bilirubin 0.40, AST 11, ALT 10, alkaline phosphatase 312. Creatinine kinase 28, CK-MB 6.2. Troponin 0.01. C- reactive protein 36.27. BNP 400. Total protein 7.2, albumin 3.9. Lipase 20. Procalcitonin less than 0.1. TSH 2.09. INR is 0.90. D-dimer 216. WBC is 9.7 , Hgb 12.0, HCT 36, MCV 81, MCH 27, MCHC 34, RDW 18, platelet count 342. Chest x-ray, impression: 1. Near complete opacification of the left lung suggestive of left lung collapse or less likely a large left pleural effusion. 2. Possible superimposed pulmonary edema. Chest thorax CTA, impression: 1. No CT evidence of pulmonary embolism. 2. Large bilateral pleural effusions, larger on the left than the right and increased since 06/01/16 CT of the chest. There is near complete consolidation of the left lung. 3. Additional chronic degenerative and iatrogenic findings described in the body of the report. EKG: Junctional rhythm with a rate of 64. In comparison to prior EKG, appears to be no acute changes. ASSESSMENT AND PLAN: Mr. Adams is a 72-year-old male with a complex past medical history who presents to the emergency department today with complaint of 6 days of shortness of breath and chest discomfort, found to be hyponatremic and have a large left pleural effusion and mildly dyspneic. 1. Congestive heart failure. The patient will be admitted to the telemetry unit and he will start with aggressive diuresing. The patient appears to be fluid overloaded. We will recheck a BMP at 2 p.m. to monitor sodium levels. It appears he has a history of hyponatremia before in the past. We will send urine, creatinine, sodium, and osmolality. His last echo that we have in file was in 2014 showing an EF of less than 30%. Per the record it states "unable to estimate left ventricular ejection fraction, but likely poor with an EF of less 30%." There was no evidence of aortic stenosis at that time. Plan to obtain an echocardiogram. As well I am waiting for the general surgeon to call me back as his left lung has total consolidation, but the pleural effusion will need to be drained. In regards to the patient's chest discomfort, he has no EKG changes. The troponin is negative and I suspect his chest discomfort is secondary to the pleural effusion. Currently, he denies any chest discomfort. 2. Type 2 diabetes. Hold metformin, fingerstick blood glucose a.c. and h.s., and lispro sliding scale. 3. Atrial fibrillation. He appears to be in a sinus rhythm. Continue aspirin 81 mg daily. He does not appear to be on a rate control agent. He is status post ablation per his medical record. Continue amiodarone. We will ask Cardiology to see the patient. 4. History of ventricular tachycardia, status post implantable cardioverter- defibrillator. The patient is not able to tell me when he had his ICD last interrogated. Due to his noncompliance most likely he is due for a followup with the automotive design drafter. Per , he has not seen a automotive design drafter in some time. 5. Gastroesophageal reflux disease. Continue PPI. 6. History of coronary artery disease with cardiomyopathy. Again, we will obtain echo. In our system, the left main was in 2014. Continue lisinopril. 7. Electrolyte abnormalities. Continue to monitor. Give 2 g of IV mag now for magnesium of 1.7. 8. Indwelling Lala catheter, will send UA. Per the and the , this was just changed 2 days ago with the house nursing irrigation supervisor at [facility]. I do not think it needs to be changed at this time. There was some noted bloody drainage around the insertion site, but I suspect this is from being pulled. Again the patient has been noncompliant with followup with his urologist. 9. DVT prophylaxis. Will start heparin subcu after thoracentesis. 10. Hospital status. Inpatient to telemetry. TIME SPENT: Approximately 65 minutes was spent on this admission. This case was discussed with the attending physician Dr. Johnson who agrees with the plan of care. COREY ALBA, VANNESA [id number]/CPS #: [id number] TAYLOR
[2017-09-05] MEDS ORDERED: Perflutren Lipid Microsphere* 3 ML VIAL ONE (15:17)
[2017-09-05 16:44] LABS: EGFR Non-African American 170.4 (>60)
[2017-09-05] MEDS: Insulin LISPRO* 1 UNITS UNIT SUBCUT SCH ×2 (17:24→21:25)
--- NOTE | 2017-09-05 17:37 | ECHO ---
Patient: ROB BRUMFIELD [facility] Rec#: [id number] : 1945 Date: 09/05/2017 Age: 72y Height: 177.8 cm / 70.0 in Weight: 108.86 kg / 239.9 lbs Sex: M BSA: 2.26 Room#: 440 Admit Date#: 09/05/2017 Type: Inpatient Referring: Laine Vasquez Reading: Sandro Wang MD [employer] Officer: Lili Roger ADDIE CC: Jannette Steinberg MD Transthoracic Echocardiogram Indication: CHF//CP BP: 152/88 HR: 65 Rhythm: NSR Findings History: CHF,V-tach,s/p AICD implant,prior ablation,CAD,CABG,DM,HTN,a-fib. Technical Comments: The study is technically difficult. Completed at 1605. The study is technically limited due to patient body habitus. Left Ventricle: The left ventricular chamber size is mildly dilated. Mild concentric left ventricular hypertrophy is observed. There is global hypokinesis of the left ventricle with minor regional variation. There is severely decreased left ventricular systolic function. The estimated ejection fraction is 25-30%. There is abnormal ventricular septal wall motion consistent with right ventricular pacemaker. The assessment of diastolic function is non-diagnostic. The patient was unable to perform a Valsalva maneuver. Left Atrium: The left atrium is mild to moderately dilated. Right Ventricle: The right ventricle is mildly dilated. The right ventricular global systolic function is mildly reduced. The septum has abnormal paradoxical motion consistent with post-operative pressure. A pacemaker wire is visualized in the right ventricle. Right Atrium: The right atrium is mildly dilated. A pacemaker wire is visualized in the right atrium. Aortic Valve: The aortic valve is trileaflet. There is no evidence of aortic valve thickening. There is no evidence of aortic regurgitation. There is no evidence of aortic stenosis. Mitral Valve: The mitral valve leaflets are mildly thickened. There is mild mitral regurgitation. There is no evidence of mitral stenosis. Tricuspid Valve: The tricuspid valve leaflets are normal. There is mild tricuspid regurgitation. There is evidence of borderline pulmonary hypertension. There is no tricuspid stenosis. Pulmonic Valve: The pulmonic valve structure is not well visualized. Pericardium: A pericardial fat pad is visualized. A left pleural effusion is present. There is a moderate pleural effusion. Aorta: The ascending aorta is not well visualized. There is no dilatation of the aortic arch. There is no dilation of the aortic root. Pulmonary Artery: The main pulmonary artery appears normal. Venous: The venous system is not well visualized. The inferior vena cava is dilated. There is no change in the dimension of the inferior vena cava with respiration consistent with markedly increased right atrial pressure. Contrast: Definity was used to optimize study. 7 ml needed for enhancement. Intravenous contrast was used to enhance endocardial border definition. Conclusions Mild concentric left ventricular hypertrophy is observed. There is global hypokinesis of the left ventricle with minor regional variation. There is severely decreased left ventricular systolic function. The estimated ejection fraction is 25-30%. The right ventricular global systolic function is mildly reduced. There is no evidence of aortic stenosis. There is mild mitral regurgitation. There is mild tricuspid regurgitation. There is evidence of borderline pulmonary hypertension. A left pleural effusion is present. Compared to study of 01/28/16, there is little change in cardiac function Pleural effusion is new Measurements Name Value Normal Range RVDdMajor (2D) 4.8 cm (2.2 - 4.4) RAd ISD 4CH 5.7 cm (3.4 - 4.9) RA (A4C)W 4.6 cm (2.9 - 4.6) IVSd (2D) 1.1 cm (0.6 - 1) LVPWd (2D) 1.1 cm (0.6 - 1) LVIDd (2D) 5.5 cm (3.6 - 5.4) LVIDs (2D) 4.2 cm - LV FS (2D) 23 % (25 - 45) Aortic Annulus 2.4 cm (1.4 - 2.6) Ao root diameter (2D) 3.1 cm (2.1 - 3.5) Aortic arch 3.1 cm (1.8 - 3.4) Descending Ao 0.4 cm - LA dimension (AP) 2D 4.4 cm (2.3 - 3.8) LAd ISD 4CH 7.3 cm (2.9 - 5.3) LA ISD 4CH W 5.1 cm (2.5 - 4.5) Name Value Normal Range LA ESV SP 4CH (A/L) 130 ml - LA ESV SP 2CH (A/L) 108 ml - LA ESV BP (A/L) 120 ml - LA ESV BP (A/L) index 53.14 ml/m2 - LA ESV SP 4CH (MOD) 125 ml - LA ESV SP 2CH (MOD) 102 ml - Name Value Normal Range MV E-wave Vmax 0.9 m/sec - MV deceleration time 213 msec - MV A-wave Vmax 0.9 m/sec - MV E:A ratio 1.06 ratio - LV septal e' Vmax 0.04 m/sec - LV lateral e' Vmax 0.05 m/sec - LV E:e' septal ratio 22.5 ratio - LV E:e' lateral ratio 18 ratio - Name Value Normal Range AV Vmax 1.3 m/sec - AV VTI 22.6 cm - AV peak gradient 6.25 mmHg - AV mean gradient 2.87 mmHg - LVOT Vmax 0.7 m/sec - LVOT VTI 16.7 cm - LVOT peak gradient 2.06 mmHg - LVOT mean gradient 0.73 mmHg - Name Value Normal Range MR Vmax 3.3 m/sec - MR VTI 138 cm - Name Value Normal Range TR Vmax 2.2 m/sec - TR peak gradient 19 mmHg - RAP 15 mmHg - RVSP 34 mmHg - IVC diameter 2.2 cm -
[2017-09-05] MEDS: oxyCODONE TAB* 5 MG TAB PO PRN ×2 (17:58→22:16)
[2017-09-05] MEDS: Furosemide IV* 10 MG/ML VIAL (40 MG) IV SCH (19:28)
[2017-09-05] MEDS: Polyethylene Glycol 3350* 17 GM PACKET PO SCH (19:31)
[2017-09-05 20:39] LABS: EGFR Non-African American 162.5 (>60)
[2017-09-06 05:44] LABS: ABS Basophils 0 10^3/ul (0-0.2); ABS Eosinophils 0.1 10^3/ul (0-0.6); ABS Lymphocytes 1.2 10^3/ul (1.0-4.8); ABS Monocytes 0.6 10^3/ul (0-0.8); ABS Neutrophils 5.9 10^3/ul (1.5-7.7); ABS Nucleated RBC 0 10^3/ul; Eosinophil % 1.1 % (0-6); Hematocrit 33 % (42-52); Hemoglobin 11.2 g/dl (14.0-18.0); Lymphocyte % 14.8 % (25-47); Mean Corpuscular HGB Conc 34 g/dl (31-36); Mean Corpuscular Hemoglobin 27 pg (27-31); Mean Corpuscular Volume 80 fL (80-94); Nucleated Red Blood Cells % 0.1; Platelet Count 319 10^3/ul (150-450); Red Blood Count 4.13 10^6/ul (4.0-5.4); Red Cell Distribution Width 18 % (10.5-15); White Blood Count 7.8 10^3/ul (3.5-10.8)
[2017-09-06 05:54] LABS: EGFR Non-African American 142.6 (>60)
[2017-09-06] MEDS: Omeprazole CAP* 20 MG PO SCH (08:44)
[2017-09-06] MEDS: Morphine TAB Extended Release (*) 15 MG TAB.ER PO SCH (08:45)
[2017-09-06] MEDS: Senna TAB PO SCH (08:45)
[2017-09-06] MEDS: Amiodarone TAB* 200 MG PO SCH (08:45)
[2017-09-06] MEDS: Lisinopril TAB* 5 MG PO SCH (08:45)
[2017-09-06] MEDS: Aspirin EC TAB* 81 MG TAB.EC PO SCH (08:45)
[2017-09-06] MEDS: Furosemide IV* 10 MG/ML VIAL (40 MG) IV SCH ×2 (08:45→21:15)
[2017-09-06] MEDS: Polyethylene Glycol 3350* 17 GM PACKET PO SCH ×2 (08:46→21:16)
[2017-09-06] MEDS: Gabapentin CAP(*) 300 MG PO SCH ×3 (08:46→21:15)
[2017-09-06] MEDS: Heparin VIAL(*) 5000 UNITS/ML VIAL (FIVE THOUSAND) SUBCUT SCH ×3 (08:46→21:17)
[2017-09-06] MEDS: Insulin LISPRO* 1 UNITS UNIT SUBCUT SCH ×5 (08:57→21:24)
--- NOTE | 2017-09-06 10:39 | RAD ---
CPT II Codes: 6100F INDICATION: Large left-sided pleural effusion with near complete consolidation of the left lung COMPARISON: CTA of the chest September 05, 2017 PROCEDURE NOTE AND IMAGING FINDINGS: The benefits of the and risks of procedure explained to the patient. The patient consented of the exam. The patient was brought to the ultrasound suite and multiple images of the left hemithorax were obtained with the patient in the left lateral decubitus position. There was a large pleural effusion present. The site was marked. A formal time out was performed before beginning the procedure. The patient was prepped and draped in the usual sterile fashion. The patient?s posterior chest wall was anesthetized with 1% lidocaine. A small skin shawn was made to allow placement of the thoracentesis needle and catheter. Approximately 1700 mL of straw-colored fluid was aspirated. The patient tolerated the procedure without incident. IMPRESSION: Uncomplicated thoracentesis as described in the body of the report.
[2017-09-06] MEDS: oxyCODONE TAB* 5 MG TAB PO PRN ×2 (15:44→21:43)
--- NOTE | 2017-09-06 19:03 | PN ---
Hospitalist Progress Note Date of Service: 09/06/17 Pt seen and examined. Meds and labs reviewed. ROS: Denied CLAYTON/dizziness, F/C, N/V, CP, SOB, increased cough, sputum production , abd pain, diarrhea, constipation, dysuria, myalgias, arthralgias, throat pain , and new skin lesions. The rest of the 14 point ROS are unremarkable. PHYSICAL EXAM: GEN APPEARANCE: Awake, not in acute distress HEENT: NC/AT, PERRLA, moist oral mucosa, (-) throat erythema NECK: Soft, supple, (-) cervical LAD, (-)JVD HEART: S1S2 WNL, RRR, No MRG CHEST: CTA, BL, GAE, No W/R/R ABD: Soft, ND/NT, NABS 4x Q EXT: No C/C/E, right BKA SKIN: Warm to touch PSYCH: No active psychosis, hallucinations, depression, SI/HI Assess/Plan/Problems-Billing Assessment: - Patient Problems (1) CHF (congestive heart failure) Current Visit: Yes Status: Acute Code(s): I50.9 - HEART FAILURE, UNSPECIFIED SNOMED Code(s): 53523386 Comment: --Continue with diuresis --Continue statins, plavix, ASA, and ACEI (2) Diabetes Current Visit: Yes Status: Acute Code(s): E11.9 - TYPE 2 DIABETES MELLITUS WITHOUT COMPLICATIONS SNOMED Code(s): 30576293 Comment: --Continue watchful waiting --Diet controlled (3) Atrial fibrillation Current Visit: Yes Status: Acute Code(s): I48.91 - UNSPECIFIED ATRIAL FIBRILLATION SNOMED Code(s): 93108556 Comment: --Continue Amiodarone Status and Disposition: DVT proph: Continue Heparin SQ
--- NOTE | 2017-09-06 19:09 | PN ---
Hospitalist Progress Note Date of Service: 09/06/17 Pt seen and examined. Meds and labs reviewed. ROS: Denied CLAYTON/dizziness, F/C, N/V, CP, SOB, increased cough, sputum production , abd pain, diarrhea, constipation, dysuria, myalgias, arthralgias, throat pain , and new skin lesions. The rest of the 14 point ROS are unremarkable. PHYSICAL EXAM: GEN APPEARANCE: Awake, not in acute distress HEENT: NC/AT, PERRLA, moist oral mucosa, (-) throat erythema NECK: Soft, supple, (-) cervical LAD, (-)JVD HEART: S1S2 WNL, RRR, No MRG CHEST: CTA, BL, GAE, No W/R/R ABD: Soft, ND/NT, NABS 4x Q EXT: No C/C/Right BKA SKIN: Warm to touch PSYCH: No active psychosis, hallucinations, depression, SI/HI Assess/Plan/Problems-Billing Assessment:
[2017-09-06] MEDS: Nystatin TOP POWDER* 15 GM BTL TOPICAL SCH (21:15)
[2017-09-07] MEDS: Heparin VIAL(*) 5000 UNITS/ML VIAL (FIVE THOUSAND) SUBCUT SCH (05:57)
[2017-09-07 08:26] VITALS: BP 103/43
[2017-09-07] MEDS: Omeprazole CAP* 20 MG PO SCH (08:46)
[2017-09-07] MEDS: Senna TAB PO SCH (08:46)
[2017-09-07] MEDS: Lisinopril TAB* 5 MG PO SCH (08:46)
[2017-09-07] MEDS: Polyethylene Glycol 3350* 17 GM PACKET PO SCH (08:47)
[2017-09-07] MEDS: Aspirin EC TAB* 81 MG TAB.EC PO SCH (08:47)
[2017-09-07] MEDS: Amiodarone TAB* 200 MG PO SCH (08:47)
[2017-09-07] MEDS: Morphine TAB Extended Release (*) 15 MG TAB.ER PO SCH (08:47)
[2017-09-07] MEDS: Gabapentin CAP(*) 300 MG PO SCH (08:47)
[2017-09-07] MEDS: Insulin LISPRO* 1 UNITS UNIT SUBCUT SCH (08:48)
[2017-09-07] MEDS: Nystatin TOP POWDER* 15 GM BTL TOPICAL SCH (08:50)
[2017-09-07] MEDS: Furosemide IV* 10 MG/ML VIAL (40 MG) IV SCH (10:14)
[2017-09-07] MEDS: oxyCODONE TAB* 5 MG TAB PO PRN (11:23)
--- NOTE | 2017-09-07 13:41 | DS ---
CC: Primary Care Provider at [facility]* DISCHARGE SUMMARY: DATE OF ADMISSION: 09/05/17 DATE OF DISCHARGE: 09/07/17 PRIMARY CARE PROVIDER: The physician at [facility]. DISCHARGE DIAGNOSES: 1. Acute systolic congestive heart failure. 2. Bilateral pleural effusions due to above with large pleural effusion on the left status post thoracentesis, performed by Interventional Radiology and Dr. Petit and it yielded straw-colored fluid of 1700 mL. 3. Escherichia coli urinary tract infection, Lala associated in a patient with history of extended-spectrum beta-lactamases. Cultures are pending at the time of this dictation but due to history of extended-spectrum beta-lactamases Escherichia coli and according to previous sensitivities, the patient is going to be placed on Bactrim. 4. Hyponatremia, exacerbation of chronic problem. The patient's sodium is still low at 122 on the day of discharge but he is asymptomatic. The hyponatremia is chronic and recurrent. At this point, I suspect this is related to congestive heart failure. Patient is to recheck his basic metabolic panel in a couple of days after discharge. SECONDARY DIAGNOSES: 1. History of chronic systolic and diastolic congestive heart failure with ejection fraction noted to be 25% to 30%. 2. Diabetes type 2. 3. History of osteomyelitis of right ankle status post right below-knee amputation. 4. History of atrial fibrillation, not on anticoagulation due to recurrent hematuria status post ablation. 5. Vitamin D deficiency. 6. Suprapubic indwelling Lala catheter in place. 7. History of ventricular tachycardia, status post AICD in place. 8. History of coronary artery disease status post coronary artery bypass grafting. 9. Morbid obesity. 10. Hypertension. 11. Spinal stenosis of the cervical region status post cervical decompression. 12. History of chronic low back pain, on chronic narcotics. 13. History of Clostridium difficile colitis. 14. History of small bowel obstruction. 15. History of ischemic cardiomyopathy. MEDICATIONS AT DISCHARGE: Include, 1. Bactrim DS 1 tablet p.o. b.i.d. for 5 days total. 2. Senokot 2 tablets daily. 3. MiraLax 17 g b.i.d. p.r.n. 4. Roxicodone 5 mg every 4 hours p.r.n. 5. Prilosec 40 mg daily. 6. Morphine sulfate 15 mg daily. 7. Glucophage 1000 mg b.i.d. 8. Lisinopril 5 mg daily. 9. Gabapentin 300 mg 3 times a day. 10. Lasix 40 mg daily, that is a new medication. 11. Dulcolax suppository 10 mg daily p.r.n. 12. Aspirin 81 mg daily. 13. Amiodarone 200 mg daily. 14. Acetaminophen 1000 mg every 8 hours p.r.n. DISCHARGE INSTRUCTIONS: 1. At discharge, the patient recommended to have basic metabolic panel drawn in approximately 2 days and then as needed according to reevaluation 2. The patient's weight at discharge is 239 pounds. The patient is to be weighed at least 2 times a week. If the weight increases over 3 pounds, the medical provider should be notified at [facility]. 3. The patient's Lala insertion site needs to cleaned on a daily basis. Lala needs to be exchanged on a monthly basis. LABORATORY DATA AND STUDIES PERFORMED DURING THE HOSPITAL STAY: On 09/06/17, white blood cell count was 7.8, hemoglobin 11.2, hematocrit 33, platelets of 219. Sodium 122, potassium 4.1, chloride 84, carbon dioxide 32, BUN 9, creatinine 0.56. The patient's TSH on admission was 2.09. Brain natriuretic peptide on admission was 401. His troponin continued to be 0.02 to 0.01. His LDH in serum was 111. LDH in pleural fluid is pending at the time of dictation. Pleural fluid analysis showed 265 white blood cells, 29 red blood cells, 8% neutrophils, 87 lymphocytes, 5 monocytes, it was straw colored. Protein level and LDH level on the fluid is still pending at the time of dictation. Protein level in the serum obtained on 09/05/17 was 7.2. Procalcitonin level at admission was 0.01. Transthoracic echocardiogram obtained on 09/05/17 showed severely decreased left ventricular systolic function with EF of 25% to 30% with right ventricular global systolic function mildly reduced. There was mild mitral regurgitation and mild tricuspid regurgitation and left pleural effusion present. Compared to study from 2016, there was little change in cardiac function. CT angiogram of the chest obtained on 09/05/17, impression: "No CT evidence of pulmonary embolism. Large bilateral pleural effusion larger on the left than the right and increased since May 2016 CTA of the chest. There is a near complete consolidation of the left lung. Additional findings are described in the body of the report." PROCEDURE PERFORMED DURING HOSPITAL STAY: Include thoracentesis performed by Dr. Petit on 09/05/17 which yielded 1700 mL of straw-colored fluid. HOSPITAL COURSE: 1. Raffaele Adams is a 72-year-old male with history of diabetes and diabetic neuropathy as well as diabetic foot infection on the right status post BKA. He has spinal stenosis. He is basically nonambulatory in [facility] where he is a resident now. He has a history of ischemic cardiomyopathy with EF of 30% and ICD in place. He was admitted for shortness of breath and pleuritic chest pain. CT angiogram of the chest showed bilateral pleural effusion and was negative for PE. His troponin continued to be negative. It was concluded that his chest pain is likely due to large left-sided pleural effusion. Interventional radiologist, Dr. Petit performed thoracentesis on the patient's left chest on 09/05/17 and 1700 mL of straw-colored fluid was obtained. Due to patient's history of hospitalization in June of this year as well as history of CHF, the presumed cause of patient's left pleural effusion is congestive heart failure, although patient's complete fluid analysis that included LDH and total protein are still pending at the time of dictation. 2. The patient's Lala was partially occluded when the patient presented to the emergency department. The patient did not remember when it was last changed. Urine culture was positive for E. coli. Specific sensitivities are still pending but the patient has a history of ESBL E. coli in the past and due to that, he was placed on Bactrim to which his ESBL E. coli was sensitive in the past. Please also note, the patient did not recall when the Lala was exchanged last and there was purulent discharge around the Lala and the Lala was partially clogged when the patient arrived to the hospital. The Lala was exchanged on 09/06/17. It is recommended for this patient to have Lala exchanges at least once a month and to have geoff-Lala care on a daily basis. 3. The patient has a history of chronic hyponatremia and his sodium the day prior to discharge was noted to be 122. The patient arrived with sodium of 121. It appears to be improving mildly. The patient has a history of hyponatremia in the past in the year 2017 when his sodium was down all the way to 117 at some point but he usually ranges with hyponatremia of 130 to 131. At this point, patient is asymptomatic from his hyponatremia, which is likely chronic. I recommended for [facility] to repeat basic metabolic panel in approximately a couple of days. It appears that the hyponatremia may be related to CHF and hopefully will improve just with diuretic use and CHF treatment. 4. The patient's weight on discharge is 239 pounds. The patient is recommended to have his weights checked at least 2 times a week for further recommendations. Please note that patient's previous weight was in the 220 pound range but when he presented to the hospital, his weight was 243. The patient is being discharged home with recommendation to follow up with his primary care provider in approximately 2 to 7 days. PHYSICAL EXAMINATION: At the time of discharge, blood pressure of 103/43, heart rate of 70 and regular, respiratory rate 16, and oxygen saturation 93% on room air, temperature of 97.3. General: The patient is a pleasant 72-year-old male who is in no acute distress. The patient is alert and oriented x2. HEENT : Head is atraumatic, normocephalic. Eyes: Pupils are equal, reactive to light and accommodation. Oropharynx is clear. Mucosa moist. Neck: Supple. No JVD. No bruits bilaterally. Cardiovascular: Regular rate and rhythm. No murmur. Respiratory: Clear to auscultation bilaterally. Abdomen: Soft, nontender. Bowel sounds are present in all 4 quadrants. Extremities: There is trace left leg edema. The patient is status post right BKA. There is no clubbing or cyanosis. On evaluation of the skin of the bilateral lower extremities, there are no wounds noted. Neuro Evaluation: Grossly nonfocal. Speech clear. Cranial nerves II through XII grossly intact. Motor strength is 5/5 bilaterally. The patient is basically nonambulatory due to his history of spinal stenosis. Please note that this is a short summary of the patient's hospitalization. Please refer to further medical records for details. TIME SPENT: Approximately 45 minutes was spent in preparation of the patient's discharge. [id number]/[facility] #: [id number] [facility]
== END 2017-09-07 12:25 | DRG 292 ==
LOC: ED 08:26 → MEDTELE 12:15
PROVIDERS: ADMIT Internal Medicine; ATTEND Internal Medicine
PROC: 0W9B3ZZ Drainage of Left Pleural Cavity, Percutaneous Approach (ICD-10-PCS; principal; 2017-09-06)
PROC: 0T2BX0Z Change Drainage Device in Bladder, External Approach (ICD-10-PCS; 2017-09-06)
DX: I11.0 Hypertensive heart disease with heart failure (principal); T83.511A Infection and inflammatory reaction due to indwelling urethral catheter, initial encounter; N39.0 Urinary tract infection, site not specified; J90 Pleural effusion, not elsewhere classified; E87.1 Hypo-osmolality and hyponatremia; E11.9 Type 2 diabetes mellitus without complications; E78.00 Pure hypercholesterolemia, unspecified; I25.10 Atherosclerotic heart disease of native coronary artery without angina pectoris; M46.90 Unspecified inflammatory spondylopathy, site unspecified; F41.9 Anxiety disorder, unspecified; H91.90 Unspecified hearing loss, unspecified ear; K21.9 Gastro-esophageal reflux disease without esophagitis; I27.20 Pulmonary hypertension, unspecified; I08.1 Rheumatic disorders of both mitral and tricuspid valves; I50.43 Acute on chronic combined systolic (congestive) and diastolic (congestive) heart failure; B96.20 Unspecified Escherichia coli [E. coli] as the cause of diseases classified elsewhere; Y73.1 Therapeutic (nonsurgical) and rehabilitative gastroenterology and urology devices associated with adverse incidents; E11.36 Type 2 diabetes mellitus with diabetic cataract; I25.5 Ischemic cardiomyopathy; G89.29 Other chronic pain; M54.5 Low back pain; E66.01 Morbid (severe) obesity due to excess calories; E55.9 Vitamin D deficiency, unspecified; I48.91 Unspecified atrial fibrillation; E11.40 Type 2 diabetes mellitus with diabetic neuropathy, unspecified; M48.00 Spinal stenosis, site unspecified; T83.091A Other mechanical complication of indwelling urethral catheter, initial encounter; Z83.79 Family history of other diseases of the digestive system; Z87.891 Personal history of nicotine dependence; Z87.442 Personal history of urinary calculi; Z83.3 Family history of diabetes mellitus; Z88.1 Allergy status to other antibiotic agents; Z88.0 Allergy status to penicillin; Z95.810 Presence of automatic (implantable) cardiac defibrillator; Z86.79 Personal history of other diseases of the circulatory system; Z89.511 Acquired absence of right leg below knee; Z91.19 Patient's noncompliance with other medical treatment and regimen; Z82.49 Family history of ischemic heart disease and other diseases of the circulatory system; Z68.35 Body mass index [BMI] 35.0-35.9, adult; Y92.9 Unspecified place or not applicable; Z95.1 Presence of aortocoronary bypass graft; Z79.891 Long term (current) use of opiate analgesic; Z79.84 Long term (current) use of oral hypoglycemic drugs; Z79.82 Long term (current) use of aspirin
CPT/HCPCS: 32555; 36415; 71046; 71275; 80048; 80053; 81003; 81015; 82550; 82553; 82570; 83605; 83615; 83690; 83735; 83880; 83935; 84145; 84157; 84300; 84443; 84484; 85025; 85379; 85610; 85730; 86140; 87040; 87077; 87086; 87186; 87205; 89051; 93005; 93306; 99284; A9270-GY; C8929; J1644; J1940; J3475; Q9967

== ENCOUNTER 2017-09-14 09:42 | Inpatient (IN) | payer MEDICARE, OTHER ==
[2017-09-14 10:55] LABS: ABS Basophils 0 10^3/ul (0-0.2); ABS Eosinophils 0 10^3/ul (0-0.6); ABS Lymphocytes 0.6 10^3/ul (1.0-4.8); ABS Monocytes 0.3 10^3/ul (0-0.8); ABS Neutrophils 8.7 10^3/ul (1.5-7.7); ABS Nucleated RBC 0 10^3/ul; Eosinophil % 0.4 % (0-6); Hematocrit 33 % (42-52); Hemoglobin 11.3 g/dl (14.0-18.0); Lymphocyte % 6.7 % (25-47); Mean Corpuscular HGB Conc 34 g/dl (31-36); Mean Corpuscular Hemoglobin 27 pg (27-31); Mean Corpuscular Volume 79 fL (80-94); Mean Platelet Volume 6.6 um3 (7.4-10.4); Nucleated Red Blood Cells % 0; Platelet Count 257 10^3/ul (150-450); Red Blood Count 4.16 10^6/ul (4.0-5.4); Red Cell Distribution Width 18 % (10.5-15); White Blood Count 9.6 10^3/ul (3.5-10.8)
--- NOTE | 2017-09-14 10:56 | RAD ---
INDICATION: Shortness of breath. COMPARISON: Comparison is made with a prior study from September 05, 2017. TECHNIQUE: A portable view of the chest was obtained. FINDINGS: There is a dual-chamber transvenous pacemaker defibrillator present. The cardiac borders are secured. There is complete opacification of the left hemithorax with slight mediastinal shift toward the right side suspicious for a large pleural effusion. This appears unchanged from the prior study. There is also diffuse prominence of the interstitial markings in the right lung suspicious for superimposed congestive heart failure. IMPRESSION: 1. COMPLETE OPACIFICATION OF THE LEFT HEMITHORAX SUSPICIOUS FOR A LARGE PLEURAL EFFUSION. 2. FINDINGS SUGGESTIVE OF CONGESTIVE HEART FAILURE.
[2017-09-14 11:05] LABS: INR 0.93 (0.77-1.02)
[2017-09-14 11:15] LABS: EGFR Non-African American 122.2 (>60)
--- NOTE | 2017-09-14 11:57 | RAD ---
INDICATION: Abdominal pain and bloating. Shortness of breath. COMPARISON: June 29, 2017 CT TECHNIQUE: Multidetector CT images were obtained from the lung bases to the ischial tuberosities. Evaluation of the viscera is limited without IV contrast. Multiplanar reformation. REPORT: Severe cardiomegaly. Dual-chamber cardiac pacemaker. Negative for pericardial effusion. Incompletely visualized LEFT larger than RIGHT dependent pleural effusions with proportional atelectasis including complete atelectasis of the partially visualized LEFT lower lobe. Tiny calcified hepatic granulomas. Cholelithiasis without additional CT abnormality of the gallbladder. Negative for biliary dilatation. Advanced fatty replacement of the pancreas. Unremarkable spleen. No CT abnormality of the upper GI or small bowel loops. Normal appendix documented. Moderately distended colon with non formed stool with air-fluid levels and long segment gas distention of the transverse colon. Only mild rectal distention with stool. No colonic bowel wall thickening, pneumatosis, or perienteric inflammatory change evident. Negative for ascites or free air. Fat-containing indirect appearing RIGHT inguinal hernia without inflammatory change. Normal adrenal glands. 3 cm cyst at the midpole cortex of the RIGHT kidney without change. Negative for nephrolithiasis or hydronephrosis. Unremarkable nondilated ureters. Catheterized bladder remains partially distended and demonstrates a few sharply demarcated hyperdense foci assuming the shape of the catheter balloon most suspicious for hematoma possibly with secondary calcification. The magnitude of this finding is increased over the tip July 27, 2017 exam. Symmetric seminal vesicles. Negative for thoracic lymphadenopathy. Atherosclerotic plaque of normal diameter abdominal aorta and iliac arteries. Physiologic partial distention of the IVC. Diffuse subcutaneous edema most prominent in the dependent regions. No loculated soft tissue plane hematoma evident. Diffuse heterogeneous density of the bones with permeative pattern of lucencies which may reflect aggressive osteoporosis or infiltrative process such as multiple myeloma or other lytic metastasis. Fracture at the RIGHT superior pubic ramus with healing response without significant change. No new fractures evident. IMPRESSION: 1. Severe cardiomegaly. Probable cardiogenic pleural effusions with proportional atelectasis. 2. Moderately distended colon with non formed stool with air-fluid levels and long segment gas distention of the transverse colon. Only mild rectal distention with stool. No colonic bowel wall thickening, pneumatosis, or perienteric inflammatory change evident. Negative for colonic obstruction or colonic volvulus. 3. Negative for ascites or free air. 4. Negative for obstructive uropathy. 5. Catheterized bladder remains partially distended and demonstrates a few sharply demarcated hyperdense foci assuming the shape of the catheter balloon most suspicious for hematoma possibly with secondary calcification. The magnitude of this finding is increased over the tip July 27, 2017 exam. 6. Diffuse heterogeneous density of the bones with permeative pattern of lucencies which may reflect aggressive osteoporosis or infiltrative process such as multiple myeloma or other lytic metastasis. Fracture at the RIGHT superior pubic ramus with healing response without significant change. No new fractures evident.
[2017-09-14] MEDS ORDERED: Bisacodyl SUPP* 10 MG SUPP PR PRN (12:44)
[2017-09-14] MEDS ORDERED: Furosemide IV* 10 MG/ML 10 ML VIAL (100 MG) IV SCH (13:00)
[2017-09-14] MEDS: Furosemide IV* 10 MG/ML 10 ML VIAL (100 MG) IV SCH ×2 (13:14→21:09)
--- NOTE | 2017-09-14 13:18 | ED ---
Jessica Hensley Julia, scribed for Yohannes Colbert MD on 09/14/17 at 1020 . Shortness of Breath - HPI Summary HPI Summary: This patient is a 72 year old M BIBA to [facility] from his half-way with a chief complaint of SOB beginning today. Patient reports abdominal distention, but is unaware of the onset. Patient denies CP, fever, and chills. Pt denies oxygen use at baseline. - History of Current Complaint Chief Complaint: EDShortnessOfBreath Time Seen by Provider: 09/14/17 10:09 Hx Obtained From: Patient Onset/Duration: Lasting Hours Timing: Constant Dyspnea At: Rest Associated Signs & Symptoms: Edema - abdominal Related History: Obesity - Allergy/Home Medications Allergies/Adverse Reactions: Allergies Allergy/AdvReac Type Severity Reaction Status Date / Time erythromycin base Allergy GI Upset Verified 06/28/17 23:35 Penicillins Allergy Hives Verified 06/28/17 23:34 Home Medications: Home Medications Nystatin TOP POWDER* 1 applic TOPICAL BID 09/14/17 [History Confirmed 09/14/17] PMH/Surg Hx/FS Hx/Imm Hx Endocrine/Hematology History: Reports: Hx Anticoagulant Therapy, Hx Blood Transfusions, Hx Diabetes, Hx Unexplained Bleeding - Admitted with rectal bleeding Denies: Hx Blood Disorders, Hx Bone Marrow Disease, Hx Systemic Lupus Erythematosus, Hx Sickle Cell Disease, Hx Thyroid Disease, Hx Anemia, Other Endocrine/Hematological Disorders Cardiovascular History: Reports: Hx Auto Implanted Cardiovert Defib, Hx Cardiac Arrest, Hx Congestive Heart Failure, Hx Coronary Artery Disease, Hx Hypercholesterolemia, Hx Hypertension, Hx Pacemaker/ICD, Hx Peripheral Vascular Disease, Other Cardiovascular Problems/Disorders - open heart surgery Denies: Hx Aneurysm, Hx Angina, Hx Angioplasty, Hx Cardiomegaly, Hx Congenital Heart Disease, Hx Deep Vein Thrombosis, Hx Embolism, Hx Hypotension, Hx Myocardial Infarction, Hx Rheumatic Fever, Hx Syncope, Hx Valvular Heart Disease Respiratory History: Denies: Hx Asthma, Hx Chronic Obstructive Pulmonary Disease (COPD), Hx Pneumonia, Hx Seasonal Allergies GI History: Denies: Hx Cirrhosis, Hx Crohn's Disease, Hx Diverticulosis, Hx Gall Bladder Disease, Hx Gastroesophageal Reflux Disease, Hx Gastrointestinal Bleed, Hx Hiatal Hernia, Hx Irritable Bowel, Hx Jaundice, Hx Obstructive Bowel, Hx Ileostomy, Hx Pyloric Stenosis, Hx Ulcer, Other GI Disorders History: Reports: Hx Kidney Stones - pt states that he had 5 stones in bladder, Other Problems/Disorders - urinary retention Denies: Hx Acute Renal Failure, Hx Benign Prostatic Hyperplasia, Hx Chronic Renal Failure, Hx Dialysis, Hx Kidney Infection, Hx Renal Disease Musculoskeletal History: Reports: Hx Arthritis - BACK, Hx Back Problems - L4-L5 Laminectomy, Other Musculoskeletal History - Extensive Back Sx/Pain issues Denies: Hx Bursitis, Hx Congenital Bone Abnormalities, Hx Fibromyalgia, Hx Gout, Hx Orthopedic Injury, Hx Osteoporosis, Hx Scoliosis, Hx Tendonitis Sensory History: Reports: Hx Cataracts, Hx Contacts or Glasses, Hx Vision Problem, Hx Hearing Problem - slightly [place] Denies: Hx Eye Injury, Hx Eye Prosthesis, Hx Glaucoma, Hx Legally Blind, Hx Macular Degeneration, Hx Deafness, Hx Hearing Aid, Other Sensory Impairments Opthamlomology History: Reports: Hx Cataracts, Hx Contacts or Glasses, Hx Vision Problem Denies: Hx Eye Injury, Hx Eye Prosthesis, Hx Glaucoma, Hx Legally Blind, Hx Macular Degeneration, Other Sensory Impairments Neurological History: Denies: Hx Dementia, Hx Developmental Delay, Hx Headaches, Hx Migraine, Hx Nerve Disease, Hx Seizures, Hx Spinal Cord Injury, Hx Transient Ischemic Attacks (TIA), Other Neuro Impairments/Disorders Psychiatric History: Reports: Hx Anxiety Denies: Hx Depression - Cancer History Hx Chemotherapy: No Hx Radiation Therapy: No Hx Palliative Cancer Treatment: No - Surgical History Surgery Procedure, Year, and Place: C4-C7 [id number]. 2008- [facility]- LOWER L4/5. 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 VRSA, History Other Infectious Disease, Traveled Outside the [place] in Last 30 Days - Family History Known Family History: Positive: Cardiac Disease - father, Diabetes - mother - Social History Alcohol Use: None Hx Substance Use: No Substance Use Type: Reports: None Hx Tobacco Use: Yes Smoking Status (MU): Former Smoker Type: Cigarettes Length of Time of Smoking/Using Tobacco: 20 years Have You Smoked in the Last Year: No Review of Systems Negative: Fever, Chills Negative: Chest Pain Positive: Shortness Of Breath Gastrointestinal: Other - abdominal distention All Other Systems Reviewed And Are Negative: Yes Physical Exam - Summary Physical Exam Summary: General: well-appearing, no pain distress Skin: warm, color reflects adequate perfusion, dry Head: normal Eyes: EOMI, ANUEL ENT: hard of hearing, otherwise normal Neck: supple, nontender Respiratory: CTA, breath sounds present only on the right, breath sounds not heard on the left Cardiovascular: RRR Abdomen nontender, abdominal distention Bowel: hypoactive sounds Musculoskeletal: strength/ROM intact, bilateral BKA Neurological: normal, sensory/motor intact, A&O x3 Psychological: affect/mood appropriate Triage Information Reviewed: Yes Vital Signs On Initial Exam: Initial Vitals Pulse Pulse Ox 65 93 09/14/17 09:46 09/14/17 09:46 Vital Signs Reviewed: Yes Diagnostics - Vital Signs Vital Signs Temp Pulse Resp BP Pulse Ox 09/14/17 10:00 60 16 99 09/14/17 09:53 97 F 60 15 150/84 98 09/14/17 09:48 62 14 150/84 96 09/14/17 09:46 65 93 - Laboratory Lab Results: Lab Results 09/14/17 09/14/17 09/14/17 Range/Units 10:44 10:44 10:44 WBC 9.6 (3.5-10.8) 10^3/ul RBC 4.16 (4.0-5.4) 10^6/ul Hgb 11.3 L (14.0-18.0) g/dl Hct 33 L (42-52) % MCV 79 L (80-94) fL MCH 27 (27-31) pg MCHC 34 (31-36) g/dl RDW 18 H (10.5-15) % Plt Count 257 (150-450) 10^3/ul MPV 6.6 L (7.4-10.4) um3 Neut % (Auto) 90.1 H (38-83) % Lymph % (Auto) 6.7 L (25-47) % [place] % (Auto) 2.6 (0-7) % Eos % (Auto) 0.4 (0-6) % Baso % (Auto) 0.2 (0-2) % Absolute Neuts (auto) 8.7 H (1.5-7.7) 10^3/ul Absolute Lymphs (auto) 0.6 L (1.0-4.8) 10^3/ul Absolute Monos (auto) 0.3 (0-0.8) 10^3/ul Absolute Eos (auto) 0 (0-0.6) 10^3/ul Absolute Basos (auto) 0 (0-0.2) 10^3/ul Absolute Nucleated RBC 0 10^3/ul Nucleated RBC % 0 INR (Anticoag Therapy) 0.93 (0.77-1.02) APTT 38.3 H (26.0-36.3) seconds D-Dimer, Quantitative 1027 H (Less Than 230) ng/mL Sodium 118 L* (139-145) mmol/L Potassium 5.9 H (3.5-5.0) mmol/L Chloride 83 L (101-111) mmol/L Carbon Dioxide 28 (22-32) mmol/L Anion Gap 7 (2-11) mmol/L BUN 16 (6-24) mg/dL Creatinine 0.64 L (0.67-1.17) mg/dL Est GFR ( Amer) 157.2 (>60) Est GFR (Non-Af Amer) 122.2 (>60) BUN/Creatinine Ratio 25.0 H (8-20) Glucose 150 H (70-100) mg/dL Lactic Acid (0.5-2.0) mmol/L Calcium 9.7 (8.6-10.3) mg/dL Magnesium 1.7 L (1.9-2.7) mg/dL Total Bilirubin 0.30 (0.2-1.0) mg/dL AST 13 (13-39) U/L ALT 12 (7-52) U/L Alkaline Phosphatase 76 (34-104) U/L Total Creatine Kinase 29 (10-223) U/L CK-MB (CK-2) 7.5 H (0.6-6.3) ng/mL Troponin I 0.01 (<0.04) ng/mL C-Reactive Protein 15.97 H (< 5.00) mg/L B-Natriuretic Peptide ( - 100) pg/mL Total Protein 7.2 (6.4-8.9) g/dL Albumin 4.0 (3.2-5.2) g/dL Globulin 3.2 (2-4) g/dL Albumin/Globulin Ratio 1.3 (1-3) Lipase 65 (11.0-82.0) U/L TSH 2.49 (0.34-5.60) mcIU/mL 09/14/17 09/14/17 Range/Units 10:44 10:44 WBC (3.5-10.8) 10^3/ul RBC (4.0-5.4) 10^6/ul Hgb (14.0-18.0) g/dl Hct (42-52) % MCV (80-94) fL MCH (27-31) pg MCHC (31-36) g/dl RDW (10.5-15) % Plt Count (150-450) 10^3/ul MPV (7.4-10.4) um3 Neut % (Auto) (38-83) % Lymph % (Auto) (25-47) % [place] % (Auto) (0-7) % Eos % (Auto) (0-6) % Baso % (Auto) (0-2) % Absolute Neuts (auto) (1.5-7.7) 10^3/ul Absolute Lymphs (auto) (1.0-4.8) 10^3/ul Absolute Monos (auto) (0-0.8) 10^3/ul Absolute Eos (auto) (0-0.6) 10^3/ul Absolute Basos (auto) (0-0.2) 10^3/ul Absolute Nucleated RBC 10^3/ul Nucleated RBC % INR (Anticoag Therapy) (0.77-1.02) APTT (26.0-36.3) seconds D-Dimer, Quantitative (Less Than 230) ng/mL Sodium (139-145) mmol/L Potassium (3.5-5.0) mmol/L Chloride (101-111) mmol/L Carbon Dioxide (22-32) mmol/L Anion Gap (2-11) mmol/L BUN (6-24) mg/dL Creatinine (0.67-1.17) mg/dL Est GFR ( Amer) (>60) Est GFR (Non-Af Amer) (>60) BUN/Creatinine Ratio (8-20) Glucose (70-100) mg/dL Lactic Acid 1.0 (0.5-2.0) mmol/L Calcium (8.6-10.3) mg/dL Magnesium (1.9-2.7) mg/dL Total Bilirubin (0.2-1.0) mg/dL AST (13-39) U/L ALT (7-52) U/L Alkaline Phosphatase (34-104) U/L Total Creatine Kinase (10-223) U/L CK-MB (CK-2) (0.6-6.3) ng/mL Troponin I (<0.04) ng/mL C-Reactive Protein (< 5.00) mg/L B-Natriuretic Peptide 523 H ( - 100) pg/mL Total Protein (6.4-8.9) g/dL Albumin (3.2-5.2) g/dL Globulin (2-4) g/dL Albumin/Globulin Ratio (1-3) Lipase (11.0-82.0) U/L TSH (0.34-5.60) mcIU/mL Result Diagrams: 09/14/17 10:44 09/14/17 10:44 Lab Statement: Any lab studies that have been ordered have been reviewed, and results considered in the medical decision making process. - Radiology CXR Radiology Interpretation Completed By: Radiologist - 1. COMPLETE OPACIFICATION OF THE LEFT HEMITHORAX SUSPICIOUS FOR A LARGE PLEURAL EFFUSION. 2. FINDINGS SUGGESTIVE OF CONGESTIVE HEART FAILURE. ED Physician has reviewed this report. - CT A/P CT CT Interpretation Completed By: Radiologist - 1. Severe cardiomegaly. Probable cardiogenic pleural effusions with proportional atelectasis. 2. Moderately distended colon with non formed stool with air-fluid levels and long segment gas distention of the transverse colon. Only mild rectal distention with stool. No colonic bowel wall thickening, pneumatosis, or perienteric inflammatory change evident. Negative for colonic obstruction or colonic volvulus. 3. Negative for ascites or free air. 4. Negative for obstructive uropathy. 5. Catheterized bladder remains partially distended and demonstrates a few sharply demarcated hyperdense foci assuming the shape of the catheter balloon most suspicious for hematoma possibly with secondary calcification. The magnitude of this finding is increased over the tip July 27, 2017 exam. 6. Diffuse heterogeneous density of the bones with permeative pattern of lucencies which may reflect aggressive osteoporosis or infiltrative process such as multiple myeloma or other lytic metastasis. Fracture at the RIGHT superior pubic ramus with healing response without significant change. No new fractures evident. ED Physician has reivewed this report. - EKG 1044 Cardiac Rate: NL EKG Rhythm: Sinus Rhythm - 60BPM EKG Interpretation: paced at 60 BPM Course/Dx - Course Course Of Treatment: ADMIT HOSPITALIST. CRITICAL CARE TIME LESS THAN 30 MINUTES - Diagnoses Provider Diagnoses: Pleural effusion, Dyspnea, Hyponatremia - Physician Notifications Discussed Care of Patient With: Rajendra Delgado MD - hospitalist Time Discussed With Above Provider: 11:35 Instructed by Provider To: Admit As Inpatient Discharge - Sign-Out/Discharge Documenting (check all that apply): Discharge/Admit/Transfer - Discharge Plan Condition: Guarded Disposition: ADMITTED TO [facility] Referrals: Harris Steinberg MD [Medical Doctor] - - Billing Disposition and Condition Condition: GUARDED Disposition: H[facility] [place] The documentation as recorded by the Jessica chavez Julia accurately reflects the service I personally performed and the decisions made by me, Yohannes Colbert MD.
[2017-09-14] MEDS ORDERED: Sodium Polystyrene ORAL.SOL* 15 GM/60 ML BTL PO ONE (13:22)
[2017-09-14] MEDS ORDERED: Magnesium Sulfate 2 GM IV* 2 GM/50 ML BAG IVPB ONE (13:26)
--- NOTE | 2017-09-14 13:58 | RAD ---
Indication: Altered mental status. LEFT leg weakness. Comparison: September 28, 2007 Technique: Noncontrast CT vertex of skull through foramen magnum. Report: Quintero matter white matter obscuration involving the RIGHT inferior parietal lobule and cephalad aspect of the temporal lobe without compelling mass effect. No additional regions of quintero matter white matter obscuration evident. Decreased density in the periventricular and subcortical white matter while non-specific is most likely due to chronic microangiopathy. Negative for intra or extra-axial hemorrhage. Mild diffuse prominence of the cerebral sulci. Unremarkable ventricles and basal cisterns. Unremarkable orbital contents. No suspicious calvarial or skull base lesion evident. Minimal retained secretions at the RIGHT ethmoid sinus without change. LEFT mastoid effusion is chronic. Unremarkable scalp. IMPRESSION: 1. Subacute versus chronic RIGHT MCA distribution ischemic infarct new compared with the 2008 exam. Negative for mass effect. 2. Mild involutional change and stigmata of chronic small vessel ischemic disease. Results of Dr. Colbert 09/14/2017 1:54 PM EDT
[2017-09-14] MEDS ORDERED: Acetaminophen TAB* 325 MG PO SCH (14:00)
[2017-09-14 14:45] LABS: Urine Appearance Cloudy; Urine Blood 1+ (Negative); Urine Color Yellow; Urine Ketones Negative (Negative); Urine Protein 2+(100 mg/dL) (Negative); Urine Specific Gravity 1.017 (1.010-1.030); Urine Urobilinogen Negative (Negative)
--- NOTE | 2017-09-14 14:54 | RAD ---
HISTORY: Pleural effusion, status post thoracentesis COMPARISONS: September 14, 2017 at 9:29 AM VIEWS: 1: frontal portable view of the chest at 1:30 PM. The patient is obliqued to the left FINDINGS: LINES AND TUBES: A left-sided AICD pacemaker is noted. CARDIOMEDIASTINAL SILHOUETTE: The cardiac silhouette is enlarged. The cardiomediastinal silhouette is otherwise normal for portable technique. PLEURA: There is a small left pleural effusion, decreased from the previous examination. There is no appreciable pneumothorax. LUNG PARENCHYMA: There is a diffuse reticular pattern with indistinct pulmonary vessels. ABDOMEN: The upper abdomen is clear. There is no subphrenic gas. BONES AND SOFT TISSUES: The patient is status post median sternotomy. IMPRESSION: 1. SMALL LEFT PLEURAL EFFUSION, DECREASED FROM THE PREVIOUS EXAMINATION, WITHOUT APPRECIABLE PNEUMOTHORAX. 2. CARDIOMEGALY. 3. PULMONARY INTERSTITIAL EDEMA
[2017-09-14 15:24] LABS: Uric Acid 3.8 mg/dL (4.4-7.6)
[2017-09-14] MEDS: Gabapentin CAP(*) 300 MG PO SCH ×2 (15:49→21:08)
[2017-09-14] MEDS: Aspirin EC TAB* 81 MG TAB.EC PO SCH (15:49)
--- NOTE | 2017-09-14 16:26 | HP ---
HISTORY AND PHYSICAL: DATE OF ADMISSION: 09/14/17 ADMITTING PROVIDER: Steven Delgado MD PRIMARY CARE PHYSICIAN: [facility]. CHIEF COMPLAINT: Sent over by nursing staff for hypoxia, shortness of breath, weight gain. HISTORY OF PRESENT ILLNESS: Raffaele Adams is a 72-year-old male with complex past medical history with severe systolic congestive heart failure with last EF 25% to 30%; [id number] diabetes mellitus; acute osteomyelitis of the right ankle, status post right BKA; atrial fibrillation, not on anticoagulation , status post ablation; morbid obesity; hypertension; CAD, status post CABG; recent hyponatremia and recent admission 09/04/17 to 09/07/17 for acute congestive heart failure with very large left-sided pleural effusion, which was drained 1.[address] Petit on 09/05/17. His recorded weight on discharge there was 239. He was discharged on Lasix 40 mg daily. The patient is a very poor historian. Per nursing records, his weight may have gained more than 3 pounds, but they do not give an actual number and he was 90% on room air. He was sent to [facility] Emergency Room and found to have again nearly complete opacification of the left lung with large pleural effusion. Hospitalist service was consulted for admission and General Surgery was consulted, Dr. Ken , who just performed thoracentesis on the left side draining 2 L, which was slightly pink. The patient denies any shortness of breath, chest pain, abdominal pain, leg swelling. He seems very hard of hearing with some perhaps altered mental status. A CT of his head was ordered by this provider and is pending. His BNP was elevated at 523. His sodium was 118, on discharge it had been 122. He has a chronic Lala catheter. He also had a CT abdomen and pelvis given the mildly distended abdomen, although it was not painful from my exam. He is being admitted for acute CHF exacerbation with large pleural effusions. PAST MEDICAL HISTORY: Chronic systolic and diastolic congestive heart failure with ejection fraction 25% to 30%; [id number] diabetes mellitus type 2; osteomyelitis of the right ankle, status post right [id number]-[id number] amputation ; atrial fibrillation, not on anticoagulation due to recurrent hematuria, status post ablation; vitamin D deficiency; suprapubic indwelling Lala catheter ; ventricular tachycardia, status post AICD; coronary artery disease, status post CABG; morbid obesity; hypertension; spinal stenosis of the cervical region , status post cervical decompression; chronic low back pain, on chronic narcotics; history of C. diff colitis; history of small bowel obstruction. MEDICATIONS: Include: 1. Oxycodone 5 mg p.o. q.4 hours p.r.n. 2. Metformin 1000 mg p.o. b.i.d. 3. Senokot 2 tabs p.o. daily. 4. MiraLAX 17 g p.o. b.i.d. 5. Prilosec 40 mg p.o. daily. 6. Nystatin 1 application topical b.i.d. 7. Morphine sulfate 15 mg p.o. daily. 8. Lisinopril 5 mg p.o. daily. 9. Gabapentin 300 mg p.o. t.i.d. 10. Lasix 40 mg p.o. daily. 11. Dulcolax 10 mg p.o. daily p.r.n. 12. Aspirin 81 mg daily. 13. Amiodarone 200 mg daily. 14. Tylenol 1000 mg p.o. q.8 hours. ALLERGIES: To PENICILLIN gives hives and ERYTHROMYCIN gives GI upset. FAMILY HISTORY: Per EMR, father had heart disease, mother had peptic ulcer disease. SOCIAL HISTORY: The patient is a long-term resident of [facility], [place]. Healthcare proxy is his , Yelitza Adams. He is a full code. He brought his MOLST form. He smoked cigars 3 years ago. No alcohol use. REVIEW OF SYSTEMS: Limited at this time given delay in speech, some altered mental status. Denies any abdominal pain, chest pain, shortness of breath, chest pressure, headache. PHYSICAL EXAMINATION GENERAL: Chronically ill-appearing gentleman, status post thoracentesis in the ED, lying on his side, either very hard of hearing or some altered mental status. VITAL SIGNS: Temperature 97; heart rate 60; respiratory rate 16; satting 99% on 6 L after thoracentesis, at detention he was 90% on room air; blood pressure is 150/84. HEENT: Normocephalic, atraumatic. Pupils are equal, round, and reactive to light. Extraocular motions intact. No scleral icterus. NECK: Supple. No cervical lymphadenopathy. LUNGS: With diminished breath sounds on the left, clear to the right. No wheezing or rhonchi. CARDIOVASCULAR: Regular rate and rhythm. No murmurs, rubs, or gallops. ABDOMEN: Soft, but very distended, morbidly obese, nontender. EXTREMITIES: Status post right BKA. 1 to 2+ pitting edema bilaterally with anasarca in the abdominal wall and flanks. NEURO: Tube Cutter strength 5/5. Seemingly very hard of hearing. Seems to be following commands, can lift his right leg. Seems to be able to flex his left calf muscles, but may have either degree of footdrop or weakness on the left side. Sensation is intact. LABORATORY DATA: White count 9.6, hemoglobin 11.3, hematocrit 33, MCV 79, platelets 257. Sodium 118, potassium 5.9, chloride 83, carbon dioxide 28, creatinine 0.64, glucose 150, lactic acid 1.0, magnesium 1.7. Troponin 0.01. CRP 15. BNP 523. Albumin 4.0, lipase 65. TSH 2.49. IMAGING: Chest x-ray with complete opacification of the left hemithorax suspicious for large pleural effusion, findings suggestive of congestive heart failure. CT abdomen and pelvis with and without contrast: 1. Severe cardiomegaly. 2. Moderately distended colon with non-formed stool, air fluid levels and long segment gas distention of the transverse colon, only mild rectal distention with stool and no colonic bowel wall thickening, pneumatosis or perienteric inflammatory changes evident. Negative for colonic obstruction or colonic volvulus. 3. Negative for ascites or free air. 4. Negative for obstructive uropathy. 5. Catheterized bladder remains partially distended and demonstrates a few sharply demarcated hyperdense foci assuming the shape of the catheter balloon mostly suspicious for hematoma possibly with secondary calcification. 6. Diffusely heterogeneous density of the bone with primitive pattern of lucencies, which may reflect aggressive osteoporosis or infiltrative process such as multiple myeloma or other lytic metastases, fracture of the right superior pubic ramus with healing response without significant change, no new fractures. CT of the head pending. EKG with paced asynchronous sinus rhythm, nonspecific intraventricular conduction delay, no ST elevations or depressions, T-wave inversions in V1 through V2, QTc of 539, RI 244, failure to sense and/or capture. ASSESSMENT AND PLAN: Raffaele Adams is a 72-year-old male with severe congestive heart failure with recent admission for same with large pleural effusion, status post 1.7 L then and [address] Ken. His BNP is elevated at 523. I am giving him Lasix 60 mg IV b.i.d. up from home dose 40 mg daily. Consideration for metolazone or Lasix drip. He has anasarca and he is massively fluid overloaded per exam. Adding on total protein and LDH for serum and fluid studies sent for cytology. Likely congestive heart failure related. Dr. Ken discussed possibly doing a PleurX catheter, but did not feel the patient will be a good candidate for such at this time. The patient has hyperkalemia to 5.9. I am going to give him Kayexalate, give him magnesium for his 1.7, try to keep above 2. I do not see a uric acid ordered, we will add that on workup of his hyponatremia, which is likely related to congestive heart failure uncontrolled and repeat chest x-ray given status post thoracentesis to make sure there is no pneumothorax. We will continue his lisinopril 5 mg daily, aspirin 81 mg daily, amiodarone 200 mg daily for his ventricular tachycardia. The patient has these lucencies in the bone on CT abdomen and pelvis. This provider ordered beta-2 microglobulin back on 04/14/17 and it was elevated at 3.46. He had a protein electrophoresis back in May 2016 with no apparent monoclonal protein at that time. He has microcytic anemia here. We will try to get through the past medical records to see if there is any further indication for hematological malignancy workup, most specifically multiple myeloma. Consideration to repeat serum and urine protein electrophoresis. He is a full code. Medical surrogate is his , Yelitza Adams. He can eat a heart-healthy carbohydrate consistent diet. He is being admitted to inpatient status, likely 3- to 4-day admission. [id number]/[facility] #: [id number] TAYLOR
[2017-09-14] MEDS: Acetic Acid 0.25%* 250 ML BTL IRRIGATION SCH (18:10)
[2017-09-14] MEDS: Polyethylene Glycol 3350* 17 GM PACKET PO SCH (21:08)
[2017-09-14] MEDS: Acetaminophen TAB* 325 MG PO SCH (21:17)
[2017-09-14] MEDS: Nystatin TOP POWDER* 15 GM BTL TOPICAL SCH (21:19)
[2017-09-15] MEDS: Acetic Acid 0.25%* 250 ML BTL IRRIGATION SCH ×3 (00:14→17:50)
[2017-09-15 01:07] LABS: EGFR Non-African American 91.8 (>60)
[2017-09-15] MEDS: Acetaminophen TAB* 325 MG PO SCH ×3 (05:38→22:17)
[2017-09-15] MEDS: Furosemide IV* 10 MG/ML 10 ML VIAL (100 MG) IV SCH ×2 (05:38→15:40)
--- NOTE | 2017-09-15 07:17 | OP ---
CC: [facility] [place] * DATE OF OPERATION: 09/14/17 - ROOM #435 DATE OF : 41 SURGEON: Henri Ken MD. LICENSED PHARMACIST: None. ANESTHESIA: Local. PRE-OP DIAGNOSIS: Left pleural effusion. POST-OP DIAGNOSIS: Left pleural effusion. OPERATIVE PROCEDURE: Left thoracentesis. DRAINS: Two liters of fluid removed. SPECIMENS: Specimen sent for cytology. INDICATIONS: I was contacted by the hospitalist service, who is admitting Mr. Adams, a 72-year-old gentleman with cardiovascular disease, status post CABG, who has a reaccumulation of a left-sided pleural effusion. Based on x-ray today , the patient presents with shortness of breath from the assisted. The patient recently had 1700 mL of straw colored fluid removed through the interventional radiology department off the left chest just under 2 weeks ago. On x-ray today, it appears that this has reaccumulated. I did entertain the thought of a PleurX catheter, but after evaluating the patient, knowing his assisted status, I feel it better to treat this expectantly with another thoracentesis at this time. I outlined the details of left thoracentesis to the patient as best as he can understand and a consent was signed by the patient. Nursing staff was available. DESCRIPTION OF PROCEDURE: The patient was placed in position. The left back was prepped and draped sterilely and a time-out was performed. An injection of lidocaine along the proposed site of the incision was carried out. This incision was made and an 8-[place]gr[place] PleurX catheter was inserted into the left chest with ease. This was advanced and blood-tinged thin fluid was encountered. Approximately 2 L was taken off. This did lead to some coughing by the patient, but this was seemingly tolerable and he maintained reasonable saturations in the low 90s. There was still more fluid to take off, but at the 2 L yaneth I decided to remove the catheter. This was done and a dressing was applied. The patient tolerated the procedure well and was set back down into the supine position. The patient will be admitted to the hospitalist service. Cytology will be followed up as ordered by the hospitalist service. Recontact Surgery if needed. [id number]/[facility] #: [id number] [facility]
[2017-09-15] MEDS ORDERED: Sodium Polystyrene ORAL.SOL* 15 GM/60 ML BTL PO ONE (08:33)
[2017-09-15] MEDS ORDERED: Lisinopril TAB* 5 MG PO SCH (09:00)
--- NOTE | 2017-09-15 09:12 | PN ---
Subjective Date of Service: 09/15/17 Interval History: There was concern the patient was drowsy last night and this morning, awaking for questions and answering correctly but falling asleep during assessments. I evaluated the patient at his bedside. I know this patient from prior visits. He is found to be alert and oriented x3 and at his baseline. Per nurse he now appears to be much more awake. The patient offers no complaints this time. He denies SOB or cough. No CP. Objective Active Medications: Acetaminophen (Tylenol Tab*) 975 mg PO Q8HR@0600,1400,2200 REPLACED BY [facility] Last Admin: 09/15/17 05:38 Dose: 975 mg Acetic Acid (Acetic Acid 0.25%*) 50 ml IRRIGATION Q8H REPLACED BY [facility] Last Admin: 09/15/17 00:14 Dose: 50 ml Amiodarone HCl (Cordarone Tab*) 200 mg PO DAILY REPLACED BY [facility] Aspirin (Aspirin Ec Tab*) 81 mg PO DAILY REPLACED BY [facility] Last Admin: 09/14/17 15:49 Dose: 81 mg Bisacodyl (Dulcolax Supp*) 10 mg [place] DAILY PRN PRN Reason: CONSTIPATION Furosemide (Lasix Iv*) 60 mg IV Q8H REPLACED BY [facility] Last Admin: 09/15/17 05:38 Dose: 60 mg Gabapentin (Neurontin Cap(*)) 300 mg PO TID REPLACED BY [facility] Last Admin: 09/14/17 21:08 Dose: 300 mg Lisinopril (Prinivil Tab*) 5 mg PO DAILY REPLACED BY [facility] Morphine Sulfate (Ms Contin(*)) 15 mg PO DAILY REPLACED BY [facility] Nystatin (Nystatin Top Powder*) 1 applic TOPICAL BID REPLACED BY [facility] Last Admin: 09/14/17 21:19 Dose: 1 applic Omeprazole (Prilosec Cap*) 40 mg PO DAILY REPLACED BY [facility] Oxycodone HCl (Roxycodone Tab*) 5 mg PO Q4H PRN PRN Reason: PAIN Polyethylene Glycol/Electrolytes (Miralax*) 17 gm PO BID REPLACED BY [facility] Last Admin: 09/14/17 21:08 Dose: 17 gm Senna (Senokot Tab*) 2 tab PO DAILY REPLACED BY [facility] Vital Signs - 8 hr 09/15/17 09/15/17 09/15/17 01:25 04:29 04:34 Temperature 97.4 F Pulse Rate 62 60 Respiratory 16 Rate Blood Pressure 127/102 92/45 (mmHg) O2 Sat by Pulse 96 98 Oximetry 09/15/17 09/15/17 07:42 08:14 Temperature 97.6 F Pulse Rate 60 Respiratory 18 Rate Blood Pressure 84/47 108/56 (mmHg) O2 Sat by Pulse 99 Oximetry Oxygen Devices in Use Now: Nasal Cannula Appearance: obese 72 yo male A+O x3 in NAD Eyes: No Scleral Icterus, PERRLA Ears/Nose/Mouth/Throat: NL Teeth, Lips, Gums, Mucous Membranes Moist Neck: NL Appearance and Movements; NL JVP Respiratory: Symmetrical Chest Expansion and Respiratory Effort, - - course lung sounds b/l Abdominal: NL Sounds; No Tenderness; No Distention, - - obese, suprapubic catheter draining clear yellow urine; insertion site appears CD+I, no signs of infection. Extremities: - - LLE contracted, can not extend leg completely (baseline), S/P R BKA. LUE is weak and unable to move on his own (baseline), RUE has full ROM. Skin: - - dry scaly patches on face/scalp Neurological: Alert and Oriented x 3, - - left sided rudy-paresis; Lines/Tubes/Other Access: Clean, Dry and Intact Peripheral IV Nutrition: Taking PO's Result Diagrams: 09/15/17 10:50 09/15/17 15:47 Additional Lab and Data: Lab Results 09/14/17 09/14/17 09/14/17 Range/Units 10:44 10:44 10:44 WBC 9.6 (3.5-10.8) 10^3/ul RBC 4.16 (4.0-5.4) 10^6/ul Hgb 11.3 L (14.0-18.0) g/dl Hct 33 L (42-52) % MCV 79 L (80-94) fL MCH 27 (27-31) pg MCHC 34 (31-36) g/dl RDW 18 H (10.5-15) % Plt Count 257 (150-450) 10^3/ul MPV 6.6 L (7.4-10.4) um3 Neut % (Auto) 90.1 H (38-83) % Lymph % (Auto) 6.7 L (25-47) % [place] % (Auto) 2.6 (0-7) % Eos % (Auto) 0.4 (0-6) % Baso % (Auto) 0.2 (0-2) % Absolute Neuts (auto) 8.7 H (1.5-7.7) 10^3/ul Absolute Lymphs (auto) 0.6 L (1.0-4.8) 10^3/ul Absolute Monos (auto) 0.3 (0-0.8) 10^3/ul Absolute Eos (auto) 0 (0-0.6) 10^3/ul Absolute Basos (auto) 0 (0-0.2) 10^3/ul Absolute Nucleated RBC 0 10^3/ul Nucleated RBC % 0 INR (Anticoag Therapy) 0.93 (0.77-1.02) APTT 38.3 H (26.0-36.3) seconds D-Dimer, Quantitative 1027 H (Less Than 230) ng/mL Sodium 118 L* (139-145) mmol/L Potassium 5.9 H (3.5-5.0) mmol/L Chloride 83 L (101-111) mmol/L Carbon Dioxide 28 (22-32) mmol/L Anion Gap 7 (2-11) mmol/L BUN 16 (6-24) mg/dL Creatinine 0.64 L (0.67-1.17) mg/dL Est GFR ( Amer) 157.2 (>60) Est GFR (Non-Af Amer) 122.2 (>60) BUN/Creatinine Ratio 25.0 H (8-20) Glucose 150 H (70-100) mg/dL Lactic Acid (0.5-2.0) mmol/L Calcium 9.7 (8.6-10.3) mg/dL Magnesium 1.7 L (1.9-2.7) mg/dL Total Bilirubin 0.30 (0.2-1.0) mg/dL AST 13 (13-39) U/L ALT 12 (7-52) U/L Alkaline Phosphatase 76 (34-104) U/L Total Creatine Kinase 29 (10-223) U/L CK-MB (CK-2) 7.5 H (0.6-6.3) ng/mL Troponin I 0.01 (<0.04) ng/mL C-Reactive Protein 15.97 H (< 5.00) mg/L B-Natriuretic Peptide ( - 100) pg/mL Total Protein 7.2 (6.4-8.9) g/dL Albumin 4.0 (3.2-5.2) g/dL Globulin 3.2 (2-4) g/dL Albumin/Globulin Ratio 1.3 (1-3) Lipase 65 (11.0-82.0) U/L TSH 2.49 (0.34-5.60) mcIU/mL 09/14/17 09/14/17 Range/Units 10:44 10:44 WBC (3.5-10.8) 10^3/ul RBC (4.0-5.4) 10^6/ul Hgb (14.0-18.0) g/dl Hct (42-52) % MCV (80-94) fL MCH (27-31) pg MCHC (31-36) g/dl RDW (10.5-15) % Plt Count (150-450) 10^3/ul MPV (7.4-10.4) um3 Neut % (Auto) (38-83) % Lymph % (Auto) (25-47) % [place] % (Auto) (0-7) % Eos % (Auto) (0-6) % Baso % (Auto) (0-2) % Absolute Neuts (auto) (1.5-7.7) 10^3/ul Absolute Lymphs (auto) (1.0-4.8) 10^3/ul Absolute Monos (auto) (0-0.8) 10^3/ul Absolute Eos (auto) (0-0.6) 10^3/ul Absolute Basos (auto) (0-0.2) 10^3/ul Absolute Nucleated RBC 10^3/ul Nucleated RBC % INR (Anticoag Therapy) (0.77-1.02) APTT (26.0-36.3) seconds D-Dimer, Quantitative (Less Than 230) ng/mL Sodium (139-145) mmol/L Potassium (3.5-5.0) mmol/L Chloride (101-111) mmol/L Carbon Dioxide (22-32) mmol/L Anion Gap (2-11) mmol/L BUN (6-24) mg/dL Creatinine (0.67-1.17) mg/dL Est GFR ( Amer) (>60) Est GFR (Non-Af Amer) (>60) BUN/Creatinine Ratio (8-20) Glucose (70-100) mg/dL Lactic Acid 1.0 (0.5-2.0) mmol/L Calcium (8.6-10.3) mg/dL Magnesium (1.9-2.7) mg/dL Total Bilirubin (0.2-1.0) mg/dL AST (13-39) U/L ALT (7-52) U/L Alkaline Phosphatase (34-104) U/L Total Creatine Kinase (10-223) U/L CK-MB (CK-2) (0.6-6.3) ng/mL Troponin I (<0.04) ng/mL C-Reactive Protein (< 5.00) mg/L B-Natriuretic Peptide 523 H ( - 100) pg/mL Total Protein (6.4-8.9) g/dL Albumin (3.2-5.2) g/dL Globulin (2-4) g/dL Albumin/Globulin Ratio (1-3) Lipase (11.0-82.0) U/L TSH (0.34-5.60) mcIU/mL Assess/Plan/Problems-Billing Assessment: Mr. 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, hx of CVA, chronic back pain on chronic narcotics, with recent hospitalization from 09/05-09/07 with acute systolic CHF with bilateral pleural effusion requiring thorancentesis of the left lung with 1700 ml removed now is sent from [facility] for concern for weight gain, SOB and hypoxia found tohave a recurrence in the left pleural effusion in which he underwent another thorancentesis removing 2L on 09/14 - Patient Problems (1) Pleural effusion Comment: - Recurrent suspect secondary to CHF - now s/p thorancentesis 09/14 (2nd one in 2 weeks) pulling off 2L - awaiting cx and path - cardiology consult pending - at this time the patients creatinine increased on last lab draw, na+ is stable , now low urine output ... I have discontinued the lasix and have asked cards to recommend diuretics once seen. I discussed with Dr. Delgado who also agrees. It is possible the patient may be on the dry side after 2L were pulled from lung and with low u/o, rising creat ... (2) Systolic and diastolic CHF, acute on chronic Comment: - EF 25-30% - acute on chronic with recurrent pleural effusion - Hold lisinopril (per cards recommendation) (3) Hyponatremia Comment: - hx of hyponatremia. Na+ 118. Initially it was suspected secondary to CHF ... no improvement with diuresing since yesterday. urine studies are of no use in the setting of lasix use. continue to monitor q4hr. no neurological deficits. hold diuresing at this point until cardiology sees the patient, no IVFs at this time...continue BMP Q4hrs. Neuro checks. (4) Ischemic cardiomyopathy Comment: - h/o V-tach s/p ICD - Last known EF 25-30% 08/31 compared to 2016 little change noted other than pleural effusion - continue amiodarone (5) Atrial fibrillation Comment: --Continue Amiodarone - not on anticoagulation d/t recurrent hematuria. - ASA 81 mg daily (6) Type 2 diabetes mellitus treated without insulin Comment: - Blood glucose controlled. - Hold metformin, continue lispro SSI coverage with meals. (7) Chronic back pain Comment: - continue home does morphine SR 15 po daily, oxycodone prn (8) DNR (do not resuscitate) Comment: (9) DVT prophylaxis Comment: - Heparin SQ. Status and Disposition: inpatient with recurrent pleural effusion. 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
[2017-09-15] MEDS: Omeprazole CAP* 20 MG PO SCH (10:54)
[2017-09-15] MEDS: Gabapentin CAP(*) 300 MG PO SCH ×3 (10:54→22:17)
[2017-09-15] MEDS: Senna TAB PO SCH (10:55)
[2017-09-15] MEDS: Amiodarone TAB* 200 MG PO SCH (10:55)
[2017-09-15] MEDS: Aspirin EC TAB* 81 MG TAB.EC PO SCH (10:56)
[2017-09-15] MEDS: Polyethylene Glycol 3350* 17 GM PACKET PO SCH ×2 (10:56→22:17)
[2017-09-15] MEDS: Nystatin TOP POWDER* 15 GM BTL TOPICAL SCH ×2 (10:56→22:21)
[2017-09-15] MEDS: Morphine TAB Extended Release (*) 15 MG TAB.ER PO SCH (10:56)
[2017-09-15 11:10] LABS: Hematocrit 29 % (42-52); Hemoglobin 9.7 g/dl (14.0-18.0); Mean Corpuscular HGB Conc 34 g/dl (31-36); Mean Corpuscular Hemoglobin 27 pg (27-31); Mean Corpuscular Volume 79 fL (80-94); Mean Platelet Volume 7.2 um3 (7.4-10.4); Platelet Count 217 10^3/ul (150-450); Red Blood Count 3.64 10^6/ul (4.0-5.4); Red Cell Distribution Width 18 % (10.5-15)
[2017-09-15 11:28] LABS: EGFR Non-African American 58.6 (>60)
[2017-09-15] MEDS ORDERED: Dextrose 50% Syringe 50 ML* 25 GM/50 ML SYRINGE IV PUSH PRN (15:36)
[2017-09-15 16:26] LABS: EGFR Non-African American 51.2 (>60)
[2017-09-15] MEDS: Insulin LISPRO* 1 UNITS UNIT SUBCUT SCH ×2 (17:22→20:06)
[2017-09-15 19:58] LABS: EGFR Non-African American 45.7 (>60)
[2017-09-16] MEDS: Acetic Acid 0.25%* 250 ML BTL IRRIGATION SCH ×3 (00:45→16:25)
[2017-09-16 01:27] LABS: EGFR Non-African American 47.2 (>60)
[2017-09-16 06:12] LABS: ABS Basophils 0 10^3/ul (0-0.2); ABS Eosinophils 0 10^3/ul (0-0.6); ABS Lymphocytes 0.7 10^3/ul (1.0-4.8); ABS Monocytes 0.4 10^3/ul (0-0.8); ABS Neutrophils 6.3 10^3/ul (1.5-7.7); ABS Nucleated RBC 0 10^3/ul; Eosinophil % 0.6 % (0-6); Hematocrit 29 % (42-52); Hemoglobin 9.8 g/dl (14.0-18.0); Lymphocyte % 9.4 % (25-47); Mean Corpuscular HGB Conc 34 g/dl (31-36); Mean Corpuscular Hemoglobin 27 pg (27-31); Mean Corpuscular Volume 79 fL (80-94); Mean Platelet Volume 6.9 um3 (7.4-10.4); Nucleated Red Blood Cells % 0.1; Platelet Count 208 10^3/ul (150-450); Red Blood Count 3.67 10^6/ul (4.0-5.4); Red Cell Distribution Width 18 % (10.5-15); White Blood Count 7.5 10^3/ul (3.5-10.8)
[2017-09-16 06:26] LABS: EGFR Non-African American 45.4 (>60)
[2017-09-16] MEDS: Acetaminophen TAB* 325 MG PO SCH ×3 (06:40→22:43)
[2017-09-16] MEDS: Insulin LISPRO* 1 UNITS UNIT SUBCUT SCH ×4 (08:05→20:50)
--- NOTE | 2017-09-16 08:52 | RAD ---
INDICATION: LEFT lower extremity edema. Elevated d-dimer. COMPARISON: No relevant prior exams available on the [facility] PACS for comparison. TECHNIQUE: Quintero scale, color Doppler, and spectral analysis of the deep veins of the LEFT lower extremity. Vessel compression, phasicity, and augmentation assessed. REPORT: The LEFT common femoral, great saphenous, profunda femoral, femoral, popliteal, peroneal, and posterior tibial veins are patent. Subcutaneous edema noted most prominent at the level of the mid thigh through calf. Patency of the RIGHT common femoral vein documented. IMPRESSION: No evidence for LEFT lower extremity deep venous thrombosis.
[2017-09-16] MEDS: Amiodarone TAB* 200 MG PO SCH (09:15)
[2017-09-16] MEDS: Senna TAB PO SCH (09:15)
[2017-09-16] MEDS: Gabapentin CAP(*) 300 MG PO SCH (09:15)
[2017-09-16] MEDS: Aspirin EC TAB* 81 MG TAB.EC PO SCH (09:15)
[2017-09-16] MEDS: Morphine TAB Extended Release (*) 15 MG TAB.ER PO SCH (09:15)
[2017-09-16] MEDS: Polyethylene Glycol 3350* 17 GM PACKET PO SCH ×2 (09:15→22:02)
[2017-09-16] MEDS: Omeprazole CAP* 20 MG PO SCH (09:15)
[2017-09-16] MEDS: Nystatin TOP POWDER* 15 GM BTL TOPICAL SCH ×2 (09:16→22:55)
[2017-09-16] MEDS ORDERED: Digoxin IV* 0.5 MG/2 ML AMP (0.25 MG/ML) IV SLOW PU ONE (09:21)
--- NOTE | 2017-09-16 09:27 | CONSULT ---
Subjective Date of Service: 09/16/17 Interval History: Admission Date: 09/14/17 Consult Date: 09/17/2017 ADMITTING PROVIDER: Hospitalist service Vending Machine Technician: Dr. Bienvenido Whelan, last seen 03/2015 PRIMARY CARE PHYSICIAN: [facility]. CHIEF COMPLAINT: dyspnea, weight gain, hypoxia Reason for consult: CHF exacerbation with hyponatremia HISTORY OF PRESENT ILLNESS: Raffaele Adams is a 72-year-old man with prior PR/ICM, ICD with LVEF 20-25% admitted last week with CHF exarbation underwent thoracentesis. He was discharged on low dose lasix and was readmitted with another CHF exacerbation and another thoracentesis was drained. His diuretics had been reduced due to hyponatremia. He is also on an AceI. He otherwise has multiple co-morbdities as below. He denies any dyspnea at rest after his thoracentesis. He denies any chest discomfort or ICD discharges. PMhx PR/CAD/CABG/ICM LVEF 20-25% VT storm s/p ablation 02/2015. At that time grafts were reportedly patent and had napaimute 3VD DM R BKA due to osteomyelitis PAFib not on AC, prior GIB, hematuria Chronic tomlinson catheter suprapubic Obesity HTN ALLERGIES: To PENICILLIN gives hives and ERYTHROMYCIN gives GI upset. FAMILY HISTORY: father had heart disease, mother had peptic ulcer disease. SOCIAL HISTORY: The patient is a long-term resident of [facility]. Healthcare proxy is his , Yelitza Adams. He is a full code. He brought his MOLST form. He smoked cigars 3 years ago. No alcohol use. Medications Active Medications: Acetaminophen (Tylenol Tab*) 975 mg PO Q8HR@0600,1400,2200 [facility] Last Admin: 09/16/17 06:40 Dose: Not Given Acetic Acid (Acetic Acid 0.25%*) 50 ml IRRIGATION Q8H [facility] Last Admin: 09/16/17 09:16 Dose: 50 ml Amiodarone HCl (Cordarone Tab*) 200 mg PO DAILY [facility] Last Admin: 09/16/17 09:15 Dose: 200 mg Aspirin (Aspirin Ec Tab*) 81 mg PO DAILY [facility] Last Admin: 09/16/17 09:15 Dose: 81 mg Bisacodyl (Dulcolax Supp*) 10 mg [place] DAILY PRN PRN Reason: CONSTIPATION Dextrose (D50w Syringe 50 Ml*) 12.5 gm IV PUSH .FOR FS < 60 - SS PRN PRN Reason: FS < 60 Digoxin (Digoxin Iv*) 0.5 mg IV SLOW PU ONCE ONE Stop: 09/16/17 09:22 Gabapentin (Neurontin Cap(*)) 300 mg PO TID [facility] Last Admin: 09/16/17 09:15 Dose: 300 mg Insulin Human Lispro (Humalog*) 0 units SUBCUT ACHS [facility] PRN Reason: Protocol Last Admin: 09/16/17 08:05 Dose: Not Given Morphine Sulfate (Ms Contin(*)) 15 mg PO DAILY [facility] Last Admin: 09/16/17 09:15 Dose: 15 mg Nystatin (Nystatin Top Powder*) 1 applic TOPICAL BID [facility] Last Admin: 09/16/17 09:16 Dose: 1 applic Omeprazole (Prilosec Cap*) 40 mg PO DAILY [facility] Last Admin: 09/16/17 09:15 Dose: 40 mg Oxycodone HCl (Roxycodone Tab*) 5 mg PO Q4H PRN PRN Reason: PAIN Polyethylene Glycol/Electrolytes (Miralax*) 17 gm PO BID [facility] Last Admin: 09/16/17 09:15 Dose: 17 gm Senna (Senokot Tab*) 2 tab PO DAILY [facility] Last Admin: 09/16/17 09:15 Dose: 2 tab Torsemide (Demadex*) 100 mg PO DAILY [facility] Home Medications: Aspirin EC TAB* [Ecotrin EC Low Dose 81 MG*] 81 mg PO DAILY 02/28/15 [History Confirmed 09/14/17] Amiodarone TAB* [Cordarone Tab*] 200 mg PO DAILY 05/21/15 [History Confirmed 07/03] Lisinopril TAB* [Prinivil TAB 5 MG*] 5 mg PO DAILY 30 Days tab 06/16/16 [Rx Confirmed 09/14/17] Bisacodyl SUPP* [Dulcolax Supp*] 10 mg PO DAILY PRN 04/12/17 [History Confirmed 09/14/17] Gabapentin CAP(*) [Neurontin 300 CAP(*)] 300 mg PO TID 04/12/17 [History Confirmed 09/14/17] Morphine Sulfate [Morphine Sulfate ER] 15 mg PO DAILY 04/12/17 [History Confirmed 09/14/17] Omeprazole CAP* [Prilosec CAP* 20 MG] 40 mg PO DAILY 04/12/17 [History Confirmed 09/14/17] metFORMIN* [Glucophage 1000 MG TAB *] 1,000 mg PO BID 04/12/17 [History Confirmed 09/14/17] Acetaminophen TAB* [Tylenol TAB*] 1,000 mg PO Q8HR 06/28/17 [History Confirmed 09/14/17] Polyethylene Glycol 3350* [Miralax*] 17 gm PO BID 06/28/17 [History Confirmed ] oxyCODONE TAB* [Roxycodone TAB 5 mg*] 5 mg PO Q4H PRN 06/28/17 [History Confirmed 09/14/17] Senna TAB* [Senokot TAB*] 2 tab PO DAILY 09/05/17 [History Confirmed 09/14/17] Furosemide TAB* [Lasix TAB*] 40 mg PO DAILY #30 tab 09/07/17 [Rx Confirmed 09/14] Nystatin TOP POWDER* 1 applic TOPICAL BID 09/14/17 [History Confirmed 09/14/17] Review of Systems - Measurements Intake and Output: Intake and Output Last 24 Hours 09/14/17 09/15/17 09/16/17 09/17/17 06:59 06:59 06:59 06:59 Intake Total 75 230 Output Total 700 1050 Balance -625 -820 Weight 240 lb 9.6 oz 240 lb 3.2 oz Intake: IV Fluids 20 Magnesium 2g 20 IVPB 55 Magnesium 2g 55 Oral 0 230 Output: [place] 700 1050 Other: # Bowel Movements 0 1 Estimated Stool Amount Large - Review of Systems Constitutional Symptoms: Positive: Weight Gain, Weakness, Fatigue Dermatology: Negative: Rash, Skin Lesions HEENT: Negative: Change in Hearing, Vertigo Eyes: Negative: Change in Vision, Double Vision Thyroid: Positive: Weight Gain Negative: Constipation, Palpitations, Weight Loss Pulmonary: Positive: Respiratory Distress, Shortness of Breath Negative: Sputum, Hemoptysis, Wheezing, COPD Cardiology: Positive: Shortness of Breath, Swelling of Ankles, Edema Negative: Chest Pain, Palpitations, Peripheral Vascular Dis, Faintness, Syncope Gastroenterology: Negative: Abdominal Pain, Nausea, Vomiting, Anorexia, Haematemesis, Melena Genital - Urinary: Negative: Dysuria, Hematuria Musculoskeletal: Negative: Joint Pain, Joint Stiffness Endocrinology: Positive: Obesity, Diabetes Negative: Polydipsia, Polyuria Hematologic/Lymphatic: Positive: Use of Anticoagulant Negative: Use of Antiplatelet Drugs Neurology: Negative: Headaches, Migraines, Change in Vision, Diplopia, Dizziness, Change in Balancing, Change in Coordination, Change in Memory, Hx Seizures Psychiatry: Negative: Sexual Dysfunction, Weight Change Allergic/Immunologic: Negative: Hx HIV, Immunocompromise Review of Systems Statement: All other review of systems negative, unless stated above. Objective Vital Signs: Temp Pulse Resp BP Pulse Ox 97.3 F 59 20 103/42 99 09/16/17 07:33 09/16/17 07:33 09/16/17 09:15 09/16/17 07:33 09/16/17 07:33 Oxygen Devices in Use Now: Nasal Cannula Appearance: obese, chronically ill appearing Neck: Trachea Midline, - - uncertain jvp Respiratory: Symmetrical Chest Expansion and Respiratory Effort, - - decreased bs bases Cardiovascular: - - rrr, sternotomy scar noted, icd site intact Abdominal: - - obese, soft Extremities: - - diffuse edema of thighs and central region Skin: No Rash or Ulcers Neurological: - - awake and alert Laboratory Results: 09/16/17 05:48 09/16/17 05:48 INR (Anticoag Therapy) 0.93 (0.77-1.02) 09/14/17 10:44 APTT 38.3 seconds (26.0-36.3) H 09/14/17 10:44 Total Bilirubin 0.30 mg/dL (0.2-1.0) 09/14/17 10:44 AST 13 U/L (13-39) 09/14/17 10:44 ALT 12 U/L (7-52) 09/14/17 10:44 Alkaline Phosphatase 76 U/L (34-104) 09/14/17 10:44 CK-MB (CK-2) 7.5 ng/mL (0.6-6.3) H 09/14/17 10:44 B-Natriuretic Peptide 523 pg/mL (-100) H 09/14/17 10:44 Total Protein 7.2 g/dL (6.4-8.9) 09/14/17 10:44 Albumin 4.0 g/dL (3.2-5.2) 09/14/17 10:44 Globulin 3.2 g/dL (2-4) 09/14/17 10:44 Albumin/Globulin Ratio 1.3 (1-3) 09/14/17 10:44 TSH 2.49 mcIU/mL (0.34-5.60) 09/14/17 10:44 EKG Data: EKG 09/05/2017: NSR, 1 AVBL, RBBB with old anterior PR Assessment/Plan Patient has worsening renal failure with hyponatremia in the setting of AceI use and volume overload with severe systolic HF LVEF 20-25% ischemic cardiomyopathy and cardiomyopathy medications have had to be downtitrated due to low BP. These are poor prognostic indicators in addition to his overall comorbid medical condition. 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 I would not recommend IV inotropes. Thank you for allowing me to participate in the cardiovascular care of this patient. Please do not hesitate to contact me with questions or concerns.
[2017-09-16] MEDS ORDERED: Torsemide TAB* 100 MG PO SCH (10:00)
[2017-09-16] MEDS: Torsemide TAB* 20 MG PO SCH (10:24)
--- NOTE | 2017-09-16 11:08 | PN ---
Subjective Date of Service: 09/16/17 Interval History: No c/o. Objective Active Medications: Acetaminophen (Tylenol Tab*) 975 mg PO Q8HR@0600,1400,2200 [facility] Last Admin: 09/16/17 06:40 Dose: Not Given Acetic Acid (Acetic Acid 0.25%*) 50 ml IRRIGATION Q8H [facility] Last Admin: 09/16/17 09:16 Dose: 50 ml Amiodarone HCl (Cordarone Tab*) 200 mg PO DAILY [facility] Last Admin: 09/16/17 09:15 Dose: 200 mg Aspirin (Aspirin Ec Tab*) 81 mg PO DAILY [facility] Last Admin: 09/16/17 09:15 Dose: 81 mg Bisacodyl (Dulcolax Supp*) 10 mg AR DAILY PRN PRN Reason: CONSTIPATION Dextrose (D50w Syringe 50 Ml*) 12.5 gm IV PUSH .FOR FS < 60 - SS PRN PRN Reason: FS < 60 Gabapentin (Neurontin Cap(*)) 300 mg PO TID [facility] Last Admin: 09/16/17 09:15 Dose: 300 mg Insulin Human Lispro (Humalog*) 0 units SUBCUT ACHS [facility] PRN Reason: Protocol Last Admin: 09/16/17 08:05 Dose: Not Given Morphine Sulfate (Ms Contin(*)) 15 mg PO DAILY [facility] Last Admin: 09/16/17 09:15 Dose: 15 mg Nystatin (Nystatin Top Powder*) 1 applic TOPICAL BID [facility] Last Admin: 09/16/17 09:16 Dose: 1 applic Omeprazole (Prilosec Cap*) 40 mg PO DAILY [facility] Last Admin: 09/16/17 09:15 Dose: 40 mg Oxycodone HCl (Roxycodone Tab*) 5 mg PO Q4H PRN PRN Reason: PAIN Polyethylene Glycol/Electrolytes (Miralax*) 17 gm PO BID [facility] Last Admin: 09/16/17 09:15 Dose: 17 gm Senna (Senokot Tab*) 2 tab PO DAILY [facility] Last Admin: 09/16/17 09:15 Dose: 2 tab Torsemide (Demadex*) 100 mg PO DAILY [facility] Last Admin: 09/16/17 10:24 Dose: 100 mg Vital Signs - 8 hr 09/16/17 09/16/17 09/16/17 03:56 04:29 04:38 Temperature 97.6 F 97.3 F Pulse Rate 80 59 Respiratory 22 16 16 Rate Blood Pressure 131/114 (mmHg) O2 Sat by Pulse 100 99 Oximetry 09/16/17 09/16/17 09/16/17 07:33 09:15 10:10 Temperature 97.3 F Pulse Rate 59 Respiratory 20 20 Rate Blood Pressure 103/42 100/56 (mmHg) O2 Sat by Pulse 99 Oximetry 09/16/17 10:24 Temperature Pulse Rate 60 Respiratory Rate Blood Pressure (mmHg) O2 Sat by Pulse Oximetry Oxygen Devices in Use Now: Nasal Cannula Appearance: Alert, partly up in bed. Neutral affect. Looks comfortable. Eyes: No Scleral Icterus Neck: NL Appearance and Movements; NL JVP, No Thyroid Enlargement, Masses Respiratory: Symmetrical Chest Expansion and Respiratory Effort, Clear to Auscultation, Clear to Percussion Cardiovascular: NL Sounds; No Murmurs; No JVD, RRR, No Edema Extremities: No Edema, No Clubbing, Cyanosis, - - R BKA Neurological: NL Sensation - Cooperative, passive. Diminished memory. No tremor. Result Diagrams: 09/16/17 05:48 09/17/17 04:47 Additional Lab and Data: Lab Results 09/14/17 09/14/17 09/14/17 Range/Units 10:44 10:44 10:44 WBC 9.6 (3.5-10.8) 10^3/ul RBC 4.16 (4.0-5.4) 10^6/ul Hgb 11.3 L (14.0-18.0) g/dl Hct 33 L (42-52) % MCV 79 L (80-94) fL MCH 27 (27-31) pg MCHC 34 (31-36) g/dl RDW 18 H (10.5-15) % Plt Count 257 (150-450) 10^3/ul MPV 6.6 L (7.4-10.4) um3 Neut % (Auto) 90.1 H (38-83) % Lymph % (Auto) 6.7 L (25-47) % [place] % (Auto) 2.6 (0-7) % Eos % (Auto) 0.4 (0-6) % Baso % (Auto) 0.2 (0-2) % Absolute Neuts (auto) 8.7 H (1.5-7.7) 10^3/ul Absolute Lymphs (auto) 0.6 L (1.0-4.8) 10^3/ul Absolute Monos (auto) 0.3 (0-0.8) 10^3/ul Absolute Eos (auto) 0 (0-0.6) 10^3/ul Absolute Basos (auto) 0 (0-0.2) 10^3/ul Absolute Nucleated RBC 0 10^3/ul Nucleated RBC % 0 INR (Anticoag Therapy) 0.93 (0.77-1.02) APTT 38.3 H (26.0-36.3) seconds D-Dimer, Quantitative 1027 H (Less Than 230) ng/mL Sodium 118 L* (139-145) mmol/L Potassium 5.9 H (3.5-5.0) mmol/L Chloride 83 L (101-111) mmol/L Carbon Dioxide 28 (22-32) mmol/L Anion Gap 7 (2-11) mmol/L BUN 16 (6-24) mg/dL Creatinine 0.64 L (0.67-1.17) mg/dL Est GFR ( Amer) 157.2 (>60) Est GFR (Non-Af Amer) 122.2 (>60) BUN/Creatinine Ratio 25.0 H (8-20) Glucose 150 H (70-100) mg/dL Lactic Acid (0.5-2.0) mmol/L Calcium 9.7 (8.6-10.3) mg/dL Magnesium 1.7 L (1.9-2.7) mg/dL Total Bilirubin 0.30 (0.2-1.0) mg/dL AST 13 (13-39) U/L ALT 12 (7-52) U/L Alkaline Phosphatase 76 (34-104) U/L Total Creatine Kinase 29 (10-223) U/L CK-MB (CK-2) 7.5 H (0.6-6.3) ng/mL Troponin I 0.01 (<0.04) ng/mL C-Reactive Protein 15.97 H (< 5.00) mg/L B-Natriuretic Peptide ( - 100) pg/mL Total Protein 7.2 (6.4-8.9) g/dL Albumin 4.0 (3.2-5.2) g/dL Globulin 3.2 (2-4) g/dL Albumin/Globulin Ratio 1.3 (1-3) Lipase 65 (11.0-82.0) U/L TSH 2.49 (0.34-5.60) mcIU/mL 09/14/17 09/14/17 Range/Units 10:44 10:44 WBC (3.5-10.8) 10^3/ul RBC (4.0-5.4) 10^6/ul Hgb (14.0-18.0) g/dl Hct (42-52) % MCV (80-94) fL MCH (27-31) pg MCHC (31-36) g/dl RDW (10.5-15) % Plt Count (150-450) 10^3/ul MPV (7.4-10.4) um3 Neut % (Auto) (38-83) % Lymph % (Auto) (25-47) % [place] % (Auto) (0-7) % Eos % (Auto) (0-6) % Baso % (Auto) (0-2) % Absolute Neuts (auto) (1.5-7.7) 10^3/ul Absolute Lymphs (auto) (1.0-4.8) 10^3/ul Absolute Monos (auto) (0-0.8) 10^3/ul Absolute Eos (auto) (0-0.6) 10^3/ul Absolute Basos (auto) (0-0.2) 10^3/ul Absolute Nucleated RBC 10^3/ul Nucleated RBC % INR (Anticoag Therapy) (0.77-1.02) APTT (26.0-36.3) seconds D-Dimer, Quantitative (Less Than 230) ng/mL Sodium (139-145) mmol/L Potassium (3.5-5.0) mmol/L Chloride (101-111) mmol/L Carbon Dioxide (22-32) mmol/L Anion Gap (2-11) mmol/L BUN (6-24) mg/dL Creatinine (0.67-1.17) mg/dL Est GFR ( Amer) (>60) Est GFR (Non-Af Amer) (>60) BUN/Creatinine Ratio (8-20) Glucose (70-100) mg/dL Lactic Acid 1.0 (0.5-2.0) mmol/L Calcium (8.6-10.3) mg/dL Magnesium (1.9-2.7) mg/dL Total Bilirubin (0.2-1.0) mg/dL AST (13-39) U/L ALT (7-52) U/L Alkaline Phosphatase (34-104) U/L Total Creatine Kinase (10-223) U/L CK-MB (CK-2) (0.6-6.3) ng/mL Troponin I (<0.04) ng/mL C-Reactive Protein (< 5.00) mg/L B-Natriuretic Peptide 523 H ( - 100) pg/mL Total Protein (6.4-8.9) g/dL Albumin (3.2-5.2) g/dL Globulin (2-4) g/dL Albumin/Globulin Ratio (1-3) Lipase (11.0-82.0) U/L TSH (0.34-5.60) mcIU/mL Assess/Plan/Problems-Billing Assessment: Mr. 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, hx of CVA, chronic back pain on chronic narcotics, with recent hospitalization from 09/05-09/07 with acute systolic CHF with bilateral pleural effusion requiring thorancentesis of the left lung with 1700 ml removed now is sent from [facility], [place] for concern for weight gain, SOB and hypoxia found tohave a recurrence in the left pleural effusion in which he underwent another thorancentesis removing 2L on 09/14 - Patient Problems (1) Ischemic cardiomyopathy Current Visit: Yes Status: Chronic Code(s): I25.5 - ISCHEMIC CARDIOMYOPATHY SNOMED Code(s): 546534889 Comment: - h/o V-tach s/p ICD - Last known EF 25-30% 08/31 compared to 2016 little change noted other than pleural effusion - continue amiodarone Appropriate for Hospice. I will talk to his when she answers my message. (2) Hyponatremia Current Visit: Yes Status: Acute Code(s): E87.1 - HYPO-OSMOLALITY AND HYPONATREMIA SNOMED Code(s): 94823482 Comment: - hx of hyponatremia. Na+ 118. No impovement despite low fluid intake. I will lower gabapentin dose--not clear if he is benefiting from it and it could be causing side effects. (3) Atrial fibrillation Current Visit: Yes Status: Chronic Code(s): I48.91 - UNSPECIFIED ATRIAL FIBRILLATION SNOMED Code(s): 30035655 Comment: --Continue Amiodarone. Paced rhythm. - not on anticoagulation d/t recurrent hematuria. - ASA 81 mg daily (4) Pleural effusion Current Visit: Yes Status: Acute Code(s): J90 - PLEURAL EFFUSION, NOT ELSEWHERE CLASSIFIED SNOMED Code(s): 30424959 Comment: - Recurrent suspect secondary to CHF - now s/p thorancentesis 09/14 (2nd one in 2 weeks) pulling off 2L - awaiting path. C&S neg. - cardiology consult appreciated. I spoke to his Marko on the phone and will meet with her and her on 09/17 to discuss the possibility of Hospice care. Palliative care consult requested. - (5) Systolic and diastolic CHF, acute on chronic Current Visit: Yes Status: Acute Priority: Medium Code(s): I50.43 - ACUTE ON CHRONIC COMBINED SYSTOLIC AND DIASTOLIC HRT FAIL SNOMED Code(s): 298288110392479 Comment: - EF 25-30% - acute on chronic with recurrent pleural effusion - Hold lisinopril (per cards recommendation) Status and Disposition: inpatient with recurrent pleural effusion. 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
[2017-09-16] MEDS ORDERED: Perflutren Lipid Microsphere* 3 ML VIAL ONE (11:53)
[2017-09-16] MEDS: Gabapentin CAP(*) 100 MG PO SCH ×2 (13:49→22:43)
[2017-09-16] MEDS: oxyCODONE TAB* 5 MG TAB PO PRN ×2 (16:24→22:44)
--- NOTE | 2017-09-16 19:20 | ECHO ---
Patient: ROB BRUMFIELD [facility] Rec#: [id number] : 1945 Date: 09/16/2017 Age: 72y Height: 177.8 cm / 70.0 in Weight: 108.9 kg / 240.0 lbs Sex: M BSA: 2.3 Room#: 435 Admit Date#: 09/14/2017 Type: Inpatient Referring: Laine Vasquez Reading: Henri Davis DO Slot Tag Inserter: Sparkle Lee RN RDCS CC: Jannette Steinberg MD Transthoracic Echocardiogram Indication: Shortness of breath BP: 131/114 HR: 61 Rhythm: Paced Findings History: CAD, CABG, AICD, A. fib, HTN, DM, CVA, pleural effusion S/P thoracentesis. This is a LIMITED echo to assess for right heart strain per Dr. Bentley. The patient had a complete echocardiogram on 09/05/2017. Technical Comments: The study is technically limited due to poor acoustic windows. The study is technically limited due to patient body habitus. Left Ventricle: There is severely decreased left ventricular systolic function. The estimated ejection fraction is 20-25%. Post surgical hypokinesis of the interventricular septum is observed consistent with coronary artery bypass. The basal anteroseptal, basal inferolateral, basal inferoseptal, mid inferolateral, and mid inferoseptal wall segments are hypokinetic (score 2). The mid anteroseptal, apical septal, apical anterior, and apical lateral wall segments are akinetic (score 3). Overall wallmotion score index is 2.18 Right Ventricle: The right ventricle is mildly dilated. The right ventricular global systolic function is mildly to moderately reduced. A pacemaker wire is visualized in the right ventricle. Pericardium: There is no significant pericardial effusion. Contrast: Definity was used to optimize study. A total of 4 ml of diluted Definity was given IV. Conclusions There is severely decreased left ventricular systolic function. The estimated ejection fraction is 20-25% with wall motion abnormalities as described within report. The right ventricular cavity size is normal. The right ventricular global systolic function is mildly to moderately reduced. [employer] was used to optimize study. Liimited study only, the components evaluated and compared to recent study from 09/05/2017, no clinically significant changes noted Measurements Name Value Normal Range TR Vmax 2.6 m/sec - TR peak gradient 27 mmHg - RAP 8 mmHg - RVSP 35 mmHg - Wallmotion BAS Hypokinetic BA Not Seen BAL Normal SHERRIE Hypokinetic BI Not Seen BIS Hypokinetic MAS Akinetic MA Not Seen MAL Normal MIL Hypokinetic OK Not Seen MIS Hypokinetic Akinetic AA Akinetic AL Akinetic AI Not Seen APEX Akinetic
[2017-09-17] MEDS: Acetic Acid 0.25%* 250 ML BTL IRRIGATION SCH ×3 (01:44→17:13)
[2017-09-17 05:20] LABS: EGFR Non-African American 64.1 (>60)
[2017-09-17] MEDS: Acetaminophen TAB* 325 MG PO SCH ×3 (05:51→23:15)
[2017-09-17] MEDS: Insulin LISPRO* 1 UNITS UNIT SUBCUT SCH ×4 (07:50→23:15)
[2017-09-17] MEDS: Polyethylene Glycol 3350* 17 GM PACKET PO SCH ×2 (08:40→22:14)
[2017-09-17] MEDS: Senna TAB PO SCH (08:40)
[2017-09-17] MEDS: Amiodarone TAB* 200 MG PO SCH (09:26)
[2017-09-17] MEDS: Gabapentin CAP(*) 100 MG PO SCH ×3 (09:26→23:15)
[2017-09-17] MEDS: Torsemide TAB* 20 MG PO SCH (09:27)
[2017-09-17] MEDS: Aspirin EC TAB* 81 MG TAB.EC PO SCH (09:27)
[2017-09-17] MEDS: Omeprazole CAP* 20 MG PO SCH (09:27)
[2017-09-17] MEDS: Nystatin TOP POWDER* 15 GM BTL TOPICAL SCH ×2 (09:27→23:15)
[2017-09-17] MEDS: Morphine TAB Extended Release (*) 15 MG TAB.ER PO SCH (09:27)
--- NOTE | 2017-09-17 10:49 | PN ---
Subjective Date of Service: 09/17/17 Interval History: No new c/o. No subj change. Objective Active Medications: Acetaminophen (Tylenol Tab*) 975 mg PO Q8HR@0600,1400,2200 [facility] Last Admin: 09/17/17 05:51 Dose: 975 mg Acetic Acid (Acetic Acid 0.25%*) 50 ml IRRIGATION Q8H [facility] Last Admin: 09/17/17 09:28 Dose: 50 ml Amiodarone HCl (Cordarone Tab*) 200 mg PO DAILY [facility] Last Admin: 09/17/17 09:26 Dose: 200 mg Aspirin (Aspirin Ec Tab*) 81 mg PO DAILY [facility] Last Admin: 09/17/17 09:27 Dose: 81 mg Bisacodyl (Dulcolax Supp*) 10 mg PA DAILY PRN PRN Reason: CONSTIPATION Dextrose (D50w Syringe 50 Ml*) 12.5 gm IV PUSH .FOR FS < 60 - SS PRN PRN Reason: FS < 60 Gabapentin (Neurontin Cap(*)) 200 mg PO TID [facility] Last Admin: 09/17/17 09:26 Dose: 200 mg Insulin Human Lispro (Humalog*) 0 units SUBCUT ACHS [facility] PRN Reason: Protocol Last Admin: 09/17/17 07:50 Dose: Not Given Morphine Sulfate (Ms Contin(*)) 15 mg PO DAILY [facility] Last Admin: 09/17/17 09:27 Dose: 15 mg Nystatin (Nystatin Top Powder*) 1 applic TOPICAL BID [facility] Last Admin: 09/17/17 09:27 Dose: 1 applic Omeprazole (Prilosec Cap*) 40 mg PO DAILY [facility] Last Admin: 09/17/17 09:27 Dose: 40 mg Oxycodone HCl (Roxycodone Tab*) 5 mg PO Q4H PRN PRN Reason: PAIN Last Admin: 09/16/17 22:44 Dose: 5 mg Polyethylene Glycol/Electrolytes (Miralax*) 17 gm PO BID [facility] Last Admin: 09/17/17 08:40 Dose: Not Given Senna (Senokot Tab*) 2 tab PO DAILY [facility] Last Admin: 09/17/17 08:40 Dose: Not Given Torsemide (Demadex*) 100 mg PO DAILY [facility] Last Admin: 09/17/17 09:27 Dose: 100 mg Vital Signs - 8 hr 05/0509/17/17 09/17/17 03:29 07:59 08:00 Temperature 97.2 F 97.8 F Pulse Rate 65 66 Respiratory 16 16 Rate Blood Pressure 105/51 107/36 (mmHg) O2 Sat by Pulse 98 99 Oximetry 09/17/17 09/17/17 09/17/17 08:25 09:26 09:27 Temperature Pulse Rate Respiratory 16 16 Rate Blood Pressure 109/42 (mmHg) O2 Sat by Pulse Oximetry Oxygen Devices in Use Now: Nasal Cannula Appearance: Alert, partly up in bed. Neutral affect. Looks comfortable. Eyes: No Scleral Icterus Extremities: No Edema, No Clubbing, Cyanosis, - - R BKA Skin: No Rash or Ulcers, No Nodules or Sclerosis, - Neurological: Alert and Oriented x 3, NL Sensation, - - He gave his age and the name of the facility. His hearing is poor. No tremor. Result Diagrams: 09/16/17 05:48 09/17/17 04:47 Additional Lab and Data: Lab Results 09/14/17 09/14/17 09/14/17 Range/Units 10:44 10:44 10:44 WBC 9.6 (3.5-10.8) 10^3/ul RBC 4.16 (4.0-5.4) 10^6/ul Hgb 11.3 L (14.0-18.0) g/dl Hct 33 L (42-52) % MCV 79 L (80-94) fL MCH 27 (27-31) pg MCHC 34 (31-36) g/dl RDW 18 H (10.5-15) % Plt Count 257 (150-450) 10^3/ul MPV 6.6 L (7.4-10.4) um3 Neut % (Auto) 90.1 H (38-83) % Lymph % (Auto) 6.7 L (25-47) % [place] % (Auto) 2.6 (0-7) % Eos % (Auto) 0.4 (0-6) % Baso % (Auto) 0.2 (0-2) % Absolute Neuts (auto) 8.7 H (1.5-7.7) 10^3/ul Absolute Lymphs (auto) 0.6 L (1.0-4.8) 10^3/ul Absolute Monos (auto) 0.3 (0-0.8) 10^3/ul Absolute Eos (auto) 0 (0-0.6) 10^3/ul Absolute Basos (auto) 0 (0-0.2) 10^3/ul Absolute Nucleated RBC 0 10^3/ul Nucleated RBC % 0 INR (Anticoag Therapy) 0.93 (0.77-1.02) APTT 38.3 H (26.0-36.3) seconds D-Dimer, Quantitative 1027 H (Less Than 230) ng/mL Sodium 118 L* (139-145) mmol/L Potassium 5.9 H (3.5-5.0) mmol/L Chloride 83 L (101-111) mmol/L Carbon Dioxide 28 (22-32) mmol/L Anion Gap 7 (2-11) mmol/L BUN 16 (6-24) mg/dL Creatinine 0.64 L (0.67-1.17) mg/dL Est GFR ( Amer) 157.2 (>60) Est GFR (Non-Af Amer) 122.2 (>60) BUN/Creatinine Ratio 25.0 H (8-20) Glucose 150 H (70-100) mg/dL Lactic Acid (0.5-2.0) mmol/L Calcium 9.7 (8.6-10.3) mg/dL Magnesium 1.7 L (1.9-2.7) mg/dL Total Bilirubin 0.30 (0.2-1.0) mg/dL AST 13 (13-39) U/L ALT 12 (7-52) U/L Alkaline Phosphatase 76 (34-104) U/L Total Creatine Kinase 29 (10-223) U/L CK-MB (CK-2) 7.5 H (0.6-6.3) ng/mL Troponin I 0.01 (<0.04) ng/mL C-Reactive Protein 15.97 H (< 5.00) mg/L B-Natriuretic Peptide ( - 100) pg/mL Total Protein 7.2 (6.4-8.9) g/dL Albumin 4.0 (3.2-5.2) g/dL Globulin 3.2 (2-4) g/dL Albumin/Globulin Ratio 1.3 (1-3) Lipase 65 (11.0-82.0) U/L TSH 2.49 (0.34-5.60) mcIU/mL 09/14/17 09/14/17 Range/Units 10:44 10:44 WBC (3.5-10.8) 10^3/ul RBC (4.0-5.4) 10^6/ul Hgb (14.0-18.0) g/dl Hct (42-52) % MCV (80-94) fL MCH (27-31) pg MCHC (31-36) g/dl RDW (10.5-15) % Plt Count (150-450) 10^3/ul MPV (7.4-10.4) um3 Neut % (Auto) (38-83) % Lymph % (Auto) (25-47) % [place] % (Auto) (0-7) % Eos % (Auto) (0-6) % Baso % (Auto) (0-2) % Absolute Neuts (auto) (1.5-7.7) 10^3/ul Absolute Lymphs (auto) (1.0-4.8) 10^3/ul Absolute Monos (auto) (0-0.8) 10^3/ul Absolute Eos (auto) (0-0.6) 10^3/ul Absolute Basos (auto) (0-0.2) 10^3/ul Absolute Nucleated RBC 10^3/ul Nucleated RBC % INR (Anticoag Therapy) (0.77-1.02) APTT (26.0-36.3) seconds D-Dimer, Quantitative (Less Than 230) ng/mL Sodium (139-145) mmol/L Potassium (3.5-5.0) mmol/L Chloride (101-111) mmol/L Carbon Dioxide (22-32) mmol/L Anion Gap (2-11) mmol/L BUN (6-24) mg/dL Creatinine (0.67-1.17) mg/dL Est GFR ( Amer) (>60) Est GFR (Non-Af Amer) (>60) BUN/Creatinine Ratio (8-20) Glucose (70-100) mg/dL Lactic Acid 1.0 (0.5-2.0) mmol/L Calcium (8.6-10.3) mg/dL Magnesium (1.9-2.7) mg/dL Total Bilirubin (0.2-1.0) mg/dL AST (13-39) U/L ALT (7-52) U/L Alkaline Phosphatase (34-104) U/L Total Creatine Kinase (10-223) U/L CK-MB (CK-2) (0.6-6.3) ng/mL Troponin I (<0.04) ng/mL C-Reactive Protein (< 5.00) mg/L B-Natriuretic Peptide 523 H ( - 100) pg/mL Total Protein (6.4-8.9) g/dL Albumin (3.2-5.2) g/dL Globulin (2-4) g/dL Albumin/Globulin Ratio (1-3) Lipase (11.0-82.0) U/L TSH (0.34-5.60) mcIU/mL Microbiology and Other Data: Microbiology 09/14/17 14:28 Urine Culture - Final Urine Escherichia Coli Assess/Plan/Problems-Billing Assessment: Mr. Adams is a 72 yo male with who lives at [facility] long-term; he has a PMH of non-compliance with medical care, severe chronic systolic and diastolic CHF with EF 25-30%, afib s/p ablation not on anticoagulation 2nd to hematuria (in which the patient has been refusing urology work-up), suprapubic indwelling catheter with hx of multiple UTIs, CAD s/p CABG, hx of Vtach s/p AICD , HTN, non-insulin dependent DM 2, hx of osteomyelitis of the right ankle s/p Right BKA, hx of CVA, chronic back pain on chronic narcotics, with recent hospitalization from 09/05-09/07 with acute systolic CHF with bilateral pleural effusion requiring thorancentesis of the left lung with 1700 ml removed now is sent from [facility] for concern for weight gain, SOB and hypoxia found tohave a recurrence in the left pleural effusion in which he underwent another thorancentesis removing 2L on 09/14 - Patient Problems (1) Ischemic cardiomyopathy Current Visit: Yes Status: Chronic Code(s): I25.5 - ISCHEMIC CARDIOMYOPATHY SNOMED Code(s): 614839928 Comment: - h/o V-tach s/p ICD - Last known EF 25-30% 4/18 compared to 2016 little change noted other than pleural effusion - continue amiodarone Appropriate for Hospice. I will talk to his when she answers my message. (2) Hyponatremia Current Visit: Yes Status: Acute Code(s): E87.1 - HYPO-OSMOLALITY AND HYPONATREMIA SNOMED Code(s): 23089116 Comment: - hx of hyponatremia. Na+ 118. No impovement despite low fluid intake. I will lower gabapentin dose--not clear if he is benefiting from it and it could be causing side effects. Na+ 119 on 09/17, his highest value since admission. No sx's related to this. I see no need to repeat this as he is on track for signing on to Hospice within a week. (3) Atrial fibrillation Current Visit: Yes Status: Chronic Code(s): I48.91 - UNSPECIFIED ATRIAL FIBRILLATION SNOMED Code(s): 54439715 Comment: --Continue Amiodarone. Paced rhythm. - not on anticoagulation d/t recurrent hematuria. - ASA 81 mg daily (4) Pleural effusion Current Visit: Yes Status: Acute Code(s): J90 - PLEURAL EFFUSION, NOT ELSEWHERE CLASSIFIED SNOMED Code(s): 55482012 Comment: - Recurrent suspect secondary to CHF - now s/p thorancentesis 09/14 (2nd one in 2 weeks) pulling off 2L - awaiting path. C&S neg. - cardiology consult appreciated. I spoke to his Marko on the phone and will meet with her and her on 09/17 to discuss the possibility of Hospice care. Palliative care consult requested. - (5) Systolic and diastolic CHF, acute on chronic Current Visit: Yes Status: Acute Priority: Medium Code(s): I50.43 - ACUTE ON CHRONIC COMBINED SYSTOLIC AND DIASTOLIC HRT FAIL SNOMED Code(s): 193793421598624 Comment: - EF 25-30% - acute on chronic with recurrent pleural effusion Re-start lisinopril at lower dose of 2.5 mg daily, start 09/17. (6) DNR (do not resuscitate) Current Visit: Yes Status: Acute Comment: His nurse Sangita and I spoke to the patient about end of life care. He showed good understanding of the function of his AICD and his overall cardiac prognosis. He was very clear that he wanted the ICD shock capability to be turned off, that he did not want CPR or intubation. DNR ordered, MOLST form completed. Status and Disposition: inpatient with recurrent pleural effusion. Lives at [facility]
[2017-09-17] MEDS: Lisinopril TAB* 5 MG PO SCH (11:49)
--- NOTE | 2017-09-17 14:26 | PROCNOTE ---
Cardiology Procedure Note [employer] reprogramming 09/17/5017 ICD deactivated today Pacing capability maintained
--- NOTE | 2017-09-17 14:30 | PN ---
Subjective Date of Service: 09/17/17 Interval History: f/u CHF ICD deactivated this AM I/o minimally net negative on 100 mg of torsemide no dyspnea at rest, lightheadedness or cp remains several edematous Medications Active Medications: Acetaminophen (Tylenol Tab*) 975 mg PO Q8HR@0600,1400,2200 [facility] Last Admin: 09/17/17 13:19 Dose: 975 mg Acetic Acid (Acetic Acid 0.25%*) 50 ml IRRIGATION Q8H [facility] Last Admin: 09/17/17 09:28 Dose: 50 ml Amiodarone HCl (Cordarone Tab*) 200 mg PO DAILY [facility] Last Admin: 09/17/17 09:26 Dose: 200 mg Aspirin (Aspirin Ec Tab*) 81 mg PO DAILY [facility] Last Admin: 09/17/17 09:27 Dose: 81 mg Bisacodyl (Dulcolax Supp*) 10 mg [place] DAILY PRN PRN Reason: CONSTIPATION Dextrose (D50w Syringe 50 Ml*) 12.5 gm IV PUSH .FOR FS < 60 - SS PRN PRN Reason: FS < 60 Gabapentin (Neurontin Cap(*)) 200 mg PO TID [facility] Last Admin: 09/17/17 13:19 Dose: 200 mg Insulin Human Lispro (Humalog*) 0 units SUBCUT ACHS [facility] PRN Reason: Protocol Last Admin: 09/17/17 11:50 Dose: Not Given Lisinopril (Prinivil Tab*) 2.5 mg PO DAILY [facility] Last Admin: 09/17/17 11:49 Dose: 2.5 mg Morphine Sulfate (Ms Contin(*)) 15 mg PO DAILY [facility] Last Admin: 09/17/17 09:27 Dose: 15 mg Nystatin (Nystatin Top Powder*) 1 applic TOPICAL BID [facility] Last Admin: 09/17/17 09:27 Dose: 1 applic Omeprazole (Prilosec Cap*) 40 mg PO DAILY [facility] Last Admin: 09/17/17 09:27 Dose: 40 mg Oxycodone HCl (Roxycodone Tab*) 5 mg PO Q4H PRN PRN Reason: PAIN Last Admin: 09/16/17 22:44 Dose: 5 mg Polyethylene Glycol/Electrolytes (Miralax*) 17 gm PO BID [facility] Last Admin: 09/17/17 08:40 Dose: Not Given Senna (Senokot Tab*) 2 tab PO DAILY [facility] Last Admin: 09/17/17 08:40 Dose: Not Given Torsemide (Demadex*) 100 mg PO DAILY [facility] Last Admin: 09/17/17 09:27 Dose: 100 mg Torsemide (Demadex*) 100 mg PO ONCE ONE Stop: 09/17/17 15:01 Objective Vital Signs: Temp Pulse Resp BP Pulse Ox 97.4 F 65 16 114/48 100 09/17/17 12:05 09/17/17 12:05 09/17/17 13:19 09/17/17 12:05 09/17/17 12:05 Oxygen Devices in Use Now: Nasal Cannula Appearance: obese, chronically ill appearing Neck: Trachea Midline, - - uncertain jvp Respiratory: Symmetrical Chest Expansion and Respiratory Effort, - - decreased bs bases Cardiovascular: - - rrr, sternotomy scar noted, icd site intact Abdominal: - - obese, soft Extremities: - - diffuse edema of thighs and central region Skin: No Rash or Ulcers Neurological: - - awake and alert Laboratory Results: 09/16/17 05:48 09/17/17 04:47 INR (Anticoag Therapy) 0.93 (0.77-1.02) 09/14/17 10:44 APTT 38.3 seconds (26.0-36.3) H 09/14/17 10:44 Total Bilirubin 0.30 mg/dL (0.2-1.0) 09/14/17 10:44 AST 13 U/L (13-39) 09/14/17 10:44 ALT 12 U/L (7-52) 09/14/17 10:44 Alkaline Phosphatase 76 U/L (34-104) 09/14/17 10:44 CK-MB (CK-2) 7.5 ng/mL (0.6-6.3) H 09/14/17 10:44 B-Natriuretic Peptide 523 pg/mL (-100) H 09/14/17 10:44 Total Protein 7.2 g/dL (6.4-8.9) 09/14/17 10:44 Albumin 4.0 g/dL (3.2-5.2) 09/14/17 10:44 Globulin 3.2 g/dL (2-4) 09/14/17 10:44 Albumin/Globulin Ratio 1.3 (1-3) 09/14/17 10:44 TSH 2.49 mcIU/mL (0.34-5.60) 09/14/17 10:44 EKG Data: EKG 09/05/2017: NSR, 1 AVBL, RBBB with old anterior VA Assessment/Plan Patient has worsening renal failure with hyponatremia in the setting of AceI use and volume overload with severe systolic HF LVEF 20-25% ischemic cardiomyopathy and cardiomyopathy medications have had to be downtitrated due to low BP. These are poor prognostic indicators in addition to his overall comorbid medical condition. ICD now deactivated Give an additional 100 mg of po torsemide now in addition to 100 mg daily ( ordered) Continue I/O and BMP daily Thank you for allowing me to participate in the cardiovascular care of this patient. Please do not hesitate to contact me with questions or concerns.
[2017-09-17] MEDS ORDERED: Torsemide TAB* 100 MG PO ONE (15:00)
[2017-09-18] MEDS: Acetic Acid 0.25%* 250 ML BTL IRRIGATION SCH ×4 (03:54→22:13)
[2017-09-18 07:17] LABS: EGFR Non-African American 74.8 (>60)
[2017-09-18] MEDS: Acetaminophen TAB* 325 MG PO SCH ×3 (07:35→22:13)
[2017-09-18] MEDS: Insulin LISPRO* 1 UNITS UNIT SUBCUT SCH ×2 (07:57→13:49)
[2017-09-18] MEDS ORDERED: Torsemide TAB* 100 MG PO ONE (09:25)
--- NOTE | 2017-09-18 09:34 | PN ---
Subjective Date of Service: 09/18/17 Interval History: f/u CHF Net I/O now negative after 200 mg of torsemide yesterday, creatinine normalized and Na raising suggestive of cardiorenal syndrome, improved. Tolerating low dose AceI Has significant intermittent confusion. Yesterday when not confused I confirmed that he wished to have ICD deactivated (which it was) and this was in presence of his . remains significantly edematous Medications Active Medications: Acetaminophen (Tylenol Tab*) 975 mg PO Q8HR@0600,1400,2200 [facility] Last Admin: 09/18/17 07:35 Dose: Not Given Acetic Acid (Acetic Acid 0.25%*) 50 ml IRRIGATION Q8H [facility] Last Admin: 09/18/17 03:54 Dose: 50 ml Amiodarone HCl (Cordarone Tab*) 200 mg PO DAILY [facility] Last Admin: 09/17/17 09:26 Dose: 200 mg Aspirin (Aspirin Ec Tab*) 81 mg PO DAILY [facility] Last Admin: 09/17/17 09:27 Dose: 81 mg Bisacodyl (Dulcolax Supp*) 10 mg [place] DAILY PRN PRN Reason: CONSTIPATION Dextrose (D50w Syringe 50 Ml*) 12.5 gm IV PUSH .FOR FS < 60 - SS PRN PRN Reason: FS < 60 Gabapentin (Neurontin Cap(*)) 200 mg PO TID [facility] Last Admin: 09/17/17 23:15 Dose: Not Given Iron Sucrose 200 mg/ Sodium (Chloride) 110 mls @ 110 mls/hr IVPB ONCE ONE Stop: 09/18/17 10:23 Insulin Human Lispro (Humalog*) 0 units SUBCUT ACHS [facility] PRN Reason: Protocol Last Admin: 09/18/17 07:57 Dose: Not Given Lisinopril (Prinivil Tab*) 2.5 mg PO DAILY [facility] Last Admin: 09/17/17 11:49 Dose: 2.5 mg Morphine Sulfate (Ms Contin(*)) 15 mg PO DAILY [facility] Last Admin: 09/17/17 09:27 Dose: 15 mg Nystatin (Nystatin Top Powder*) 1 applic TOPICAL BID [facility] Last Admin: 09/17/17 23:15 Dose: Not Given Omeprazole (Prilosec Cap*) 40 mg PO DAILY [facility] Last Admin: 09/17/17 09:27 Dose: 40 mg Oxycodone HCl (Roxycodone Tab*) 5 mg PO Q4H PRN PRN Reason: PAIN Last Admin: 09/16/17 22:44 Dose: 5 mg Polyethylene Glycol/Electrolytes (Miralax*) 17 gm PO BID [facility] Last Admin: 09/17/17 22:14 Dose: Not Given Senna (Senokot Tab*) 2 tab PO DAILY [facility] Last Admin: 09/17/17 08:40 Dose: Not Given Torsemide (Demadex*) 100 mg PO ONCE ONE Stop: 09/18/17 09:26 Torsemide (Demadex*) 150 mg PO DAILY [facility] Objective Vital Signs: Temp Pulse Resp BP Pulse Ox 98.2 F 74 20 89/62 96 09/18/17 04:08 09/18/17 04:08 09/18/17 04:08 09/18/17 04:08 09/18/17 04:08 Oxygen Devices in Use Now: Nasal Cannula Appearance: obese, chronically ill appearing Neck: Trachea Midline, - - uncertain jvp Respiratory: Symmetrical Chest Expansion and Respiratory Effort, - - decreased bs bases Cardiovascular: - - rrr, sternotomy scar noted, icd site intact Abdominal: - - obese, soft Extremities: - - diffuse edema of thighs and central region, s/p right leg amputation Skin: No Rash or Ulcers Neurological: - - awake and alert Laboratory Results: 09/16/17 05:48 09/18/17 06:26 INR (Anticoag Therapy) 0.93 (0.77-1.02) 09/14/17 10:44 APTT 38.3 seconds (26.0-36.3) H 09/14/17 10:44 Total Bilirubin 0.30 mg/dL (0.2-1.0) 09/14/17 10:44 AST 13 U/L (13-39) 09/14/17 10:44 ALT 12 U/L (7-52) 09/14/17 10:44 Alkaline Phosphatase 76 U/L (34-104) 09/14/17 10:44 CK-MB (CK-2) 7.5 ng/mL (0.6-6.3) H 09/14/17 10:44 B-Natriuretic Peptide 523 pg/mL (-100) H 09/14/17 10:44 Total Protein 7.2 g/dL (6.4-8.9) 09/14/17 10:44 Albumin 4.0 g/dL (3.2-5.2) 09/14/17 10:44 Globulin 3.2 g/dL (2-4) 09/14/17 10:44 Albumin/Globulin Ratio 1.3 (1-3) 09/14/17 10:44 TSH 2.49 mcIU/mL (0.34-5.60) 09/14/17 10:44 EKG Data: EKG 09/05/2017: NSR, 1 AVBL, RBBB with old anterior [place] Assessment/Plan Mr. Adams is a 72 year old man with CAD/SC/ICM/CHF LVEF 20-25%, hx of Afib not on AC, hx of VT s/p ICD, multiple co-morbidities re-admitted with ADHF and hyponatremia with cardiorenal syndrome, improved. Dill ICD deactivated. - Give another 200 mg po torsemide oral today (ordered). Increase to 150 mg po daily tomorrow (ordered). Can increase to 200 mg daily if needed. Would hold off on adding thiazide diuretic at this time. Continue to trend daily I/o, weights (likely not accurate given trend) and BMP - Continue prior aspirin and amiodarone - Tolerating low dose AceI - If BP tolerated would add BB prior to discharge - If pleural effusion re-accumulates consider permanent catheter vs. serial outpatient thoracentesis - Prognosis guarded Thank you for allowing me to participate in the cardiovascular care of this patient. Please do not hesitate to contact me with questions or concerns.
[2017-09-18] MEDS ORDERED: Iron Sucrose* 200 MG in NS 0.9% 100 ML* 100 ML IVPB ONE (10:00)
[2017-09-18] MEDS ORDERED: Haloperidol INJ IV/IM* 5 MG/ML AMP IM PRN (11:07)
[2017-09-18] MEDS ORDERED: Haloperidol INJ IV/IM* 5 MG/ML AMP ONE (11:15)
--- NOTE | 2017-09-18 11:15 | PN ---
Subjective Date of Service: 09/18/17 Interval History: Patient not able to make his needs known. He asked me "What did you do with my mother?" When I asked him if he wanted a doctor to help him he said no. Objective Active Medications: Acetaminophen (Tylenol Tab*) 975 mg PO Q8HR@0600,1400,2200 [facility] Last Admin: 09/18/17 07:35 Dose: Not Given Acetic Acid (Acetic Acid 0.25%*) 50 ml IRRIGATION Q8H [facility] Last Admin: 09/18/17 03:54 Dose: 50 ml Amiodarone HCl (Cordarone Tab*) 200 mg PO DAILY [facility] Last Admin: 09/17/17 09:26 Dose: 200 mg Aspirin (Aspirin Ec Tab*) 81 mg PO DAILY [facility] Last Admin: 09/17/17 09:27 Dose: 81 mg Bisacodyl (Dulcolax Supp*) 10 mg [place] DAILY PRN PRN Reason: CONSTIPATION Dextrose (D50w Syringe 50 Ml*) 12.5 gm IV PUSH .FOR FS < 60 - SS PRN PRN Reason: FS < 60 Gabapentin (Neurontin Cap(*)) 200 mg PO TID [facility] Last Admin: 09/17/17 23:15 Dose: Not Given Haloperidol Lactate (Haldol Inj Iv/Im*) 2 mg IM Q6H PRN PRN Reason: AGITATION Insulin Human Lispro (Humalog*) 0 units SUBCUT ACHS [facility] PRN Reason: Protocol Last Admin: 09/18/17 07:57 Dose: Not Given Lisinopril (Prinivil Tab*) 2.5 mg PO DAILY [facility] Last Admin: 09/17/17 11:49 Dose: 2.5 mg Morphine Sulfate (Ms Contin(*)) 15 mg PO DAILY [facility] Last Admin: 09/17/17 09:27 Dose: 15 mg Nystatin (Nystatin Top Powder*) 1 applic TOPICAL BID [facility] Last Admin: 09/17/17 23:15 Dose: Not Given Omeprazole (Prilosec Cap*) 40 mg PO DAILY [facility] Last Admin: 09/17/17 09:27 Dose: 40 mg Oxycodone HCl (Roxycodone Tab*) 5 mg PO Q4H PRN PRN Reason: PAIN Last Admin: 09/16/17 22:44 Dose: 5 mg Polyethylene Glycol/Electrolytes (Miralax*) 17 gm PO BID [facility] Last Admin: 09/17/17 22:14 Dose: Not Given Senna (Senokot Tab*) 2 tab PO DAILY [facility] Last Admin: 09/17/17 08:40 Dose: Not Given Torsemide (Demadex*) 150 mg PO DAILY [facility] Vital Signs - 8 hr 09/18/17 09/18/17 04:08 08:21 Temperature 98.2 F 98.3 F Pulse Rate 74 77 Respiratory 20 12 Rate Blood Pressure 89/62 136/45 (mmHg) O2 Sat by Pulse 96 88 Oximetry Oxygen Devices in Use Now: None Appearance: Sitting up in bed. Constantly pulling at the Lala bag as if he was trying to take it apart. Eyes: No Scleral Icterus Extremities: No Clubbing, Cyanosis, - - R BKA Neurological: NL Sensation - Decreased hearing. No tremor. Moves both arms. Fair verbal skills. Disoriented. Result Diagrams: 09/16/17 05:48 09/18/17 06:26 Additional Lab and Data: Lab Results 09/14/17 09/14/17 09/14/17 Range/Units 10:44 10:44 10:44 WBC 9.6 (3.5-10.8) 10^3/ul RBC 4.16 (4.0-5.4) 10^6/ul Hgb 11.3 L (14.0-18.0) g/dl Hct 33 L (42-52) % MCV 79 L (80-94) fL MCH 27 (27-31) pg MCHC 34 (31-36) g/dl RDW 18 H (10.5-15) % Plt Count 257 (150-450) 10^3/ul MPV 6.6 L (7.4-10.4) um3 Neut % (Auto) 90.1 H (38-83) % Lymph % (Auto) 6.7 L (25-47) % [place] % (Auto) 2.6 (0-7) % Eos % (Auto) 0.4 (0-6) % Baso % (Auto) 0.2 (0-2) % Absolute Neuts (auto) 8.7 H (1.5-7.7) 10^3/ul Absolute Lymphs (auto) 0.6 L (1.0-4.8) 10^3/ul Absolute Monos (auto) 0.3 (0-0.8) 10^3/ul Absolute Eos (auto) 0 (0-0.6) 10^3/ul Absolute Basos (auto) 0 (0-0.2) 10^3/ul Absolute Nucleated RBC 0 10^3/ul Nucleated RBC % 0 INR (Anticoag Therapy) 0.93 (0.77-1.02) APTT 38.3 H (26.0-36.3) seconds D-Dimer, Quantitative 1027 H (Less Than 230) ng/mL Sodium 118 L* (139-145) mmol/L Potassium 5.9 H (3.5-5.0) mmol/L Chloride 83 L (101-111) mmol/L Carbon Dioxide 28 (22-32) mmol/L Anion Gap 7 (2-11) mmol/L BUN 16 (6-24) mg/dL Creatinine 0.64 L (0.67-1.17) mg/dL Est GFR ( Amer) 157.2 (>60) Est GFR (Non-Af Amer) 122.2 (>60) BUN/Creatinine Ratio 25.0 H (8-20) Glucose 150 H (70-100) mg/dL Lactic Acid (0.5-2.0) mmol/L Calcium 9.7 (8.6-10.3) mg/dL Magnesium 1.7 L (1.9-2.7) mg/dL Total Bilirubin 0.30 (0.2-1.0) mg/dL AST 13 (13-39) U/L ALT 12 (7-52) U/L Alkaline Phosphatase 76 (34-104) U/L Total Creatine Kinase 29 (10-223) U/L CK-MB (CK-2) 7.5 H (0.6-6.3) ng/mL Troponin I 0.01 (<0.04) ng/mL C-Reactive Protein 15.97 H (< 5.00) mg/L B-Natriuretic Peptide ( - 100) pg/mL Total Protein 7.2 (6.4-8.9) g/dL Albumin 4.0 (3.2-5.2) g/dL Globulin 3.2 (2-4) g/dL Albumin/Globulin Ratio 1.3 (1-3) Lipase 65 (11.0-82.0) U/L TSH 2.49 (0.34-5.60) mcIU/mL 09/14/17 09/14/17 Range/Units 10:44 10:44 WBC (3.5-10.8) 10^3/ul RBC (4.0-5.4) 10^6/ul Hgb (14.0-18.0) g/dl Hct (42-52) % MCV (80-94) fL MCH (27-31) pg MCHC (31-36) g/dl RDW (10.5-15) % Plt Count (150-450) 10^3/ul MPV (7.4-10.4) um3 Neut % (Auto) (38-83) % Lymph % (Auto) (25-47) % [place] % (Auto) (0-7) % Eos % (Auto) (0-6) % Baso % (Auto) (0-2) % Absolute Neuts (auto) (1.5-7.7) 10^3/ul Absolute Lymphs (auto) (1.0-4.8) 10^3/ul Absolute Monos (auto) (0-0.8) 10^3/ul Absolute Eos (auto) (0-0.6) 10^3/ul Absolute Basos (auto) (0-0.2) 10^3/ul Absolute Nucleated RBC 10^3/ul Nucleated RBC % INR (Anticoag Therapy) (0.77-1.02) APTT (26.0-36.3) seconds D-Dimer, Quantitative (Less Than 230) ng/mL Sodium (139-145) mmol/L Potassium (3.5-5.0) mmol/L Chloride (101-111) mmol/L Carbon Dioxide (22-32) mmol/L Anion Gap (2-11) mmol/L BUN (6-24) mg/dL Creatinine (0.67-1.17) mg/dL Est GFR ( Amer) (>60) Est GFR (Non-Af Amer) (>60) BUN/Creatinine Ratio (8-20) Glucose (70-100) mg/dL Lactic Acid 1.0 (0.5-2.0) mmol/L Calcium (8.6-10.3) mg/dL Magnesium (1.9-2.7) mg/dL Total Bilirubin (0.2-1.0) mg/dL AST (13-39) U/L ALT (7-52) U/L Alkaline Phosphatase (34-104) U/L Total Creatine Kinase (10-223) U/L CK-MB (CK-2) (0.6-6.3) ng/mL Troponin I (<0.04) ng/mL C-Reactive Protein (< 5.00) mg/L B-Natriuretic Peptide 523 H ( - 100) pg/mL Total Protein (6.4-8.9) g/dL Albumin (3.2-5.2) g/dL Globulin (2-4) g/dL Albumin/Globulin Ratio (1-3) Lipase (11.0-82.0) U/L TSH (0.34-5.60) mcIU/mL Microbiology and Other Data: Microbiology 09/14/17 14:28 Urine Culture - Final Urine Escherichia Coli Assess/Plan/Problems-Billing Assessment: Mr. 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, hx of CVA, chronic back pain on chronic narcotics, with recent hospitalization from 09/05-09/07 with acute systolic CHF with bilateral pleural effusion requiring thorancentesis of the left lung with 1700 ml removed now is sent from [facility] for concern for weight gain, SOB and hypoxia found tohave a recurrence in the left pleural effusion in which he underwent another thorancentesis removing 2L on 09/14 - Patient Problems (1) Ischemic cardiomyopathy Current Visit: Yes Status: Chronic Code(s): I25.5 - ISCHEMIC CARDIOMYOPATHY SNOMED Code(s): 749020316 Comment: - h/o V-tach s/p ICD. ICD defib fucntion turned off 09/17. EF 25-30% 08/31 compared to 2016 little change noted other than pleural effusion - continue amiodarone Refusing all his pills 09/18. Appropriate for Hospice. I will talk to his when she answers my message. (2) Hyponatremia Current Visit: Yes Status: Acute Code(s): E87.1 - HYPO-OSMOLALITY AND HYPONATREMIA SNOMED Code(s): 48299967 Comment: - hx of hyponatremia. Na+ 118. No impovement despite low fluid intake. I will lower gabapentin dose--not clear if he is benefiting from it and it could be causing side effects. Na+ 123 on 09/18, improved after po torsemide 200 mg but no clinical improvement, in fact his MS is worse 09/18. (3) Atrial fibrillation Current Visit: Yes Status: Chronic Code(s): I48.91 - UNSPECIFIED ATRIAL FIBRILLATION SNOMED Code(s): 29514209 Comment: --Continue Amiodarone. Paced rhythm. - not on anticoagulation d/t recurrent hematuria. - ASA 81 mg daily (4) Pleural effusion Current Visit: Yes Status: Acute Code(s): J90 - PLEURAL EFFUSION, NOT ELSEWHERE CLASSIFIED SNOMED Code(s): 61063072 Comment: - Recurrent suspect secondary to CHF - now s/p thorancentesis 09/14 (2nd one in 2 weeks) pulling off 2L - awaiting path. C&S neg. - cardiology consult appreciated. I spoke to his Marko. She did not request to speak to me when she was visiting her . Palliative care consult requested. - (5) Systolic and diastolic CHF, acute on chronic Current Visit: Yes Status: Acute Priority: Medium Code(s): I50.43 - ACUTE ON CHRONIC COMBINED SYSTOLIC AND DIASTOLIC HRT FAIL SNOMED Code(s): 390165118516623 Comment: - EF 25-30% - acute on chronic with recurrent pleural effusion Re-start lisinopril at lower dose of 2.5 mg daily, start 09/17. (6) DNR (do not resuscitate) Current Visit: Yes Status: Acute Comment: His nurse Sangita and I spoke to the patient about end of life care. He showed good understanding of the function of his AICD and his overall cardiac prognosis. He was very clear that he wanted the ICD shock capability to be turned off, that he did not want CPR or intubation. DNR ordered, MOLST form completed. Status and Disposition: inpatient with recurrent pleural effusion. Lives at [facility] senior living
[2017-09-18] MEDS ORDERED: Morphine ORAL CONCENTRATE* 5 MG/0.25 ML ORAL.SYRIN SL PRN (11:28)
[2017-09-18] MEDS ORDERED: Atropine 1% (ORAL/SL)* 15 ML BTL SL PRN (11:29)
[2017-09-18] MEDS ORDERED: LORazepam TAB(*) 1 MG SL PRN (11:29)
[2017-09-18] MEDS: Gabapentin CAP(*) 100 MG PO SCH ×2 (12:41→15:01)
[2017-09-18] MEDS: Aspirin EC TAB* 81 MG TAB.EC PO SCH (12:41)
[2017-09-18] MEDS: Amiodarone TAB* 200 MG PO SCH (12:41)
[2017-09-18] MEDS: Morphine TAB Extended Release (*) 15 MG TAB.ER PO SCH (12:42)
[2017-09-18] MEDS: Senna TAB PO SCH (12:42)
[2017-09-18] MEDS: Nystatin TOP POWDER* 15 GM BTL TOPICAL SCH ×2 (12:42→22:13)
[2017-09-18] MEDS: Omeprazole CAP* 20 MG PO SCH (12:42)
[2017-09-18] MEDS: Polyethylene Glycol 3350* 17 GM PACKET PO SCH (12:42)
[2017-09-18] MEDS: Lisinopril TAB* 5 MG PO SCH (12:42)
[2017-09-18] MEDS: Torsemide TAB* 20 MG PO SCH (12:43)
--- NOTE | 2017-09-19 01:49 | DS ---
TRANSFER SUMMARY: DATE OF ADMISSION: 09/14/17 DATE OF TRANSFER: 09/19/17 This is being dictated in advance. HISTORY: This 72-year-old man has been a resident of [facility] for about a year and a quarter. The nursing staff noted he was short of breath, had gained weight, and was hypoxic, and sent him to the emergency room from which he was admitted. He is known to have a systolic congestive heart failure with coronary artery disease. He had recently been treated for a large pleural effusion, it had reaccumulated. He was felt to have anasarca as well. He underwent thoracentesis on 09/14/17. Dr. Ken removed about 2 L of fluid from the left pleural space. The patient was seen in consultation by Dr. Davis. He was given large oral doses of torsemide, which were effective in helping him diurese , however, it was felt that his overall prognosis was extremely poor and Dr. Davis recommended that his ICD be turned off. I spoke to the patient in the presence of a nurse when he was mentally competent. He understood what the ICD function was and that if the function was stopped, he would peacefully without it shocking him. He also requested not to be intubated. The [employer] apprenticeship representative came and turned off the defibrillating portion of the ICD. Following that the patient became rather delirious the next day. He was not eating or drinking. I do not think he took any of his medications at all that day, he did get a 2 mg dose of haloperidol. I am ordering all of his usual medications except for his diuretic. Unless his mental status improved significantly, I do not think he will take any oral medications. If he does clear his mental status, takes his medications and begins eating and drinking a normal amount, then it would be worth considering restarting his torsemide at 150 mg daily as recommended by Dr. Davis and monitoring his basic metabolic profile periodically. I think this is unlikely and most likely, he will continue to not take his medications. I ordered morphine, atropine and lorazepam all to be given sublingually as the usual hospice regimen. A referral to hospice was made and they should visit him at [facility]. If he is accepted into the hospice program, I would consider stopping all of his medications other than the morphine, lorazepam, and atropine. FINAL DIAGNOSES: 1. Ischemic cardiomyopathy. 2. Hyponatremia. 3. Atrial fibrillation. 4. Pleural effusion. 5. Probable dementia exacerbated by delirium. TRANSFER MEDICATIONS: 1. Atropine 1% 2 drops sublingual every 2 hours p.r.n. 2. Haloperidol 2 mg IM every 6 hours p.r.n. 3. Lisinopril 2.5 mg daily. 4. Lorazepam 1 mg sublingual every 4 hours p.r.n. 5. Morphine oral concentrate 5 mg sublingual every 30 minutes p.r.n. 6. Aspirin 81 mg daily. 7. Amiodarone 200 mg daily. 8. Omeprazole 40 mg daily. 9. Morphine sulfate 15 mg daily. 10. Nystatin topical powder twice daily. In the event that he is unwilling or unable to swallow the oral medications above, I will consider that he should be treated entirely with the sublingual doses of morphine, lorazepam, and atropine, each given p.r.n. on a comfort basis. I note that I discussed the management plan as described above in great detail with his , who is fully in support of this approach. [id number]/[facility] #: [id number] TAYLOR
[2017-09-19 05:48] LABS: EGFR Non-African American 78.4 (>60)
[2017-09-19] MEDS: Acetaminophen TAB* 325 MG PO SCH (05:54)
[2017-09-19] MEDS: Acetic Acid 0.25%* 250 ML BTL IRRIGATION SCH (06:35)
[2017-09-19] MEDS: Lisinopril TAB* 5 MG PO SCH (08:04)
[2017-09-19] MEDS: Omeprazole CAP* 20 MG PO SCH (08:04)
[2017-09-19] MEDS: Amiodarone TAB* 200 MG PO SCH (08:05)
[2017-09-19] MEDS: Morphine TAB Extended Release (*) 15 MG TAB.ER PO SCH (08:05)
[2017-09-19] MEDS: Aspirin EC TAB* 81 MG TAB.EC PO SCH (08:05)
[2017-09-19] MEDS: Nystatin TOP POWDER* 15 GM BTL TOPICAL SCH (08:05)
[2017-09-19 08:28] VITALS: BP 121/51
[2017-09-19] MEDS ORDERED: Torsemide TAB* 100 MG PO SCH (09:00)
== END 2017-09-19 09:45 | DRG 292 ==
LOC: ED 09:42 → MEDTELE 12:29
PROVIDERS: ADMIT Internal Medicine; ATTEND Internal Medicine
PROC: 0W9B3ZZ Drainage of Left Pleural Cavity, Percutaneous Approach (ICD-10-PCS; principal; 2017-09-14)
DX: I11.0 Hypertensive heart disease with heart failure (principal); I47.2 Ventricular tachycardia; E87.1 Hypo-osmolality and hyponatremia; I50.43 Acute on chronic combined systolic (congestive) and diastolic (congestive) heart failure; E11.9 Type 2 diabetes mellitus without complications; I48.91 Unspecified atrial fibrillation; E66.01 Morbid (severe) obesity due to excess calories; I25.10 Atherosclerotic heart disease of native coronary artery without angina pectoris; I25.5 Ischemic cardiomyopathy; E55.9 Vitamin D deficiency, unspecified; M48.02 Spinal stenosis, cervical region; E87.5 Hyperkalemia; M54.5 Low back pain; Z66 Do not resuscitate; Z68.33 Body mass index [BMI] 33.0-33.9, adult; Z95.810 Presence of automatic (implantable) cardiac defibrillator; Z95.1 Presence of aortocoronary bypass graft; Z89.511 Acquired absence of right leg below knee; Z79.1 Long term (current) use of non-steroidal anti-inflammatories (NSAID); Z79.84 Long term (current) use of oral hypoglycemic drugs; Z79.82 Long term (current) use of aspirin; Z79.891 Long term (current) use of opiate analgesic; Z79.899 Other long term (current) drug therapy; Z88.1 Allergy status to other antibiotic agents; Z88.0 Allergy status to penicillin; Z82.49 Family history of ischemic heart disease and other diseases of the circulatory system; Z83.79 Family history of other diseases of the digestive system; Z87.440 Personal history of urinary (tract) infections; Z87.891 Personal history of nicotine dependence
CPT/HCPCS: 36415; 70450; 71045; 74176; 80048; 80053; 81003; 81015; 82550; 82553; 82728; 83540; 83550; 83605; 83615; 83690; 83735; 83880; 84157; 84443; 84484; 84550; 85025; 85027; 85379; 85610; 85730; 86140; 87077; 87086; 87186; 88112; 93005; 93308; 99284; A9270-GY; C8924; J1160; J1630; J1756; J1940; J3475

== ENCOUNTER 2017-10-25 21:21 | Inpatient (IN) | payer MEDICARE, OTHER ==
[2017-10-25] MEDS ORDERED: Acetaminophen SUPP* 650 MG SUPP ONE (21:30)
[2017-10-25] MEDS ORDERED: Acetaminophen SUPP* 650 MG SUPP PR ONE (21:35)
[2017-10-25] MEDS ORDERED: NS 0.9% 1000 ML* 1,000 ML IV ONE (21:35)
[2017-10-25] MEDS ORDERED: Vancomycin(*) 1,000 MG in NS 0.9% 250 ML* 250 ML IVPB ONE (21:36)
[2017-10-25] MEDS ORDERED: Piperacillin/Tazobac ADVAN(*) 3.375 GM in NS 0.9% 100 ML* 100 ML IVPB ONE (21:36)
[2017-10-25 22:03] LABS: Hematocrit 30 % (42-52); Hemoglobin 9.7 g/dl (14.0-18.0); Mean Corpuscular HGB Conc 32 g/dl (31-36); Mean Corpuscular Hemoglobin 25 pg (27-31); Mean Corpuscular Volume 79 fL (80-94); Mean Platelet Volume 8.9 um3 (7.4-10.4); Platelet Count 147 10^3/ul (150-450); Red Blood Count 3.81 10^6/ul (4.00-5.40); Red Cell Distribution Width 20 % (10.5-15); White Blood Count 34.6 10^3/ul (3.5-10.8)
--- NOTE | 2017-10-25 22:17 | RAD ---
INDICATION: Fever. COMPARISON: Comparison is made with a prior chest x-ray study from September 14, 2017. TECHNIQUE: A portable view of the chest was obtained. FINDINGS: The heart is moderately enlarged. The patient is status post sternotomy. There is a dual-chamber cardiac pacemaker defibrillator present. There is increased density at the left lung base and a hazy density which projects over the left lung field suggestive of a pleural effusion. The right lung appears clear. IMPRESSION: LEFT BASILAR INFILTRATE AND PROBABLE LEFT PLEURAL EFFUSION.
[2017-10-25 22:24] LABS: EGFR Non-African American 31.4 (>60)
[2017-10-25 22:31] LABS: ABS Basophils 0.1 10^3/ul (0-0.2); ABS Eosinophils 0 10^3/ul (0-0.6); ABS Lymphocytes 0.2 10^3/ul (1.0-4.8); ABS Monocytes 0.2 10^3/ul (0-0.8); ABS Neutrophils 34.2 10^3/ul (1.5-7.7); ABS Nucleated RBC 0 10^3/ul; Eosinophil % 0 % (0-6); Lymphocyte % 0.6 % (25-47); Nucleated Red Blood Cells % 0
[2017-10-25 22:33] LABS: Monocytes % 1 % (0-7)
[2017-10-25 22:36] LABS: INR 1.26 (0.77-1.02)
[2017-10-25] MEDS ORDERED: Lidocaine 2% EPI 1:200000 MPF*10-20 ML VIAL ONE (22:45)
[2017-10-25] MEDS ORDERED: Norepinephrine 16MCG/ML IVPRE* 4,000 MCG/250 ML BAG IV ONE (23:12)
[2017-10-25] MEDS ORDERED: Ondansetron 40 MG VIAL* 2 MG/ML 20 ML VIAL IV PRN (23:28)
[2017-10-25] MEDS: Norepinephrine 16MCG/ML IVPRE* 4,000 MCG/250 ML BAG IV SCH (23:30)
[2017-10-25 23:44] LABS: Urine Appearance Turbid; Urine Blood 3+ (Negative); Urine Color Amber; Urine Ketones Negative (Negative); Urine Protein 2+(100 mg/dL) (Negative); Urine Specific Gravity 1.015 (1.010-1.030); Urine Urobilinogen Positive (Negative)
[2017-10-25] MEDS ORDERED: Vancomycin(*) 0 MG in NS 0.9% 250 ML* 250 ML IVPB SCH (23:45)
[2017-10-25] MEDS ORDERED: Zosyn per Pharmacy* NOTE FOLLOW UP SCH (23:45)
[2017-10-25] MEDS ORDERED: Morphine VIAL* 4 MG/ML VIAL (1 ml vial) IV PRN (23:52)
[2017-10-26] MEDS ORDERED: Vancomycin per Pharmacy* NOTE FOLLOW UP PRN (00:11)
--- NOTE | 2017-10-26 00:25 | ED ---
John Hensley Gabriel, scribed for Genoveva Ness MD on 10/25/17 at 2209 . Altered Mental Status - HPI Summary HPI Summary: This patient is a 72 year old M [place] [facility] [place] [employer] [facility] accompanied by an aide. The [place] [facility] c/o the patient not drinking for 24 hours and he has been on abx for UTI. Pt has a Lala in place and does not respond when spoken to. Pt is a DNR. Nurses note: Decreased level of conciousness x two days. EMS report on their arrival patient was unresponsive, with SBP in 60s/ tachy 110-120s. Urine has been dark per reports. On arrival to ED pt resonds to pain, moaning. LEVEL: 5 CAVEAT: Exam limited due to the patients unresponsiveness. - History Of Current Complaint Chief Complaint: EDAltMentalStatus Stated Complaint: AMS Time Seen by Provider: 10/25/17 21:29 Hx Obtained From: Family/Lifter, EMS Onset/Duration: Still Present Timing: Constant Severity Initially: Moderate Severity Currently: Moderate Character: Responsiveness - decreased Associated Signs And Symptoms: Positive: Fever - Allergies/Home Medications Allergies/Adverse Reactions: Allergies Allergy/AdvReac Type Severity Reaction Status Date / Time erythromycin base Allergy GI Upset Verified 06/28/17 23:35 Penicillins Allergy Hives Verified 06/28/17 23:34 Home Medications: Home Medications Acetic Acid 0.25%* [ Acetic Acid 0.25*] 50 ml .SEE ORDER DAILY 10/25/17 [ History Confirmed 10/25/17] Amiodarone TAB* [Cordarone Tab*] 200 mg PO QAM 10/25/17 [History Confirmed 10/25] Aspirin EC TAB* [Ecotrin EC Low Dose 81 MG*] 81 mg PO QAM 10/25/17 [History Confirmed 10/25/17] Ciprofloxacin TAB* [Cipro 500 MG TAB*] 500 mg PO BID 10/25/17 [History Confirmed 10/25/17] LORazepam TAB(*) [Ativan 1 MG TAB (*)] 1 mg PO Q4H PRN MDD 6 tabs 10/25/17 [ History Confirmed 10/25/17] Lisinopril TAB* [Prinivil TAB*] 2.5 mg PO QAM 10/25/17 [History Confirmed ] Morphine Sulfate [Morphine Sulfate ER] 15 mg PO QAM 10/25/17 [History Confirmed 10/25/17] Omeprazole CAP* [Prilosec CAP* 20 MG] 40 mg PO QAM 10/25/17 [History Confirmed 10/25/17] PMH/Surg Hx/FS Hx/Imm Hx Endocrine/Hematology History: Reports: Hx Anticoagulant Therapy, Hx Blood Transfusions, Hx Diabetes, Hx Unexplained Bleeding - Admitted with rectal bleeding Denies: Hx Blood Disorders, Hx Bone Marrow Disease, Hx Systemic Lupus Erythematosus, Hx Sickle Cell Disease, Hx Thyroid Disease, Hx Anemia, Other Endocrine/Hematological Disorders Cardiovascular History: Reports: Hx Auto Implanted Cardiovert Defib, Hx Cardiac Arrest, Hx Congestive Heart Failure, Hx Coronary Artery Disease, Hx Hypercholesterolemia, Hx Hypertension, Hx Pacemaker/ICD, Other Cardiovascular Problems/Disorders - open heart surgery Denies: Hx Aneurysm, Hx Angina, Hx Angioplasty, Hx Cardiomegaly, Hx Congenital Heart Disease, Hx Deep Vein Thrombosis, Hx Embolism, Hx Hypotension, Hx Myocardial Infarction, Hx Peripheral Vascular Disease, Hx Rheumatic Fever, Hx Syncope, Hx Valvular Heart Disease Respiratory History: Denies: Hx Asthma, Hx Chronic Obstructive Pulmonary Disease (COPD), Hx Pneumonia, Hx Seasonal Allergies GI History: Reports: Other GI Disorders - SBO Denies: Hx Cirrhosis, Hx Crohn's Disease, Hx Diverticulosis, Hx Gall Bladder Disease, Hx Gastroesophageal Reflux Disease, Hx Gastrointestinal Bleed, Hx Hiatal Hernia, Hx Irritable Bowel, Hx Jaundice, Hx Obstructive Bowel, Hx Ileostomy, Hx Pyloric Stenosis, Hx Ulcer History: Reports: Hx Kidney Stones - pt states that he had 5 stones in bladder, Other Problems/Disorders - urinary retention Denies: Hx Acute Renal Failure, Hx Benign Prostatic Hyperplasia, Hx Chronic Renal Failure, Hx Dialysis, Hx Kidney Infection, Hx Renal Disease Musculoskeletal History: Reports: Hx Arthritis - BACK, Hx Back Problems - L4-L5 Laminectomy, Other Musculoskeletal History - Extensive Back Sx/Pain issues Denies: Hx Bursitis, Hx Congenital Bone Abnormalities, Hx Fibromyalgia, Hx Gout, Hx Orthopedic Injury, Hx Osteoporosis, Hx Scoliosis, Hx Tendonitis Sensory History: Reports: Hx Cataracts, Hx Contacts or Glasses, Hx Vision Problem, Hx Hearing Problem Denies: Hx Eye Injury, Hx Eye Prosthesis, Hx Glaucoma, Hx Legally Blind, Hx Macular Degeneration, Hx Deafness, Hx Hearing Aid, Other Sensory Impairments Opthamlomology History: Reports: Hx Cataracts, Hx Contacts or Glasses, Hx Vision Problem Denies: Hx Eye Injury, Hx Eye Prosthesis, Hx Glaucoma, Hx Legally Blind, Hx Macular Degeneration, Other Sensory Impairments Neurological History: Denies: Hx Dementia, Hx Developmental Delay, Hx Headaches, Hx Migraine, Hx Nerve Disease, Hx Seizures, Hx Spinal Cord Injury, Hx Transient Ischemic Attacks (TIA), Other Neuro Impairments/Disorders Psychiatric History: Reports: Hx Anxiety Denies: Hx Depression - Cancer History Hx Chemotherapy: No Hx Radiation Therapy: No Hx Palliative Cancer Treatment: No - Surgical History Surgery Procedure, Year, and Place: C4-C7 [id number]. 2008- [facility] DISC- LOWER L4/5. 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 Denies: Hx Hepatitis, Hx Human Immunodeficiency Virus (HIV), Hx of Known/ Suspected MRSA, Hx Shingles - Vaccinated, Hx Tuberculosis, Hx Known/Suspected VRSA, History Other Infectious Disease, Traveled Outside the [place] in Last 30 Days - Family History Known Family History: Positive: Cardiac Disease - father, Diabetes - mother - Social History Alcohol Use: None Hx Substance Use: No Substance Use Type: Reports: None Hx Tobacco Use: Yes Smoking Status (MU): Former Smoker Type: Cigarettes Length of Time of Smoking/Using Tobacco: 20 years Have You Smoked in the Last Year: No Review of Systems - ROS Summary Review of Systems Summary: LEVEL: 5 CAVEAT: Exam limited due to the patients unresponsiveness. Positive: Fever Genitourinary: Other - UTI Neurological: Other - AMS All Other Systems Reviewed And Are Negative: No Physical Exam - Summary Physical Exam Summary: VITAL SIGNS: Reviewed. GENERAL: Patient is an elderly ill looking male who is lying comfortable in the stretcher. Patient is not in any acute respiratory distress. Pt is lethargic. HEAD AND FACE: No signs of trauma. No ecchymosis, hematomas or skull depressions. EYES: PERRLA, EOMI x 2, EARS: Ear canals and tympanic membranes are within normal limits. MOUTH: Oropharynx within normal limits. NECK: Supple, trachea is midline, no adenopathy, no JVD, no carotid bruit, CHEST: Symmetric, LUNGS: decreased breath sounds bilaterally CVS: Regular rate and rhythm, S1 and S2 present, no murmurs or gallops appreciated. ABDOMEN: Soft, non-tender. No signs of distention. No rebound no guarding, and no masses palpated. Bowel sounds are normal. There is a Lala in place EXTREMITIES: right sided BKA NEURO: Alert and oriented to name. No acute neurological deficits. SKIN: Dry and warm Triage Information Reviewed: Yes Vital Signs On Initial Exam: Initial Vitals Temp Pulse Resp BP Pulse Ox 102.1 F 95 18 74/43 90 10/25/17 21:22 10/25/17 21:22 10/25/17 21:22 10/25/17 21:22 10/25/17 21:22 Vital Signs Reviewed: Yes Procedures - Central Line Right Jugular Central Line Lumen: triple - US guided Central Line Procedure: betadine prep Central Line Position: internal jugular (R) Anesthesia: local - lido 2% cc's of anesthesia: 3 Complications: none Central Line Post Position: good blood return Diagnostics - Vital Signs Vital Signs Temp Pulse Resp BP Pulse Ox 10/25/17 22:01 87 16 63/39 98 10/25/17 22:00 87 18 97 10/25/17 21:56 87 16 65/38 96 10/25/17 21:51 89 18 61/43 96 10/25/17 21:46 74 17 57/40 95 10/25/17 21:43 93 18 61/37 94 10/25/17 21:39 82 20 60/36 96 10/25/17 21:35 96 22 74/43 96 10/25/17 21:30 23 10/25/17 21:22 102.1 F 95 18 74/43 90 - Laboratory Lab Results: Lab Results 10/25/17 Range/Units 21:50 WBC 34.6 H (3.5-10.8) 10^3/ul RBC 3.81 L (4.00-5.40) 10^6/ul Hgb 9.7 L (14.0-18.0) g/dl Hct 30 L (42-52) % MCV 79 L (80-94) fL MCH 25 L (27-31) pg MCHC 32 (31-36) g/dl RDW 20 H (10.5-15) % Plt Count 147 L (150-450) 10^3/ul MPV 8.9 (7.4-10.4) um3 Neut % (Auto) Pending Lymph % (Auto) Pending Esmeralda % (Auto) Pending Eos % (Auto) Pending Baso % (Auto) Pending Absolute Neuts (auto) Pending Absolute Lymphs (auto) Pending Absolute Monos (auto) Pending Absolute Eos (auto) Pending Absolute Basos (auto) Pending Absolute Nucleated RBC Pending Nucleated RBC % Pending Result Diagrams: 10/25/17 21:50 10/25/17 21:50 Lab Statement: Any lab studies that have been ordered have been reviewed, and results considered in the medical decision making process. - Radiology CXR Radiology Interpretation Completed By: Radiologist - LEFT BASILAR INFILTRATE AND PROBABLE LEFT PLEURAL EFFUSION. ED physician has reviewed this radiology report. CXR 2 Radiology Interpretation Completed By: ED Physician - No PNX, interstitial infiltrate in the right lung consistent with CHF. Central line in proximal superior vena cava. Pending official report. - EKG 21:56 Cardiac Rate: NL EKG Rhythm: Sinus Rhythm - at 87 BPM EKG Interpretation: RBBB Re-Evaluation - Re-Evaluation First Eval Re-Evaluation Time: 22:20 Change: Unchanged Comment: The patient's is stating his DNR has rescinded and would like full care for the patient. Altered Mental Statu Course/Dx - Course Assessment/Plan: Pt is a 72 y/o male with a long list of medical issues. His EF is 20-25 and the patient is lethargic and has a fever. The patient used to be a DNR and there is a paper in his packet from the [place] [facility] however his is requesting everything be done and rescinds the DNR. Pt is hypotensive and continues to be after 2 bags of saline he will start pressars. The reason the patient was not given the full amount of fluid as indicated by the sepsis protocol is due to his CHF. An EKG reveals RBBB. CXR reveals, per radiologist , LEFT BASILAR INFILTRATE AND PROBABLE LEFT PLEURAL EFFUSION. Blood work obtained. Dx Sepsis, PNA, possible UTI, renal insufficiency, and urinary insufficiency. Patient will be admitted to Dr. Tovar. - Diagnoses Provider Diagnoses: Sepsis, PNA (pneumonia), Possible urinary tract infection, Renal insufficiency , Renal failure - Provider Notifications Discussed Care Of Patient With: Kati Tovar Time Discussed With Above Provider: 23:09 Instructed by Provider To: Admit As Inpatient - Critical Care Time Critical Care Time: 30-74 min - 66 minutes Discharge - Sign-Out/Discharge Documenting (check all that apply): Discharge/Admit/Transfer - admitted to Dr barreto - Discharge Plan Condition: Fair Disposition: ADMITTED TO [facility] Referrals: Jannette Steinberg MD [Primary Care Provider] - The documentation as recorded by the John chavez Gabriel accurately reflects the service I personally performed and the decisions made by me, Genoveva Ness MD.
[2017-10-26] MEDS ORDERED: Dextrose 50% Syringe 50 ML* 25 GM/50 ML SYRINGE IV PUSH PRN (02:18)
[2017-10-26] MEDS: ZOSYN 3.375 GM Q8H per EXTENDED INFUSION IVPB SCH ×4 (02:27→10:39)
[2017-10-26] MEDS ORDERED: Magnesium Sulfate 2 GM IV* 2 GM/50 ML BAG IVPB ONE (04:09)
--- NOTE | 2017-10-26 04:51 | HP ---
CC: [facility] * HISTORY AND PHYSICAL: DATE OF ADMISSION: 10/25/17 TIME OF EVALUATION: 2300. PRIMARY CARE PHYSICIAN: [facility]. CHIEF COMPLAINT: Altered mental status. HISTORY OF PRESENT ILLNESS: This is a 72-year-old male with multiple comorbidities including chronic cardiomyopathy with ejection fraction of 25% to 30%, diabetes and indwelling Tomlinson catheter with recurrent UTIs, who presents to the emergency room via EMS from [facility] for unresponsiveness. The patient is unable to provide a history. His is at the bedside and according to the records, the patient has been altered for the past 48 hours. She states she saw him yesterday. She was concerned about him. He was not eating or drinking. He did not want to go to the emergency room at that time. She followed up with him today and she was insistent that he go to the emergency room. She states he has not had nothing to eat or drink for the past 48 hours. She tried to feed him, but she was worried that he was going to choke. She also noted that his urine was very dark, near black in appearance. The patient was just admitted a month ago in September and according to the discharge summary, referral to the hospice was made. I asked the about this. She states she has no idea about it, no one told her. She did not know what the services provided. We also discussed his code status. It appeared initially she rescinded his MOLST form stating DNR/DNI. We went through this again and she agrees that he should remain a DNR/DNI. Otherwise, unable to obtain review of systems. The patient is able to tell me his name, but otherwise, is unable to answer any questions appropriately. In the emergency room, the patient had labs, imaging, was given vanco and Zosyn, a total of 4 L of fluid and Levophed has been started and rectal Tylenol and was referred to the hospitalist service for further evaluation. PAST MEDICAL HISTORY: 1. Ischemic cardiomyopathy with an ejection fraction of 25% to 30%. 2. History of hyponatremia. 3. Atrial fibrillation, not on anticoagulation. 4. History of a pleural effusion. 5. Diabetes. 6. History of osteomyelitis of the right ankle, status post BKA on the Right. 7. Indwelling Tomlinson catheter. 8. History of V-tach, status post AICD. 9. CAD, status post CABG. 10. Morbid obesity. 11. Hypertension. 12. History of spinal stenosis of cervical region, status post cervical decompression. 13. Chronic low back pain, on chronic narcotics. 14. History of C. diff colitis. 15. History of small bowel obstruction. Also of note, this is patient's 4th admission this year. MEDICATIONS: 1. Atropine 2 drops sublingual q.2 hours as needed. 2. Lisinopril 2.5 mg p.o. q.a.m. 3. Ativan 1 mg q.4 hours as needed. 4. Morphine concentrate 5 mg sublingual q.30 minutes as needed. 5. Aspirin 81 mg daily. 6. Amiodarone 200 mg p.o. daily. 7. Omeprazole 40 mg daily. 8. Morphine sulfate 15 mg q.a.m. 9. Acetic acid 50 mL. 10. Cipro 500 mg p.o. b.i.d. ALLERGIES: ERYTHROMYCIN and PENICILLIN. FAMILY HISTORY: Unable to obtain. SOCIAL HISTORY: As mentioned, the patient resides at [facility]. His , Yelitza Adams, is his healthcare proxy, who is present at the bedside. Quit smoking cigars 30 years ago. No alcohol use. No illicit drug use. CODE STATUS: Confirmed, remains a DNR/DNI, confirmed with his as the patient no longer has capacity at this time. REVIEW OF SYSTEMS: Unable to be obtained due to the patient's altered mental status. PHYSICAL EXAMINATION GENERAL: No acute distress. VITAL SIGNS: T-max 102.1, pulse rate 82, respiratory rate 18, oxygen saturation 98% on 2 L nasal cannula, blood pressure 77/45. HEENT: Head normocephalic. Pupils are equal and reactive, anicteric. Oropharynx, mucous membranes dry. Lips are dry and chapped. NECK: Supple. No lymphadenopathy. RESPIRATORY: Diminished breath sounds. Bibasilar rales. No increased work of breathing. CARDIAC: Regular rate and rhythm. Soft systolic murmur heard throughout. ABDOMEN: Positive bowel sounds, soft, morbidly obese, nontender, nondistended. EXTREMITIES: Left BKA. His right lower extremity has a necrotic fifth toe. NEUROLOGIC: The patient is alert and oriented x1. He is oriented to self only. No gross focal neurologic deficits. DERM: He has dry, flaky skin. : Appears Indwelling tomlinson is not in the urethral meatus but is draining urine. DIAGNOSTIC STUDIES/LAB DATA: White count 34.6, hemoglobin 9.7, hematocrit 30, platelets 147. INR is 1.26. Blood gas, pH is 7.42, pCO2 is 31, pO2 is 102. Sodium 129, potassium 5, chloride 94, bicarb 23, BUN 98, creatinine 2.08, lactic acid 3.6, total bili 1.5, alk phos 196, troponin 0.24, CRP 168, BNP is 696, albumin is 2.2. Urine is pending. Chest x-ray: Left basilar infiltrate and probable left pleural effusion. EKG shows sinus rhythm with a right bundle- branch block. ASSESSMENT: This is a 72-year-old male with multiple comorbidities including cardiomyopathy with ejection fraction of 25% to 30%, who presents to the emergency room with altered mental status, found to be in septic shock, most likely secondary to urinary tract infection with multiorgan failure. 1. Septic shock. Assessment: The patient is now status post 4 L, is not yet started on Levophed. He has acute kidney injury, elevated troponin and significant leukocytosis. Also of note, he has a low albumin. His chest x-ray is suggestive of left infiltrate and pleural effusion. I suspect the source is his urine. The patient is mentating; however, he is alert and oriented x1. I spoke to the at length regarding a poor prognosis and I did not think that he was going to survive. The question also is if the patient enrolled in hospice at [facility] as he is on morphine long-acting, short-acting and atropine drops. We also discussed keeping him comfortable while trying to get him through this acute infection. She is agreeable to this and is agreeable to reassessing after 24 to 48 hours and discussing comfort measures at that time. In the interim, we will admit him to the ICU, place him on fluids and Levophed to maintain his blood pressure, continue vanco and Zosyn, follow up on his urine cultures and blood cultures, repeat his labs in the morning. Keep him n.p.o. for now and continue morphine IV as needed. We will hold his p.o. meds until he has a bedside nursing eval, which I suspect he will not pass through his altered mental status. Elevated troponin likely demand ischemia. EKG unremarkable. Will trend troponin. We will follow up with Dr. Hernandez in the morning to take over service. Consider urology evaluation of patient's anatomy. CHRONIC MEDICAL PROBLEMS: 1. Cardiac. We will hold his oral agents as mentioned including his lisinopril in the setting of his acute kidney injury. 2. For his GERD, we will continue his omeprazole in the morning if he tolerates p.o. Otherwise, I will switch it to IV. Continue pain control. 3. FEN. As mentioned, n.p.o. until passes bedside swallow. 4. DVT prophylaxis. The patient scores high risk, placed him on heparin subcu t.i.d. 5. Code status. The patient's confirms that he remains a DNR/DNI as the patient lacks capacity. PATIENT TIME: Greater than 60 minutes spent doing the history and physical, more than half time was spent in direct patient contact in critical care time. [id number]/CPS #: [id number] TAYLOR
[2017-10-26] MEDS ORDERED: Insulin LISPRO* 1 UNITS UNIT SUBCUT SCH (06:00)
[2017-10-26] MEDS ORDERED: Heparin VIAL(*) 5000 UNITS/ML VIAL (FIVE THOUSAND) SUBCUT SCH (06:00)
[2017-10-26 06:14] LABS: Hematocrit 27 % (42-52); Hemoglobin 8.7 g/dl (14.0-18.0); Mean Corpuscular HGB Conc 32 g/dl (31-36); Mean Corpuscular Hemoglobin 25 pg (27-31); Mean Corpuscular Volume 79 fL (80-94); Mean Platelet Volume 8.8 um3 (7.4-10.4); Platelet Count 156 10^3/ul (150-450); Red Blood Count 3.45 10^6/ul (4.00-5.40); Red Cell Distribution Width 20 % (10.5-15); White Blood Count 41.1 10^3/ul (3.5-10.8)
[2017-10-26 06:30] LABS: EGFR Non-African American 36.4 (>60)
[2017-10-26 06:55] LABS: ABS Basophils 0.1 10^3/ul (0-0.2); ABS Eosinophils 0 10^3/ul (0-0.6); ABS Lymphocytes 0.9 10^3/ul (1.0-4.8); ABS Monocytes 0.5 10^3/ul (0-0.8); ABS Neutrophils 39.6 10^3/ul (1.5-7.7); ABS Nucleated RBC 0 10^3/ul
[2017-10-26] MEDS: Norepinephrine 16MCG/ML IVPRE* 4,000 MCG/250 ML BAG IV SCH (07:14)
[2017-10-26] MEDS ORDERED: Omeprazole CAP* 20 MG PO SCH (07:30)
--- NOTE | 2017-10-26 07:48 | RAD ---
INDICATION: Line placement COMPARISON: October 25, 2017 TECHNIQUE: An AP supine portable view obtained at 2331 hours is submitted. FINDINGS: Bones/Soft Tissues: There are no acute bony findings. There is a right IJ catheter terminating in the superior vena cava. There is left-sided chronic pacemaker/to February. There are sternotomy Cardiomediastinal: The cardiac silhouette is enlarged.. Lungs: There is worsening aeration left lung base with obscuration left hemidiaphragm. The right lung is clear. There is no pneumothorax. Pleura: Suspected bilateral pleural effusions left greater than right. Other: None IMPRESSION: RIGHT IJ CATHETER IN PROPER POSITION WITHOUT EVIDENCE OF PNEUMOTHORAX. POSTOPERATIVE CHANGES WITH ENLARGED CHRONIC SILHOUETTE AND PROGRESSIVE AIRSPACE DISEASE/PLEURAL FLUID LEFT LUNG BASE.
[2017-10-26] MEDS ORDERED: Amiodarone TAB* 200 MG PO SCH (09:00)
[2017-10-26] MEDS ORDERED: Aspirin EC TAB* 81 MG TAB.EC PO SCH (09:00)
[2017-10-26] MEDS: Morphine ORAL CONCENTRATE* 5 MG/0.25 ML ORAL.SYRIN SL PRN ×4 (10:20→14:25)
--- NOTE | 2017-10-26 10:57 | PN ---
Progress Note - Progress Note Date of Service: 10/26/17 Note: CRITICAL CARE MEDICINE Date: 10/26/17 Time: 930 SUBJECTIVE: Patient seen and examined. Pt awake, communicating. angry about being cared for. He states " it was agreed on. I'm not to have these things done to me. I should be allowed to . We agreed on that. I don't want these things [ medical treatments and point to ivs]. levophed and IV stopped. Asked if he wears oxygen, and he says no and asked if he wants it off and he says yes. O2 removed. PHYSICAL EXAM: Vital Signs: Reviewed. SBP 80 Neurologic: awake, communicating, orientation perhaps off, but knows he is in the hospital and other then us not knowing his baseline or family dynamic, his previous care suggests he has supported the notion against emergent medical care , dnr/dni, hospice consideration, including already discontinuing aicd. HEENT: pupils equal. Sclera anicteric. Trachea midline. Cardiovascular: distant, S1 S2 Respiratory: dec bl R>L, phases ok Abdomen: Soft, obese, c/o pain all over. Extremities: cool Access: RIJ LABS: Reviewed. IMAGING: Reviewed. MEDICATIONS: Reviewed. ASSESSMENT: 72 M Septic shock secondary to UTI h/o indwelling tomlinson catheter Acute on chronic renal failure Chronic right pleural effusions PLAN: Neurologic: awake, communicating, orientation perhaps off some, but knows he is in the hospital and other then us not knowing his baseline or family dynamic, his previous care suggests he has supported the notion against emergent medical care, dnr/dni, hospice consideration, including already discontinuing aicd. Has capacity for such decisions now that he did not have on admission last pm. He complains of pain and not wanting current treatments but says he was supported to be allow to have his pain treated with liquid. Will give his liq morphine po for now and see if we can help his comfort Cardiovascular: he is perfusing. total body fluid seems adequete now and interstial up some and would need to transition to flow phase to maintain balance and then ideally can keep up with po fluids if renal function can improve to a diuretic phase, and since he does not want these tx, will dc ivf. Respiratory: tolerating and wob does not seem uncomfortable and does not require O2 presently anyway and will dc with no anticipated use Gastrointestinal: po comfort Renal/Metabolic: kassandra, may have been a few days coming and would need to maintain perfusion and fluid balance already met, and then po with recovery phase if these are going to improve with time. acid may linger. chronic tomlinson Infectious Disease: recieved zosyn and vanco. Has had even ESBL previously with zosyn intermittent. Would continue at this stage to offer zosyn and may linger as well some given renal fx and can dc vanco. question will be if cx return and needing escalation of abx - would discuss this with pt and would offer transition to po abx as well if pt desired, however looks like he was on cipro and failing, likely due to resistance. Hematology: Hb ok. no need for heparin. Endocrine: glu ok, no need to follow. Musculoskeletal: oob as able Psych/Social: palliative eval and will attempt clarity with family regarding pt wishes called his 's phone 3 times now and it remains busy. Social work evaluating as well. Supportive and preventative care as ordered. Disposition: out of icu and should go back to [facility] today if pt not desiring hospital care Code Status: DNR/DNI Critical Care Time: 35min Lisa Hernandez DO
[2017-10-26] MEDS: Morphine TAB Extended Release (*) 15 MG TAB.ER PO SCH ×2 (11:51→12:13)
--- NOTE | 2017-10-26 13:12 | DS ---
CRITICAL CARE MEDICINE DISCHARGE SUMMARY ADMISSION DATE: 10/25/17 ICU ADMISSION DATE: 10/25/17 ICU DISCHARGE DATE: 10/25/17 PRIMARY CARE PROVIDER: Maryan. REFERRING PHYSICIAN: La. DIAGNOSIS: 1. Septic shock secondary to urinary tract infection. 2. Acute renal failure on chronic. 3. End stage ischemic cardiomyopathy. MEDICATIONS AT DISCHARGE: Resume previous medication. May consider taking antibiotics for urinary tract sepsis if desired but he is declining here. ALLERGIES: PCN, Erthromycin. HOSPITAL COURSE: 72 yeal old male admitted with septic ecnpahlopathy and septic shock secondary to urinary tract infection with indwelling tomlinson catheter. Has multiple organ failures, most acute on chronic. Mental status improved with fluids, antibiotics and low dose vasopressors. With regaining capacity patient expressed his wishes against receiving hospital care and said that it had already been agreed upon to allow him to without treatment needing hospice set up. He is adamant against treatment. His supports his decision. She was also advised they could seek antibiotics if desired for his current condition but otherwise as he desires. Will discharge back to [facility] emergency department with hospice care. DISPOSITION: [facility] with hospice care. DIET: Regular. ACTIVITY: as tolerated CODE STATUS: DNR/DNI. FOLLOW UP: with treating medical service Lisa Hernandez DO
[2017-10-26 14:56] VITALS: BP 100/53
[2017-10-26] MEDS ORDERED: Vancomycin(*) 1,250 MG in NS 0.9% 250 ML* 250 ML IVPB SCH (20:00)
[2017-10-27] MEDS ORDERED: Omeprazole CAP* 20 MG PO SCH (06:00)
[2017-10-28] MEDS ORDERED: Vancomycin Trough Check NOTE FOLLOW UP ONE (19:30)
== END 2017-10-26 14:45 | disposition hospice, home (50) | DRG 871 ==
LOC: ED 21:21 → ICU 23:28
PROVIDERS: ADMIT Pediatrics; ATTEND Internal Medicine Critical Care Medicine
DX: A41.51 Sepsis due to Escherichia coli [E. coli] (principal); R65.21 Severe sepsis with septic shock; G93.41 Metabolic encephalopathy; N39.0 Urinary tract infection, site not specified; N17.9 Acute kidney failure, unspecified; I47.2 Ventricular tachycardia; E11.22 Type 2 diabetes mellitus with diabetic chronic kidney disease; I13.10 Hypertensive heart and chronic kidney disease without heart failure, with stage 1 through stage 4 chronic kidney disease, or unspecified chronic kidney disease; N18.9 Chronic kidney disease, unspecified; I25.5 Ischemic cardiomyopathy; I48.91 Unspecified atrial fibrillation; Z66 Do not resuscitate; I25.10 Atherosclerotic heart disease of native coronary artery without angina pectoris; E66.01 Morbid (severe) obesity due to excess calories; M54.5 Low back pain; K21.9 Gastro-esophageal reflux disease without esophagitis; Z95.1 Presence of aortocoronary bypass graft; Z68.31 Body mass index [BMI] 31.0-31.9, adult; Z95.810 Presence of automatic (implantable) cardiac defibrillator; Z79.82 Long term (current) use of aspirin; Z79.891 Long term (current) use of opiate analgesic; Z79.899 Other long term (current) drug therapy; Z88.1 Allergy status to other antibiotic agents; Z88.0 Allergy status to penicillin; Z87.891 Personal history of nicotine dependence
CPT/HCPCS: 36415; 71045; 80053; 81003; 81015; 82803; 83605; 83735; 83880; 84484; 85025; 85610; 85730; 86140; 87040; 87077; 87086; 87186; 87205; 87641; 93005; 99285; A9270-GY; J1644; J2270; J2543; J3370; J3475